=== PATIENT | female | born 1940 | race Caucasian/White ===

== ENCOUNTER 2019-07-01 08:23 | Emergency (ER) | payer MEDICARE, BC ==
--- NOTE | 2019-07-01 08:34 | ERPHSYRPT ---
- History of Present Illness Time Seen by Provider: 07/01/19 08:33 Historian: patient Exam Limitations: no limitations Physician History: 79 y/o obese white female with h/o htn and svt,7 weeks out from open left knee replacement presents with vomiting and diarrhea for one day. pt was found to have a uti several weeks ago. she was tx with both macrobid and keflex for 2 weeks followed by 10 days of bactrim when sx and dx of uti persisted. she has taken probiotics during her antibx tx. last antibx completed 1 month ago. pt was seen at [facility] yesterday to determine if her uti was still present. pt having several episodes of vomiting and diarrhea since yesterday. sx not improving. pt denies cp, denies soa, denies abd pain. Timing/Duration: day(s) (1), intermittent Activities at Onset: none Quality: other (no sig pain) Severity of Pain-Max: none Severity of Pain-Current: none Modifying Factors: Improves With: vomiting Associated Symptoms: diarrhea, nausea, vomiting Previous symptoms: no prior history Allergies/Adverse Reactions: lorazepam [From Ativan] Adverse Reaction (Intermediate, Verified 07/01/19 08:38) "It made me go crazy" morphine Adverse Reaction (Verified 07/01/19 08:38) Home Medications: Cyanocobalamin (Vitamin B-12) [Vitamin B-12] 1,000 mcg SL DAILY 10/11/14 [ History] Multivitamin,Stress Formula [Stress Formula] 1 each PO DAILY 10/11/14 [History] Metoprolol Succinate 100 mg PO DAILY 04/14/15 [History] Aspirin [Aspirin EC] 325 tab PO DAILY 06/24/16 [History] Hx Tetanus, Diphtheria Vaccination/Date Given: (UNKNOWN) Hx Influenza Vaccination/Date Given: Yes Hx Pneumococcal Vaccination/Date Given: Yes - Review of Systems Constitutional: No Symptoms Eyes: No Symptoms Ears, Nose, & Throat: No Symptoms Respiratory: No Symptoms Cardiac: No Symptoms Abdominal/Gastrointestinal: Nausea, Vomiting, Diarrhea Genitourinary Symptoms: No Symptoms Musculoskeletal: No Symptoms Skin: No Symptoms Neurological: No Symptoms Psychological: No Symptoms Endocrine: No Symptoms Hematologic/Lymphatic: No Symptoms Immunological/Allergic: No Symptoms All Other Systems: Reviewed and Negative - Past Medical History Pertinent Past Medical History: Yes Neurological History: Migraines ENT History: Cataracts Cardiac History: High Cholesterol, Hypertension Respiratory History: No Pertinent History, Bronchitis Endocrine Medical History: No Pertinent History Musculoskeletal History: Osteoarthritis, Osteoporosis, Other GI Medical History: No Pertinent History History: No Pertinent History Psycho-Social History: No Pertinent History Female Reproductive Disorders: Endometriosis Other Medical History: "BAD right KNEE" - Past Surgical History Past Surgical History: Yes Neuro Surgical History: No Pertinent History Cardiac: Cardiac Catheterization Respiratory: No Pertinent History Gastrointestinal: Cholecystectomy Genitourinary: No Pertinent History Musculoskeletal: No Pertinent History Female Surgical History: Hysterectomy Other Surgical History: SINUS - TONSILLITIS. scope of theh left knee - Social History Smoking Status: Never smoker Exposure to second hand smoke: No Drug Use: none Patient Lives Alone: No - Nursing Vital Signs Nursing Vital Signs: Initial Vital Signs Temperature 98.1 F 07/01/19 08:28 Pulse Rate 101 H 07/01/19 08:28 Respiratory Rate 16 07/01/19 08:28 Blood Pressure 166/89 07/01/19 08:28 O2 Sat by Pulse Oximetry 95 07/01/19 08:28 Pain Scale Pain Intensity 7 - Physical Exam General Appearance: mild distress, alert, anxiety Eye Exam: PERRL/EOMI, eyes nml inspection Ears, Nose, Throat Exam: normal ENT inspection, moist mucous membranes Neck Exam: normal inspection, non-tender, supple, full range of motion Respiratory Exam: normal breath sounds, lungs clear, airway intact, No chest tenderness, No respiratory distress Cardiovascular Exam: regular rate/rhythm, normal heart sounds, normal peripheral pulses Gastrointestinal/Abdomen Exam: soft, normal bowel sounds, No tenderness Pelvic Exam: not done Rectal Exam: not done Back Exam: normal inspection, normal range of motion, No CVA tenderness, No vertebral tenderness Extremity Exam: normal inspection, normal range of motion, pelvis stable, other (left ant knee incision site intact. no redness or evidence of infection) Neurologic Exam: alert, oriented x 3, cooperative, long chain quiller tender II-XII nml as tested, normal mood/affect, nml cerebellar function Skin Exam: normal color, warm, dry Lymphatic Exam: No adenopathy SpO2 Interpretation: normal O2 Delivery: Room Air - Course Nursing assessment & vital signs reviewed: Yes Ordered Tests: Active Orders 24 hr Category Date Time Status IV Insertion STAT Care 07/01/19 08:59 Active AMYLASE Stat Lab 07/01/19 09:05 Completed CBC W DIFF Stat Lab 07/01/19 09:05 Completed CMP Stat Lab 07/01/19 09:05 Completed LIPASE Stat Lab 07/01/19 09:05 Completed Lactic Acid Stat Lab 07/01/19 08:59 Completed MAGNESIUM Stat Lab 07/01/19 09:05 Completed UA W/RFX UR CULTURE Stat Lab 07/01/19 09:02 Completed Medication Summary Generic Name Dose Route Start Last Admin Trade Name Freq PRN Reason Stop Dose Admin Sodium Chloride 500 mls @ 500 mls/hr 07/01/19 10:32 07/01/19 10:44 Sodium Chloride 0.9% 500 Ml IV 07/01/19 11:31 500 mls/hr .Q1H ONE Administration Discontinued Medications Generic Name Dose Route Start Last Admin Trade Name Freq PRN Reason Stop Dose Admin Hydrocodone Bitart/Acetaminophen 1 tab 07/01/19 10:33 07/01/19 10:[address] 5/325 Mg PO 07/01/19 10:34 1 tab STAT ONE Administration Hydrocodone Bitart/Acetaminophen Confirm 07/01/19 10:[address] 5/325 Mg Administered 07/01/19 10:40 Dose 1 tab .ROUTE .STK-MED ONE Sodium Chloride 1,000 mls @ 999 mls/hr 07/01/19 08:59 07/01/19 11:23 Sodium Chloride 0.9% 1000 Ml IV 07/01/19 09:59 Infused .Q1H1M STA Infusion Sodium Chloride Confirm 07/01/19 09:04 Sodium Chloride 0.9% 1000 Ml Administered 07/01/19 09:05 Dose 1,000 mls @ ud .ROUTE .STK-MED ONE Sodium Chloride Confirm 07/01/19 10:39 Sodium Chloride 0.9% 1000 Ml Administered 07/01/19 10:40 Dose 1,000 mls @ ud .ROUTE .STK-MED ONE Sodium Chloride Confirm 07/01/19 10:44 Sodium Chloride 0.9% 500 Ml Administered 07/01/19 10:45 Dose 500 mls @ ud IV .STK-MED ONE Ondansetron HCl 4 mg 07/01/19 08:59 07/01/19 09:05 Zofran 4 Mg/2 Ml Vial IV 07/01/19 09:00 4 mg STAT ONE Administration Ondansetron HCl Confirm 07/01/19 09:04 Zofran 4 Mg/2 Ml Vial Administered 07/01/19 09:05 Dose 4 mg .ROUTE .[facility]-MED ONE Lab/Rad Data: Laboratory Result Diagrams 07/01/19 09:05 07/01/19 09:05 Laboratory Results 07/01/19 07/01/19 07/01/19 Range/Units 09:05 09:05 09:02 WBC 8.0 (4.0-10.5) K/mm3 RBC 4.59 (4.1-5.4) M/mm3 Hgb 14.2 (12.0-16.0) gm/dl Hct 43.5 (35-47) % MCV 94.8 (78-100) fl MCH 30.9 (26-32) pg MCHC 32.6 (32-36) g/dl RDW 14.3 H (11.5-14.0) % Plt Count 321 (150-450) K/mm3 MPV 9.5 (6-9.5) fl Gran % 74.3 H (36.0-66.0) % Eos # (Auto) 0.04 (0-0.5) Absolute Lymphs (auto) 1.39 (1.0-4.6) Absolute Monos (auto) 0.60 (0.0-1.3) Lymphocytes % 17.3 L (24.0-44.0) % Monocytes % 7.5 (0.0-12.0) % Eosinophils % 0.5 (0.00-5.0) % Basophils % 0.4 (0.0-0.4) % Absolute Granulocytes 5.96 (1.4-6.9) Basophils # 0.03 (0-0.4) Sodium 142 (137-145) mmol/L Potassium 4.0 (3.5-5.1) mmol/L Chloride 106 (98-107) mmol/L Carbon Dioxide 26 (22-30) mmol/L Anion Gap 14.6 (5-15) MEQ/L BUN 15 (7-17) mg/dL Creatinine 0.76 (0.52-1.04) mg/dL Estimated GFR > 60.0 ML/MIN Glucose 112 H (74-106) mg/dL Lactic Acid (0.4-2.0) Calcium 10.1 (8.4-10.2) mg/dL Magnesium 1.8 (1.6-2.3) mg/dL Total Bilirubin 0.40 (0.2-1.3) mg/dL AST 21 (14-36) U/L ALT 26 (0-35) U/L Alkaline Phosphatase 68 (38-126) U/L Serum Total Protein 7.5 (6.3-8.2) g/dL Albumin 4.3 (3.5-5.0) g/dL Amylase 72 (30-110) U/L Lipase 37 (23-300) U/L Urine Color YELLOW (YELLOW) Urine Appearance CLEAR (CLEAR) Urine pH 6.0 (5-6) Ur Specific [place] 1.013 (1.005-1.025) Urine Protein NEGATIVE (Negative) Urine Ketones NEGATIVE (NEGATIVE) Urine Blood NEGATIVE (0-5) Cuate/ul Urine Nitrite NEGATIVE (NEGATIVE) Urine Bilirubin NEGATIVE (NEGATIVE) Urine Urobilinogen NEGATIVE (0-1) mg/dL Ur Leukocyte Esterase NEGATIVE (NEGATIVE) Urine WBC (Auto) NONE (0-5) /HPF Urine RBC (Auto) NONE (0-2) /HPF U Epithel Cells (Auto) NONE (FEW) /HPF Urine Bacteria (Auto) NONE (NEGATIVE) /HPF Urine Mucus (Auto) SLIGHT (NEGATIVE) /HPF Urine Culture Reflexed NO (NO) Urine Glucose NEGATIVE (NEGATIVE) mg/dL 07/01/19 Range/Units 08:59 WBC (4.0-10.5) K/mm3 RBC (4.1-5.4) M/mm3 Hgb (12.0-16.0) gm/dl Hct (35-47) % MCV (78-100) fl MCH (26-32) pg MCHC (32-36) g/dl RDW (11.5-14.0) % Plt Count (150-450) K/mm3 MPV (6-9.5) fl Gran % (36.0-66.0) % Eos # (Auto) (0-0.5) Absolute Lymphs (auto) (1.0-4.6) Absolute Monos (auto) (0.0-1.3) Lymphocytes % (24.0-44.0) % Monocytes % (0.0-12.0) % Eosinophils % (0.00-5.0) % Basophils % (0.0-0.4) % Absolute Granulocytes (1.4-6.9) Basophils # (0-0.4) Sodium (137-145) mmol/L Potassium (3.5-5.1) mmol/L Chloride (98-107) mmol/L Carbon Dioxide (22-30) mmol/L Anion Gap (5-15) MEQ/L BUN (7-17) mg/dL Creatinine (0.52-1.04) mg/dL Estimated GFR ML/MIN Glucose (74-106) mg/dL Lactic Acid 1.4 (0.4-2.0) Calcium (8.4-10.2) mg/dL Magnesium (1.6-2.3) mg/dL Total Bilirubin (0.2-1.3) mg/dL AST (14-36) U/L ALT (0-35) U/L Alkaline Phosphatase (38-126) U/L Serum Total Protein (6.3-8.2) g/dL Albumin (3.5-5.0) g/dL Amylase (30-110) U/L Lipase (23-300) U/L Urine Color (YELLOW) Urine Appearance (CLEAR) Urine pH (5-6) Ur Specific [place] (1.005-1.025) Urine Protein (Negative) Urine Ketones (NEGATIVE) Urine Blood (0-5) Cuate/ul Urine Nitrite (NEGATIVE) Urine Bilirubin (NEGATIVE) Urine Urobilinogen (0-1) mg/dL Ur Leukocyte Esterase (NEGATIVE) Urine WBC (Auto) (0-5) /HPF Urine RBC (Auto) (0-2) /HPF U Epithel Cells (Auto) (FEW) /HPF Urine Bacteria (Auto) (NEGATIVE) /HPF Urine Mucus (Auto) (NEGATIVE) /HPF Urine Culture Reflexed (NO) Urine Glucose (NEGATIVE) mg/dL - Progress Progress: improved, re-examined Progress Note: 07/01/19 11:29 pt states she is feeling better. no n/v/d. pts headache gone. wants to go home Counseled pt/family regarding: lab results, diagnosis, need for follow-up - Departure Departure Disposition: Home Clinical Impression: Vomiting and diarrhea Condition: Stable Critical Care Time: No Referrals: SIDDHARTHA PERALES [Primary Care Provider] - Additional Instructions: drink plenty of fluids. follow up with primary doctor for further management. Prescriptions: Ondansetron HCl [Zofran] 4 mg PO TID PRN #10 tablet PRN Reason: Nausea/Vomiting
[2019-07-01] MEDS ORDERED: Zofran 4 MG/2 ML VIAL IV ONE (08:59)
[2019-07-01] MEDS ORDERED: Sodium Chloride 0.9% 1000 ML 1,000 ML IV STA (08:59)
[2019-07-01] MEDS ORDERED: Zofran 4 MG/2 ML VIAL ONE (09:04)
[2019-07-01] MEDS ORDERED: Sodium Chloride 0.9% 1000 ML 0 ML ONE (09:04)
[2019-07-01 09:13] LABS: BASOPHIL % 0.4 % (0.0-0.4); Basophil (Absolute #) 0.03 (0-0.4); Eosinophil % 0.5 % (0.00-5.0); Eosinophil (Absolute #) 0.04 (0-0.5); Granulocyte Absolute (ANC) 5.96 (1.4-6.9); Granulocytes % 74.3 % (36.0-66.0); Hematocrit 43.5 % (35-47); Hemoglobin 14.2 gm/dl (12.0-16.0); Lymphocyte (Absolute #) 1.39 (1.0-4.6); Lymphocytes % 17.3 % (24.0-44.0); Mean Cell Volume 94.8 fl (78-100); Mean Corpuscular Hemoglobin 30.9 pg (26-32); Mean Corpuscular Hgb Concent. 32.6 g/dl (32-36); Mean Platelet Volume 9.5 fl (6-9.5); Monocytes % 7.5 % (0.0-12.0); Platelet Count 321 K/mm3 (150-450); Red Blood Count 4.59 M/mm3 (4.1-5.4); Red Cell Distribution Width 14.3 % (11.5-14.0)
[2019-07-01 09:26] LABS: Appearance CLEAR (CLEAR); Bilirubin NEGATIVE (NEGATIVE); Blood NEGATIVE Ery/ul (0-5); Glucose NEGATIVE (NEGATIVE); Ketones NEGATIVE (NEGATIVE); Leukocyte Esterase NEGATIVE (NEGATIVE); Mucus SLIGHT /HPF (NEGATIVE); Nitrite NEGATIVE (NEGATIVE); Protein,Urine Dip NEGATIVE (Negative); Specific Gravity 1.013 (1.005-1.025); Urobilinogen NEGATIVE mg/dL (0-1)
[2019-07-01 09:37] LABS: ALBUMIN 4.3 g/dL (3.5-5.0); ALKALINE PHOSPHATASE 68 U/L (38-126); AMYLASE 72 U/L (30-110); ANION GAP 14.6 MEQ/L (5-15); BLOOD UREA NITROGEN 15 mg/dL (7-17); CHLORIDE 106 mmol/L (98-107); Calcium 10.1 mg/dL (8.4-10.2); Carbon Dioxide 26 mmol/L (22-30); Creatinine 1 0.76 mg/dL (0.52-1.04); Glucose 112 mg/dL (74-106); LIPASE 37 U/L (23-300); MAGNESIUM 1.8 mg/dL (1.6-2.3); SGOT/AST 21 U/L (14-36); SGPT/ALT 26 U/L (0-35); SODIUM 142 mmol/L (137-145); Total Protein 7.5 g/dL (6.3-8.2)
[2019-07-01] MEDS ORDERED: Sodium Chloride 0.9% 500 ML 500 ML IV ONE ×2 (10:32→10:44)
[2019-07-01] MEDS ORDERED: NORCO 5/325 MG PO ONE (10:33)
[2019-07-01] MEDS ORDERED: NORCO 5/325 MG ONE (10:39)
[2019-07-01] MEDS ORDERED: Sodium Chloride 0.9% 1000 ML 1,000 ML ONE (10:39)
[2019-07-01 11:31] VITALS: O2SAT 4
[2019-07-01 12:05] VITALS: BP 133/77; PULSE 77
== END 2019-07-01 12:00 | disposition home or self-care (01) ==
LOC: ED 08:23
DX: R11.10 Vomiting, unspecified (principal); R19.7 Diarrhea, unspecified
CPT/HCPCS: 36000; 36415; 80053; 81001; 82150; 83605; 83690; 83735; 85025; 96360; 96361; 96374; 99284; J2405; A9270-GY

== ENCOUNTER 2019-07-02 19:47 | Observation (INO) | payer MEDICARE, BC ==
[2019-07-02] MEDS ORDERED: Sodium Chloride 0.9% 1000 ML 1,000 ML IV STA (20:41)
[2019-07-02] MEDS ORDERED: Zofran 4 MG/2 ML VIAL IV ONE ×2 (20:41→21:32)
[2019-07-02] MEDS ORDERED: BENADRYL 50 MG/ML IV ONE (20:42)
[2019-07-02] MEDS ORDERED: Zofran 4 MG/2 ML VIAL ONE ×2 (20:45→21:34)
[2019-07-02 20:46] LABS: BASOPHIL % 0.6 % (0.0-0.4); Basophil (Absolute #) 0.06 (0-0.4); Eosinophil % 1.4 % (0.00-5.0); Eosinophil (Absolute #) 0.14 (0-0.5); Granulocyte Absolute (ANC) 7.79 (1.4-6.9); Granulocytes % 76.3 % (36.0-66.0); Hematocrit 44.7 % (35-47); Hemoglobin 14.6 gm/dl (12.0-16.0); Lymphocyte (Absolute #) 1.56 (1.0-4.6); Lymphocytes % 15.3 % (24.0-44.0); Mean Cell Volume 95.3 fl (78-100); Mean Corpuscular Hemoglobin 31.1 pg (26-32); Mean Corpuscular Hgb Concent. 32.7 g/dl (32-36); Mean Platelet Volume 10.8 fl (6-9.5); Monocyte (Absolute #) 0.65 (0.0-1.3); Monocytes % 6.4 % (0.0-12.0); Platelet Count 220 K/mm3 (150-450); Red Blood Count 4.69 M/mm3 (4.1-5.4); Red Cell Distribution Width 14.3 % (11.5-14.0); White Blood Count 10.2 K/mm3 (4.0-10.5)
[2019-07-02] MEDS ORDERED: Sodium Chloride 0.9% 1000 ML 1,000 ML ONE (20:46)
[2019-07-02] MEDS ORDERED: BENADRYL 50 MG/ML ONE (20:46)
--- NOTE | 2019-07-02 20:48 | ERPHSYRPT ---
- History of Present Illness Time Seen by Provider: 07/02/19 20:30 Historian: patient Exam Limitations: no limitations Patient Subjective Stated Complaint: pt states she has been vomiting since saturday. state she has been having diarrhea but none today, has been only gas today. states she has not been able to keep anything down all day. Triage Nursing Assessment: pt alert and oriented, answers questions approp. pt back per wheelchair. transfers to stretcher with minimal assist. skin warm and dry. abd soft and nontender. pt restless in bed, c/o frequent nasuea. Physician History: Patient has had nausea and in avomiting, diarrhea and lower abdominal pain for the past 2 days. She was seen yesterday in the emergency department, treated and discharged home. The vomiting and diarrhea with lower abdominal pain returned in the morning of 07/02/2019 as she cannot keep down her Zofran she was given. Timing/Duration: day(s) (2), intermittent, worse (today) Activities at Onset: none Quality: burning Abdominal Pain Onset Location: LLQ Severity of Pain-Max: moderate Severity of Pain-Current: moderate Modifying Factors: Improves With: nothing Associated Symptoms: diarrhea, nausea, vomiting, No back, No chest pain, No diaphoresis, No fever/chills, No fatigue, No headache, No heartburn, No loss of appetite, No neck pain, No rash, No shortness of breath, No syncope, No weakness Allergies/Adverse Reactions: lorazepam [From Ativan] Adverse Reaction (Intermediate, Verified 07/02/19 20:32) "It made me go crazy" morphine Adverse Reaction (Verified 07/02/19 20:32) Home Medications: Cyanocobalamin (Vitamin B-12) [Vitamin B-12] 1,000 mcg SL DAILY 10/11/14 [ History] Multivitamin,Stress Formula [Stress Formula] 1 each PO DAILY 10/11/14 [History] Metoprolol Succinate 100 mg PO DAILY 04/14/15 [History] Aspirin [Aspirin EC] 325 tab PO DAILY 06/24/16 [History] Hx Tetanus, Diphtheria Vaccination/Date Given: (UNKNOWN) Hx Influenza Vaccination/Date Given: Yes Hx Pneumococcal Vaccination/Date Given: Yes - Review of Systems Constitutional: No Fever, No Chills Eyes: No Eye Pain, No Vision Changes Ears, Nose, & Throat: No Mouth Swelling, No Throat Pain Respiratory: No Cough, No Dyspnea Cardiac: No Chest Pain, No Edema, No Syncope Abdominal/Gastrointestinal: Abdominal Pain, Nausea, Vomiting, Diarrhea, No Hematemesis, No Hematochezia, No Melena Genitourinary Symptoms: No Dysuria, No Hematuria, No Flank Pain Musculoskeletal: No Back Pain, No Neck Pain Skin: No Rash Neurological: No Dizziness, No Focal Weakness, No Sensory Changes Psychological: No Symptoms Endocrine: No Symptoms Hematologic/Lymphatic: No Easy Bleeding, No Easy Bruising All Other Systems: Reviewed and Negative - Past Medical History Pertinent Past Medical History: Yes Neurological History: Migraines ENT History: Cataracts Cardiac History: High Cholesterol, Hypertension Respiratory History: No Pertinent History, Bronchitis Endocrine Medical History: No Pertinent History Musculoskeletal History: Osteoarthritis, Osteoporosis, Other GI Medical History: No Pertinent History History: No Pertinent History Psycho-Social History: No Pertinent History Female Reproductive Disorders: Endometriosis Other Medical History: "BAD lt KNEE". recent uti - Past Surgical History Past Surgical History: Yes Neuro Surgical History: No Pertinent History Cardiac: Cardiac Catheterization Respiratory: No Pertinent History Gastrointestinal: Cholecystectomy Genitourinary: No Pertinent History Musculoskeletal: Orthopedic Surgery Female Surgical History: Hysterectomy Other Surgical History: SINUS - TONSILLITIS. tot lt knee approx 7 weeks ago - Social History Smoking Status: Never smoker Exposure to second hand smoke: No Drug Use: none Patient Lives Alone: No - Nursing Vital Signs Nursing Vital Signs: Initial Vital Signs Pulse Rate 85 07/02/19 20:10 Respiratory Rate 16 07/02/19 20:10 Blood Pressure 190/90 07/02/19 20:10 O2 Sat by Pulse Oximetry 96 07/02/19 20:10 Pain Scale Pain Intensity 5 - Physical Exam General Appearance: no apparent distress, alert Eye Exam: PERRL/EOMI, eyes nml inspection Ears, Nose, Throat Exam: normal ENT inspection, pharynx normal, moist mucous membranes Neck Exam: normal inspection, non-tender, supple, full range of motion Respiratory Exam: normal breath sounds, lungs clear, No respiratory distress Cardiovascular Exam: regular rate/rhythm, normal heart sounds Gastrointestinal/Abdomen Exam: soft, normal bowel sounds, tenderness (LLQ), No distention, No mass, No guarding, No pulsatile mass Back Exam: normal inspection, normal range of motion, No CVA tenderness, No vertebral tenderness Extremity Exam: normal inspection, normal range of motion, pelvis stable Neurologic Exam: alert, oriented x 3, cooperative, normal mood/affect, nml cerebellar function, sensation nml, No motor deficits Skin Exam: normal color, warm, dry Lymphatic Exam: No adenopathy SpO2 Interpretation: normal SpO2: 96 O2 Delivery: Room Air - Course Nursing assessment & vital signs reviewed: Yes - CT Exams Abdomen/Pelvis CT Interpretation: Other (Per Radiologist Interpretation: Stable small Hepatic Hemangioma, fatty liver, diverticulosis. No new/acute findings.) Ordered Tests: Active Orders 24 hr Category Date Time Status ABDOMEN AND PELVIS W CONTRAST [CT] Stat Exams 07/02/19 21:08 Taken AMYLASE Stat Lab 07/02/19 20:25 Completed CBC W DIFF Stat Lab 07/02/19 20:25 Completed CMP Stat Lab 07/02/19 20:25 Completed LIPASE Stat Lab 07/02/19 20:25 Completed Lactic Acid Stat Lab 07/02/19 20:55 Completed UA W/RFX UR CULTURE Stat Lab 07/02/19 22:43 Received Medication Summary Discontinued Medications Generic Name Dose Route Start Last Admin Trade Name Freq PRN Reason Stop Dose Admin Diphenhydramine HCl 25 mg 07/02/19 20:42 07/02/19 20:48 Benadryl 50 Mg/Ml IV 07/02/19 20:43 25 mg STAT ONE Administration Diphenhydramine HCl Confirm 07/02/19 20:46 Benadryl 50 Mg/Ml Administered 07/02/19 20:47 Dose 50 mg .ROUTE .STK-MED ONE Famotidine 20 mg 07/02/19 21:31 07/02/19 21:38 Pepcid 20 Mg Vial IV 07/02/19 21:32 20 mg STAT ONE Administration Famotidine Confirm 07/02/19 21:34 Pepcid 20 Mg Vial Administered 07/02/19 21:35 Dose 20 mg IV .STK-MED ONE Sodium Chloride 1,000 mls @ 999 mls/hr 07/02/19 20:41 07/02/19 22:01 Sodium Chloride 0.9% 1000 Ml IV 07/02/19 21:41 Infused .Q1H1M STA Infusion Sodium Chloride Confirm 07/02/19 20:46 Sodium Chloride 0.9% 1000 Ml Administered 07/02/19 20:47 Dose 1,000 mls @ ud .ROUTE .STK-MED ONE Ondansetron HCl 4 mg 07/02/19 20:41 07/02/19 20:48 Zofran 4 Mg/2 Ml Vial IV 07/02/19 20:42 4 mg STAT ONE Administration Ondansetron HCl Confirm 07/02/19 20:45 Zofran 4 Mg/2 Ml Vial Administered 07/02/19 20:46 Dose 4 mg .ROUTE .STK-MED ONE Ondansetron HCl 4 mg 07/02/19 21:32 07/02/19 21:38 Zofran 4 Mg/2 Ml Vial IV 07/02/19 21:33 4 mg STAT ONE Administration Ondansetron HCl Confirm 07/02/19 21:34 Zofran 4 Mg/2 Ml Vial Administered 07/02/19 21:35 Dose 4 mg .ROUTE .STK-MED ONE Lab/Rad Data: Laboratory Result Diagrams 07/02/19 20:25 07/02/19 20:25 Laboratory Results 07/02/19 07/02/19 07/02/19 Range/Units 20:55 20:25 20:25 WBC 10.2 (4.0-10.5) K/mm3 RBC 4.69 (4.1-5.4) M/mm3 Hgb 14.6 (12.0-16.0) gm/dl Hct 44.7 (35-47) % MCV 95.3 (78-100) fl MCH 31.1 (26-32) pg MCHC 32.7 (32-36) g/dl RDW 14.3 H (11.5-14.0) % Plt Count 220 (150-450) K/mm3 MPV 10.8 H (6-9.5) fl Gran % 76.3 H (36.0-66.0) % Eos # (Auto) 0.14 (0-0.5) Absolute Lymphs (auto) 1.56 (1.0-4.6) Absolute Monos (auto) 0.65 (0.0-1.3) Lymphocytes % 15.3 L (24.0-44.0) % Monocytes % 6.4 (0.0-12.0) % Eosinophils % 1.4 (0.00-5.0) % Basophils % 0.6 (0.0-0.4) % Absolute Granulocytes 7.79 H (1.4-6.9) Basophils # 0.06 (0-0.4) Sodium 140 (137-145) mmol/L Potassium 4.5 (3.5-5.1) mmol/L Chloride 103 (98-107) mmol/L Carbon Dioxide 24 (22-30) mmol/L Anion Gap 17.6 H (5-15) MEQ/L BUN 13 (7-17) mg/dL Creatinine 0.70 (0.52-1.04) mg/dL Estimated GFR > 60.0 ML/MIN Glucose 116 H (74-106) mg/dL Lactic Acid 1.6 (0.4-2.0) Calcium 10.2 (8.4-10.2) mg/dL Total Bilirubin 0.50 (0.2-1.3) mg/dL AST 34 (14-36) U/L ALT 29 (0-35) U/L Alkaline Phosphatase 75 (38-126) U/L Serum Total Protein 8.3 H (6.3-8.2) g/dL Albumin 4.7 (3.5-5.0) g/dL Amylase 80 (30-110) U/L Lipase 30 (23-300) U/L - Progress Progress: unchanged Progress Note: 07/02/19 21:32 Patient began vomiting again after returning from CT scan. IV Zofran and Pepcid will be given. 07/02/19 22:[address] Quinonez, Hospitalist, about patient's case. Dr Quinonez accepted the patient for observation. Discussed with .: Tres Will see patient in: hospital (observation) Counseled pt/family regarding: lab results, diagnosis, need for follow-up, rad results - Departure Departure Disposition: Observation ([facility]), Extended Care Facility Clinical Impression: LLQ abdominal pain, Hypertension Intractable nausea and vomiting Qualifiers: Vomiting type: unspecified Qualified Code(s): R11.2 - Nausea with vomiting, unspecified Diarrhea Qualifiers: Diarrhea type: unspecified type Qualified Code(s): R19.7 - Diarrhea, unspecified Condition: Good Critical Care Time: No Referrals: SIDDHARTHA QUINONEZ [Primary Care Provider] -
[2019-07-02 20:53] LABS: ALBUMIN 4.7 g/dL (3.5-5.0); ALKALINE PHOSPHATASE 75 U/L (38-126); AMYLASE 80 U/L (30-110); ANION GAP 17.6 MEQ/L (5-15); BLOOD UREA NITROGEN 13 mg/dL (7-17); CHLORIDE 103 mmol/L (98-107); Calcium 10.2 mg/dL (8.4-10.2); Carbon Dioxide 24 mmol/L (22-30); Glucose 116 mg/dL (74-106); LIPASE 30 U/L (23-300); Potassium 4.5 mmol/L (3.5-5.1); SGOT/AST 34 U/L (14-36); SGPT/ALT 29 U/L (0-35); SODIUM 140 mmol/L (137-145); Total Protein 8.3 g/dL (6.3-8.2)
[2019-07-02] MEDS ORDERED: Pepcid 20 MG VIAL IV ONE ×2 (21:31→21:34)
[2019-07-02 22:44] LABS: Appearance CLEAR (CLEAR); Bilirubin NEGATIVE (NEGATIVE); Blood NEGATIVE Ery/ul (0-5); Glucose NEGATIVE (NEGATIVE); Ketones NEGATIVE (NEGATIVE); Leukocyte Esterase NEGATIVE (NEGATIVE); Nitrite NEGATIVE (NEGATIVE); Protein,Urine Dip NEGATIVE (Negative); Specific Gravity 1.032 (1.005-1.025); Urobilinogen NEGATIVE mg/dL (0-1)
[2019-07-02 23:24] LABS: Slide Review 1 YES
[2019-07-03] MEDS ORDERED: BENADRYL 50 MG/ML IV PRN
[2019-07-03] MEDS ORDERED: Zofran 2 MG/ML MULTI DOSE VIAL 20 ML IV PRN
[2019-07-03] MEDS ORDERED: TYLENOL 325 MG PO PRN
[2019-07-03] MEDS: Sodium Chloride 0.9% 1000 ML 1,000 ML IV SCH ×3 (00:36→21:40)
[2019-07-03] MEDS ORDERED: Phenergan 25 MG INJ IV PRN (01:39)
[2019-07-03 05:12] LABS: BASOPHIL % 0.4 % (0.0-0.4); Basophil (Absolute #) 0.04 (0-0.4); Eosinophil % 0.2 % (0.00-5.0); Eosinophil (Absolute #) 0.02 (0-0.5); Granulocyte Absolute (ANC) 6.92 (1.4-6.9); Granulocytes % 77.5 % (36.0-66.0); Hematocrit 39.7 % (35-47); Hemoglobin 12.8 gm/dl (12.0-16.0); Lymphocyte (Absolute #) 1.38 (1.0-4.6); Lymphocytes % 15.4 % (24.0-44.0); Mean Cell Volume 95.7 fl (78-100); Mean Corpuscular Hemoglobin 30.8 pg (26-32); Mean Corpuscular Hgb Concent. 32.2 g/dl (32-36); Mean Platelet Volume 9.5 fl (6-9.5); Monocyte (Absolute #) 0.58 (0.0-1.3); Monocytes % 6.5 % (0.0-12.0); Red Blood Count 4.15 M/mm3 (4.1-5.4); White Blood Count 8.9 K/mm3 (4.0-10.5)
[2019-07-03 05:21] LABS: ANION GAP 15.2 MEQ/L (5-15); BLOOD UREA NITROGEN 9 mg/dL (7-17); CHLORIDE 104 mmol/L (98-107); Calcium 9.3 mg/dL (8.4-10.2); Carbon Dioxide 25 mmol/L (22-30); Creatinine 1 0.69 mg/dL (0.52-1.04); Glucose 115 mg/dL (74-106); Potassium 3.6 mmol/L (3.5-5.1); SODIUM 141 mmol/L (137-145)
[2019-07-03 05:23] LABS: Platelet Count 306 K/mm3 (150-450)
[2019-07-03 08:23] LABS: AMYLASE 64 U/L (30-110); LIPASE 27 U/L (23-300)
--- NOTE | 2019-07-03 08:51 | HP ---
CHIEF COMPLAINT: Intractable vomiting. HISTORY OF PRESENT ILLNESS: The patient is an 79 year-old white female who reports she has been having problems with abdominal discomfort over the last six weeks since she had knee surgery. She said she was initially constipated and has been having problems with diarrhea. Again would have alternating constipation and diarrhea. Over the past three days she has had more problems with nausea and presented to the emergency room the day before yesterday for similar compliant and was checked out and sent home with some Zofran. The patient however has now intractable vomiting and presented back to the emergency room and subsequently admitted for IV fluid hydration and further evaluation. PAST MEDICAL/SURGICAL HISTORY: Significant for the recent knee surgery. She has had problems with hysterectomy, sinus issues. She apparently had tonsillectomy. HOME MEDICATIONS: Aspirin, vitamin B12, Estradiol, Metoprolol, multivitamins, Zofran, Phenergan, Tramadol. ALLERGIES: MORPHINE, LORAZEPAM. PHYSICAL EXAMINATION: The patient is an obese white female. Her temperature initially on admission was 98.1F with pulse 85, respiratory rate 16 and blood pressure 190/90. HEENT: Normocephalic, atraumatic. Pupils equal round reactive to light. Extraocular movements intact. Oropharynx is pink and moist. NECK: Supple without lymphadenopathy, thyromegaly or JVD. CHEST: Clear to auscultation. HEART: Regular rate and rhythm. ABDOMEN: Soft, slightly tender. No palpable masses. Active bowel sounds. EXTREMITIES: Without cyanosis, clubbing or edema. NEUROLOGIC: The patient is alert and oriented x3. LAB DATA AND TESTS: The patient's laboratory studies in the emergency room with CT scan showing no acute findings. Lactic acid was 1.6. UA was normal, specific gravity however was concentrated with 1.032. Metabolic panel showed glucose nonfasting 116, BUN 13, creatinine 0.7. Electrolytes normal. Liver enzymes normal. Amylase and lipase are normal. White count 10,200, hemoglobin 14.9, PLT count 220,000. There appears to be mild left shift of 76.1% granulocytes. ASSESSMENT: A patient with vomiting and intermittent diarrhea. We will check her stools for Clostridium difficile if she has any diarrheal stools while she is here. She has been placed on Phenergan as she has been unresponsive with the Zofran to stop the vomiting. She has been placed on IV fluids and gut rest at the present time until she stops vomiting.
[2019-07-03] MEDS ORDERED: ESTRADIOL TOP SCH (09:30)
[2019-07-03] MEDS ORDERED: MEDICATION INTERVENTION MC SCH (09:45)
--- NOTE | 2019-07-03 10:20 | XRAY ---
Indication: Left lower quadrant pain. Nausea and vomiting. History diverticulitis. Multiple contiguous axial images obtained through the abdomen and pelvis using 80 cc Isovue 370 contrast. Comparison: May 23, 2018. Lung bases again demonstrates mild dependent atelectasis. No infiltrate or effusion. Heart is not enlarged. Stable small hiatal hernia. Noncontrasted stomach and bowel loops appear nonobstructed. Stable mild descending and sigmoid diverticulosis. No evidence for diverticulitis or free fluid/air. Again previous cholecystectomy, hysterectomy, and appendectomy. Remaining liver, pancreas, spleen, adrenal glands, kidneys, ureters, and bladder appear unremarkable. There remains mild aortoiliac calcifications. No AAA or pathologic retroperitoneal lymphadenopathy. Osseous structures intact again with minimal degenerative changes throughout the spine and levoscoliosis. Impression: 1. Stable small hiatal hernia and colonic diverticulosis. 2. Remaining CT abdomen/pelvis with contrast exam is negative. CT DI 21.36
[2019-07-03] MEDS: ENOXAPARIN SODIUM SQ SCH (11:11)
[2019-07-03] MEDS: PROTONIX 40 MG IV IV SCH (11:11)
[2019-07-03] MEDS: Pepcid 20 MG VIAL IV SCH ×2 (11:11→21:40)
[2019-07-03] MEDS: Toprol Xl 100 MG PO SCH (11:11)
[2019-07-03 11:22] LABS: 027 TOX PROD PRESUMPTIVE NEGATIVE (NEGATIVE); TOXIGENIC C. DIFF ORG NEGATIVE (NEGATIVE)
[2019-07-03 14:10] LABS: Adenovirus F 40/41 NEGATIVE (NEGATIVE); Astrovirus NEGATIVE (NEGATIVE); C. Difficile Organism NEGATIVE (NEGATIVE); Campylobacter NEGATIVE (NEGATIVE); Cryptosporidium NEGATIVE (NEGATIVE); Cyclospora cayentanensis NEGATIVE (NEGATIVE); Entamoeaba histolytica NEGATIVE (NEGATIVE); Enteroaggregative E.coli NEGATIVE (NEGATIVE); Enteropathogenic E.coli NEGATIVE (NEGATIVE); Enterotoxigenic E.coli NEGATIVE (NEGATIVE); Giardia lamblia NEGATIVE (NEGATIVE); Norovirus GI/GII NEGATIVE (NEGATIVE); Plesiomonas shigelloides NEGATIVE (NEGATIVE); Rotavirus A NEGATIVE (NEGATIVE); Salmonella NEGATIVE (NEGATIVE); Sapovirus NEGATIVE (NEGATIVE); Shiga-like toxin prod.E.coli NEGATIVE (NEGATIVE); Vibrio NEGATIVE (NEGATIVE); Vibrio cholerae NEGATIVE (NEGATIVE); Yersinia enterocolitica NEGATIVE (NEGATIVE)
[2019-07-04 06:43] LABS: Hematocrit 39.2 % (35-47); Hemoglobin 12.7 gm/dl (12.0-16.0); Mean Cell Volume 94.7 fl (78-100); Mean Corpuscular Hemoglobin 30.7 pg (26-32); Mean Corpuscular Hgb Concent. 32.4 g/dl (32-36); Mean Platelet Volume 9.3 fl (6-9.5); Platelet Count 300 K/mm3 (150-450); Red Blood Count 4.14 M/mm3 (4.1-5.4); Red Cell Distribution Width 13.7 % (11.5-14.0); White Blood Count 9.8 K/mm3 (4.0-10.5)
[2019-07-04 07:00] LABS: ALBUMIN 3.8 g/dL (3.5-5.0); ALKALINE PHOSPHATASE 60 U/L (38-126); ANION GAP 14.2 MEQ/L (5-15); BLOOD UREA NITROGEN 10 mg/dL (7-17); CHLORIDE 103 mmol/L (98-107); Calcium 8.8 mg/dL (8.4-10.2); Carbon Dioxide 22 mmol/L (22-30); Creatinine 1 0.58 mg/dL (0.52-1.04); Glucose 98 mg/dL (74-106); Potassium 3.5 mmol/L (3.5-5.1); SGOT/AST 19 U/L (14-36); SGPT/ALT 21 U/L (0-35); SODIUM 137 mmol/L (137-145); Total Protein 6.9 g/dL (6.3-8.2)
[2019-07-04] MEDS: Sodium Chloride 0.9% 1000 ML 1,000 ML IV SCH ×2 (07:42→17:42)
[2019-07-04] MEDS: Toprol Xl 100 MG PO SCH (10:12)
[2019-07-04] MEDS: PROTONIX 40 MG IV IV SCH (10:12)
[2019-07-04] MEDS: Pepcid 20 MG VIAL IV SCH ×2 (10:15→21:02)
[2019-07-04] MEDS: ENOXAPARIN SODIUM SQ SCH (10:21)
[2019-07-04] MEDS ORDERED: ZOFRAN ODT 4 MG PO PRN (14:26)
[2019-07-04] MEDS: Mylicon 80MG PO PRN (17:41)
[2019-07-05] MEDS: Sodium Chloride 0.9% 1000 ML 1,000 ML IV SCH (03:19)
[2019-07-05 07:28] LABS: Hematocrit 41.3 % (35-47); Hemoglobin 13.7 gm/dl (12.0-16.0); Mean Cell Volume 93.4 fl (78-100); Mean Corpuscular Hgb Concent. 33.2 g/dl (32-36); Mean Platelet Volume 9.9 fl (6-9.5); Platelet Count 295 K/mm3 (150-450); Red Blood Count 4.42 M/mm3 (4.1-5.4); Red Cell Distribution Width 13.5 % (11.5-14.0); White Blood Count 7.9 K/mm3 (4.0-10.5)
[2019-07-05 07:38] LABS: ALBUMIN 4.2 g/dL (3.5-5.0); ALKALINE PHOSPHATASE 62 U/L (38-126); ANION GAP 14.6 MEQ/L (5-15); BLOOD UREA NITROGEN 8 mg/dL (7-17); CHLORIDE 101 mmol/L (98-107); Calcium 8.9 mg/dL (8.4-10.2); Carbon Dioxide 25 mmol/L (22-30); Creatinine 1 0.66 mg/dL (0.52-1.04); Glucose 98 mg/dL (74-106); Potassium 3.4 mmol/L (3.5-5.1); SGOT/AST 20 U/L (14-36); SGPT/ALT 22 U/L (0-35); SODIUM 137 mmol/L (137-145); Total Protein 7.2 g/dL (6.3-8.2)
[2019-07-05] MEDS: Toprol Xl 100 MG PO SCH (10:28)
[2019-07-05] MEDS: PROTONIX 40 MG IV IV SCH (10:28)
[2019-07-05] MEDS: ENOXAPARIN SODIUM SQ SCH (10:28)
[2019-07-05] MEDS: Pepcid 20 MG VIAL IV SCH ×2 (10:28→22:02)
[2019-07-05] MEDS: ZOVIRAX 800 MG PO SCH ×4 (10:29→22:02)
[2019-07-05] MEDS: Mylicon 80MG PO PRN (18:58)
[2019-07-05] MEDS: Sodium Chloride 0.9% 10 ML FLUSH Syringe IV SCH (22:03)
[2019-07-06 04:41] VITALS: O2SAT 96
[2019-07-06] MEDS: Sodium Chloride 0.9% 10 ML FLUSH Syringe IV SCH (06:04)
[2019-07-06] MEDS: ZOVIRAX 800 MG PO SCH (06:04)
[2019-07-06 07:53] VITALS: BP 144/66; PULSE 82
[2019-07-06] MEDS: Toprol Xl 100 MG PO SCH (07:57)
--- NOTE | 2019-07-06 14:21 | DS ---
DISCHARGE DIAGNOSES: 1) INTRACTABLE VOMITING. 2) DEHYDRATION. 3) HERPES ZOSTER. HISTORY: The patient is an 79 year-old white female who presented to the emergency room having had abdominal discomfort since she had knee surgery six weeks ago. She has had intermittent bouts of nausea and vomiting that became worse over worse over the three days prior to admission. The patient was seen in the emergency room and admitted to the hospital for IV fluids, IV Protonix and Zofran. HOSPITAL COURSE: The patient received the above medications. Hydration was achieved on the first 12 hours. However, the patient continued to have a sensitive stomach despite the Zofran. We had to place her on Phenergan which did improve the nausea. She had a few loose stools which did necktie turner to be negative for Clostridium difficile or enteric pathogens. The patient was on the IV Protonix and required simethicone for gas complaint. She was slow to improve but by 07/05/2019 her metabolic panel was entirely normal other than a slightly low potassium of 3.4. Entirely normal CBC as well. By the morning of 07/06/2019 was nearly back to normal having had no vomiting and no bowel movements in the last 24 hours. She was ready for discharge home. She did complain of some shingles developing over her left arm which is her usual spot for which she generally receives Zovirax. We did place her on Zovirax beginning in the hospital. DISCHARGE PLAN: The patient is to be on Prilosec 20 mg daily. She will be seen in the office in one week. She will also continue her acyclovir for treatment of her shingles. She is to return to the use of her usual home medications otherwise other than aspirin which include tramadol PRN for pain. She will be given Zofran 4 mg sublingual PRN for nausea. Metoprolol 100 mg daily, Estradiol and B12.
== END 2019-07-06 10:11 | disposition home or self-care (01) ==
LOC: ED 19:47 → MED SURG 23:58
PROVIDERS: ADMIT Family Medicine; ATTEND Family Medicine
DX: R11.2 Nausea with vomiting, unspecified (principal); E86.0 Dehydration; R19.7 Diarrhea, unspecified; B02.9 Zoster without complications; Z98.890 Other specified postprocedural states
CPT/HCPCS: 36415; 74177; 80048; 80053; 81001; 82150; 83605; 83690; 85025; 85027; 87493; 87507; 96360; 96374; 96375; 96376; 99285; G0378; J1200; J1650; J2405; J2550; Q0162; A9270-GY

== ENCOUNTER 2019-07-27 05:52 | Day surgery (SDC) | payer MEDICARE, BC ==
[2019-07-27] MEDS ORDERED: Lactated Ringers 1,000 ML IV SCH (06:30)
[2019-07-27] MEDS ORDERED: DIPRIVAN 200 MG/20 ML IV ONE ×2 (06:50→07:14)
[2019-07-27 08:29] VITALS: BP 139/85; PULSE 83; O2SAT 97
--- NOTE | 2019-07-27 10:43 | OP ---
SURGERY DATE/TIME: 07/27/2019 0655 PREOPERATIVE DIAGNOSIS: Positive Cologuard test. POSTOPERATIVE DIAGNOSIS: Polyps in the ascending and sigmoid colon, sigmoid diverticulosis. PROCEDURE: Colonoscopy with cold forceps biopsy. SURGEON: Dr. Quinonez. ANESTHESIA: MAC. Medications given by anesthesia department. HISTORY: The patient is an 79 year-old white female presenting now for positive Cologuard test. The patient reports she previously had colonoscopy over ten years ago. She has had no other problems. The patient was appraised of the risks of the procedure including the risk of perforation, phlebitis, untoward reaction to medication, bleeding and missed lesions. The patient verbalized her understanding and desired to have the procedure performed. DESCRIPTION OF PROCEDURE: The patient was given the medications by the anesthesia department. She had continuous pulse oximetry, ECG monitoring, intermittent blood pressure monitoring and tidal CO2 monitoring during the examination. She was placed in the left lateral decubitus position. A digital rectal examination was performed and revealed normal anal sphincter tone and no masses. The flexible Olympus pediatric colonoscope was used to intubate the rectum. A view of the colon was developed sequentially to the cecum. Upon insertion and withdrawal was noted approximately 2 x 1 cm sessile lesion in the ascending colon this is biopsied several times to rule out the presence of adenomatous change. There was also noted to be a second small polyp measuring approximately 0.75 cm in size biopsied using cold biopsy technique also in the sigmoid colon. There was also noted to be a few scattered sigmoid diverticula. The scope was removed from the patient who tolerated the procedure well and sent to OP recovery in good condition. The prep was noted to be fair to good.
== END 2019-07-27 08:30 | disposition home or self-care (01) ==
LOC: SDC 05:52
PROVIDERS: ATTEND Family Medicine
DX: Z12.11 Encounter for screening for malignant neoplasm of colon (principal); D12.2 Benign neoplasm of ascending colon; K63.5 Polyp of colon
CPT/HCPCS: 88305; 99100; J2704

== ENCOUNTER 2019-09-10 13:39 | Inpatient (IN) | payer MEDICARE, BC ==
--- NOTE | 2019-09-10 14:02 | ERPHSYRPT ---
- History of Present Illness Time Seen by Provider: 09/10/19 14:02 Source: patient, family Exam Limitations: no limitations Physician History: nnausea vomiting and diarrhea started today patient has been coughing for more than a week. She has seen her primary care doctor who prescribed her Z-Gurvinder, prednisone and Tessalon Perles. Patient is not getting better. She is also having sputum. Timing/Duration: today Severity: moderate Associated Symptoms: nausea, vomiting, abdominal pain, shortness of breath, cough, malaise Allergies/Adverse Reactions: lorazepam [From Ativan] Adverse Reaction (Intermediate, Verified 07/27/19 06:23) "It made me go crazy" morphine Adverse Reaction (Verified 07/27/19 06:23) Home Medications: Metoprolol Succinate 100 mg PO DAILY 04/14/15 [History] Estradiol 1 patch.bwk TOP 2XW 07/03/19 [History] Albuterol/Ipratropium 3ml Neb* [DUONEB 0.5-3 MG/3 ml Neb] 3 ml NEBULIZE TID [History] Sulfamethoxazole/Trimethoprim [Bactrim Ds Tablet] 1 each PO DAILY 09/10/19 [ History] Hx Tetanus, Diphtheria Vaccination/Date Given: (UNKNOWN) Hx Influenza Vaccination/Date Given: Yes Hx Pneumococcal Vaccination/Date Given: Yes - Review of Systems Constitutional: No Fever, No Chills Eyes: No Symptoms Ears, Nose, & Throat: No Symptoms Respiratory: Cough, No Dyspnea Cardiac: No Chest Pain, No Edema, No Syncope Abdominal/Gastrointestinal: Abdominal Pain, Nausea, Vomiting, Diarrhea Genitourinary Symptoms: No Dysuria Musculoskeletal: No Back Pain, No Neck Pain Skin: No Rash Neurological: No Dizziness, No Focal Weakness, No Sensory Changes Psychological: No Symptoms Endocrine: No Symptoms All Other Systems: Reviewed and Negative - Past Medical History Pertinent Past Medical History: Yes Neurological History: Migraines ENT History: Cataracts Cardiac History: Arrhythmia, High Cholesterol, Hypertension Respiratory History: No Pertinent History, Bronchitis Endocrine Medical History: No Pertinent History Musculoskeletal History: Osteoarthritis, Osteoporosis, Other GI Medical History: Other History: No Pertinent History Psycho-Social History: No Pertinent History Female Reproductive Disorders: Endometriosis Other Medical History: "BAD lt KNEE". recent uti - Past Surgical History Past Surgical History: Yes Neuro Surgical History: No Pertinent History Cardiac: Cardiac Catheterization Respiratory: No Pertinent History Gastrointestinal: Cholecystectomy Genitourinary: No Pertinent History Musculoskeletal: Orthopedic Surgery Female Surgical History: Hysterectomy Other Surgical History: SINUS - TONSILLITIS. tot lt knee approx 05/12/19 Dr Lantigua at [facility] - Social History Smoking Status: Never smoker Exposure to second hand smoke: Yes Drug Use: none Patient Lives Alone: No - Nursing Vital Signs Nursing Vital Signs: Initial Vital Signs Temperature 98.1 F 09/10/19 13:51 Pulse Rate 111 H 09/10/19 13:51 Respiratory Rate 20 09/10/19 13:51 Blood Pressure 163/90 09/10/19 13:51 O2 Sat by Pulse Oximetry 95 09/10/19 13:51 Pain Scale Pain Intensity 8 - Physical Exam General Appearance: no apparent distress, alert Eye Exam: PERRL/EOMI, eyes nml inspection Ears, Nose, Throat Exam: normal ENT inspection, TMs normal, pharynx normal, moist mucous membranes Neck Exam: normal inspection, non-tender, supple, full range of motion Respiratory Exam: normal breath sounds, lungs clear, No respiratory distress Cardiovascular Exam: regular rate/rhythm, normal heart sounds, normal peripheral pulses Gastrointestinal/Abdomen Exam: soft, normal bowel sounds, No tenderness, No mass Back Exam: normal inspection, normal range of motion, No CVA tenderness, No vertebral tenderness Extremity Exam: normal inspection, normal range of motion, pelvis stable Neurologic Exam: alert, oriented x 3, cooperative, normal mood/affect, nml cerebellar function, nml station & gait, sensation nml, No motor deficits Skin Exam: normal color, warm, dry, No rash Lymphatic Exam: No adenopathy SpO2 Interpretation: normal O2 Delivery: Room Air - Course Nursing assessment & vital signs reviewed: Yes Ordered Tests: Active Orders 24 hr Category Date Time Status IV Insertion STAT Care 09/10/19 14:04 Active CHEST 1 VIEW (PORTABLE) Stat Exams 09/10/19 14:33 Taken BLOOD CULTURE Stat Lab 09/10/19 14:50 Received CBC W DIFF Stat Lab 09/10/19 14:30 Completed CMP Stat Lab 09/10/19 14:30 Completed LIPASE Stat Lab 09/10/19 14:30 Completed Lactic Acid Stat Lab 09/10/19 15:08 Results UA W/RFX UR CULTURE Stat Lab 09/10/19 14:30 Completed Peak Expiratory Flow Rate ONCE RT 09/10/19 15:03 Active Respiratory Therapy Assessment DAILY RT 09/10/19 15:03 Active Medication Summary Generic Name Dose Route Start Last Admin Trade Name Noeq PRN Reason Stop Dose Admin Vancomycin HCl 250 mg 09/10/19 17:00 Vancocin 500 Mg Vial PO 10/10/19 16:59 QID LISA Discontinued Medications Generic Name Dose Route Start Last Admin Trade Name Chanelle PRN Reason Stop Dose Admin Albuterol/Ipratropium 3 ml 09/10/19 14:35 09/10/19 14:59 Duoneb 0.5-3 Mg/3 Ml Neb IH 09/10/19 14:36 3 ml STAT ONE Administration Albuterol/Ipratropium Confirm 09/10/19 14:55 Duoneb 0.5-3 Mg/3 Ml Neb Administered 09/10/19 14:56 Dose 3 ml IH .STK-MED ONE Sodium Chloride 1,000 mls @ 999 mls/hr 09/10/19 14:04 09/10/19 14:27 Sodium Chloride 0.9% 1000 Ml IV 09/10/19 15:04 999 mls/hr .Q1H1M STA Administration Sodium Chloride Confirm 09/10/19 14:23 Sodium Chloride 0.9% 1000 Ml Administered 09/10/19 14:24 Dose 1,000 mls @ ud .ROUTE .STK-MED ONE Vancomycin HCl 1 gm in 250 mls @ 167 mls/hr 09/10/19 15:26 Vancomycin 1gm/ Ns 250ml IV 09/10/19 16:55 STAT ONE Meperidine HCl 25 mg 09/10/19 14:34 09/10/19 14:40 Demerol 25mg Syringe IV 09/10/19 14:35 25 mg STAT ONE Administration Meperidine HCl Confirm 09/10/19 14:39 Demerol 25mg Syringe Administered 09/10/19 14:40 Dose 25 mg .ROUTE .STK-MED ONE Metronidazole 500 mg 09/10/19 15:28 Flagyl 500 Mg PO 09/10/19 15:29 STAT ONE Ondansetron HCl 4 mg 09/10/19 14:04 09/10/19 14:26 Zofran 4 Mg/2 Ml Vial IV 09/10/19 14:05 4 mg STAT ONE Administration Ondansetron HCl Confirm 09/10/19 14:23 Zofran 4 Mg/2 Ml Vial Administered 09/10/19 14:24 Dose 4 mg .ROUTE .STK-MED ONE Lab/Rad Data: Laboratory Result Diagrams 09/10/19 14:30 09/10/19 14:30 Laboratory Results 09/10/19 09/10/19 09/10/19 Range/Units 15:08 14:30 14:30 WBC (4.0-10.5) K/mm3 RBC (4.1-5.4) M/mm3 Hgb (12.0-16.0) gm/dl Hct (35-47) % MCV (78-100) fl MCH (26-32) pg MCHC (32-36) g/dl RDW (11.5-14.0) % Plt Count (150-450) K/mm3 MPV (6-9.5) fl Gran % (36.0-66.0) % Eos # (Auto) (0-0.5) Absolute Lymphs (auto) (1.0-4.6) Absolute Monos (auto) (0.0-1.3) Lymphocytes % (24.0-44.0) % Monocytes % (0.0-12.0) % Eosinophils % (0.00-5.0) % Basophils % (0.0-0.4) % Absolute Granulocytes (1.4-6.9) Basophils # (0-0.4) Sodium 139 (137-145) mmol/L Potassium 4.3 (3.5-5.1) mmol/L Chloride 106 (98-107) mmol/L Carbon Dioxide 21 L (22-30) mmol/L Anion Gap 16.1 H (5-15) MEQ/L BUN 28 H (7-17) mg/dL Creatinine 0.69 (0.52-1.04) mg/dL Estimated GFR > 60.0 ML/MIN Glucose 126 H (74-106) mg/dL Lactic Acid 2.5 H (0.4-2.0) Calcium 9.2 (8.4-10.2) mg/dL Total Bilirubin 0.60 (0.2-1.3) mg/dL AST 29 (14-36) U/L ALT 33 (0-35) U/L Alkaline Phosphatase 62 (38-126) U/L Serum Total Protein 7.8 (6.3-8.2) g/dL Albumin 4.5 (3.5-5.0) g/dL Lipase 82 (23-300) U/L Urine Color YELLOW (YELLOW) Urine Appearance CLEAR (CLEAR) Urine pH 5.0 (5-6) Ur Specific [place] 1.018 (1.005-1.025) Urine Protein NEGATIVE (Negative) Urine Ketones NEGATIVE (NEGATIVE) Urine Blood NEGATIVE (0-5) Cuate/ul Urine Nitrite NEGATIVE (NEGATIVE) Urine Bilirubin NEGATIVE (NEGATIVE) Urine Urobilinogen NEGATIVE (0-1) mg/dL Ur Leukocyte Esterase NEGATIVE (NEGATIVE) Urine WBC (Auto) 0-2 (0-5) /HPF Urine RBC (Auto) NONE (0-2) /HPF U Epithel Cells (Auto) FEW (FEW) /HPF Urine Bacteria (Auto) RARE (NEGATIVE) /HPF Urine Mucus (Auto) SLIGHT (NEGATIVE) /HPF Urine Culture Reflexed NO (NO) Urine Glucose NEGATIVE (NEGATIVE) mg/dL 09/10/19 Range/Units 14:30 WBC 15.0 H (4.0-10.5) K/mm3 RBC 4.55 (4.1-5.4) M/mm3 Hgb 14.0 (12.0-16.0) gm/dl Hct 43.0 (35-47) % MCV 94.5 (78-100) fl MCH 30.8 (26-32) pg MCHC 32.6 (32-36) g/dl RDW 15.2 H (11.5-14.0) % Plt Count 279 (150-450) K/mm3 MPV 9.1 (6-9.5) fl Gran % 89.9 H (36.0-66.0) % Eos # (Auto) 0.19 (0-0.5) Absolute Lymphs (auto) 0.53 L (1.0-4.6) Absolute Monos (auto) 0.78 (0.0-1.3) Lymphocytes % 3.5 L (24.0-44.0) % Monocytes % 5.2 (0.0-12.0) % Eosinophils % 1.3 (0.00-5.0) % Basophils % 0.1 (0.0-0.4) % Absolute Granulocytes 13.48 H (1.4-6.9) Basophils # 0.01 (0-0.4) Sodium (137-145) mmol/L Potassium (3.5-5.1) mmol/L Chloride (98-107) mmol/L Carbon Dioxide (22-30) mmol/L Anion Gap (5-15) MEQ/L BUN (7-17) mg/dL Creatinine (0.52-1.04) mg/dL Estimated GFR ML/MIN Glucose (74-106) mg/dL Lactic Acid (0.4-2.0) Calcium (8.4-10.2) mg/dL Total Bilirubin (0.2-1.3) mg/dL AST (14-36) U/L ALT (0-35) U/L Alkaline Phosphatase (38-126) U/L Serum Total Protein (6.3-8.2) g/dL Albumin (3.5-5.0) g/dL Lipase (23-300) U/L Urine Color (YELLOW) Urine Appearance (CLEAR) Urine pH (5-6) Ur Specific [place] (1.005-1.025) Urine Protein (Negative) Urine Ketones (NEGATIVE) Urine Blood (0-5) Cuate/ul Urine Nitrite (NEGATIVE) Urine Bilirubin (NEGATIVE) Urine Urobilinogen (0-1) mg/dL Ur Leukocyte Esterase (NEGATIVE) Urine WBC (Auto) (0-5) /HPF Urine RBC (Auto) (0-2) /HPF U Epithel Cells (Auto) (FEW) /HPF Urine Bacteria (Auto) (NEGATIVE) /HPF Urine Mucus (Auto) (NEGATIVE) /HPF Urine Culture Reflexed (NO) Urine Glucose (NEGATIVE) mg/dL - Progress Progress: improved Progress Note: 09/10/19 15:33 discussed liver is worse with patient and her daughter. He advised admission. I had Dr. Dr. Matta. He agreed with admission. We'll treat with oral vancomycin and Flagyl the for present C. difficile. Will check this to the next bowel movement. Discussed with : Lily Will see patient in: hospital (observation) Counseled pt/family regarding: diagnosis - Departure Departure Disposition: Observation Clinical Impression: Vomiting and diarrhea, Bronchitis Condition: Stable Critical Care Time: No Referrals: SIDDHARTHA PERALES [Primary Care Provider] -
[2019-09-10] MEDS ORDERED: Sodium Chloride 0.9% 1000 ML 1,000 ML IV STA (14:04)
[2019-09-10] MEDS ORDERED: Zofran 4 MG/2 ML VIAL IV ONE (14:04)
[2019-09-10] MEDS ORDERED: Sodium Chloride 0.9% 1000 ML 1,000 ML ONE (14:23)
[2019-09-10] MEDS ORDERED: Zofran 4 MG/2 ML VIAL ONE ×2 (14:23→20:48)
[2019-09-10 14:34] LABS: Absolute Neutrophil Ct (ANC) 13.48 (1.4-6.9); BASOPHIL % 0.1 % (0.0-0.4); Basophil (Absolute #) 0.01 (0-0.4); Eosinophil % 1.3 % (0.00-5.0); Eosinophil (Absolute #) 0.19 (0-0.5); Lymphocyte (Absolute #) 0.53 (1.0-4.6); Lymphocytes % 3.5 % (24.0-44.0); Mean Cell Volume 94.5 fl (78-100); Mean Corpuscular Hemoglobin 30.8 pg (26-32); Mean Corpuscular Hgb Concent. 32.6 g/dl (32-36); Mean Platelet Volume 9.1 fl (6-9.5); Monocyte (Absolute #) 0.78 (0.0-1.3); Monocytes % 5.2 % (0.0-12.0); Neutrophil % 89.9 % (36.0-66.0); Platelet Count 279 K/mm3 (150-450); Red Blood Count 4.55 M/mm3 (4.1-5.4); Red Cell Distribution Width 15.2 % (11.5-14.0)
[2019-09-10] MEDS ORDERED: DEMEROL 25MG SYRINGE IV ONE (14:34)
[2019-09-10] MEDS ORDERED: DUONEB 0.5-3 MG/3 ml Neb IH ONE ×3 (14:35→19:15)
[2019-09-10] MEDS ORDERED: DEMEROL 25MG SYRINGE ONE (14:39)
[2019-09-10 15:06] LABS: ALBUMIN 4.5 g/dL (3.5-5.0); ALKALINE PHOSPHATASE 62 U/L (38-126); ANION GAP 16.1 MEQ/L (5-15); BLOOD UREA NITROGEN 28 mg/dL (7-17); CHLORIDE 106 mmol/L (98-107); Calcium 9.2 mg/dL (8.4-10.2); Carbon Dioxide 21 mmol/L (22-30); Creatinine 1 0.69 mg/dL (0.52-1.04); Glucose 126 mg/dL (74-106); LIPASE 82 U/L (23-300); Potassium 4.3 mmol/L (3.5-5.1); SGOT/AST 29 U/L (14-36); SGPT/ALT 33 U/L (0-35); SODIUM 139 mmol/L (137-145); Total Protein 7.8 g/dL (6.3-8.2)
[2019-09-10 15:10] LABS: Appearance CLEAR (CLEAR); Bacteria RARE /HPF (NEGATIVE); Bilirubin NEGATIVE (NEGATIVE); Blood NEGATIVE Ery/ul (0-5); Epithelial Cells FEW /HPF (FEW); Glucose NEGATIVE (NEGATIVE); Ketones NEGATIVE (NEGATIVE); Leukocyte Esterase NEGATIVE (NEGATIVE); Mucus SLIGHT /HPF (NEGATIVE); Nitrite NEGATIVE (NEGATIVE); Protein,Urine Dip NEGATIVE (Negative); Specific Gravity 1.018 (1.005-1.025); Urobilinogen NEGATIVE mg/dL (0-1); WBC 0-2 /HPF (0-5)
[2019-09-10 15:12] LABS: Lactic Acid 2.5 (0.4-2.0)
[2019-09-10] MEDS ORDERED: Vancomycin 1GM/ Ns 250ML*** 1 GM/250 ML IVPB IV ONE (15:26)
[2019-09-10] MEDS ORDERED: Flagyl 500 MG PO ONE (15:28)
[2019-09-10] MEDS ORDERED: Flagyl 500 MG ONE (15:39)
[2019-09-10] MEDS ORDERED: Zofran 4 MG/2 ML VIAL IV PRN (16:23)
[2019-09-10] MEDS ORDERED: VANCOMYCIN 25MG/ML ORAL SOLUTION COMPOUND KIT ONE (16:36)
[2019-09-10] MEDS: Sodium Chloride 0.9% 1000 ML 1,000 ML IV SCH (16:39)
[2019-09-10] MEDS ORDERED: VANCOCIN 500 MG VIAL PO SCH (17:00)
[2019-09-10] MEDS ORDERED: VANCOMYCIN 25MG/ML ORAL SOLUTION COMPOUND KIT PO SCH (17:00)
[2019-09-10] MEDS ORDERED: VANCOMYCIN HCL CAPSULE PO SCH (17:00)
[2019-09-10 17:14] LABS: Slide Review 1 YES
[2019-09-10 17:29] LABS: 027 TOX PROD PRESUMPTIVE NEGATIVE (NEGATIVE); TOXIGENIC C. DIFF ORG NEGATIVE (NEGATIVE)
[2019-09-10] MEDS: IMODIUM 2 MG PO PRN ×3 (17:54→20:54)
[2019-09-10] MEDS ORDERED: IMODIUM 2 MG ONE ×4 (17:54→20:47)
[2019-09-10] MEDS: DUONEB 0.5-3 MG/3 ml Neb IH SCH (20:07)
[2019-09-10] MEDS ORDERED: TYLENOL 325 MG PO PRN (20:37)
[2019-09-10] MEDS ORDERED: TYLENOL 325 MG ONE (20:47)
[2019-09-10] MEDS: Tussionex Pennkinetic Susp PO SCH (21:01)
[2019-09-10] MEDS ORDERED: Tussionex Pennkinetic Susp ONE (21:01)
--- NOTE | 2019-09-10 21:32 | XRAY ---
Indication: Sepsis. Comparison: August 05, 2017. Portable chest less inflated crowding the lung bases. Remaining heart, lungs, and bony thorax unremarkable.
[2019-09-10 21:39] LABS: INFLUENZA A NEGATIVE (NEGATIVE); INFLUENZA B NEGATIVE (NEGATIVE); RESPIRATORY SYNCTIAL VIRUS NEGATIVE (Negative)
[2019-09-10] MEDS ORDERED: Flagyl 500 MG PO SCH (22:00)
[2019-09-11] MEDS ORDERED: Sodium Chloride 0.9% 1000 ML 1,000 ML ONE
[2019-09-11] MEDS ORDERED: FLAGYL 500 MG IVPB 500 MG/100 ML BAG IV ONE
[2019-09-11] MEDS: Sodium Chloride 0.9% 1000 ML 1,000 ML IV SCH ×2 (00:10→12:47)
[2019-09-11] MEDS: FLAGYL 500 MG IVPB 500 MG/100 ML BAG IV SCH ×2 (00:10→09:13)
[2019-09-11 05:41] LABS: Absolute Neutrophil Ct (ANC) 7.12 (1.4-6.9); BASOPHIL % 0.1 % (0.0-0.4); Basophil (Absolute #) 0.01 (0-0.4); Eosinophil % 0.6 % (0.00-5.0); Eosinophil (Absolute #) 0.05 (0-0.5); Hematocrit 38.9 % (35-47); Hemoglobin 12.5 gm/dl (12.0-16.0); Lymphocyte (Absolute #) 0.57 (1.0-4.6); Lymphocytes % 6.8 % (24.0-44.0); Mean Corpuscular Hemoglobin 30.9 pg (26-32); Mean Corpuscular Hgb Concent. 32.1 g/dl (32-36); Mean Platelet Volume 9.2 fl (6-9.5); Monocyte (Absolute #) 0.63 (0.0-1.3); Monocytes % 7.5 % (0.0-12.0); Platelet Count 236 K/mm3 (150-450); Red Blood Count 4.05 M/mm3 (4.1-5.4); Red Cell Distribution Width 15.2 % (11.5-14.0); White Blood Count 8.4 K/mm3 (4.0-10.5)
[2019-09-11 06:11] LABS: ANION GAP 11.8 MEQ/L (5-15); BLOOD UREA NITROGEN 27 mg/dL (7-17); CHLORIDE 108 mmol/L (98-107); Calcium 7.5 mg/dL (8.4-10.2); Carbon Dioxide 22 mmol/L (22-30); Creatinine 1 0.66 mg/dL (0.52-1.04); Glucose 115 mg/dL (74-106); Potassium 3.8 mmol/L (3.5-5.1); SODIUM 138 mmol/L (137-145)
[2019-09-11] MEDS ORDERED: DUONEB 0.5-3 MG/3 ml Neb IH ONE (07:11)
[2019-09-11 07:35] LABS: Slide Review 1 YES
[2019-09-11] MEDS: DUONEB 0.5-3 MG/3 ml Neb IH SCH ×4 (08:17→21:18)
[2019-09-11] MEDS ORDERED: TYLENOL 325 MG PO PRN (08:19)
[2019-09-11] MEDS: Tussionex Pennkinetic Susp PO SCH ×2 (09:22→21:52)
[2019-09-11] MEDS ORDERED: ENOXAPARIN SODIUM SQ ONE (11:04)
--- NOTE | 2019-09-11 11:10 | XRAY ---
Indication: Bronchitis. Comparison: One day earlier. PA/lateral chest better inflated with now left base infiltrate/atelectasis. Remaining heart and right lung unremarkable.
[2019-09-11] MEDS ORDERED: MEDICATION INTERVENTION MC SCH (11:30)
[2019-09-11] MEDS ORDERED: ESTRADIOL TOP SCH (11:30)
[2019-09-11] MEDS: Protonix 40MG Tablet PO SCH (12:12)
[2019-09-11] MEDS ORDERED: Phenergan 25 MG INJ IV PRN (13:28)
--- NOTE | 2019-09-11 13:51 | HP ---
HISTORY OF PRESENT ILLNESS: This is an 79 y/o patient who presented to the Emergency Department with diarrhea, vomiting, and stomach pain. She reports she has had bronchitis for the past 10 days and been on Prednisone and a Z-Gurvinder. She recently had been started on a nebulizer with this illness. She has had a cough and felt short of breath. Her daughter is at the bedside and reports that usually, she gets around well with her walker. She has never smoked. She doesn't use any O2 at home. What brought her to the Emergency Department was the nausea and diarrhea starting suddenly yesterday. The Emergency Room doctor was concerned about Clostridium difficile, but her Clostridium difficile test came back negative. The patient hasn't noticed any blood in her stool and she is not sure if she has had a fever. REVIEW OF SYSTEMS: As noted in HPI. PAST MEDICAL HISTORY: Hypertension. PAST SURGICAL HISTORY: Noncontributory. SOCIAL HISTORY: No tobacco use. FAMILY HISTORY: Noncontributory. CURRENT MEDICATIONS: Please see the home medication reconciliation list which I reviewed. ALLERGIES: LORAZEPAM AND MORPHINE. PHYSICAL EXAMINATION: VITAL SIGNS: Temperature current 97.8, temperature maximum 100.8, heart rate 72, respiratory rate 18, O2 saturation 89-93% on 2 liters nasal cannula, BP 102/51, weight 95.7 Kg. GENERAL: The patient is a pleasant, talkative lady sitting up in bed in no acute distress. CVS: She has a regular rate and rhythm. No murmurs, gallops, or rubs are appreciated. CHEST: She has crackles at the left base. No wheezing. Equal breath sounds. No tachypnea. No retractions. ABDOMEN: Soft, nontender, nondistended with normal bowel sounds. EXTREMITIES: Trace edema. No clubbing or cyanosis. SKIN: Warm, dry, and intact. LABORATORY DATA: WBC was 15,000 on admission, 8.4 repeated, Hgb 12.5, platelet count 236,000, glucose 115. UA was negative. Clostridium difficile negative. Influenza A and B and respiratory syncytial virus were all negative. Portable chest x-ray was read as less inflated chest crowding the lung bases. Please see the radiologist's dictation for the full report. I have ordered a PA and lateral chest x-ray. There is no report on this yet. ASSESSMENT AND PLAN: 1. GASTROENTERITIS. She was negative for Clostridium difficile. She had been started on metronidazole which will plan to stop since she was negative for Clostridium difficile. 2. BRONCHITIS. Her lung exam is concerning for possible pneumonia. Will follow with the chest x-ray results. If that does show pneumonia, will start different antibiotic. 3. HYPERTENSION. I have held her antihypertensive currently as her BP is on the low end of normal. 4. DEEP VEIN THROMBOSIS PROPHYLAXIS. Will start Lovenox. 5. HYPOXIA. Maybe related to her breathing problems. Will try to wean O2 as needed.
[2019-09-11] MEDS: Levofloxacin 500MG/100ML D5W 500 MG/100 ML BAG IV SCH (14:21)
[2019-09-12] MEDS: Sodium Chloride 0.9% 1000 ML 1,000 ML IV SCH ×2 (03:53→18:50)
[2019-09-12] MEDS: DUONEB 0.5-3 MG/3 ml Neb IH SCH ×4 (08:10→19:38)
[2019-09-12] MEDS: ENOXAPARIN SODIUM SQ SCH (10:00)
[2019-09-12] MEDS ORDERED: NON-FORMULARY ITEM (Omeprazole [Omeprazole] 20 MG) PO SCH (10:00)
[2019-09-12] MEDS: Levofloxacin 500MG/100ML D5W 500 MG/100 ML BAG IV SCH (10:00)
[2019-09-12] MEDS: Tussionex Pennkinetic Susp PO SCH ×2 (10:01→21:30)
[2019-09-12] MEDS: Protonix 40MG Tablet PO SCH (10:01)
[2019-09-12] MEDS: CEPACOL SORE THROAT LOZENGE PO PRN (12:45)
[2019-09-12] MEDS: IMODIUM 2 MG PO PRN (19:31)
[2019-09-12] MEDS ORDERED: Cardizem IV 50 MG/10 ML IV ONE ×2 (23:23→23:26)
[2019-09-12] MEDS ORDERED: Cardizem 30 MG ONE (23:23)
[2019-09-12] MEDS: Cardizem 30 MG PO SCH (23:32)
[2019-09-13] MEDS: DUONEB 0.5-3 MG/3 ml Neb IH SCH ×4 (07:24→19:34)
[2019-09-13] MEDS: Cardizem 30 MG PO SCH (08:01)
[2019-09-13] MEDS: IMODIUM 2 MG PO PRN ×5 (08:01→21:26)
[2019-09-13] MEDS: Levofloxacin 500MG/100ML D5W 500 MG/100 ML BAG IV SCH (09:01)
[2019-09-13] MEDS: Protonix 40MG Tablet PO SCH (09:01)
[2019-09-13] MEDS: ENOXAPARIN SODIUM SQ SCH (09:01)
[2019-09-13] MEDS: Tussionex Pennkinetic Susp PO SCH ×2 (09:01→21:25)
[2019-09-13] MEDS: Toprol Xl 100 MG PO SCH (09:02)
[2019-09-13] MEDS: CEPACOL SORE THROAT LOZENGE PO PRN (11:17)
[2019-09-13 11:24] LABS: Hematocrit 40.8 % (35-47); Hemoglobin 13.2 gm/dl (12.0-16.0); Mean Cell Volume 95.8 fl (78-100); Mean Corpuscular Hgb Concent. 32.4 g/dl (32-36); Mean Platelet Volume 9.2 fl (6-9.5); Platelet Count 246 K/mm3 (150-450); Red Blood Count 4.26 M/mm3 (4.1-5.4); Red Cell Distribution Width 15.4 % (11.5-14.0); White Blood Count 12.3 K/mm3 (4.0-10.5)
[2019-09-13 11:44] LABS: ALBUMIN 3.7 g/dL (3.5-5.0); ALKALINE PHOSPHATASE 45 U/L (38-126); ANION GAP 13.4 MEQ/L (5-15); BLOOD UREA NITROGEN 7 mg/dL (7-17); CHLORIDE 111 mmol/L (98-107); Calcium 8.7 mg/dL (8.4-10.2); Carbon Dioxide 23 mmol/L (22-30); Creatinine 1 0.59 mg/dL (0.52-1.04); Glucose 113 mg/dL (74-106); Potassium 3.2 mmol/L (3.5-5.1); SGOT/AST 22 U/L (14-36); SGPT/ALT 24 U/L (0-35); SODIUM 143 mmol/L (137-145); Total Protein 6.6 g/dL (6.3-8.2)
[2019-09-13] MEDS ORDERED: Diflucan 100 MG PO ONE (12:33)
[2019-09-13] MEDS: Sodium Chloride 0.9% 10 ML FLUSH Syringe IV SCH ×2 (14:33→21:27)
[2019-09-14] MEDS: Sodium Chloride 0.9% 10 ML FLUSH Syringe IV SCH (06:43)
[2019-09-14] MEDS: DUONEB 0.5-3 MG/3 ml Neb IH SCH (07:19)
[2019-09-14 07:25] VITALS: O2SAT 93
[2019-09-14 07:28] VITALS: BP 130/65; PULSE 86
[2019-09-14] MEDS: IMODIUM 2 MG PO PRN (09:12)
[2019-09-14] MEDS: Toprol Xl 100 MG PO SCH (09:12)
[2019-09-14] MEDS: Protonix 40MG Tablet PO SCH (09:12)
[2019-09-14] MEDS: ENOXAPARIN SODIUM SQ SCH (09:13)
[2019-09-14] MEDS: Tussionex Pennkinetic Susp PO SCH (09:13)
[2019-09-14] MEDS: Levofloxacin 500MG/100ML D5W 500 MG/100 ML BAG IV SCH (09:14)
--- NOTE | 2019-09-14 12:51 | DS ---
DISCHARGE DIAGNOSES: 1) GASTROENTERITIS. 2) DEHYDRATION. 3) PHARYNGITIS. HISTORY: The patient is an 79 year-old white female who presented to the hospital emergency room with complaints of vomiting, diarrhea and abdominal pain. The patient was admitted to the hospital and given IV fluids. HOSPITAL COURSE: The patient received IV fluids. Her vomiting and diarrhea slowly dissipated. She was given Imodium. The test for Clostridium difficile was negative. The patient was slowly able to return to her regular diet but began complaining of sore throat. The patient had been placed empirically on Levaquin. The patient due to her age and overall health was kept an additional day for ambulation and to be sure she is going to be able to eat again. By the morning of 09/14/2019 she complained that her voice was not back to normal yet but the sore throat was getting somewhat better. She was afebrile with stable vital signs and eating a regular diet and felt to be ready for discharge home again at this time. The patient will continue her home medications. She had been discontinued on metoprolol upon her admission to the hospital and did experience one episode briefly of atrial fibrillation with rapid ventricular response which did resolve with 10 mg of Cardizem and placing her on p.o. Cardizem. We replaced her back on her metoprolol which she was on admission to the hospital. Her home medications are the metoprolol 100 mg b.i.d., Estradiol patch weekly, DuoNeb and she had been taking Bactrim. She was instructed to follow up in the office in one week or to call us if she had any further problems in the interim.
== END 2019-09-14 09:55 | disposition home or self-care (01) | DRG 392 ==
LOC: ED 13:39 → MED SURG 15:50 → ED 15:50 → OBSVTOIN 09-11 11:04
PROVIDERS: ADMIT Family Medicine; ATTEND Family Medicine
DX: K52.9 Noninfective gastroenteritis and colitis, unspecified (principal); E86.0 Dehydration; J02.9 Acute pharyngitis, unspecified; I10 Essential (primary) hypertension; J40 Bronchitis, not specified as acute or chronic; R09.02 Hypoxemia; Z79.899 Other long term (current) drug therapy
CPT/HCPCS: 36415; 71045; 71046; 80048; 80053; 81001; 83605; 83690; 85025; 85027; 87040; 87493; 87631; 94150; 94640; 94760; 96360; 96374; 96375; 99285; G0378; J1650; J1956; J2175; J2405; A9270-GY

== ENCOUNTER 2021-01-07 07:56 | Emergency (ER) | payer MEDICARE, BC ==
[2021-01-07] MEDS ORDERED: Adacel Vial IM ONE (08:29)
--- NOTE | 2021-01-07 08:30 | ERPHSYRPT ---
- History of Present Illness Time Seen by Provider: 01/07/21 08:25 Source: patient Exam Limitations: no limitations Patient Subjective Stated Complaint: laceration to L eye lid Triage Nursing Assessment: pt to ED c/o lac to L eye lid from cat scratch this am. denies pain at this time but states bleeding and pain was much worse when it occured this morning. denies vision changes at this time. noted less than 1 cm lac to L corner of eye. bleeding controlled on arrival and lac cleaned in ED. pt denies tetanus vaccine up to date. Physician History: Is an 80-year-old white female who was scratched just lateral to her left eye by her family cat. She denies any change in her vision she primarily is here for tetanus prophylaxis. It did bleed for a while but stopped fairly quickly. She denies any other injury or problem. Timing/Duration: today Location: left eye Severity: mild Apparent Injury: yes Associated Symptoms: pain Chemical Exposure: No Trauma: No Welding Arc/Tanning Bed Exposure: No Allergies/Adverse Reactions: lorazepam [From Ativan] Adverse Reaction (Intermediate, Verified 01/07/21 08:12) "It made me go crazy" morphine Adverse Reaction (Verified 01/07/21 08:12) Home Medications: Metoprolol Succinate 100 mg PO DAILY 04/14/15 [History] estradioL [Estradiol (Twice Weekly)] 1 patch.bwk TOP 2XW 07/03/19 [History] Albuterol/Ipratropium 3ml Neb* [DUONEB 0.5-3 MG/3 ml Neb] 3 ml NEBULIZE TID PRN 09/10/19 [History] Sulfamethoxazole/Trimethoprim [Bactrim Ds Tablet] 0.5 tab PO DAILY 09/10/19 [History] Hx Tetanus, Diphtheria Vaccination/Date Given: No (UNKNOWN) Hx Influenza Vaccination/Date Given: Yes Hx Pneumococcal Vaccination/Date Given: Yes Immunizations Up to Date: No Travel Risk - International Travel Have you traveled outside of the country in past 3 weeks: No - Coronavirus Screening Are you exhibiting any of the following symptoms?: No Close contact with a COVID-19 positive Pt in past 14-21 Days: No - Review of Systems Constitutional: No Fever, No Chills Eyes: No Symptoms Ears, Nose, & Throat: No Symptoms Respiratory: No Cough, No Dyspnea Cardiac: No Chest Pain, No Edema, No Syncope Abdominal/Gastrointestinal: No Abdominal Pain, No Nausea, No Vomiting, No Diarrhea Genitourinary Symptoms: No Dysuria Musculoskeletal: No Back Pain, No Neck Pain Skin: No Rash Neurological: No Dizziness, No Focal Weakness, No Sensory Changes Psychological: No Symptoms Endocrine: No Symptoms All Other Systems: Reviewed and Negative - Past Medical History Pertinent Past Medical History: Yes Neurological History: Migraines ENT History: Cataracts Cardiac History: Arrhythmia, High Cholesterol, Hypertension Respiratory History: Bronchitis Endocrine Medical History: No Pertinent History Musculoskeletal History: Osteoarthritis, Osteoporosis, Other GI Medical History: Other History: No Pertinent History Psycho-Social History: No Pertinent History Female Reproductive Disorders: Endometriosis Other Medical History: "BAD lt KNEE". recent uti - Past Surgical History Past Surgical History: Yes Neuro Surgical History: No Pertinent History Cardiac: Cardiac Catheterization Respiratory: No Pertinent History Gastrointestinal: Cholecystectomy Genitourinary: No Pertinent History Musculoskeletal: Orthopedic Surgery Female Surgical History: Hysterectomy Other Surgical History: SINUS - TONSILLITIS. tot lt knee approx 05/12/19 Dr Lantigua at [facility] - Social History Smoking Status: Never smoker Exposure to second hand smoke: No Drug Use: none Patient Lives Alone: No (daughter) - Female History Hx Now: No - Nursing Vital Signs Nursing Vital Signs: Initial Vital Signs Temperature 98.1 F 01/07/21 08:04 Pulse Rate 100 H 01/07/21 08:04 Respiratory Rate 18 01/07/21 08:04 Blood Pressure 210/102 01/07/21 08:04 O2 Sat by Pulse Oximetry 97 01/07/21 08:04 Pain Scale Pain Intensity 0 - Physical Exam General Appearance: mild distress Eye Exam: left eye: other (Per official 1 cm laceration lateral to the lateral canthus), bilateral eye: normal inspection, PERRL, EOMI Ears, Nose, Throat Exam: normal ENT inspection Neck Exam: normal inspection Respiratory Exam: normal breath sounds, No respiratory distress Extremity Exam: normal inspection Neurologic: alert, oriented x 3, cooperative, global president II-XII nml as tested Skin Exam: normal color, warm, dry Lymphatic: adenopathy SpO2 Interpretation: normal SpO2: 97 O2 Delivery: Room Air - Course Nursing assessment & vital signs reviewed: Yes Ordered Tests: Medication Summary Generic Name Dose Route Start Last Admin Trade Name Freq PRN Reason Stop Dose Admin Diphtheria/Tetanus/Acell Pertussis 0.5 ml 01/07/21 08:24 Adacel Vial IM 01/07/21 08:25 .ONCE ONE - Progress Progress: improved Progress Note: 01/07/21 08:28 Wound was cleaned by nursing staff and closed with a single Steri-Strip and some Dermabond by the nursing staff inspected by the MD. patient was not placed on antibiotics due to the very superficial nature of the wound. 01/07/21 08:30 - Departure Departure Disposition: Home Clinical Impression: Face lacerations Condition: Stable Critical Care Time: No Referrals: SIDDHARTHA PERALES [Primary Care Provider] - Instructions: Laceration Repair With Glue (DC) Additional Instructions: Watch for infection
[2021-01-07] MEDS: Adacel Vial IM ONE (08:31)
[2021-01-07 08:40] VITALS: BP 175/81; PULSE 80; O2SAT 95
== END 2021-01-07 08:44 | disposition home or self-care (01) ==
LOC: ED 07:56
DX: S01.112A Laceration without foreign body of left eyelid and periocular area, initial encounter (principal); W55.03XA Scratched by cat, initial encounter
CPT/HCPCS: 90471; 90715; 99283

== ENCOUNTER 2021-06-17 20:33 | Observation (INO) | payer MEDICARE, BC ==
--- NOTE | 2021-06-17 20:49 | ERPHSYRPT ---
- History of Present Illness Time Seen by Provider: 06/17/21 20:44 Source: patient, family Exam Limitations: no limitations Physician History: pt is 3 weeks SP mastectomy and had port placed yesterday for chemo, but now has elevated temp at home and flushed face. Also elevated BP without neuro findings on exam. but some headache no cough or shortness of breath. No N/V. haile diet OK. Pt and family report increased smell of drainage from wound vacs and darker color past few days. Pt of Dr. Perez for surgery. chest clear, abd nontender. 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 Associated Symptoms: headache Allergies/Adverse Reactions: lorazepam [From Ativan] Adverse Reaction (Intermediate, Verified 01/07/21 08:12) "It made me go crazy" ibuprofen Adverse Reaction (Verified 06/17/21 20:56) causes fast HR morphine Adverse Reaction (Verified 01/07/21 08:12) Home Medications: Metoprolol Succinate 100 mg PO DAILY 04/14/15 [History] Sulfamethoxazole/Trimethoprim [Bactrim Ds Tablet] 0.5 tab PO DAILY 09/10/19 [History] Cefdinir 300 mg PO BID 06/17/21 [History] Omeprazole 20 mg PO DAILY PRN PRN 06/17/21 [History] Hx Tetanus, Diphtheria Vaccination/Date Given: No (UNKNOWN) Hx Influenza Vaccination/Date Given: Yes Hx Pneumococcal Vaccination/Date Given: Yes - Review of Systems Constitutional: Fever, No Chills Eyes: No Symptoms Ears, Nose, & Throat: No Symptoms, Other (flushed face) Respiratory: No Cough, No Dyspnea Cardiac: No Chest Pain, No Edema, No Syncope Abdominal/Gastrointestinal: No Abdominal Pain, No Nausea, No Vomiting, No Diarrhea Genitourinary Symptoms: No Dysuria Musculoskeletal: No Back Pain, No Neck Pain Skin: Other (flushed face), No Rash Neurological: Headache, No Dizziness, No Focal Weakness, No Sensory Changes Psychological: No Symptoms Endocrine: No Symptoms Hematologic/Lymphatic: No Symptoms Immunological/Allergic: No Symptoms All Other Systems: Reviewed and Negative - Past Medical History Pertinent Past Medical History: Yes Neurological History: Migraines ENT History: Cataracts Cardiac History: Arrhythmia, High Cholesterol, Hypertension Respiratory History: Bronchitis Endocrine Medical History: No Pertinent History Musculoskeletal History: Osteoarthritis, Osteoporosis, Other GI Medical History: Other History: No Pertinent History Psycho-Social History: No Pertinent History Female Reproductive Disorders: Endometriosis Other Medical History: "BAD lt KNEE". recent uti - Past Surgical History Past Surgical History: Yes Neuro Surgical History: No Pertinent History Cardiac: Cardiac Catheterization Respiratory: No Pertinent History Gastrointestinal: Cholecystectomy Genitourinary: No Pertinent History Musculoskeletal: Orthopedic Surgery Female Surgical History: Hysterectomy Other Surgical History: SINUS - TONSILLITIS. tot lt knee approx 05/12/19 Dr Lantigua at [facility] - Social History Smoking Status: Never smoker Exposure to second hand smoke: No Drug Use: none Patient Lives Alone: No (daughter) - Nursing Vital Signs Nursing Vital Signs: Initial Vital Signs Temperature 98.1 F 06/17/21 20:40 Pulse Rate 84 06/17/21 20:40 Respiratory Rate 20 06/17/21 20:40 Blood Pressure 219/94 06/17/21 20:40 O2 Sat by Pulse Oximetry 95 06/17/21 20:40 Pain Scale Pain Intensity 10 - Physical Exam General Appearance: no apparent distress, alert Eye Exam: PERRL/EOMI ENT Exam: normal ENT inspection, No pharyngeal erythema, No tonsillar exudate Neck Exam: normal inspection, non-tender, supple, full range of motion, No meningismus Respiratory Exam: normal breath sounds, lungs clear, no respiratory distress Cardiovascular/Chest Exam: normal heart sounds, regular rate/rhythm, No murmur, No edema Gastrointestinal/Abdominal Exam: soft, non tender, no distention Pelvic Exam: deferred Rectal Exam: deferred Extremity Exam: non-tender, normal range of motion, normal inspection, normal capillary refill Neurologic Exam: alert, oriented x 3, cooperative, 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 as tested, normal mood/affect, sensation nml, No motor deficits Skin Exam: normal color, warm, dry, other (flushed face), No rash SpO2 Interpretation: normal O2 Delivery: Room Air - Course Nursing assessment & vital signs reviewed: Yes EKG Interpreted by Me: Sinus Rhythm, Non-specific ST Changes, Other (old inf OK) - Radiology Exams Chest X-ray Interpretation: Reviewed by me, No Pneumothorax, Other (calcified granulomas and scar- no large infiltrates) Ordered Tests: Active Orders 24 hr Category Date Time Status Manager Games STAT Care 06/17/21 20:54 Active EKG-ER Only STAT Care 06/17/21 20:50 Active IV Insertion STAT Care 06/17/21 20:50 Active Pulse Oximetry (ED) STAT Care 06/17/21 20:50 Active CHEST 2 VIEWS (PA AND LAT) Stat Exams 06/17/21 20:53 Taken BLOOD CULTURE Stat Lab 06/17/21 21:55 Received CBC W DIFF Stat Lab 06/17/21 21:55 Completed CMP Stat Lab 06/17/21 21:55 Completed CULTURE,URINE Stat Lab 06/17/21 20:51 Received CULTURE,WOUND Stat Lab 06/17/21 21:19 Received Lactic Acid Stat Lab 06/17/21 21:48 Completed UA W/RFX UR CULTURE Stat Lab 06/17/21 20:51 Completed Medication Summary Generic Name Dose Route Start Last Admin Trade Name Freq PRN Reason Stop Dose Admin Sodium Chloride 1,000 mls @ 100 mls/hr 06/17/21 21:00 06/17/21 21:26 Sodium Chloride 0.9% 1000 Ml IV 07/17/21 20:59 100 mls/hr .Q10H LISA Administration Discontinued Medications Generic Name Dose Route Start Last Admin Trade Name Freq PRN Reason Stop Dose Admin Hydrocodone Bitart/Acetaminophen 1 tab 06/17/21 23:34 06/18/21 00:01 Graff 5/325 Mg PO 06/17/21 23:35 1 tab STAT ONE Administration Hydrocodone Bitart/Acetaminophen Confirm 06/17/21 23:50 Graff 5/325 Mg Administered 06/17/21 23:51 Dose 1 tab .ROUTE .STK-MED ONE Cefepime HCl Confirm 06/17/21 23:50 Maxipime 1 Gm Administered 06/17/21 23:51 Dose 1 g .ROUTE .STK-MED ONE Ceftriaxone Sodium 1,000 mg 06/17/21 20:50 06/17/21 21:22 Rocephin 1000 Mg Inj IV 06/17/21 20:51 Not Given STAT ONE Diphenhydramine HCl 12.5 mg 06/18/21 00:08 06/18/21 00:15 Benadryl 50 Mg/Ml IV 06/18/21 00:09 12.5 mg STAT ONE Administration Diphenhydramine HCl Confirm 06/18/21 00:10 Benadryl 50 Mg/Ml Administered 06/18/21 00:11 Dose 50 mg .ROUTE .STK-MED ONE Ceftriaxone Sodium/Dextrose 1 g in 50 mls @ 100 mls/hr 06/17/21 21:22 21:57 Rocephin 1 Gm-D5w 50 Ml Bag IV 06/17/21 21:51 Infused STAT STA Infusion Ceftriaxone Sodium/Dextrose Confirm 06/17/21 21:23 Rocephin 1 Gm-D5w 50 Ml Bag Administered 06/17/21 21:24 Dose 1 g in 50 mls @ ud IV .STK-MED ONE Cefepime HCl 1 g/ Sodium 100 mls @ 200 mls/hr 06/17/21 23:33 06/18/21 00:01 Chloride IV 06/18/21 00:02 200 mls/hr STAT STA Administration Sodium Chloride Confirm 06/17/21 23:52 Sodium Chloride 0.9% 100 Ml Bag Administered 06/17/21 23:53 Dose 100 mls @ ud .ROUTE .STK-MED ONE Ondansetron HCl 4 mg 06/18/21 00:05 06/18/21 00:13 Zofran 4 Mg/2 Ml Vial IV 06/18/21 00:06 4 mg STAT ONE Administration Ondansetron HCl Confirm 06/18/21 00:10 Zofran 4 Mg/2 Ml Vial Administered 06/18/21 00:11 Dose 4 mg .ROUTE .STK-MED ONE Lab/Rad Data: Laboratory Result Diagrams 06/17/21 21:55 06/17/21 21:55 Laboratory Results 06/17/21 06/17/21 06/17/21 Range/Units 23:54 21:55 21:55 WBC 11.9 H (4.0-10.5) K/mm3 RBC 4.17 (4.1-5.4) M/mm3 Hgb 13.1 (12.0-16.0) gm/dl Hct 40.8 (35-47) % MCV 97.8 (78-100) fl MCH 31.4 (26-32) pg MCHC 32.1 (32-36) g/dl RDW 13.8 (11.5-14.0) % Plt Count 300 (150-450) K/mm3 MPV 9.4 (7.5-11.0) fl Gran % 64.7 (36.0-66.0) % Eos # (Auto) 0.02 (0-0.5) Absolute Lymphs (auto) 2.67 (1.0-4.6) Absolute Monos (auto) 1.46 H (0.0-1.3) Lymphocytes % 22.5 L (24.0-44.0) % Monocytes % 12.3 H (0.0-12.0) % Eosinophils % 0.2 (0.00-5.0) % Basophils % 0.3 (0.0-0.4) % Absolute Granulocytes 7.70 H (1.4-6.9) Basophils # 0.04 (0-0.4) Sodium 141 (137-145) mmol/L Potassium 3.9 (3.5-5.1) mmol/L Chloride 106 (98-107) mmol/L Carbon Dioxide 24 (22-30) mmol/L Anion Gap 15.7 H (5-15) MEQ/L BUN 22 H (7-17) mg/dL Creatinine 0.90 (0.52-1.04) mg/dL Estimated GFR > 60.0 ML/MIN Glucose 117 H (74-106) mg/dL Lactic Acid (0.4-2.0) Calcium 9.8 (8.4-10.2) mg/dL Total Bilirubin 0.20 (0.2-1.3) mg/dL AST 26 (14-36) U/L ALT 33 (0-35) U/L Alkaline Phosphatase 49 (38-126) U/L Serum Total Protein 7.2 (6.3-8.2) g/dL Albumin 4.4 (3.5-5.0) g/dL Urine Color (YELLOW) Urine Appearance (CLEAR) Urine pH (5-6) Ur Specific [place] (1.005-1.025) Urine Protein (Negative) Urine Ketones (NEGATIVE) Urine Blood (0-5) Cuate/ul Urine Nitrite (NEGATIVE) Urine Bilirubin (NEGATIVE) Urine Urobilinogen (0-1) mg/dL Ur Leukocyte Esterase (NEGATIVE) Urine WBC (Auto) (0-5) /HPF Urine RBC (Auto) (0-2) /HPF U Epithel Cells (Auto) (FEW) /HPF Urine Bacteria (Auto) (NEGATIVE) /HPF Urine Mucus (Auto) (NEGATIVE) /HPF Urine Culture Reflexed (NO) Urine Glucose (NEGATIVE) mg/dL SARS-CoV-2 (PCR) NEGATIVE (NEGATIVE) 06/17/21 06/17/21 Range/Units 21:48 20:51 WBC (4.0-10.5) K/mm3 RBC (4.1-5.4) M/mm3 Hgb (12.0-16.0) gm/dl Hct (35-47) % MCV (78-100) fl MCH (26-32) pg MCHC (32-36) g/dl RDW (11.5-14.0) % Plt Count (150-450) K/mm3 MPV (7.5-11.0) fl Gran % (36.0-66.0) % Eos # (Auto) (0-0.5) Absolute Lymphs (auto) (1.0-4.6) Absolute Monos (auto) (0.0-1.3) Lymphocytes % (24.0-44.0) % Monocytes % (0.0-12.0) % Eosinophils % (0.00-5.0) % Basophils % (0.0-0.4) % Absolute Granulocytes (1.4-6.9) Basophils # (0-0.4) Sodium (137-145) mmol/L Potassium (3.5-5.1) mmol/L Chloride (98-107) mmol/L Carbon Dioxide (22-30) mmol/L Anion Gap (5-15) MEQ/L BUN (7-17) mg/dL Creatinine (0.52-1.04) mg/dL Estimated GFR ML/MIN Glucose (74-106) mg/dL Lactic Acid 1.4 (0.4-2.0) Calcium (8.4-10.2) mg/dL Total Bilirubin (0.2-1.3) mg/dL AST (14-36) U/L ALT (0-35) U/L Alkaline Phosphatase (38-126) U/L Serum Total Protein (6.3-8.2) g/dL Albumin (3.5-5.0) g/dL Urine Color STRAW (YELLOW) Urine Appearance CLEAR (CLEAR) Urine pH 6.0 (5-6) Ur Specific [place] 1.005 (1.005-1.025) Urine Protein NEGATIVE (Negative) Urine Ketones NEGATIVE (NEGATIVE) Urine Blood NEGATIVE (0-5) Cuate/ul Urine Nitrite NEGATIVE (NEGATIVE) Urine Bilirubin NEGATIVE (NEGATIVE) Urine Urobilinogen NEGATIVE (0-1) mg/dL Ur Leukocyte Esterase MODERATE (NEGATIVE) Urine WBC (Auto) 16-25 (0-5) /HPF Urine RBC (Auto) 0-2 (0-2) /HPF U Epithel Cells (Auto) RARE (FEW) /HPF Urine Bacteria (Auto) NONE SEEN (NEGATIVE) /HPF Urine Mucus (Auto) SLIGHT (NEGATIVE) /HPF Urine Culture Reflexed YES (NO) Urine Glucose NEGATIVE (NEGATIVE) mg/dL SARS-CoV-2 (PCR) (NEGATIVE) - Progress Progress: improved, re-examined Progress Note: 06/17/21 23:[address] Connor and pt /family and will place on obs with cefipinme and rapid swab covid. possible early sepsis , and UTI ( partially treated) . Discussed with : Genny Counseled pt/family regarding: lab results, diagnosis, need for follow-up, rad results - Departure Departure Disposition: Observation Clinical Impression: Hypertension, UTI (lower urinary tract infection), early sepsis symptoms Condition: Good Critical Care Time: No
[2021-06-17] MEDS ORDERED: Rocephin 1000 MG INJ IV ONE (20:50)
[2021-06-17] MEDS ORDERED: Sodium Chloride 0.9% 1000 ML 1,000 ML IV SCH (21:00)
[2021-06-17] MEDS ORDERED: ROCEPHIN 1 Gm-D5w 50 ml Bag** 1 G/50 ML IVPB IV STA (21:22)
[2021-06-17] MEDS ORDERED: ROCEPHIN 1 Gm-D5w 50 ml Bag** 1 G/50 ML IVPB IV ONE (21:23)
[2021-06-17] MEDS ORDERED: Sodium Chloride 0.9% 1000 ML 1,000 ML ONE (21:23)
[2021-06-17 22:05] LABS: BASOPHIL % 0.3 % (0.0-0.4); Basophil (Absolute #) 0.04 (0-0.4); Eosinophil % 0.2 % (0.00-5.0); Eosinophil (Absolute #) 0.02 (0-0.5); Hematocrit 40.8 % (35-47); Hemoglobin 13.1 gm/dl (12.0-16.0); Lymphocyte (Absolute #) 2.67 (1.0-4.6); Lymphocytes % 22.5 % (24.0-44.0); Mean Cell Volume 97.8 fl (78-100); Mean Corpuscular Hemoglobin 31.4 pg (26-32); Mean Corpuscular Hgb Concent. 32.1 g/dl (32-36); Mean Platelet Volume 9.4 fl (7.5-11.0); Monocyte (Absolute #) 1.46 (0.0-1.3); Monocytes % 12.3 % (0.0-12.0); Neutrophil % 64.7 % (36.0-66.0); Platelet Count 300 K/mm3 (150-450); Red Blood Count 4.17 M/mm3 (4.1-5.4); Red Cell Distribution Width 13.8 % (11.5-14.0); White Blood Count 11.9 K/mm3 (4.0-10.5)
[2021-06-17 22:16] LABS: ALBUMIN 4.4 g/dL (3.5-5.0); ALKALINE PHOSPHATASE 49 U/L (38-126); ANION GAP 15.7 MEQ/L (5-15); BLOOD UREA NITROGEN 22 mg/dL (7-17); CHLORIDE 106 mmol/L (98-107); Calcium 9.8 mg/dL (8.4-10.2); Carbon Dioxide 24 mmol/L (22-30); EST GLOMERULAR FILTRATION RATE > 60.0 ML/MIN; Glucose 117 mg/dL (74-106); Potassium 3.9 mmol/L (3.5-5.1); SGOT/AST 26 U/L (14-36); SGPT/ALT 33 U/L (0-35); SODIUM 141 mmol/L (137-145); Total Protein 7.2 g/dL (6.3-8.2)
[2021-06-17 22:28] LABS: Appearance CLEAR (CLEAR); Bacteria NONE SEEN /HPF (NEGATIVE); Bilirubin NEGATIVE (NEGATIVE); Blood NEGATIVE Ery/ul (0-5); Epithelial Cells RARE /HPF (FEW); Glucose NEGATIVE (NEGATIVE); Ketones NEGATIVE (NEGATIVE); Leukocyte Esterase MODERATE (NEGATIVE); Mucus SLIGHT /HPF (NEGATIVE); Nitrite NEGATIVE (NEGATIVE); Protein,Urine Dip NEGATIVE (Negative); RBC 0-2 /HPF (0-2); Specific Gravity 1.005 (1.005-1.025); Urobilinogen NEGATIVE mg/dL (0-1)
[2021-06-17] MEDS ORDERED: MAXIPIME IV STA (23:33)
[2021-06-17] MEDS ORDERED: SODIUM CHLORIDE 0.9% IV STA (23:33)
[2021-06-17] MEDS ORDERED: NORCO 5/325 MG PO ONE (23:34)
[2021-06-17] MEDS ORDERED: MAXIPIME 1 GM ONE (23:50)
[2021-06-17] MEDS ORDERED: NORCO 5/325 MG ONE (23:50)
[2021-06-17] MEDS ORDERED: Sodium Chloride 0.9% 100 ML BAG 100 ML ONE (23:52)
[2021-06-18] MEDS ORDERED: Zofran 4 MG/2 ML VIAL IV ONE (00:05)
[2021-06-18] MEDS ORDERED: BENADRYL 50 MG/ML IV ONE (00:08)
[2021-06-18] MEDS ORDERED: BENADRYL 50 MG/ML ONE (00:10)
[2021-06-18] MEDS ORDERED: Zofran 4 MG/2 ML VIAL ONE (00:10)
[2021-06-18] MEDS ORDERED: TYLENOL 325 MG PO PRN (01:56)
[2021-06-18] MEDS ORDERED: HUMULIN R SQ PRN (01:56)
[2021-06-18] MEDS ORDERED: Zofran 4 MG/2 ML VIAL IV PRN (01:56)
[2021-06-18] MEDS: Sodium Chloride 0.9% 1000 ML 1,000 ML IV SCH ×3 (02:47→18:45)
[2021-06-18] MEDS: NORCO 5/325 MG PO PRN ×2 (05:32→19:04)
--- NOTE | 2021-06-18 07:05 | XRAY ---
Indication: Fever. High blood pressure. Status post Port-A-Cath placement and left mastectomy. Comparison: September 21, 2019. PA/lateral chest remains clear. Heart not enlarged with new right Port-A-Cath. Bony thorax intact with new left mastectomy and drainage tubing in situ. Impression: Nonacute chest with postsurgical changes.
[2021-06-18] MEDS ORDERED: Apresoline 25 MG TABLET PO PRN (07:30)
[2021-06-18 07:36] LABS: ALBUMIN 3.7 g/dL (3.5-5.0); ALKALINE PHOSPHATASE 42 U/L (38-126); ANION GAP 12.2 MEQ/L (5-15); BLOOD UREA NITROGEN 21 mg/dL (7-17); CHLORIDE 108 mmol/L (98-107); Carbon Dioxide 23 mmol/L (22-30); Creatinine 1 0.73 mg/dL (0.52-1.04); EST GLOMERULAR FILTRATION RATE > 60.0 ML/MIN; Glucose 86 mg/dL (74-106); Potassium 4.5 mmol/L (3.5-5.1); SGOT/AST 22 U/L (14-36); SGPT/ALT 29 U/L (0-35); SODIUM 139 mmol/L (137-145); Total Protein 6.3 g/dL (6.3-8.2)
[2021-06-18 08:17] LABS: Absolute Neutrophil Ct (ANC) 5.86 (1.4-6.9); BASOPHIL % 0.3 % (0.0-0.4); Basophil (Absolute #) 0.03 (0-0.4); Eosinophil % 0.4 % (0.00-5.0); Eosinophil (Absolute #) 0.04 (0-0.5); Hematocrit 38.8 % (35-47); Hemoglobin 12.5 gm/dl (12.0-16.0); Lymphocyte (Absolute #) 2.56 (1.0-4.6); Lymphocytes % 26.8 % (24.0-44.0); Mean Corpuscular Hemoglobin 31.9 pg (26-32); Mean Corpuscular Hgb Concent. 32.2 g/dl (32-36); Mean Platelet Volume 9.1 fl (7.5-11.0); Monocyte (Absolute #) 1.07 (0.0-1.3); Monocytes % 11.2 % (0.0-12.0); Neutrophil % 61.3 % (36.0-66.0); Platelet Count 258 K/mm3 (150-450); Red Blood Count 3.92 M/mm3 (4.1-5.4); White Blood Count 9.6 K/mm3 (4.0-10.5)
[2021-06-18] MEDS ORDERED: NON-FORMULARY ITEM (Omeprazole [Omeprazole] 20 MG) PO PRN (08:42)
[2021-06-18] MEDS ORDERED: Protonix 40MG Tablet PO PRN (09:01)
--- NOTE | 2021-06-18 09:54 | PCM.HP ---
History of Present Illness - Chief Complaint Chief Complaint: sepsis History of Present Illness: is a 81 year old female pt of Dr. Quinonez with breast cancer who was admitted to ER with fever and possible sepsis. Found to have UTI. She had her mastectomy [address] Perez and still has AMAYA drains; family says the drainage has had increased odor over the past 1 week. Pt also had port placed [address] Perez. She has not started chemotherapy yet. Last night she had temperature to 100.7 and BP > 180 systolic and I instructed her to go to the ER. Her WBC were 11.9 (down to 9.6 today). otherwise CBC and bmp non acute. CXR non acute. UA with 16-25 wbc, few epith, no nitrites. UCx pending. Wound culture is also pending (from AMAYA drains). Pt has been treated for chronic UTIs. Was found to have a UTI after her mastectomy and is being treated by Sneha Hoover with bactrim. Currently on cefepime after 1 dose of rocephin IV in the ER. Has had elevated BP since admission - initially 219/94. Most recently 188/84, although she had several in herb 150s-170s overnight. - Review of Systems Constitutional: Fever Respiratory: Other (tachycardia, intermittent, managed with valsalva) Abdominal/Gastrointestinal: Nausea (with JOSEPH last night) Genitourinary Symptoms: Dysuria (x 3 weeks) Skin: Other (post surgical changes) Neurological: Headache (last night and this morning; better today) All Other Systems: Reviewed and Negative Medications & Allergies Home Medications: Home Medication List Metoprolol Succinate 100 mg PO DAILY 04/14/15 [History Confirmed 06/17/21] Sulfamethoxazole/Trimethoprim [Bactrim Ds Tablet] 0.5 tab PO DAILY 09/10/19 [History Confirmed 06/17/21] Cefdinir 300 mg PO BID 06/17/21 [History Confirmed 06/17/21] Omeprazole 20 mg PO DAILY PRN PRN 06/17/21 [History Confirmed 06/17/21] Allergies/Adverse Reactions: Allergies Allergy/AdvReac Type Severity Reaction Status Date / Time lorazepam [From Ativan] AdvReac Intermediate Verified 01/07/21 08:12 ibuprofen AdvReac Verified 06/17/21 20:56 morphine AdvReac Verified 01/07/21 08:12 - Past Medical History Past Medical History: Yes Neurological History: Migraines ENT History: Cataracts Cardiac History: Arrhythmia, High Cholesterol, Hypertension Respiratory History: Bronchitis Endocrine Medical History: No Pertinent History Musculoskelatal History: Osteoarthritis, Osteoporosis, Other GI Medical History: Other History: No Pertinent History Pyscho-Social History: No Pertinent History Reproductive Disorders: Endometriosis Comment: "BAD lt KNEE". recent uti - Female History Are you now?: No - Past Surgical History Past Surgical History: Yes Neuro Surgical History: No Pertinent History Cardiac History: Cardiac Catheterization Respiratory Surgery: No Pertinent History GI Surgical History: Cholecystectomy Genitourinary Surgical Hx: No Pertinent History Musculskeletal Surgical Hx: Orthopedic Surgery Female Surgical History: Hysterectomy Other Surgical History: SINUS - TONSILLITIS. tot lt knee approx 05/12/19 Dr Lantigua at [facility] - Social History Smoking Status: Never smoker Exposure to second hand smoke: No Alcohol: None Drug Use: none - Physical Exam Vital Signs: Vital Signs - 24 hr Temp Pulse Resp BP Pulse Ox 06/18/21 07:40 97.5 F 76 14 130/63 96 06/18/21 05:32 79 20 93 L 06/18/21 02:34 99.2 F 80 20 188/84 97 06/18/21 02:26 97 06/18/21 01:09 74 18 150/76 95 06/18/21 00:00 76 17 168/93 93 L 06/17/21 23:00 98 F 85 14 178/93 94 L 06/17/21 22:00 78 16 174/90 95 06/17/21 21:19 96 06/17/21 21:00 190/82 06/17/21 20:44 98.1 F 84 20 219/94 95 06/17/21 20:40 98.1 F 84 20 219/94 95 General Appearance: no apparent distress, alert Neurologic Exam: oriented x 3, cooperative Eye Exam: eyes nml inspection Ears, Nose, Throat Exam: moist mucous membranes Neck Exam: normal inspection Respiratory Exam: normal breath sounds, lungs clear, other (bilat mastectomy scars, well approximated, no erythema/induration/exudate. AMAYA drain x 2 with serous drainage present. Port in R upper chest is covered with tegaderm; no erythema, no exudate or induration present.), No crackles/rales, No rhonchi, No wheezing Cardiovascular Exam: regular rate/rhythm, normal heart sounds, No murmur Gastrointestinal/Abdomen Exam: soft, normal bowel sounds, No tenderness, No distention, No mass, No guarding, No rebound Extremity Exam: normal inspection, No pedal edema, No swelling Skin Exam: normal color, warm, dry, No rash Wound Assessment: Skin/Wound Assessment Wound/Incision Assessment Start: 06/18/21 02:43 Text: Status: Active Freq: Q6H Protocol: Document 06/18/21 02:43 BS (Rec: 06/18/21 02:45 BS [id number]) Wound/Incision Assessment Left Chest Drain Type AMAYA drain Drainage Description Serous Results - Labs Lab/Micro Results: Lab Results-Last 24 Hours 06/17/21 06/17/21 06/17/21 Range/Units 20:51 21:48 21:55 WBC 11.9 H (4.0-10.5) K/mm3 RBC 4.17 (4.1-5.4) M/mm3 Hgb 13.1 (12.0-16.0) gm/dl Hct 40.8 (35-47) % MCV 97.8 (78-100) fl MCH 31.4 (26-32) pg MCHC 32.1 (32-36) g/dl RDW 13.8 (11.5-14.0) % Plt Count 300 (150-450) K/mm3 MPV 9.4 (7.5-11.0) fl Gran % 64.7 (36.0-66.0) % Eos # (Auto) 0.02 (0-0.5) Absolute Lymphs (auto) 2.67 (1.0-4.6) Absolute Monos (auto) 1.46 H (0.0-1.3) Lymphocytes % 22.5 L (24.0-44.0) % Monocytes % 12.3 H (0.0-12.0) % Eosinophils % 0.2 (0.00-5.0) % Basophils % 0.3 (0.0-0.4) % Absolute Granulocytes 7.70 H (1.4-6.9) Basophils # 0.04 (0-0.4) Sodium (137-145) mmol/L Potassium (3.5-5.1) mmol/L Chloride (98-107) mmol/L Carbon Dioxide (22-30) mmol/L Anion Gap (5-15) MEQ/L BUN (7-17) mg/dL Creatinine (0.52-1.04) mg/dL Estimated GFR ML/MIN Glucose (74-106) mg/dL Hemoglobin A1c (4.5-6.0) % Lactic Acid 1.4 (0.4-2.0) Calcium (8.4-10.2) mg/dL Total Bilirubin (0.2-1.3) mg/dL AST (14-36) U/L ALT (0-35) U/L Alkaline Phosphatase (38-126) U/L Serum Total Protein (6.3-8.2) g/dL Albumin (3.5-5.0) g/dL Urine Color STRAW (YELLOW) Urine Appearance CLEAR (CLEAR) Urine pH 6.0 (5-6) Ur Specific [place] 1.005 (1.005-1.025) Urine Protein NEGATIVE (Negative) Urine Ketones NEGATIVE (NEGATIVE) Urine Blood NEGATIVE (0-5) Cuate/ul Urine Nitrite NEGATIVE (NEGATIVE) Urine Bilirubin NEGATIVE (NEGATIVE) Urine Urobilinogen NEGATIVE (0-1) mg/dL Ur Leukocyte Esterase MODERATE (NEGATIVE) Urine WBC (Auto) 16-25 (0-5) /HPF Urine RBC (Auto) 0-2 (0-2) /HPF U Epithel Cells (Auto) RARE (FEW) /HPF Urine Bacteria (Auto) NONE SEEN (NEGATIVE) /HPF Urine Mucus (Auto) SLIGHT (NEGATIVE) /HPF Urine Culture Reflexed YES (NO) Urine Glucose NEGATIVE (NEGATIVE) mg/dL SARS-CoV-2 (PCR) (NEGATIVE) 06/17/21 06/17/21 06/18/21 Range/Units 21:55 23:54 05:50 WBC 9.6 (4.0-10.5) K/mm3 RBC 3.92 L (4.1-5.4) M/mm3 Hgb 12.5 (12.0-16.0) gm/dl Hct 38.8 (35-47) % MCV 99.0 (78-100) fl MCH 31.9 (26-32) pg MCHC 32.2 (32-36) g/dl RDW 14.0 (11.5-14.0) % Plt Count 258 (150-450) K/mm3 MPV 9.1 (7.5-11.0) fl Gran % 61.3 (36.0-66.0) % Eos # (Auto) 0.04 (0-0.5) Absolute Lymphs (auto) 2.56 (1.0-4.6) Absolute Monos (auto) 1.07 (0.0-1.3) Lymphocytes % 26.8 (24.0-44.0) % Monocytes % 11.2 (0.0-12.0) % Eosinophils % 0.4 (0.00-5.0) % Basophils % 0.3 (0.0-0.4) % Absolute Granulocytes 5.86 (1.4-6.9) Basophils # 0.03 (0-0.4) Sodium 141 (137-145) mmol/L Potassium 3.9 (3.5-5.1) mmol/L Chloride 106 (98-107) mmol/L Carbon Dioxide 24 (22-30) mmol/L Anion Gap 15.7 H (5-15) MEQ/L BUN 22 H (7-17) mg/dL Creatinine 0.90 (0.52-1.04) mg/dL Estimated GFR > 60.0 ML/MIN Glucose 117 H (74-106) mg/dL Hemoglobin A1c (4.5-6.0) % Lactic Acid (0.4-2.0) Calcium 9.8 (8.4-10.2) mg/dL Total Bilirubin 0.20 (0.2-1.3) mg/dL AST 26 (14-36) U/L ALT 33 (0-35) U/L Alkaline Phosphatase 49 (38-126) U/L Serum Total Protein 7.2 (6.3-8.2) g/dL Albumin 4.4 (3.5-5.0) g/dL Urine Color (YELLOW) Urine Appearance (CLEAR) Urine pH (5-6) Ur Specific [place] (1.005-1.025) Urine Protein (Negative) Urine Ketones (NEGATIVE) Urine Blood (0-5) Cuate/ul Urine Nitrite (NEGATIVE) Urine Bilirubin (NEGATIVE) Urine Urobilinogen (0-1) mg/dL Ur Leukocyte Esterase (NEGATIVE) Urine WBC (Auto) (0-5) /HPF Urine RBC (Auto) (0-2) /HPF U Epithel Cells (Auto) (FEW) /HPF Urine Bacteria (Auto) (NEGATIVE) /HPF Urine Mucus (Auto) (NEGATIVE) /HPF Urine Culture Reflexed (NO) Urine Glucose (NEGATIVE) mg/dL SARS-CoV-2 (PCR) NEGATIVE (NEGATIVE) 06/18/21 06/18/21 Range/Units 05:50 08:00 WBC (4.0-10.5) K/mm3 RBC (4.1-5.4) M/mm3 Hgb (12.0-16.0) gm/dl Hct (35-47) % MCV (78-100) fl MCH (26-32) pg MCHC (32-36) g/dl RDW (11.5-14.0) % Plt Count (150-450) K/mm3 MPV (7.5-11.0) fl Gran % (36.0-66.0) % Eos # (Auto) (0-0.5) Absolute Lymphs (auto) (1.0-4.6) Absolute Monos (auto) (0.0-1.3) Lymphocytes % (24.0-44.0) % Monocytes % (0.0-12.0) % Eosinophils % (0.00-5.0) % Basophils % (0.0-0.4) % Absolute Granulocytes (1.4-6.9) Basophils # (0-0.4) Sodium 139 (137-145) mmol/L Potassium 4.5 (3.5-5.1) mmol/L Chloride 108 H (98-107) mmol/L Carbon Dioxide 23 (22-30) mmol/L Anion Gap 12.2 (5-15) MEQ/L BUN 21 H (7-17) mg/dL Creatinine 0.73 (0.52-1.04) mg/dL Estimated GFR > 60.0 ML/MIN Glucose 86 (74-106) mg/dL Hemoglobin A1c 5.87 (4.5-6.0) % Lactic Acid (0.4-2.0) Calcium 9.0 (8.4-10.2) mg/dL Total Bilirubin 0.30 (0.2-1.3) mg/dL AST 22 (14-36) U/L ALT 29 (0-35) U/L Alkaline Phosphatase 42 (38-126) U/L Serum Total Protein 6.3 (6.3-8.2) g/dL Albumin 3.7 (3.5-5.0) g/dL Urine Color (YELLOW) Urine Appearance (CLEAR) Urine pH (5-6) Ur Specific [place] (1.005-1.025) Urine Protein (Negative) Urine Ketones (NEGATIVE) Urine Blood (0-5) Cuate/ul Urine Nitrite (NEGATIVE) Urine Bilirubin (NEGATIVE) Urine Urobilinogen (0-1) mg/dL Ur Leukocyte Esterase (NEGATIVE) Urine WBC (Auto) (0-5) /HPF Urine RBC (Auto) (0-2) /HPF U Epithel Cells (Auto) (FEW) /HPF Urine Bacteria (Auto) (NEGATIVE) /HPF Urine Mucus (Auto) (NEGATIVE) /HPF Urine Culture Reflexed (NO) Urine Glucose (NEGATIVE) mg/dL SARS-CoV-2 (PCR) (NEGATIVE) - Radiology Impressions Radiology Exams & Impressions: Radiology Procedures Category Date Time Status CHEST 2 VIEWS (PA AND LAT) Stat Exams 06/17/21 20:53 Completed Assessment/Plan (1) Fever Current Visit: Yes Status: Acute Qualifiers: Fever type: unspecified Qualified Code(s): R50.9 - Fever, unspecified Assessment & Plan: on cefepime IV. Sepsis was suspected so blood cultures are pending. Code(s): R50.9 - FEVER, UNSPECIFIED (2) UTI (lower urinary tract infection) Current Visit: Yes Status: Acute Assessment & Plan: treating with cefepime - would like to get ucx results from Sne[facility] Hoover. Code(s): N39.0 - URINARY TRACT INFECTION, SITE NOT SPECIFIED (3) S/P mastectomy Current Visit: Yes Status: Acute Assessment & Plan: 3 weeks ago, with port placed yesterday. She is doing quite well overall with respect to this, I believe. We did consult surgery from the ER but I do not think the wounds need attention at this time. Code(s): Z90.10 - ACQUIRED ABSENCE OF UNSPECIFIED BREAST AND NIPPLE (4) Hypertension Current Visit: Yes Status: Acute Qualifiers: Hypertension type: primary hypertension Qualified Code(s): I10 - Essential (primary) hypertension Assessment & Plan: restart home meds - hydralazine prn Code(s): I10 - ESSENTIAL (PRIMARY) HYPERTENSION
[2021-06-18] MEDS ORDERED: BACTRIM DS TABLET PO SCH (10:00)
[2021-06-18] MEDS: Toprol Xl 100 MG PO SCH (10:41)
[2021-06-18] MEDS: MAXIPIME 1 GM** 1 G in Dextrose 5%/Water IV Soln. 100ML PLUS BAG 100 ML IV SCH ×2 (10:42→22:05)
[2021-06-18] MEDS: BENADRYL 50 MG/ML IV PRN ×2 (12:23→22:04)
[2021-06-19] MEDS: Sodium Chloride 0.9% 1000 ML 1,000 ML IV SCH ×3 (03:54→22:40)
[2021-06-19] MEDS: NORCO 5/325 MG PO PRN ×2 (07:49→21:43)
--- NOTE | 2021-06-19 09:03 | PCM.NOTE ---
Date and Time: 06/19/21900 Subjective Assessment: doing ok. no fever. - Review of Systems Constitutional: No Fever, No Chills Eyes: No Symptoms Ears, Nose, & Throat: No Symptoms Respiratory: No Cough, No Short Of Breath Cardiac: No Chest Pain, No Edema, No Syncope Abdominal/Gastrointestinal: No Abdominal Pain, No Nausea, No Vomiting, No Diarrhea Genitourinary Symptoms: No Dysuria Musculoskeletal: No Back Pain, No Neck Pain Skin: Cellulitis, No Rash Neurological: No Dizziness, No Focal Weakness, No Sensory Changes Psychological: No Symptoms Endocrine: No Symptoms Hematologic/Lymphatic: No Symptoms Immunological/Allergic: No Symptoms Objective Exam General Appearance: no apparent distress, alert Neurologic Exam: alert, oriented x 3, cooperative, normal mood/affect, nml cerebellar function, sensation nml, No motor deficits Skin Exam: normal color, warm, dry Wound Assessment: Skin/Wound Assessment Wound/Incision Assessment Start: 06/18/21 02:43 Text: Status: Active Freq: Q6H Protocol: Document 06/19/21 08:00 DS (Rec: 06/19/21 08:36 DS [id number]) Wound/Incision Assessment Left Chest Wound Assessment Shift Assessment Wound Type Incision Dressing Status Dry & Intact General Appearance Open to air Left Chest Drain Type AMAYA drain Drainage Description Serous,Yellow Comment x 2 Wound Photo Photo Taken No Eye Exam: PERRL, EOMI, eyes nml inspection Ears, Nose, Throat Exam: normal ENT inspection, pharynx normal, moist mucous membranes Neck Exam: normal inspection, non-tender, supple, full range of motion Respiratory Exam: normal breath sounds, lungs clear, No respiratory distress Cardiovascular Exam: regular rate/rhythm, normal heart sounds Gastrointestinal/Abdomen Exam: soft, No tenderness, No mass Extremity Exam: normal inspection, normal range of motion Back Exam: normal inspection, normal range of motion, No CVA tenderness, No vertebral tenderness Pelvic Exam: deferred Rectal Exam: deferred OBJECTIVE DATA Vital Signs: Vital Signs - 24 hr Temp Pulse Resp BP Pulse Ox 06/19/21 07:08 97.0 F 75 18 160/71 97 06/19/21 04:00 97.6 F 72 16 128/68 96 06/19/21 00:00 98.0 F 74 18 138/63 95 06/18/21 19:42 98.3 F 77 16 144/65 96 06/18/21 16:00 99.1 F 77 20 132/62 96 06/18/21 11:22 97.6 F 75 16 107/58 94 L Pain Assessment - Last Documented Pain Intensity 3 Pain Scale Used 0-10 Pain Scale Intake and Output: Intake & Output 06/16/21 06/17/21 06/18/21 06/19/21 11:59 11:59 11:59 11:59 Intake Total 60 5063 Output Total 500 4535 Balance -440 528 Weight 98.4 kg 99 kg Lab Results: Lab Results-Last 24 Hours 06/18/21 Range/Units 12:05 POC Glucometer 129 H (74 to 106) mg/dL Radiology Exams: Radiology Procedures Category Date Time Status CHEST 2 VIEWS (PA AND LAT) Stat Exams 06/17/21 20:53 Completed Assessment/Plan (1) Wound cellulitis after surgery Current Visit: Yes Status: Acute Assessment & Plan: Chief Complaint Diagnosis sepsis Allergies Allergy/AdvReac Type Severity Reaction Status Date / Time lorazepam [From Ativan] AdvReac Intermediate Verified 01/07/21 08:12 ibuprofen AdvReac Verified 06/17/21 20:56 morphine AdvReac Verified 01/07/21 08:12 Vital Signs (Last 24 hours) Temp Pulse Resp BP Pulse Ox 06/19/21 07:08 97.0 F 75 18 160/71 97 06/19/21 04:00 97.6 F 72 16 128/68 96 06/19/21 00:00 98.0 F 74 18 138/63 95 06/18/21 19:42 98.3 F 77 16 144/65 96 06/18/21 16:00 99.1 F 77 20 132/62 96 06/18/21 11:22 97.6 F 75 16 107/58 94 L Home Medications Medication Instructions Recorded Confirmed Last Taken Type Cefdinir 300 mg PO BID 06/17/21 06/17/21 06/17/21 18:00 History Omeprazole 20 mg PO DAILY PRN PRN 06/17/21 06/17/21 Unknown History Current Medications Generic Name Dose Route Start Last Admin Trade Name Freq PRN Reason Stop Dose Admin Acetaminophen 650 mg 06/18/21 01:56 Tylenol 325 Mg PO 07/18/21 01:55 Q4H PRN PRN PAIN AND/OR FEVER Hydrocodone Bitart/Acetaminophen 1 tab 06/18/21 01:56 06/19/21 07:49 Novinger 5/325 Mg PO 06/23/21 01:55 1 tab Q4H PRN PRN Administration PAIN Diphenhydramine HCl 12.5 mg 06/18/21 01:56 06/18/21 22:04 Benadryl 50 Mg/Ml IV 07/18/21 01:55 12.5 mg Q6H PRN PRN Administration ITCHING Hydralazine HCl 12.5 mg 06/18/21 07:30 Apresoline 25 Mg Tablet PO 07/18/21 07:29 Q4H/PRN PRN HYPERTENSION Sodium Chloride 1,000 mls @ 100 mls/hr 06/18/21 01:56 06/19/21 03:54 Sodium Chloride 0.9% 1000 Ml IV 07/18/21 01:55 100 mls/hr .Q10H LISA Administration Cefepime HCl 1 g/ Dextrose 100 mls @ 200 mls/hr 06/18/21 10:00 06/18/21 22:05 IV 07/18/21 09:59 200 mls/hr Q12HT LISA Administration Metoprolol Succinate 100 mg 06/18/21 10:00 06/18/21 10:41 Toprol Xl 100 Mg PO 07/18/21 09:59 100 mg DAILY LISA Administration Ondansetron HCl 4 mg 06/18/21 01:56 Zofran 4 Mg/2 Ml Vial IV 07/18/21 01:55 Q6H PRN PRN NAUSEA/VOMITING Pantoprazole Sodium 40 mg 06/18/21 09:01 Protonix 40mg Tablet PO 07/18/21 09:00 DAILY PRN PRN GERD Discontinued Medications Generic Name Dose Route Start Last Admin Trade Name Freq PRN Reason Stop Dose Admin Hydrocodone Bitart/Acetaminophen 1 tab 06/17/21 23:34 06/18/21 00:01 Novinger 5/325 Mg PO 06/17/21 23:35 1 tab STAT ONE Administration Hydrocodone Bitart/Acetaminophen Confirm 06/17/21 23:50 Novinger 5/325 Mg Administered 06/17/21 23:51 Dose 1 tab .ROUTE .STK-MED ONE Cefepime HCl Confirm 06/17/21 23:50 Maxipime 1 Gm Administered 06/17/21 23:51 Dose 1 g .ROUTE .STK-MED ONE Ceftriaxone Sodium 1,000 mg 06/17/21 20:50 06/17/21 21:22 Rocephin 1000 Mg Inj IV 06/17/21 20:51 Not Given STAT ONE Diphenhydramine HCl 12.5 mg 06/18/21 00:08 06/18/21 00:15 Benadryl 50 Mg/Ml IV 06/18/21 00:09 12.5 mg STAT ONE Administration Diphenhydramine HCl Confirm 06/18/21 00:10 Benadryl 50 Mg/Ml Administered 06/18/21 00:11 Dose 50 mg .ROUTE .STK-MED ONE Sodium Chloride 1,000 mls @ 100 mls/hr 06/17/21 21:00 06/17/21 21:26 Sodium Chloride 0.9% 1000 Ml IV 07/17/21 20:59 100 mls/hr .Q10H LISA Administration Ceftriaxone Sodium/Dextrose 1 g in 50 mls @ 100 mls/hr 06/17/21 21:22 06/17/21 21:57 Rocephin 1 Gm-D5w 50 Ml Bag IV 06/17/21 21:51 Infused STAT STA Infusion Ceftriaxone Sodium/Dextrose Confirm 06/17/21 21:23 Rocephin 1 Gm-D5w 50 Ml Bag Administered 06/17/21 21:24 Dose 1 g in 50 mls @ ud IV .STK-MED ONE Cefepime HCl 1 g/ Sodium 100 mls @ 200 mls/hr 06/17/21 23:33 06/18/21 00:01 Chloride IV 06/18/21 00:02 200 mls/hr STAT STA Administration Sodium Chloride Confirm 06/17/21 23:52 Sodium Chloride 0.9% 100 Ml Bag Administered 06/17/21 23:53 Dose 100 mls @ ud .ROUTE .STK-MED ONE Sodium Chloride Confirm 06/17/21 21:23 Sodium Chloride 0.9% 1000 Ml Administered 06/17/21 21:24 Dose 1,000 mls @ ud .ROUTE .STK-MED ONE Insulin Human Regular 0 unit 06/18/21 01:56 Humulin R SQ 07/18/21 01:55 UD PRN HYPERGLYCEMIA Ondansetron HCl 4 mg 06/18/21 00:05 06/18/21 00:13 Zofran 4 Mg/2 Ml Vial IV 06/18/21 00:06 4 mg STAT ONE Administration Ondansetron HCl Confirm 06/18/21 00:10 Zofran 4 Mg/2 Ml Vial Administered 06/18/21 00:11 Dose 4 mg .ROUTE .STK-MED ONE Trimethoprim/Sulfamethoxazole 0.5 tab 06/18/21 10:00 Bactrim Ds Tablet PO 07/18/21 09:59 DAILY LISA Intake & Output (Last 24 hours) 06/16/21 06/17/21 06/18/21 06/19/21 11:59 11:59 11:59 11:59 Intake Total 60 5063 Output Total 500 4535 Balance -440 528 Weight 98.4 kg 99 kg Microbiology Results (Last 24 hours) 06/17/21 20:51 Urine, Void Urine Culture - Final NO GROWTH 06/17/21 21:55 Blood Blood Culture Gram Stain - Pending 06/17/21 21:55 Blood Blood Culture - Preliminary NO GROWTH TO DATE 06/17/21 21:30 Blood Blood Culture Gram Stain - Pending 06/17/21 21:30 Blood Blood Culture - Preliminary NO GROWTH TO DATE Laboratory Results (Last 24 hours) 06/18/21 12:05 POC Glucometer 129 H Orders (Last 24 hours) Category Date Time Status POCT GLUCOSE Stat Lab 06/18/21 12:05 Completed Cefepime HCl 1 gm [Maxipime 1 gm] 1 g Med 06/18/21 10:00 Active D5w 100 ml Mini-Bag Plus [Dextrose 5%/Water IV Soln. 100ML PLUS BAG] 100 ml IV Q12HT Metoprolol Succinate 100 mg [Toprol Xl 100 MG] Med 06/18/21 10:00 Active 100 mg PO DAILY PANTOPRAZOLE 40 mg Tablet [Protonix 40MG Tablet] Med 06/18/21 09:01 Active 40 mg PO DAILY PRN PRN Smz/Tmp Ds Tablet [Bactrim Ds Tablet] Med 06/18/21 10:00 Discontinued 0.5 tab PO DAILY Patient Care Notes (Last 24 hours) 06/18/21 10:10 Nursing Note by Waleska Flores SPOKE WITH DR. LUA PER DR JONES REQUEST AND INFORMED IN ABOUT PATIENT BEING HERE NON RELATED TO ADMISSION. DR LUA STATED THAT HE WOULD NOT BE SEEING THE PATIENT BUT IF SOMETHING CAME UP OR IF STAFF NEEDED HIM WE COULD CALL. Initialized on 06/18/21 10:10 - END OF NOTE Code(s): T81.49XA - INFECTION FOLLOWING A PROCEDURE, OTHER SURGICAL SITE, INIT (2) S/P mastectomy Current Visit: Yes Status: Acute Code(s): Z90.10 - ACQUIRED ABSENCE OF UNSPECIFIED BREAST AND NIPPLE (3) UTI (lower urinary tract infection) Current Visit: Yes Status: Acute Code(s): N39.0 - URINARY TRACT INFECTION, SITE NOT SPECIFIED
[2021-06-19] MEDS: MAXIPIME 1 GM** 1 G in Dextrose 5%/Water IV Soln. 100ML PLUS BAG 100 ML IV SCH ×2 (10:02→21:44)
[2021-06-19] MEDS: Toprol Xl 100 MG PO SCH (10:02)
[2021-06-19] MEDS: BENADRYL 50 MG/ML IV PRN (21:44)
[2021-06-20] MEDS: NORCO 5/325 MG PO PRN (03:50)
[2021-06-20 05:42] LABS: Absolute Neutrophil Ct (ANC) 3.95 (1.4-6.9); BASOPHIL % 0.6 % (0.0-0.4); Basophil (Absolute #) 0.04 (0-0.4); Eosinophil % 4.2 % (0.00-5.0); Hematocrit 39.4 % (35-47); Hemoglobin 12.5 gm/dl (12.0-16.0); Lymphocyte (Absolute #) 2.04 (1.0-4.6); Lymphocytes % 28.4 % (24.0-44.0); Mean Corpuscular Hemoglobin 31.7 pg (26-32); Mean Corpuscular Hgb Concent. 31.7 g/dl (32-36); Mean Platelet Volume 9.1 fl (7.5-11.0); Monocyte (Absolute #) 0.85 (0.0-1.3); Monocytes % 11.8 % (0.0-12.0); Platelet Count 230 K/mm3 (150-450); Red Blood Count 3.94 M/mm3 (4.1-5.4); Red Cell Distribution Width 13.6 % (11.5-14.0); White Blood Count 7.2 K/mm3 (4.0-10.5)
[2021-06-20 06:03] LABS: ALBUMIN 3.5 g/dL (3.5-5.0); ALKALINE PHOSPHATASE 40 U/L (38-126); ANION GAP 11.4 MEQ/L (5-15); BLOOD UREA NITROGEN 17 mg/dL (7-17); CHLORIDE 107 mmol/L (98-107); Calcium 9.1 mg/dL (8.4-10.2); Carbon Dioxide 24 mmol/L (22-30); Creatinine 1 0.78 mg/dL (0.52-1.04); EST GLOMERULAR FILTRATION RATE > 60.0 ML/MIN; Glucose 98 mg/dL (74-106); Potassium 4.4 mmol/L (3.5-5.1); SGOT/AST 20 U/L (14-36); SGPT/ALT 23 U/L (0-35); SODIUM 138 mmol/L (137-145); Total Protein 6.1 g/dL (6.3-8.2)
--- NOTE | 2021-06-20 08:59 | PCM.NOTE ---
Date and Time: 06/20/21854 Subjective Assessment: Pt feeling a lot better than at admission. Tabitha po well. - Review of Systems Constitutional: No Fever Abdominal/Gastrointestinal: No Vomiting Objective Exam General Appearance: no apparent distress, alert Neurologic Exam: oriented x 3, cooperative Skin Exam: normal color, warm, dry, other (R upper chest, dressing is c/d/i. AMAYA drains LUQ with minimal surrounding erythema, no exudate, serous fluid (clear) present.), No rash Wound Assessment: Skin/Wound Assessment Wound/Incision Assessment Start: 06/18/21 02:43 Text: Status: Active Freq: Q6H Protocol: Document 06/20/21 07:06 BSANTUS (Rec: 06/20/21 07:25 BSANT [id number]) Wound/Incision Assessment Left Chest Wound Assessment Shift Assessment Wound Type Incision Drainage Amount None General Appearance Well Approximated,Open to air, Clean/Dry Comment LEFT MASTECTOMY INCISION HEALING, WELL APRROXIMATED, NO S/S OF INFECTION OR DRAINAGE NOTED. LEFT CHEST 2 AMAYA DRAIN SITE INCISIONS WITH PINKNESS NOTED AROUND BOTH INSERTION SITES WITH BROWNISH-GREEN CRUST NOTED AROUND SITES, NO DRAINAGE, NO ODOR, SITE TENDER . SEROUS DRAINANGE NOTED IN AMAYA DRAINS. Left Chest Drain Type AMAYA drain Drainage Description Serous,Yellow Odor None/Absent Comment x 2 Wound Photo Photo Taken No Eye Exam: eyes nml inspection Ears, Nose, Throat Exam: moist mucous membranes Neck Exam: normal inspection Respiratory Exam: normal breath sounds, lungs clear, No crackles/rales, No rhonchi, No wheezing Cardiovascular Exam: regular rate/rhythm, normal heart sounds, No murmur Gastrointestinal/Abdomen Exam: soft, normal bowel sounds, No tenderness, No distention, No mass, No guarding, No rebound Extremity Exam: No pedal edema, No swelling Back Exam: normal inspection, No rash OBJECTIVE DATA Vital Signs: Vital Signs - 24 hr Temp Pulse Resp BP Pulse Ox 06/20/21 08:45 97.4 F 70 20 162/73 95 06/20/21 07:06 97.6 F 70 22 137/66 97 06/20/21 04:00 97.6 F 70 22 137/66 97 06/19/21 23:58 97.6 F 73 20 140/63 96 06/19/21 20:00 155/76 06/19/21 19:43 98.0 F 73 17 140/67 97 06/19/21 16:00 98.4 F 73 18 132/69 97 06/19/21 11:41 98.0 F 73 19 130/60 97 Pain Assessment - Last Documented Pain Intensity 3 Pain Scale Used [facility] Intake and Output: Intake & Output 06/17/21 06/18/21 06/19/21 06/20/21 11:59 11:59 11:59 11:59 Intake Total 60 6027 370 Output Total 362 9317 4843 Balance -473 -59 -071 Weight 98.4 kg 99 kg 88.7 kg Lab Results: Lab Results-Last 24 Hours 06/20/21 06/20/21 Range/Units 05:15 05:15 WBC 7.2 (4.0-10.5) K/mm3 RBC 3.94 L (4.1-5.4) M/mm3 Hgb 12.5 (12.0-16.0) gm/dl Hct 39.4 (35-47) % MCV 100.0 (78-100) fl MCH 31.7 (26-32) pg MCHC 31.7 L (32-36) g/dl RDW 13.6 (11.5-14.0) % Plt Count 230 (150-450) K/mm3 MPV 9.1 (7.5-11.0) fl Gran % 55.0 (36.0-66.0) % Eos # (Auto) 0.30 (0-0.5) Absolute Lymphs (auto) 2.04 (1.0-4.6) Absolute Monos (auto) 0.85 (0.0-1.3) Lymphocytes % 28.4 (24.0-44.0) % Monocytes % 11.8 (0.0-12.0) % Eosinophils % 4.2 (0.00-5.0) % Basophils % 0.6 (0.0-0.4) % Absolute Granulocytes 3.95 (1.4-6.9) Basophils # 0.04 (0-0.4) Sodium 138 (137-145) mmol/L Potassium 4.4 (3.5-5.1) mmol/L Chloride 107 (98-107) mmol/L Carbon Dioxide 24 (22-30) mmol/L Anion Gap 11.4 (5-15) MEQ/L BUN 17 (7-17) mg/dL Creatinine 0.78 (0.52-1.04) mg/dL Estimated GFR > 60.0 ML/MIN Glucose 98 (74-106) mg/dL Calcium 9.1 (8.4-10.2) mg/dL Total Bilirubin 0.30 (0.2-1.3) mg/dL AST 20 (14-36) U/L ALT 23 (0-35) U/L Alkaline Phosphatase 40 (38-126) U/L Serum Total Protein 6.1 L (6.3-8.2) g/dL Albumin 3.5 (3.5-5.0) g/dL Assessment/Plan (1) UTI (lower urinary tract infection) Current Visit: Yes Status: Acute Assessment & Plan: I requested culture results from Sneha Hoover's office; apparently pt had taken a home test on 06/13/21 that indicated UTI. She was given cefdinir 300mg 1 po BID x 7d. No culture was done. Has been on 3d of cefepime IV and feeling much better. Plan to send her home after today's dose of antibiotic. She lives with her daughter. Code(s): N39.0 - URINARY TRACT INFECTION, SITE NOT SPECIFIED (2) S/P mastectomy Current Visit: Yes Status: Acute Qualifiers: Laterality: left Qualified Code(s): Z90.12 - Acquired absence of left breast and nipple Assessment & Plan: Drains look good. F/u with surgery as directed. Code(s): Z90.10 - ACQUIRED ABSENCE OF UNSPECIFIED BREAST AND NIPPLE (3) Hypertension Current Visit: Yes Status: Chronic Qualifiers: Hypertension type: primary hypertension Qualified Code(s): I10 - Essential (primary) hypertension Assessment & Plan: Much improved; pt is just on home meds, likely was elevated due to being ill. Code(s): I10 - ESSENTIAL (PRIMARY) HYPERTENSION
--- NOTE | 2021-06-20 09:03 | PCM.DS ---
Discharge Summary Date of Admission: 06/18/21 01:05 Admitting Physician: SANJUANA GOMEZ Primary Care Provider: SIDDHARTHA QUINONEZ Allergies Allergies lorazepam [From Ativan] Adverse Reaction (Intermediate, Verified 01/07/21 08:12) "It made me go crazy" ibuprofen Adverse Reaction (Verified 06/17/21 20:56) causes fast HR morphine Adverse Reaction (Verified 01/07/21 08:12) Hospital Summary - Hospital Course Hospital Course: Pt is 81 yo female pt of Dr. Quinonez, 3 wks s/p mastectomy and a few day s/p port placement, who was directly admitted to ER with fever and UTI. Was hypertensive > 180 systolic. She was started on IV cefepime (was already on cefdinir po from Sneha Hoover). Her fever has resolved and she is feeling much better. BP are fine on home meds. She will be discharged home today after her 3rd day of cefepime. F/u with Dr. Quinonez. no culture results are available from Sneha Hoover's office. - Vitals & Intake/Output Vital Signs: Vital Signs Temperature 97.4 F 06/20/21 08:45 Pulse Rate 70 06/20/21 08:45 Respiratory Rate 20 06/20/21 08:45 Blood Pressure 162/73 06/20/21 08:45 O2 Sat by Pulse Oximetry 95 06/20/21 08:45 Intake & Output: Intake & Output 06/17/21 06/18/21 06/19/21 06/20/21 11:59 11:59 11:59 11:59 Intake Total 60 0656 3706 Output Total 575 8673 3620 Balance -379 -75 -766 Weight 98.4 kg 99 kg 88.7 kg - Lab Result Diagrams: 06/20/21 05:15 06/20/21 05:15 Lab Results-Last 24 Hrs: Lab Results-Last 24 Hours 06/20/21 06/20/21 Range/Units 05:15 05:15 WBC 7.2 (4.0-10.5) K/mm3 RBC 3.94 L (4.1-5.4) M/mm3 Hgb 12.5 (12.0-16.0) gm/dl Hct 39.4 (35-47) % MCV 100.0 (78-100) fl MCH 31.7 (26-32) pg MCHC 31.7 L (32-36) g/dl RDW 13.6 (11.5-14.0) % Plt Count 230 (150-450) K/mm3 MPV 9.1 (7.5-11.0) fl Gran % 55.0 (36.0-66.0) % Eos # (Auto) 0.30 (0-0.5) Absolute Lymphs (auto) 2.04 (1.0-4.6) Absolute Monos (auto) 0.85 (0.0-1.3) Lymphocytes % 28.4 (24.0-44.0) % Monocytes % 11.8 (0.0-12.0) % Eosinophils % 4.2 (0.00-5.0) % Basophils % 0.6 (0.0-0.4) % Absolute Granulocytes 3.95 (1.4-6.9) Basophils # 0.04 (0-0.4) Sodium 138 (137-145) mmol/L Potassium 4.4 (3.5-5.1) mmol/L Chloride 107 (98-107) mmol/L Carbon Dioxide 24 (22-30) mmol/L Anion Gap 11.4 (5-15) MEQ/L BUN 17 (7-17) mg/dL Creatinine 0.78 (0.52-1.04) mg/dL Estimated GFR > 60.0 ML/MIN Glucose 98 (74-106) mg/dL Calcium 9.1 (8.4-10.2) mg/dL Total Bilirubin 0.30 (0.2-1.3) mg/dL AST 20 (14-36) U/L ALT 23 (0-35) U/L Alkaline Phosphatase 40 (38-126) U/L Serum Total Protein 6.1 L (6.3-8.2) g/dL Albumin 3.5 (3.5-5.0) g/dL Micro Results-Entire Visit: Microbiology 06/17/21 20:51 Urine Culture - Final Urine, Void NO GROWTH 06/17/21 21:55 Blood Culture - Preliminary Blood NO GROWTH TO DATE 06/17/21 21:30 Blood Culture - Preliminary Blood NO GROWTH TO DATE - Procedures and Test Procedures and Tests throughout Hospitalization: Therapy Orders & Screens 06/18/21 01:56 Respiratory Therapy Consult ROUTINE Comment: Reason For Exam: Discharge Exam General Appearance: no apparent distress, alert Neurologic Exam: oriented x 3, cooperative Eye Exam: eyes nml inspection Ears, Nose, Throat Exam: moist mucous membranes Neck Exam: normal inspection Respiratory Exam: normal breath sounds, lungs clear, No crackles/rales, No rhonchi, No wheezing Cardiovascular Exam: regular rate/rhythm, normal heart sounds, No murmur Gastrointestinal/Abdomen Exam: soft, normal bowel sounds, No tenderness, No distention, No mass, No guarding, No rebound Skin Exam: normal color, other (R upper chest c/d/i bandage LUQ serous drainage from MAAYA drain x 2, clear. min erythema, no exudate) Wound Assessment: Skin/Wound Assessment Wound/Incision Assessment Start: 06/18/21 02:43 Text: Status: Active Freq: Q6H Protocol: Document 06/20/21 07:06 BSANTUS (Rec: 06/20/21 07:25 [email or web address] [id number]) Wound/Incision Assessment Left Chest Wound Assessment Shift Assessment Wound Type Incision Drainage Amount None General Appearance Well Approximated,Open to air, Clean/Dry Comment LEFT MASTECTOMY INCISION HEALING, WELL APRROXIMATED, NO S/S OF INFECTION OR DRAINAGE NOTED. LEFT CHEST 2 AMAYA DRAIN SITE INCISIONS WITH PINKNESS NOTED AROUND BOTH INSERTION SITES WITH BROWNISH-GREEN CRUST NOTED AROUND SITES, NO DRAINAGE, NO ODOR, SITE TENDER . SEROUS DRAINANGE NOTED IN AMAYA DRAINS. Left Chest Drain Type AMAYA drain Drainage Description Serous,Yellow Odor None/Absent Comment x 2 Wound Photo Photo Taken No Final Diagnosis/Problem List - Final Discharge Diagnosis/Problem (1) UTI (lower urinary tract infection) Current Visit: Yes Status: Acute Assessment & Plan: no culture results available. Home after 3 d IV cefepime. F/u with Dr. Quinonez and Sneha Hoover. Code(s): N39.0 - URINARY TRACT INFECTION, SITE NOT SPECIFIED (2) S/P mastectomy Current Visit: Yes Status: Acute Code(s): Z90.10 - ACQUIRED ABSENCE OF UNSPECIFIED BREAST AND NIPPLE (3) Hypertension Current Visit: Yes Status: Chronic Code(s): I10 - ESSENTIAL (PRIMARY) HYPERTENSION - Discharge Disposition: Home, Self-Care Condition: Good Prescriptions: Continue Metoprolol Succinate 100 mg PO DAILY Sulfamethoxazole/Trimethoprim [Bactrim Ds Tablet] 0.5 tab PO DAILY Omeprazole 20 mg PO DAILY PRN PRN PRN Reason: GERD Discontinued Cefdinir 300 mg PO BID Follow up with: SIDDHARTHA QUINONEZ [Primary Care Provider] -
[2021-06-20] MEDS: MAXIPIME 1 GM** 1 G in Dextrose 5%/Water IV Soln. 100ML PLUS BAG 100 ML IV SCH (09:32)
[2021-06-20] MEDS: Toprol Xl 100 MG PO SCH (09:33)
[2021-06-20 12:41] VITALS: BP 139/83; PULSE 74; O2SAT 97
== END 2021-06-20 11:55 | disposition home or self-care (01) ==
LOC: ED 20:33 → MED SURG 06-18 01:05
PROVIDERS: ADMIT Family Medicine; ATTEND Family Medicine
DX: N39.0 Urinary tract infection, site not specified (principal); I10 Essential (primary) hypertension; T81.49XA Infection following a procedure, other surgical site, initial encounter; L03.313 Cellulitis of chest wall; R51.9 Headache, unspecified; R11.0 Nausea; C50.912 Malignant neoplasm of unspecified site of left female breast; R00.0 Tachycardia, unspecified; Z79.899 Other long term (current) drug therapy; Z20.822 Contact with and (suspected) exposure to COVID-19; Z90.12 Acquired absence of left breast and nipple
CPT/HCPCS: 36000; 36415; 71046; 80053; 81001; 82947; 83036; 83605; 85025; 87040; 87070; 87086; 93005; 93041; 93268; 94760; 96374; 96375; 99285; G0378; U0003; J0692; J0696; J1200; J2405; A9270-GY

== ENCOUNTER 2021-11-21 17:36 | Observation (INO) | payer MEDICARE, BC ==
[2021-11-21] MEDS ORDERED: CARDIZEM DRIP 100 MG/100 ML D5W 100 ML IV ONE (17:41)
--- NOTE | 2021-11-21 18:13 | ERPHSYRPT ---
- History of Present Illness Source: patient Exam Limitations: no limitations Patient Subjective Stated Complaint: PT states "I was napping and I woke up feeling like my heart was beating like a race horse." Triage Nursing Assessment: Pt presented alert and oriented X 3, skin wpd Pt ambulates with an upright slow shuffling gait. Pt denied any shortness of breath, denied any pain. Physician History: 81 yo wf w sudden onset of fast-pounding heart rate that occurred after waking up from nap, slightly before arrival. Pt denies CP/Dyspnea/N/V/cough/fever. States that she might have an arrythmia which she can not describe. Timing/Duration: sudden (Before arrival) Activities at Onset: sleep Quality: other (Fast/Pounding) Chest Pain Radiation: no radiation Severity of Pain-Max: none Severity of Pain-Current: none Modifying Factors: Improves With: nothing Nitro Today/Relief: no nitro taken today Aspirin Treatment Today: no aspirin today Associated Symptoms: No nausea, No vomiting, No abdominal pain, No shortness of breath, No heartburn, No diaphoresis, No cough, No chills, No chest pain, No fever, No headaches, No loss of appetite, No malaise, No rash, No syncope, No seizure, No weakness Allergies/Adverse Reactions: lorazepam [From Ativan] Adverse Reaction (Intermediate, Verified 11/21/21 22:12) "It made me go crazy" ibuprofen Adverse Reaction (Verified 11/21/21 22:12) causes fast HR morphine Adverse Reaction (Verified 11/21/21 22:12) Home Medications: Acyclovir 400 mg PO BID 11/21/21 [History] Alprazolam [Xanax] 0.5 mg PO DAILY PRN PRN 11/21/21 [History] Amlodipine Besylate 5 mg [Norvasc 5 mg] 5 mg PO DAILY 11/21/21 [History] Aspirin 325 mg PO QHS 11/21/21 [History] Metoprolol Succinate [Toprol Xl] 100 mg PO QPM 11/21/21 [History] Multivit with Iron,Minerals [Multivitamins with Iron] 1 tab PO DAILY 11/21/21 [History] Vit B12/Intrinsic Fact/Folate [Intrinsi [id number] Tablet] 1 tab PO DAILY 11/21/21 [History] Hx Tetanus, Diphtheria Vaccination/Date Given: No (UNKNOWN) Hx Influenza Vaccination/Date Given: Yes Hx Pneumococcal Vaccination/Date Given: Yes Immunizations Up to Date: Yes Travel Risk - International Travel Have you traveled outside of the country in past 3 weeks: No - Coronavirus Screening Are you exhibiting any of the following symptoms?: No - Vaccine Status Have you recieved a Covid-19 vaccination: Yes Draw Frame Runner: Moderna - Vaccination Dates Date of 2cond Vaccination (if applicable): 01/01 - Review of Systems Constitutional: No Symptoms Eyes: No Symptoms Ears, Nose, & Throat: No Symptoms Respiratory: No Symptoms Cardiac: No Symptoms, Other (Fast/pounding heart beat) Abdominal/Gastrointestinal: No Symptoms Genitourinary Symptoms: No Symptoms Musculoskeletal: No Symptoms Skin: No Symptoms Neurological: No Symptoms Psychological: No Symptoms Endocrine: No Symptoms Hematologic/Lymphatic: No Symptoms Immunological/Allergic: No Symptoms - Past Medical History Pertinent Past Medical History: Yes Neurological History: Migraines ENT History: Cataracts Cardiac History: Arrhythmia, High Cholesterol, Hypertension Respiratory History: Bronchitis Endocrine Medical History: No Pertinent History Musculoskeletal History: Osteoarthritis, Osteoporosis, Other GI Medical History: Other History: No Pertinent History Psycho-Social History: No Pertinent History Female Reproductive Disorders: Endometriosis Other Medical History: "BAD lt KNEE". recent uti - Past Surgical History Past Surgical History: Yes Neuro Surgical History: No Pertinent History Cardiac: Cardiac Catheterization Respiratory: No Pertinent History Gastrointestinal: Cholecystectomy Genitourinary: No Pertinent History Musculoskeletal: Orthopedic Surgery Female Surgical History: Hysterectomy Other Surgical History: SINUS - TONSILLITIS. tot lt knee approx 05/12/19 Dr Lantigua at [facility] - Social History Smoking Status: Never smoker Exposure to second hand smoke: No Drug Use: none Patient Lives Alone: No Significant Family History: no pertinent family hx - Nursing Vital Signs Nursing Vital Signs: Initial Vital Signs Temperature 99.0 F 11/21/21 17:36 Pulse Rate 156 H 11/21/21 17:36 Respiratory Rate 20 11/21/21 17:36 Blood Pressure 200/118 11/21/21 17:36 O2 Sat by Pulse Oximetry 97 11/21/21 17:36 Pain Scale Pain Intensity 0 Hypertensive - Physical Exam General Appearance: no apparent distress Eye Exam: PERRL/EOMI, eyes nml inspection Ears, Nose, Throat Exam: normal ENT inspection, TMs normal, pharynx normal, moist mucous membranes Neck Exam: normal inspection, non-tender, supple, full range of motion, No meningismus, No mass, No Brudzinski, No Kernig's, No carotid bruit Respiratory Exam: normal breath sounds, lungs clear, airway intact Cardiovascular Exam: tachycardia (Afib w RVR), capillary refill <2 sec Gastrointestinal/Abdomen Exam: soft, normal bowel sounds, No tenderness Back Exam: normal inspection, normal range of motion, No CVA tenderness, No vertebral tenderness Extremity Exam: normal inspection, normal range of motion Neurologic Exam: alert, oriented x 3, cooperative, flyer builder II-XII nml as tested, normal mood/affect, nml cerebellar function, nml station & gait, sensation nml Skin Exam: normal color, warm, dry Lymphatic Exam: No adenopathy SpO2 Interpretation: normal SpO2: 97 O2 Delivery: Room Air - Course Nursing assessment & vital signs reviewed: Yes EKG Interpreted by Me: RATE (Afib/[id number]/Prolonged QTc/Old inferior TX/Non- specific St-Twave changes after Cardizem/First EKG Afib w RVR/Prolonged QTc/Nons pecific St-Twave changes) - Radiology Exams Chest X-ray Interpretation: Interpreted by me (CXR-nothing acute) Ordered Tests: Active Orders 24 hr Category Date Time Status Code Status Order ROUTINE Care 11/21/21 21:56 Active IV Care Q6H Care 11/21/21 21:56 Active IV Insertion STAT Care 11/21/21 19:05 Completed Heart-Healthy Diet Diet 11/22/21 Breakfast Active CHEST 1 VIEW (PORTABLE) Stat Exams 11/21/21 17:52 Taken CBC W DIFF Stat Lab 11/21/21 18:13 Completed CMP Stat Lab 11/21/21 18:13 Completed LIPID PROFILE AM.LAB Lab 11/22/21 04:00 Ordered Manual Differential NC Stat Lab 11/21/21 18:13 Completed PROTIME WITH INR Stat Lab 11/21/21 18:13 Completed PTT Stat Lab 11/21/21 18:13 Completed TROPONIN Q3H Lab 11/21/21 18:13 Completed TROPONIN Q3H Lab 11/21/21 19:15 Ordered TROPONIN Q3H Lab 11/21/21 20:55 Completed TROPONIN Q3H Lab 11/21/21 22:15 Ordered TROPONIN Q3H Lab 11/22/21 01:15 Ordered TROPONIN Q3H Lab 11/22/21 04:15 Ordered TROPONIN Q3H Lab 11/22/21 07:15 Ordered Transfer Order Routine Transfer 11/21/21 Completed Medication Summary Generic Name Dose Route Start Last Admin Trade Name Freq PRN Reason Stop Dose Admin Apixaban 5 mg 11/21/21 22:00 Apixaban 2.5 Mg Tablet PO 12/21/21 21:59 BID LISA Aspirin 81 mg 11/21/21 22:33 Aspirin 81 Mg Tablet.Ec PO 11/21/21 22:34 ONCE ONE Metoprolol Succinate 100 mg 11/21/21 22:32 Metoprolol Succinate 100 Mg Tablet.Sa PO 11/21/21 22:33 ONCE ONE Ondansetron HCl 4 mg 11/21/21 19:04 Ondansetron Hcl 4 Mg/2 Ml Vial IV 12/21/21 19:03 Q4H PRN PRN NAUSEA/VOMITING Discontinued Medications Generic Name Dose Route Start Last Admin Trade Name Freq PRN Reason Stop Dose Admin Diltiazem HCl 20 mg 11/21/21 19:08 11/21/21 19:12 Diltiazem Hcl Iv 5 Mg/Ml Vial IV 11/21/21 19:09 20 mg STAT ONE Administration Diltiazem HCl Confirm 11/21/21 17:41 Cardizem Drip 100 Mg/100 Ml D5w Administered 11/21/21 17:42 Dose 100 mls @ ud IV .STK-MED ONE Diltiazem HCl 100 mls @ 5 mls/hr 11/21/21 19:08 Cardizem Drip 100 Mg/100 Ml D5w IV 12/21/21 19:07 .Q20H PRN HEART RATE/ A-FIB Protocol 5 MG/HR Metoprolol Tartrate 100 mg 11/21/21 18:14 11/21/21 18:16 Metoprolol Tartrate 50 Mg Tablet PO 11/21/21 18:15 100 mg STAT ONE Administration Metoprolol Tartrate Confirm 11/21/21 18:15 Metoprolol Tartrate 50 Mg Tablet Administered 11/21/21 18:16 Dose 100 mg .ROUTE .STK-MED ONE Lab/Rad Data: Laboratory Result Diagrams 11/21/21 18:13 11/21/21 18:13 Laboratory Results 11/21/21 11/21/21 11/21/21 Range/Units 20:55 19:35 18:13 WBC (4.0-10.5) K/mm3 RBC (4.1-5.4) M/mm3 Hgb (12.0-16.0) gm/dl Hct (35-47) % MCV (78-100) fl MCH (26-32) pg MCHC (32-36) g/dl RDW (11.5-14.0) % Plt Count (150-450) K/mm3 MPV (7.5-11.0) fl Segmented Neutrophils (36.0-66.0) % Band Neutrophils (0.0-2.0) % Lymphocytes (Manual) (24-44) % Monocytes (Manual) (0.0-12.0) % Eosinophils (Manual) (0.00-3.0) % Basophils (Manual) (0.0-1.0) % Platelet Estimate (NORMAL) RBC Morphology PT (9.4-12.5) SECONDS INR (0.8-3.0) APTT (25.1-36.5) SECONDS Sodium (137-145) mmol/L Potassium (3.5-5.1) mmol/L Chloride (98-107) mmol/L Carbon Dioxide (22-30) mmol/L Anion Gap (5-15) MEQ/L BUN (7-17) mg/dL Creatinine (0.52-1.04) mg/dL Estimated GFR ML/MIN Glucose (74-106) mg/dL Calcium (8.4-10.2) mg/dL Total Bilirubin (0.2-1.3) mg/dL AST (14-36) U/L ALT (0-35) U/L Alkaline Phosphatase (38-126) U/L Troponin I 0.032 < 0.012 (0.000-0.034) ng/mL Serum Total Protein (6.3-8.2) g/dL Albumin (3.5-5.0) g/dL Influenza Type A Ag NEGATIVE (NEGATIVE) Influenza Type B Ag NEGATIVE (NEGATIVE) RSV (PCR) NEGATIVE (Negative) SARS-CoV-2 (PCR) POSITIVE A (NEGATIVE) 11/21/21 11/21/21 11/21/21 Range/Units 18:13 18:13 18:13 WBC 4.0 (4.0-10.5) K/mm3 RBC 4.15 (4.1-5.4) M/mm3 Hgb 13.9 (12.0-16.0) gm/dl Hct 42.2 (35-47) % MCV 101.7 H (78-100) fl MCH 33.5 H (26-32) pg MCHC 32.9 (32-36) g/dl RDW 14.9 H (11.5-14.0) % Plt Count 319 (150-450) K/mm3 MPV 9.2 (7.5-11.0) fl Segmented Neutrophils 28 L (36.0-66.0) % Band Neutrophils 2 (0.0-2.0) % Lymphocytes (Manual) 27 (24-44) % Monocytes (Manual) 26 H (0.0-12.0) % Eosinophils (Manual) 16 H (0.00-3.0) % Basophils (Manual) 1 (0.0-1.0) % Platelet Estimate NORMAL (NORMAL) RBC Morphology NORMAL PT 10.7 (9.4-12.5) SECONDS INR 0.91 (0.8-3.0) APTT 33.5 (25.1-36.5) SECONDS Sodium 142 (137-145) mmol/L Potassium 3.5 (3.5-5.1) mmol/L Chloride 107 (98-107) mmol/L Carbon Dioxide 22 (22-30) mmol/L Anion Gap 16.8 H (5-15) MEQ/L BUN 22 H (7-17) mg/dL Creatinine 0.84 (0.52-1.04) mg/dL Estimated GFR > 60.0 ML/MIN Glucose 159 H (74-106) mg/dL Calcium 9.8 (8.4-10.2) mg/dL Total Bilirubin 0.40 (0.2-1.3) mg/dL AST 36 (14-36) U/L ALT 40 H (0-35) U/L Alkaline Phosphatase 77 (38-126) U/L Troponin I (0.000-0.034) ng/mL Serum Total Protein 7.4 (6.3-8.2) g/dL Albumin 4.5 (3.5-5.0) g/dL Influenza Type A Ag (NEGATIVE) Influenza Type B Ag (NEGATIVE) RSV (PCR) (Negative) SARS-CoV-2 (PCR) (NEGATIVE) - Progress Progress: improved Progress Note: 11/21/21 19:[address] Quinonez/Eliza to start Eliquis IV access started 20mg IV Cardizem given/Drip started at 5mg Dripped up to 10mg 100mg po Lopressor 11/21/21 20:47 Pt later tested CV+/No symptoms/Accepted by Dr. Garcia/Dr. Michaels notified 11/21/21 22:35 Discussed with : Tres Will see patient in: hospital (observation) Counseled pt/family regarding: lab results, diagnosis, rad results - Departure Departure Disposition: Observation Clinical Impression: Atrial fibrillation with RVR, COVID-19 Condition: Stable Critical Care Time: Yes Critical Care Time(excluding separately billable procedures): Critical 30-74 mins
[2021-11-21] MEDS ORDERED: Lopressor 50 MG PO ONE (18:14)
[2021-11-21] MEDS ORDERED: Lopressor 50 MG ONE (18:15)
[2021-11-21 18:17] LABS: Hematocrit 42.2 % (35-47); Hemoglobin 13.9 gm/dl (12.0-16.0); Mean Cell Volume 101.7 fl (78-100); Mean Corpuscular Hemoglobin 33.5 pg (26-32); Mean Corpuscular Hgb Concent. 32.9 g/dl (32-36); Mean Platelet Volume 9.2 fl (7.5-11.0); Platelet Count 319 K/mm3 (150-450); Red Blood Count 4.15 M/mm3 (4.1-5.4); Red Cell Distribution Width 14.9 % (11.5-14.0)
[2021-11-21 18:28] LABS: INR 0.91 (0.8-3.0); PROTIME 10.7 SECONDS (9.4-12.5)
[2021-11-21 18:31] LABS: PTT 33.5 SECONDS (25.1-36.5)
[2021-11-21 18:34] LABS: ALBUMIN 4.5 g/dL (3.5-5.0); ALKALINE PHOSPHATASE 77 U/L (38-126); ANION GAP 16.8 MEQ/L (5-15); BLOOD UREA NITROGEN 22 mg/dL (7-17); CHLORIDE 107 mmol/L (98-107); Calcium 9.8 mg/dL (8.4-10.2); Carbon Dioxide 22 mmol/L (22-30); Creatinine 1 0.84 mg/dL (0.52-1.04); EST GLOMERULAR FILTRATION RATE > 60.0 ML/MIN; Glucose 159 mg/dL (74-106); Potassium 3.5 mmol/L (3.5-5.1); SGOT/AST 36 U/L (14-36); SGPT/ALT 40 U/L (0-35); SODIUM 142 mmol/L (137-145); Total Protein 7.4 g/dL (6.3-8.2)
[2021-11-21] MEDS ORDERED: Zofran 4 MG/2 ML VIAL IV PRN (19:04)
[2021-11-21] MEDS ORDERED: Cardizem IV 50 MG/10 ML IV ONE (19:08)
[2021-11-21] MEDS ORDERED: CARDIZEM DRIP 100 MG/100 ML D5W 100 ML IV PRN (19:08)
[2021-11-21 20:15] LABS: INFLUENZA A NEGATIVE (NEGATIVE); INFLUENZA B NEGATIVE (NEGATIVE); RESPIRATORY SYNCTIAL VIRUS NEGATIVE (Negative)
[2021-11-21 20:28] LABS: SARS-CoV-2 Xpert Express POSITIVE (NEGATIVE)
[2021-11-21 21:02] LABS: BAND 2 % (0.0-2.0); Basophil 1 % (0.0-1.0); Eosinophil 16 % (0.00-3.0); Lymphocytes 27 % (24-44); Monocyte 26 % (0.0-12.0); Neutrophils 28 % (36.0-66.0); Total Cells Counted 100
[2021-11-21 21:03] LABS: Platelet Estimate NORMAL (NORMAL)
[2021-11-21] MEDS ORDERED: Toprol Xl 100 MG PO ONE (22:32)
[2021-11-21] MEDS ORDERED: ECOTRIN 81 MG PO ONE (22:33)
[2021-11-21] MEDS: ELIQUIS 2.5 MG TABLET PO SCH (22:39)
[2021-11-22 06:06] LABS: Hematocrit 35.7 % (35-47); Hemoglobin 11.9 gm/dl (12.0-16.0); Mean Cell Volume 102.6 fl (78-100); Mean Corpuscular Hemoglobin 34.2 pg (26-32); Mean Corpuscular Hgb Concent. 33.3 g/dl (32-36); Mean Platelet Volume 8.9 fl (7.5-11.0); Platelet Count 263 K/mm3 (150-450); Red Blood Count 3.48 M/mm3 (4.1-5.4); Red Cell Distribution Width 15.1 % (11.5-14.0); White Blood Count 3.7 K/mm3 (4.0-10.5)
[2021-11-22 06:59] LABS: Risk Ratio 4.5
[2021-11-22 07:46] LABS: ANISOCYTOSIS 1+; Basophil 1 % (0.0-1.0); Eosinophil 3 % (0.00-3.0); Lymphocytes 43 % (24-44); Monocyte 12 % (0.0-12.0); Neutrophils 41 % (36.0-66.0); Platelet Estimate NORMAL (NORMAL); Total Cells Counted 100
--- NOTE | 2021-11-22 08:45 | XRAY ---
Indication: Atrial fibrillation. Comparison: June 17, 2021. Portable chest remains clear. Heart not enlarged again with right Port-A-Cath. Bony thorax intact. No new/acute findings.
[2021-11-22] MEDS: ELIQUIS 2.5 MG TABLET PO SCH ×2 (09:02→21:43)
[2021-11-22] MEDS ORDERED: xanAX 0.5 MG PO PRN (09:44)
[2021-11-22] MEDS ORDERED: ACYCLOVIR 400 MG PO SCH (10:00)
[2021-11-22] MEDS ORDERED: NORVASC 5 MG PO SCH (10:00)
[2021-11-22] MEDS: ZOVIRAX 200 MG PO SCH ×2 (10:22→21:44)
[2021-11-22 10:23] LABS: ALBUMIN 3.8 g/dL (3.5-5.0); ALKALINE PHOSPHATASE 56 U/L (38-126); ANION GAP 15.3 MEQ/L (5-15); BLOOD UREA NITROGEN 22 mg/dL (7-17); CHLORIDE 111 mmol/L (98-107); Calcium 9.4 mg/dL (8.4-10.2); Carbon Dioxide 19 mmol/L (22-30); Creatinine 1 0.83 mg/dL (0.52-1.04); EST GLOMERULAR FILTRATION RATE > 60.0 ML/MIN; Glucose 100 mg/dL (74-106); Potassium 3.8 mmol/L (3.5-5.1); SGOT/AST 38 U/L (14-36); SGPT/ALT 38 U/L (0-35); SODIUM 142 mmol/L (137-145); Total Protein 6.6 g/dL (6.3-8.2)
[2021-11-22] MEDS ORDERED: Cardizem CD 120 MG PO SCH (11:00)
--- NOTE | 2021-11-22 13:28 | HP ---
CHIEF COMPLAINT: Heart racing, shortness of breath. HISTORY OF PRESENT ILLNESS: The patient came to the emergency room after a half hour feeling her heart was racing. She actually had a Holter monitor done a couple weeks ago and did not show anything. She said she has not really felt spells like this before that this is very unusual. She was found to be in atrial fibrillation and is getting some IV Cardizem and Cardizem drip was started and she converted soon after being on the floor. She tested positive for COVID which she states she had a little bit of cough and feeling tired but nothing really bad. She has a daughter who lives with her and she has been out of the house in normal fashion. She does not know where she could have gotten the COVID. She has had the COVID vaccine. She does see, I believe, Dr. Alcazar for coronary artery disease and she has been recently treated for stage III breast cancer with surgery, chemotherapy and she has 30 days of radiation yet. She denies any chest pain with her atrial fibrillation. Just the feeling that her heart was racing and she was a little bit out of breath. CORONAVIRUS SCREENING: Date of last COVID vaccine was December 2020. She has had two of them. No booster. MEDICATIONS: Metoprolol 100 q.d., Prilosec 20 q.d. ALLERGIES: ATIVAN. IBUPROFEN. MORPHINE. PAST MEDICAL HISTORY: As stated, she was treated for left breast cancer. She stated because of the COVID last year she did not get her usual mammogram. She has history of arthritis in the knee. PAST SURGICAL HISTORY: Cholecystectomy. Knee surgery. Hysterectomy in the distant past. Mastectomy several months ago. Total knee joint by Dr. Matt Lantigua at [facility]. REVIEW OF SYSTEMS: CONSTITUTIONAL: A little bit of fatigue. RESPIRATORY: No shortness of breath. No cough. CARDIAC: Irregular heartbeat which has terminated with the Cardizem. ABDOMEN: No nausea, vomiting or abdominal pain. MUSCULOSKELETAL: No aches or pains more than usual. PSYCHIATRIC: The patient is completely sane, very pleasant, alert and orientated. ENDOCRINE: No problems. PHYSICAL EXAMINATION: This morning the patient is alert, orientated, in no distress. VITAL SIGNS: Temperature 97F, pulse 80, respirations 18, blood pressure 140/70. HEENT: Pupils equal and reactive to light. NECK: Supple without adenopathy. No bruits. CHEST: Clear. BREAST: Left mastectomy. CVS: Regular rate. No murmurs or gallops. ABDOMEN: Soft. No masses or organomegaly. LAB DATA AND TESTS: EKG showed sinus rhythm, prolonged QT syndrome, old inferior, nonspecific ST-T wave changes. IMPRESSION: 1) New onset atrial fibrillation. 2) Mild COVID. 3) Hypertension. Currently she is anticoagulated and started on oral Cardizem. PLAN: Because of the COVID positive she is going to go to the COVID Unit. Soon after she got there, she got converted and we discontinued the Cardizem drip. She is on metoprolol. She is asymptomatic from the COVID so she will receive no COVID medicines at this point. The patient will be started on a low dose of Cardizem and metoprolol 100 mg to be continued. Will watch for bradycardia reoccurring rhythm. Her troponins were mildly elevated. I will repeat an EKG. I do not think that is a substantial problem at this time as at this time is only 0.035 this morning down from 0.038 yesterday.
[2021-11-22] MEDS ORDERED: TYLENOL 325 MG PO PRN (17:14)
[2021-11-22] MEDS ORDERED: ECOTRIN 81 MG PO SCH (22:00)
[2021-11-22] MEDS ORDERED: NON-FORMULARY ITEM (Aspirin [Aspirin] 325 MG Tablet) PO SCH (22:00)
[2021-11-22] MEDS ORDERED: Toprol Xl 100 MG PO SCH (22:00)
[2021-11-23 05:08] LABS: Hematocrit 37.7 % (35-47); Hemoglobin 12.1 gm/dl (12.0-16.0); Mean Cell Volume 104.1 fl (78-100); Mean Corpuscular Hemoglobin 33.4 pg (26-32); Mean Corpuscular Hgb Concent. 32.1 g/dl (32-36); Mean Platelet Volume 8.9 fl (7.5-11.0); Platelet Count 258 K/mm3 (150-450); Red Blood Count 3.62 M/mm3 (4.1-5.4); Red Cell Distribution Width 14.9 % (11.5-14.0); White Blood Count 3.6 K/mm3 (4.0-10.5)
[2021-11-23 07:44] LABS: ANISOCYTOSIS 1+; BAND 3 % (0.0-2.0); Eosinophil 7 % (0.00-3.0); Lymphocytes 40 % (24-44); Monocyte 8 % (0.0-12.0); Neutrophils 42 % (36.0-66.0); Platelet Estimate NORMAL (NORMAL); Total Cells Counted 100; Toxic Granulation 1+
[2021-11-23] MEDS: ELIQUIS 2.5 MG TABLET PO SCH (08:38)
[2021-11-23] MEDS: ZOVIRAX 200 MG PO SCH (09:32)
[2021-11-23] MEDS ORDERED: Cardizem CD 120 MG PO SCH (10:00)
[2021-11-23 13:11] VITALS: BP 136/104; PULSE 73; O2SAT 96
--- NOTE | 2021-11-23 13:30 | PCM.DS ---
Discharge Summary Date of Admission: 11/21/21 21:30 Admitting Physician: SHANELL CARBAJAL Primary Care Provider: SIDDHARTHA PERALES Allergies Allergies lorazepam [From Ativan] Adverse Reaction (Intermediate, Verified 11/21/21 22:12) "It made me go crazy" ibuprofen Adverse Reaction (Verified 11/21/21 22:12) causes fast HR morphine Adverse Reaction (Verified 11/21/21 22:12) Hospital Summary - Hospital Course Hospital Course: Chief Complaint Diagnosis COVID, afib w RVR Allergies Allergy/AdvReac Type Severity Reaction Status Date / Time lorazepam [From Ativan] AdvReac Intermediate Verified 11/21/21 22:12 ibuprofen AdvReac Verified 11/21/21 22:12 morphine AdvReac Verified 11/21/21 22:12 Vital Signs (Last 24 hours) Temp Pulse Resp BP Pulse Ox 11/23/21 12:00 98.0 F 73 26 H 136/104 96 11/23/21 10:00 77 91 L 11/23/21 08:00 97.3 F 70 13 138/71 94 L 11/23/21 07:30 91 L 11/23/21 06:00 16 11/23/21 05:51 71 19 95 11/23/21 03:56 97.7 F 68 24 131/69 98 11/23/21 02:00 18 11/23/21 01:56 65 16 95 11/23/21 00:00 16 11/22/21 23:38 97.7 F 76 19 105/59 90 L 11/22/21 23:00 73 11/22/21 22:00 81 16 92 L 11/22/21 19:35 97.7 F 83 23 138/67 94 L 11/22/21 19:27 94 L 11/22/21 18:00 96 H 18 95 11/22/21 16:00 98.1 F 82 17 117/62 94 L 11/22/21 14:00 86 20 92 L Home Medications Medication Instructions Recorded Confirmed Last Taken Type Acyclovir 400 mg PO BID 11/21/21 11/21/21 11/21/21 10:00 History Alprazolam [Xanax] 0.5 mg PO DAILY PRN PRN 11/21/21 11/21/21 Unknown History Metoprolol Succinate [Toprol Xl] 100 mg PO QPM 11/21/21 11/21/21 11/20/21 20:00 History Multivit with Iron,Minerals 1 tab PO DAILY 11/21/21 11/21/21 11/21/21 10:00 History [Multivitamins with Iron] Vit B12/Intrinsic Fact/Folate 1 tab PO DAILY 11/21/21 11/21/21 11/21/21 22:00 History [Intrinsi [id number] Tablet] Apixaban [Eliquis 2.5 mg Tablet] 5 mg PO BID #120 tablet 11/23/21 Unknown Rx Diltiazem HCl 120 mg [Cardizem 240 mg PO DAILY 30 Days #30 11/23/21 Unknown Rx CD 120 MG] Diltiazem HCl [Cardizem] 120 mg PO DAILY #60 tablet 11/23/21 Unknown Rx Current Medications Generic Name Dose Route Start Last Admin Trade Name Freq PRN Reason Stop Dose Admin Acetaminophen 650 mg 11/22/21 17:14 11/22/21 17:16 Acetaminophen 325 Mg Tablet PO 12/22/21 17:13 650 mg Q4H PRN PRN Administration PAIN AND/OR FEVER Acyclovir 400 mg 11/22/21 10:00 11/23/21 09:32 Acyclovir 200 Mg Capsule PO 12/22/21 09:59 400 mg BID LISA Administration Alprazolam 0.5 mg 11/22/21 09:44 11/22/21 21:44 Alprazolam 0.5 Mg Tablet PO 12/22/21 09:43 0.5 mg DAILY PRN PRN Administration ANXIETY Apixaban 5 mg 11/21/21 22:00 11/23/21 08:38 Apixaban 2.5 Mg Tablet PO 12/21/21 21:59 5 mg BID LISA Administration Diltiazem HCl 240 mg 11/23/21 10:00 11/23/21 08:38 Diltiazem Hcl 120 Mg Cap.Sr.24h PO 12/23/21 09:59 240 mg DAILY LISA Administration Metoprolol Succinate 100 mg 11/22/21 22:00 11/22/21 21:44 Metoprolol Succinate 100 Mg Tablet.Sa PO 12/22/21 21:59 100 mg QPM LISA Administration Ondansetron HCl 4 mg 11/21/21 19:04 Ondansetron Hcl 4 Mg/2 Ml Vial IV 12/21/21 19:03 Q4H PRN PRN NAUSEA/VOMITING Discontinued Medications Generic Name Dose Route Start Last Admin Trade Name Chanelle PRN Reason Stop Dose Admin Amlodipine Besylate 5 mg 11/22/21 10:00 11/22/21 10:21 Amlodipine Besylate 5 Mg Tablet PO 12/22/21 09:59 5 mg DAILY LISA Administration Aspirin 81 mg 11/21/21 22:33 11/21/21 22:40 Aspirin 81 Mg Tablet.Ec PO 11/21/21 22:34 81 mg ONCE ONE Administration Aspirin 81 mg 11/22/21 22:00 Aspirin 81 Mg Tablet.Ec PO 12/22/21 21:59 QHS LISA Diltiazem HCl 20 mg 11/21/21 19:08 11/21/21 19:12 Diltiazem Hcl Iv 5 Mg/Ml Vial IV 11/21/21 19:09 20 mg STAT ONE Administration Diltiazem HCl 240 mg 11/22/21 11:00 Diltiazem Hcl 120 Mg Cap.Sr.24h PO 12/22/21 10:59 DAILY [facility] Diltiazem HCl Confirm 11/21/21 17:41 Cardizem Drip 100 Mg/100 Ml D5w Administered 11/21/21 17:42 Dose 100 mls @ ud IV .STK-MED ONE Diltiazem HCl 100 mls @ 5 mls/hr 11/21/21 19:08 Cardizem Drip 100 Mg/100 Ml D5w IV 12/21/21 19:07 .Q20H PRN HEART RATE/ A-FIB Protocol 5 MG/HR Metoprolol Succinate 100 mg 11/21/21 22:32 11/21/21 22:39 Metoprolol Succinate 100 Mg Tablet.Sa PO 11/21/21 22:33 100 mg ONCE ONE Administration Metoprolol Tartrate 100 mg 11/21/21 18:14 11/21/21 18:16 Metoprolol Tartrate 50 Mg Tablet PO 11/21/21 18:15 100 mg STAT ONE Administration Metoprolol Tartrate Confirm 11/21/21 18:15 Metoprolol Tartrate 50 Mg Tablet Administered 11/21/21 18:16 Dose 100 mg .ROUTE .STK-MED ONE Intake & Output (Last 24 hours) 02/06/0411/22/21 11/23/21 11/24/21 11:59 11:59 11:59 11:59 Intake Total 960 Output Total 500 2000 Balance -500 -1040 Weight 97.7 kg 97.7 kg Laboratory Results (Last 24 hours) 11/23/21 04:50 WBC 3.6 L RBC 3.62 L Hgb 12.1 Hct 37.7 MCV 104.1 H MCH 33.4 H MCHC 32.1 RDW 14.9 H Plt Count 258 MPV 8.9 Segmented Neutrophils 42 Band Neutrophils 3 H Lymphocytes (Manual) 40 Monocytes (Manual) 8 Eosinophils (Manual) 7 H Toxic Granulation 1+ Platelet Estimate NORMAL RBC Morphology ABNORMAL Anisocytosis 1+ Orders (Last 24 hours) Category Date Time Status Discharge Routine Discharge 11/23/21 Ordered Discharge/Telephone Order Routine Discharge 11/23/21 Active CBC W DIFF AM.LAB Lab 11/23/21 04:50 Completed Manual Differential NC Routine Lab 11/23/21 04:50 Completed Acetaminophen 325 mg [Tylenol 325 mg] Med 11/22/21 17:14 Active 650 mg PO Q4H PRN PRN Aspirin EC 81 mg [Ecotrin 81 mg] Med 11/22/21 22:00 Discontinued 81 mg PO QHS Diltiazem HCl 120 mg [Cardizem CD 120 MG] Med 11/23/21 10:00 Active 240 mg PO DAILY Metoprolol Succinate 100 mg [Toprol Xl 100 MG] Med 11/22/21 22:00 Active 100 mg PO QPM EKG DAILY RT 11/23/21 05:00 Completed EKG DAILY RT 11/24/21 05:00 Active EKG DAILY RT 11/25/21 05:00 Active Patient Care Notes (Last 24 hours) 11/23/21 13:22 Nursing Note by Waleska Flores CALLED [facility] TO MAKE CORRECTIONS TO PATIENT'S DISCHARGE MEDICATION LIST. PATIENT TO DISCHARGE WITH CARDIZEM 240MG PO DAILY. Initialized on 11/23/21 13:22 - END OF NOTE 11/23/21 12:33 Case Management Note by Sis Parsons REVIEWED CHART- NO NEW NEEDS REGARDING DC AT THIS TIME Initialized on 11/23/21 12:33 - END OF NOTE - Vitals & Intake/Output Vital Signs: Vital Signs Temperature 98.0 F 11/23/21 12:00 Pulse Rate 73 11/23/21 12:00 Respiratory Rate 26 H 11/23/21 12:00 Blood Pressure 136/104 11/23/21 12:00 O2 Sat by Pulse Oximetry 96 11/23/21 12:00 Intake & Output: Intake & Output 11/21/21 11/22/21 11/23/21 11/24/21 11:59 11:59 11:59 11:59 Intake Total 960 Output Total 500 2000 Balance -500 -1040 Weight 97.7 kg 97.7 kg - Lab Result Diagrams: 11/23/21 04:50 11/22/21 05:53 Lab Results-Last 24 Hrs: Lab Results-Last 24 Hours 11/23/21 Range/Units 04:50 WBC 3.6 L (4.0-10.5) K/mm3 RBC 3.62 L (4.1-5.4) M/mm3 Hgb 12.1 (12.0-16.0) gm/dl Hct 37.7 (35-47) % MCV 104.1 H (78-100) fl MCH 33.4 H (26-32) pg MCHC 32.1 (32-36) g/dl RDW 14.9 H (11.5-14.0) % Plt Count 258 (150-450) K/mm3 MPV 8.9 (7.5-11.0) fl Segmented Neutrophils 42 (36.0-66.0) % Band Neutrophils 3 H (0.0-2.0) % Lymphocytes (Manual) 40 (24-44) % Monocytes (Manual) 8 (0.0-12.0) % Eosinophils (Manual) 7 H (0.00-3.0) % Toxic Granulation 1+ Platelet Estimate NORMAL (NORMAL) RBC Morphology ABNORMAL Anisocytosis 1+ - Radiology Exams Ordered Rad Exams-Entire Visit: Radiology Procedures Category Date Time Status CHEST 1 VIEW (PORTABLE) Stat Exams 11/21/21 17:52 Completed - Procedures and Test Procedures and Tests throughout Hospitalization: Therapy Orders & Screens 11/21/21 19:05 EKG Q8HX2,QAMX3,PRN Comment: Diagnosis: Chest Pain 11/22/21 03:04 EKG ROUTINE Comment: Diagnosis: Chest Pain 11/22/21 10:20 EKG STAT Comment: Diagnosis: COVID, afib w RVR 11/23/21 05:00 EKG DAILY Comment: Diagnosis: Chest Pain 11/24/21 05:00 EKG DAILY Comment: Diagnosis: Chest Pain 11/25/21 05:00 EKG DAILY Comment: Diagnosis: Chest Pain Discharge Exam General Appearance: no apparent distress, alert Neurologic Exam: alert, oriented x 3, cooperative, normal mood/affect, nml cerebellar function, sensation nml, No motor deficits Eye Exam: PERRL, EOMI, eyes nml inspection Ears, Nose, Throat Exam: normal ENT inspection, pharynx normal, moist mucous membranes Neck Exam: normal inspection, non-tender, supple, full range of motion Respiratory Exam: normal breath sounds, lungs clear, No respiratory distress Cardiovascular Exam: regular rate/rhythm, normal heart sounds Gastrointestinal/Abdomen Exam: soft, No tenderness, No mass Pelvic Exam: deferred Rectal Exam: deferred Back Exam: normal inspection, normal range of motion, No CVA tenderness, No vertebral tenderness Extremity Exam: normal inspection, normal range of motion Skin Exam: normal color, warm, dry Final Diagnosis/Problem List - Final Discharge Diagnosis/Problem (1) COVID-19 Current Visit: Yes Status: Acute Assessment & Plan: Chief Complaint Diagnosis COVID, afib w RVR Allergies Allergy/AdvReac Type Severity Reaction Status Date / Time lorazepam [From Ativan] AdvReac Intermediate Verified 11/21/21 22:12 ibuprofen AdvReac Verified 11/21/21 22:12 morphine AdvReac Verified 11/21/21 22:12 Vital Signs (Last 24 hours) Temp Pulse Resp BP Pulse Ox 11/23/21 12:00 98.0 F 73 26 H 136/104 96 11/23/21 10:00 77 91 L 11/23/21 08:00 97.3 F 70 13 138/71 94 L 11/23/21 07:30 91 L 11/23/21 06:00 16 11/23/21 05:51 71 19 95 11/23/21 03:56 97.7 F 68 24 131/69 98 11/23/21 02:00 18 11/23/21 01:56 65 16 95 11/23/21 00:00 16 11/22/21 23:38 97.7 F 76 19 105/59 90 L 11/22/21 23:00 73 11/22/21 22:00 81 16 92 L 11/22/21 19:35 97.7 F 83 23 138/67 94 L 11/22/21 19:27 94 L 11/22/21 18:00 96 H 18 95 11/22/21 16:00 98.1 F 82 17 117/62 94 L 11/22/21 14:00 86 20 92 L Home Medications Medication Instructions Recorded Confirmed Last Taken Type Acyclovir 400 mg PO BID 11/21/21 11/21/21 11/21/21 10:00 History Alprazolam [Xanax] 0.5 mg PO DAILY PRN PRN 11/21/21 11/21/21 Unknown History Metoprolol Succinate [Toprol Xl] 100 mg PO QPM 11/21/21 11/21/21 11/20/21 20:00 History Multivit with Iron,Minerals 1 tab PO DAILY 11/21/21 11/21/21 11/21/21 10:00 History [Multivitamins with Iron] Vit B12/Intrinsic Fact/Folate 1 tab PO DAILY 11/21/21 11/21/21 11/21/21 22:00 History [Intrinsi [id number] Tablet] Apixaban [Eliquis 2.5 mg Tablet] 5 mg PO BID #120 tablet 11/23/21 Unknown Rx Diltiazem HCl 120 mg [Cardizem 240 mg PO DAILY 30 Days #30 11/23/21 Unknown Rx CD 120 MG] Diltiazem HCl [Cardizem] 120 mg PO DAILY #60 tablet 11/23/21 Unknown Rx Current Medications Generic Name Dose Route Start Last Admin Trade Name Freq PRN Reason Stop Dose Admin Acetaminophen 650 mg 11/22/21 17:14 11/22/21 17:16 Acetaminophen 325 Mg Tablet PO 12/22/21 17:13 650 mg Q4H PRN PRN Administration PAIN AND/OR FEVER Acyclovir 400 mg 11/22/21 10:00 11/23/21 09:32 Acyclovir 200 Mg Capsule PO 12/22/21 09:59 400 mg BID LISA Administration Alprazolam 0.5 mg 11/22/21 09:44 11/22/21 21:44 Alprazolam 0.5 Mg Tablet PO 12/22/21 09:43 0.5 mg DAILY PRN PRN Administration ANXIETY Apixaban 5 mg 11/21/21 22:00 11/23/21 08:38 Apixaban 2.5 Mg Tablet PO 12/21/21 21:59 5 mg BID LISA Administration Diltiazem HCl 240 mg 11/23/21 10:00 11/23/21 08:38 Diltiazem Hcl 120 Mg Cap.Sr.24h PO 12/23/21 09:59 240 mg DAILY LISA Administration Metoprolol Succinate 100 mg 11/22/21 22:00 11/22/21 21:44 Metoprolol Succinate 100 Mg Tablet.Sa PO 12/22/21 21:59 100 mg QPM LISA Administration Ondansetron HCl 4 mg 11/21/21 19:04 Ondansetron Hcl 4 Mg/2 Ml Vial IV 12/21/21 19:03 Q4H PRN PRN NAUSEA/VOMITING Discontinued Medications Generic Name Dose Route Start Last Admin Trade Name Freq PRN Reason Stop Dose Admin Amlodipine Besylate 5 mg 11/22/21 10:00 11/22/21 10:21 Amlodipine Besylate 5 Mg Tablet PO 12/22/21 09:59 5 mg DAILY LISA Administration Aspirin 81 mg 11/21/21 22:33 11/21/21 22:40 Aspirin 81 Mg Tablet.Ec PO 11/21/21 22:34 81 mg ONCE ONE Administration Aspirin 81 mg 11/22/21 22:00 Aspirin 81 Mg Tablet.Ec PO 12/22/21 21:59 QHS LISA Diltiazem HCl 20 mg 11/21/21 19:08 11/21/21 19:12 Diltiazem Hcl Iv 5 Mg/Ml Vial IV 11/21/21 19:09 20 mg STAT ONE Administration Diltiazem HCl 240 mg 11/22/21 11:00 Diltiazem Hcl 120 Mg Cap.Sr.24h PO 12/22/21 10:59 DAILY LISA Diltiazem HCl Confirm 11/21/21 17:41 Cardizem Drip 100 Mg/100 Ml D5w Administered 11/21/21 17:42 Dose 100 mls @ ud IV .STK-MED ONE Diltiazem HCl 100 mls @ 5 mls/hr 11/21/21 19:08 Cardizem Drip 100 Mg/100 Ml D5w IV 12/21/21 19:07 .Q20H PRN HEART RATE/ A-FIB Protocol 5 MG/HR Metoprolol Succinate 100 mg 11/21/21 22:32 11/21/21 22:39 Metoprolol Succinate 100 Mg Tablet.Sa PO 11/21/21 22:33 100 mg ONCE ONE Administration Metoprolol Tartrate 100 mg 11/21/21 18:14 11/21/21 18:16 Metoprolol Tartrate 50 Mg Tablet PO 11/21/21 18:15 100 mg STAT ONE Administration Metoprolol Tartrate Confirm 11/21/21 18:15 Metoprolol Tartrate 50 Mg Tablet Administered 11/21/21 18:16 Dose 100 mg .ROUTE .STK-MED ONE Intake & Output (Last 24 hours) 11/21/21 11/22/21 11/23/21 11/24/21 11:59 11:59 11:59 11:59 Intake Total 960 Output Total 500 2000 Balance -500 -1040 Weight 97.7 kg 97.7 kg Laboratory Results (Last 24 hours) 11/23/21 04:50 WBC 3.6 L RBC 3.62 L Hgb 12.1 Hct 37.7 MCV 104.1 H MCH 33.4 H MCHC 32.1 RDW 14.9 H Plt Count 258 MPV 8.9 Segmented Neutrophils 42 Band Neutrophils 3 H Lymphocytes (Manual) 40 Monocytes (Manual) 8 Eosinophils (Manual) 7 H Toxic Granulation 1+ Platelet Estimate NORMAL RBC Morphology ABNORMAL Anisocytosis 1+ Orders (Last 24 hours) Category Date Time Status Discharge Routine Discharge 11/23/21 Ordered Discharge/Telephone Order Routine Discharge 11/23/21 Active CBC W DIFF AM.LAB Lab 11/23/21 04:50 Completed Manual Differential NC Routine Lab 11/23/21 04:50 Completed Acetaminophen 325 mg [Tylenol 325 mg] Med 11/22/21 17:14 Active 650 mg PO Q4H PRN PRN Aspirin EC 81 mg [Ecotrin 81 mg] Med 11/22/21 22:00 Discontinued 81 mg PO QHS Diltiazem HCl 120 mg [Cardizem CD 120 MG] Med 11/23/21 10:00 Active 240 mg PO DAILY Metoprolol Succinate 100 mg [Toprol Xl 100 MG] Med 11/22/21 22:00 Active 100 mg PO QPM EKG DAILY RT 11/23/21 05:00 Completed EKG DAILY RT 11/24/21 05:00 Active EKG DAILY RT 11/25/21 05:00 Active Patient Care Notes (Last 24 hours) 11/23/21 13:22 Nursing Note by Waleska Flores CALLED [facility] TO MAKE CORRECTIONS TO PATIENT'S DISCHARGE MEDICATION LIST. PATIENT TO DISCHARGE WITH CARDIZEM 240MG PO DAILY. Initialized on 11/23/21 13:22 - END OF NOTE 11/23/21 12:33 Case Management Note by Sis Parsons REVIEWED CHART- NO NEW NEEDS REGARDING DC AT THIS TIME Initialized on 11/23/21 12:33 - END OF NOTE Code(s): U07.1 - COVID-19 (2) Atrial fibrillation with RVR Current Visit: Yes Status: Chronic Code(s): I48.91 - UNSPECIFIED ATRIAL FIBR ILLATION - Discharge Discharge Date: 11/23/21 Disposition: Home, Self-Care Condition: Stable Prescriptions: New Diltiazem HCl [Cardizem] 120 mg PO DAILY #60 tablet Apixaban [Eliquis 2.5 mg Tablet] 5 mg PO BID #120 tablet Diltiazem HCl 120 mg [Cardizem CD 120 MG] 240 mg PO DAILY 30 Days #30 Continue Vit B12/Intrinsic Fact/Folate [Intrinsi [id number] Tablet] 1 tab PO DAILY Multivit with Iron,Minerals [Multivitamins with Iron] 1 tab PO DAILY Alprazolam [Xanax] 0.5 mg PO DAILY PRN PRN PRN Reason: Anxiety Metoprolol Succinate [Toprol Xl] 100 mg PO QPM Acyclovir 400 mg PO BID Discontinued Aspirin 325 mg PO QHS Amlodipine Besylate 5 mg [Norvasc 5 mg] 5 mg PO DAILY Instructions: Atrial Fibrillation (DC), Medicines for Atrial Fibrillation, Coronavirus Disease 2019 (COVID-19) (DC), Pulse Oximetry Additional Instructions: isolate for 5 more days or longer if having Covid symptoms. Follow up with: TANIA ANGELES [COURTESY STAFF] - 12/11/21 1:30 pm SIDDHARTHA PERALES [Primary Care Provider] - 11/30/21 9:00 am GARLAND AGUILA [ACTIVE STAFF] - 12/26/21 4:00 pm Forms: Discharge Instructions
== END 2021-11-23 13:48 | disposition home or self-care (01) ==
LOC: ED 17:36 → MED SURG 21:30
PROVIDERS: ADMIT Family Medicine; ATTEND Family Medicine
DX: U07.1 COVID-19 (principal); I48.91 Unspecified atrial fibrillation; I25.10 Atherosclerotic heart disease of native coronary artery without angina pectoris; C50.912 Malignant neoplasm of unspecified site of left female breast; I10 Essential (primary) hypertension; E78.00 Pure hypercholesterolemia, unspecified; Z79.01 Long term (current) use of anticoagulants; Z79.899 Other long term (current) drug therapy; Z20.828 Contact with and (suspected) exposure to other viral communicable diseases
CPT/HCPCS: 0241U; 36000; 36415; 71045; 80053; 80061; 83721; 84484; 85025; 85379; 85610; 85730; 93005; 93268; 94762; 96374; 99284; 99291; G0378; 96375; A9270-GY

== ENCOUNTER 2022-03-26 15:02 | Emergency (ER) | payer MEDICARE, BC ==
--- NOTE | 2022-03-26 15:29 | ERPHSYRPT ---
- History of Present Illness Time Seen by Provider: 03/26/22 15:29 Source: patient Exam Limitations: no limitations Physician History: This is an 82-year-old white female patient of Dr. 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 She also was found to have a rapid heart rate in the high blood pressure. Patient has a history of hypertension, anxiety, migraine headaches, arrhythmias, hyperlipidemia, osteoporosis and osteoarthritis. Patient denies chest pain. She denies shortness of breath at this time. She has no abdominal pain. She has no fevers or chills. She has no nausea vomiting or diarrhea symptoms Timing/Duration: today Severity: moderate Modifying Factors: Improves With: nothing Associated Symptoms: weakness, No nausea, No vomiting, No abdominal pain, No shortness of breath, No chest pain Allergies/Adverse Reactions: lorazepam [From Ativan] Adverse Reaction (Intermediate, Verified 03/26/22 15:40) "It made me go crazy" ibuprofen Adverse Reaction (Verified 03/26/22 15:40) causes fast HR morphine Adverse Reaction (Verified 03/26/22 15:40) Home Medications: Acyclovir 400 mg PO BID 11/21/21 [History] Alprazolam [Xanax] 0.5 mg PO DAILY PRN PRN 11/21/21 [History] Metoprolol Succinate [Toprol Xl] 100 mg PO QPM 11/21/21 [History] Multivit with Iron,Minerals [Multivitamins with Iron] 1 tab PO DAILY 11/21/21 [History] Vit B12/Intrinsic Fact/Folate [Intrinsi G31-Ebrbbk Tablet] 1 tab PO DAILY 11/21/21 [History] Hx Tetanus, Diphtheria Vaccination/Date Given: No (UNKNOWN) Hx Influenza Vaccination/Date Given: Yes Hx Pneumococcal Vaccination/Date Given: Yes Travel Risk - International Travel Have you traveled outside of the country in past 3 weeks: No - Coronavirus Screening Are you exhibiting any of the following symptoms?: No Close contact with a COVID-19 positive Pt in past 14-21 Days: No - Vaccine Status Have you recieved a Covid-19 vaccination: Yes Lining Presser: Moderna - Vaccination Dates Date of 2cond Vaccination (if applicable): 01/01 Comment: has also had booster - Review of Systems Constitutional: Weakness Eyes: No Symptoms Ears, Nose, & Throat: No Symptoms Respiratory: No Symptoms Cardiac: No Symptoms Abdominal/Gastrointestinal: Appetite Changes, No Abdominal Pain, No Nausea, No Vomiting, No Diarrhea Genitourinary Symptoms: No Symptoms Musculoskeletal: No Symptoms Skin: No Symptoms Neurological: No Symptoms Psychological: No Symptoms Endocrine: No Symptoms Hematologic/Lymphatic: No Symptoms Immunological/Allergic: No Symptoms All Other Systems: Reviewed and Negative - Past Medical History Pertinent Past Medical History: Yes Neurological History: Migraines ENT History: Cataracts Cardiac History: Arrhythmia, High Cholesterol, Hypertension Respiratory History: Bronchitis Endocrine Medical History: No Pertinent History Musculoskeletal History: Osteoarthritis, Osteoporosis, Other GI Medical History: Other History: No Pertinent History Psycho-Social History: No Pertinent History Female Reproductive Disorders: Endometriosis Other Medical History: "BAD lt KNEE". recent uti - Past Surgical History Past Surgical History: Yes Neuro Surgical History: No Pertinent History Cardiac: Cardiac Catheterization Respiratory: No Pertinent History Gastrointestinal: Cholecystectomy Genitourinary: No Pertinent History Musculoskeletal: Orthopedic Surgery Female Surgical History: Hysterectomy Other Surgical History: SINUS - TONSILLITIS. tot lt knee approx 05/12/19 Dr Lantigua at [facility] - Social History Smoking Status: Never smoker Exposure to second hand smoke: No Drug Use: none Patient Lives Alone: No Significant Family History: no pertinent family hx - Nursing Vital Signs Nursing Vital Signs: Initial Vital Signs Pulse Rate 119 H 03/26/22 15:19 Blood Pressure 181/98 03/26/22 15:19 O2 Sat by Pulse Oximetry 93 L 03/26/22 15:19 Pain Scale Pain Intensity 0 - Physical Exam General Appearance: no apparent distress, alert, anxiety Eye Exam: PERRL/EOMI, eyes nml inspection Ears, Nose, Throat Exam: dry mucous membranes Neck Exam: normal inspection, non-tender, supple, full range of motion Respiratory Exam: normal breath sounds, lungs clear, No chest tenderness, No respiratory distress Cardiovascular Exam: tachycardia Gastrointestinal/Abdomen Exam: soft, normal bowel sounds, No tenderness Pelvic Exam: not done Rectal Exam: not done Back Exam: normal inspection, normal range of motion, No CVA tenderness, No vertebral tenderness Extremity Exam: normal inspection Neurologic Exam: alert, oriented x 3, cooperative, community assistant II-XII nml as tested, normal mood/affect, nml cerebellar function, nml station & gait, sensation nml Skin Exam: warm, dry, pale Lymphatic Exam: No adenopathy SpO2 Interpretation: borderline oxygenation SpO2: 93 O2 Delivery: Room Air - Course Nursing assessment & vital signs reviewed: Yes EKG Interpreted by Me: RATE ([id number]), Sinus Tach, NORMAL INTERVALS, NORMAL QRS, NORMAL ST-T, Other (LVH present. No acute ischemic changes on today's EKG) Ordered Tests: Active Orders 24 hr Category Date Time Status EKG-ER Only STAT Care 03/26/22 15:35 Active IV Insertion STAT Care 03/26/22 15:35 Active Pulse Oximetry (ED) STAT Care 03/26/22 15:35 Active CBC W DIFF Stat Lab 03/26/22 16:00 Completed CMP Stat Lab 03/26/22 16:00 Completed CULTURE,URINE Stat Lab 03/26/22 16:35 Received MAGNESIUM Stat Lab 03/26/22 16:00 Completed Manual Differential NC Stat Lab 03/26/22 16:00 Completed NT PRO BNP Stat Lab 03/26/22 16:00 Completed TROPONIN Q3H Lab 03/26/22 16:00 Completed TROPONIN Q3H Lab 03/26/22 21:45 Ordered TROPONIN Q3H Lab 03/27/22 00:45 Ordered TROPONIN Q3H Lab 03/27/22 03:45 Ordered TROPONIN Routine Lab 03/26/22 16:45 Completed UA W/RFX CULTURE Stat Lab 03/26/22 16:35 Completed Medication Summary Discontinued Medications Generic Name Dose Route Start Last Admin Trade Name Freq PRN Reason Stop Dose Admin Sodium Chloride 1,000 mls @ 999 mls/hr 03/26/22 15:35 03/26/22 16:43 Sodium Chloride 0.9% 1000 Ml IV 03/26/22 16:35 Infused .Q1H1M STA Infusion Sodium Chloride Confirm 03/26/22 15:40 Sodium Chloride 0.9% 1000 Ml Administered 03/26/22 15:41 Dose 1,000 mls @ ud .ROUTE .STK-MED ONE Ceftriaxone Sodium/Dextrose 1 g in 50 mls @ 100 mls/hr 03/26/22 18:18 03/26/22 18:54 Rocephin 1 Gm-D5w 50 Ml Bag IV 03/26/22 18:47 Infused STAT STA Infusion Sodium Chloride 1,000 mls @ 999 mls/hr 03/26/22 18:18 03/26/22 19:25 Sodium Chloride 0.9% 1000 Ml IV 03/26/22 19:18 Infused .Q1H1M STA Infusion Sodium Chloride Confirm 03/26/22 18:21 Sodium Chloride 0.9% 1000 Ml Administered 03/26/22 18:22 Dose 1,000 mls @ ud .ROUTE .STK-MED ONE Ceftriaxone Sodium/Dextrose Confirm 03/26/22 18:21 Rocephin 1 Gm-D5w 50 Ml Bag Administered 03/26/22 18:22 Dose 1 g in 50 mls @ ud IV .STK-MED ONE Metoprolol Tartrate 5 mg 03/26/22 15:37 03/26/22 15:42 Metoprolol Tartrate 5 Mg/5 Ml Vial IV 03/26/22 15:38 5 mg STAT ONE Administration Metoprolol Tartrate Confirm 03/26/22 15:40 Metoprolol Tartrate 5 Mg/5 Ml Vial Administered 03/26/22 15:41 Dose 5 mg IV .STK-MED ONE Lab/Rad Data: Laboratory Result Diagrams 03/26/22 16:00 03/26/22 16:00 Laboratory Results 03/26/22 03/26/22 03/26/22 Range/Units 16:45 16:35 16:00 WBC (4.0-10.5) x10^3/uL RBC (4.1-5.4) x10^6/uL Hgb (12.0-16.0) g/dL Hct (35-47) % MCV (78-100) fL MCH (26-32) pg MCHC (32-36) g/dL RDW (11.5-14.0) % Plt Count (150-450) x10^3/uL MPV (7.5-11.0) fL Sodium (137-145) mmol/L Potassium (3.5-5.1) mmol/L Chloride (98-107) mmol/L Carbon Dioxide (22-30) mmol/L Anion Gap (5-15) MEQ/L BUN (7-17) mg/dL Creatinine (0.52-1.04) mg/dL Estimated GFR ML/MIN Glucose (74-106) mg/dL Calcium (8.4-10.2) mg/dL Magnesium (1.6-2.3) mg/dL Total Bilirubin (0.2-1.3) mg/dL AST (14-36) U/L ALT (0-35) U/L Alkaline Phosphatase (38-126) U/L Troponin I 0.065 H* 0.071 H* NT-Pro-B Natriuret Pep (0-1800) pg/mL Serum Total Protein (6.3-8.2) g/dL Albumin (3.5-5.0) g/dL Urinalys Dipstick Clnc MAIN LAB Urine Color YELLOW (YELLOW) Urine Appearance CLOUDY (CLEAR) Urine pH 6.0 (5-6) Ur Specific [place] 1.020 (1.005-1.025) POC Urine Protein Conf NEGATIVE (Negative) Urine Ketones NEGATIVE (NEGATIVE) Urine Nitrite POSITIVE (NEGATIVE) Urine Bilirubin NEGATIVE (NEGATIVE) Urine Urobilinogen 0.2 (0-1) mg/dL Urine Leukocytes TRACE (NEGATIVE) Urine WBC (Auto) 11-15 (0-5) /HPF Urine RBC (Auto) NONE (0-2) /HPF U Epithel Cells (Auto) NONE (FEW) /HPF Urine Bacteria (Auto) NONE (NEGATIVE) /HPF Urine RBC NEGATIVE (0-5) Cuate/ul Urine Mucus (Auto) SLIGHT (NEGATIVE) /HPF Ur Culture Indicated? YES Urine Glucose NEGATIVE (NEGATIVE) mg/dL 03/26/22 03/26/22 03/26/22 Range/Units 16:00 16:00 06:45 WBC 8.6 (4.0-10.5) x10^3/uL RBC 3.77 L (4.1-5.4) x10^6/uL Hgb 12.5 (12.0-16.0) g/dL Hct 38.4 (35-47) % MCV 101.9 H (78-100) fL MCH 33.2 H (26-32) pg MCHC 32.6 (32-36) g/dL RDW 16.9 H (11.5-14.0) % Plt Count 165 (150-450) x10^3/uL MPV 9.0 (7.5-11.0) fL Sodium 135 L (137-145) mmol/L Potassium 3.7 (3.5-5.1) mmol/L Chloride 103 (98-107) mmol/L Carbon Dioxide 25 (22-30) mmol/L Anion Gap 11.0 (5-15) MEQ/L BUN 20 H (7-17) mg/dL Creatinine 0.66 (0.52-1.04) mg/dL Estimated GFR > 60.0 ML/MIN Glucose 167 H (74-106) mg/dL Calcium 9.1 (8.4-10.2) mg/dL Magnesium 1.7 (1.6-2.3) mg/dL Total Bilirubin 0.80 (0.2-1.3) mg/dL AST 46 H (14-36) U/L ALT 73 H (0-35) U/L Alkaline Phosphatase 98 (38-126) U/L Troponin I Cancelled NT-Pro-B Natriuret Pep 188 (0-1800) pg/mL Serum Total Protein 6.6 (6.3-8.2) g/dL Albumin 3.7 (3.5-5.0) g/dL Urinalys Dipstick Clnc Urine Color (YELLOW) Urine Appearance (CLEAR) Urine pH (5-6) Ur Specific [place] (1.005-1.025) POC Urine Protein Conf (Negative) Urine Ketones (NEGATIVE) Urine Nitrite (NEGATIVE) Urine Bilirubin (NEGATIVE) Urine Urobilinogen (0-1) mg/dL Urine Leukocytes (NEGATIVE) Urine WBC (Auto) (0-5) /HPF Urine RBC (Auto) (0-2) /HPF U Epithel Cells (Auto) (FEW) /HPF Urine Bacteria (Auto) (NEGATIVE) /HPF Urine RBC (0-5) Cuate/ul Urine Mucus (Auto) (NEGATIVE) /HPF Ur Culture Indicated? Urine Glucose (NEGATIVE) mg/dL - Progress Progress: improved Progress Note: 03/26/22 19:55 She is feeling well at this time. She has no chest pain. She has no shortness of breath. She is feeling better. We will give a call to Dr. Alcazar. The patient's troponin is decreasing. There is no acute findings on her EKG other than the sinus tachycardia which has now resolved with IV fluids. 03/26/22 20:46 Medical decision making: I contacted Dr. Alcazar, the patient's inbound customer service representative and reviewed the patient's history, physical findings and the work-up as well as the results. In addition, I reviewed our management of this patient. He feels that the elevated troponins is more a function of the tachycardia secondary to infection and now the tachycardia has resolved and the troponins are dropping. The patient wants to go home and he states that that is okay for her to go home and treat the urinary tract infection. Patient has no chest pain or shortness of breath she states that she is feeling better 03/26/22 20:47 Counseled pt/family regarding: lab results, diagnosis, need for follow-up - Departure Departure Disposition: Home Clinical Impression: Tachycardia, UTI (urinary tract infection) Condition: Stable Critical Care Time: No Referrals: SIDDHARTHA QUINONEZ [Primary Care Provider] - Follow up/PCP as directed Additional Instructions: Drink plenty of fluids. Follow-up with your primary care physician and card iologist for further evaluation management. Take your medication as prescribed. Return to the emergency department symptoms worsen Prescriptions: Levofloxacin [Levaquin 500 MG Tablet] 500 mg PO DAILY #7 tablet
[2022-03-26] MEDS ORDERED: Sodium Chloride 0.9% 1000 ML 1,000 ML IV STA ×2 (15:35→18:18)
[2022-03-26] MEDS ORDERED: LOPRESSOR INJECTION IV ONE ×2 (15:37→15:40)
[2022-03-26] MEDS ORDERED: Sodium Chloride 0.9% 1000 ML 1,000 ML ONE ×2 (15:40→18:21)
[2022-03-26 16:47] LABS: Hematocrit 38.4 % (35-47); Hemoglobin 12.5 g/dL (12.0-16.0); Mean Cell Volume 101.9 fL (78-100); Mean Corpuscular Hemoglobin 33.2 pg (26-32); Mean Corpuscular Hgb Concent. 32.6 g/dL (32-36); Platelet Count 165 x10^3/uL (150-450); Red Blood Count 3.77 x10^6/uL (4.1-5.4); Red Cell Distribution Width 16.9 % (11.5-14.0); White Blood Count 8.6 x10^3/uL (4.0-10.5)
[2022-03-26 16:50] LABS: ALBUMIN 3.7 g/dL (3.5-5.0); ALKALINE PHOSPHATASE 98 U/L (38-126); BLOOD UREA NITROGEN 20 mg/dL (7-17); CHLORIDE 103 mmol/L (98-107); Calcium 9.1 mg/dL (8.4-10.2); Carbon Dioxide 25 mmol/L (22-30); Creatinine 1 0.66 mg/dL (0.52-1.04); EST GLOMERULAR FILTRATION RATE > 60.0 ML/MIN; Glucose 167 mg/dL (74-106); MAGNESIUM 1.7 mg/dL (1.6-2.3); NT PRO BNP 188 pg/mL (0-1800); Potassium 3.7 mmol/L (3.5-5.1); SGOT/AST 46 U/L (14-36); SGPT/ALT 73 U/L (0-35); SODIUM 135 mmol/L (137-145); Total Protein 6.6 g/dL (6.3-8.2)
[2022-03-26 17:10] LABS: Mucus SLIGHT /HPF (NEGATIVE)
[2022-03-26 17:19] LABS: Appearance CLOUDY (CLEAR); Bilirubin NEGATIVE (NEGATIVE); Glucose NEGATIVE (NEGATIVE); Ketones NEGATIVE (NEGATIVE); Protein,Urine Dip NEGATIVE (Negative); RBC NEGATIVE Ery/ul (0-5); Urobilinogen 0.2 mg/dL (0-1)
[2022-03-26 17:23] LABS: Nitrite POSITIVE (NEGATIVE)
[2022-03-26 17:25] LABS: Dipstick done @ ? MAIN LAB
[2022-03-26 17:26] LABS: Urine Cultured Indicated? YES
[2022-03-26] MEDS ORDERED: ROCEPHIN 1 Gm-D5w 50 ml Bag** 1 G/50 ML IVPB IV STA (18:18)
[2022-03-26] MEDS ORDERED: ROCEPHIN 1 Gm-D5w 50 ml Bag** 1 G/50 ML IVPB IV ONE (18:21)
[2022-03-26 19:57] VITALS: O2SAT 93
[2022-03-26 21:15] VITALS: BP 142/89; PULSE 96
[2022-03-26 23:01] LABS: Nucleated Red Blood Cell 4 %; Total Cells Counted 100
[2022-03-26 23:03] LABS: Lymphocytes 3 % (24-44); Monocyte 9 % (0.0-12.0); Platelet Estimate NORMAL (NORMAL)
[2022-03-26 23:04] LABS: Macrocytosis 1+; Polychromasia 1+
== END 2022-03-26 21:25 | disposition home or self-care (01) ==
LOC: ED 15:02
DX: N39.0 Urinary tract infection, site not specified (principal); R00.0 Tachycardia, unspecified; R53.1 Weakness; I10 Essential (primary) hypertension; E78.5 Hyperlipidemia, unspecified; Z79.899 Other long term (current) drug therapy
CPT/HCPCS: 36000; 36415; 80053; 81015; 83735; 83880; 84484; 85025; 87086; 93005; 94760; 96374; 99284; J0696; J1642

== ENCOUNTER 2022-05-02 14:38 | Observation (INO) | payer MEDICARE, BC ==
[2022-05-02] MEDS ORDERED: Sodium Chloride 0.9% 1000 ML 1,000 ML IV SCH (15:00)
[2022-05-02] MEDS ORDERED: Sodium Chloride 0.9% 1000 ML 1,000 ML ONE (15:18)
[2022-05-02 15:28] LABS: Hemoglobin 10.2 g/dL (12.0-16.0); Mean Cell Volume 112.3 fL (78-100); Mean Corpuscular Hgb Concent. 32.9 g/dL (32-36); Mean Platelet Volume 9.3 fL (7.5-11.0); Platelet Count 231 x10^3/uL (150-450); Red Blood Count 2.76 x10^6/uL (4.1-5.4); Red Cell Distribution Width 18.3 % (11.5-14.0); White Blood Count 2.1 x10^3/uL (4.0-10.5)
--- NOTE | 2022-05-02 15:29 | ERPHSYRPT ---
- History of Present Illness Time Seen by Provider: 05/02/22 15:05 Source: patient, family Exam Limitations: no limitations Patient Subjective Stated Complaint: Pt states "I have been weak for the past 4 days. I do not want to eat, I do not want to drink, I just feel bad." Triage Nursing Assessment: PT presented alert and oriented X 3, skin pwd Pt ambualtes with a slow gait. Pt able to speak in clear full sentences pt in no apparent respiratory distress. pt resting comfortably on the bed. Physician History: Patient is a 82-year-old white female who presents with a complaint of weakness for the last 4 days. She has had a low blood pressure she has been dizzy she has had no appetite she has been nauseated but no vomiting or diarrhea. She chokes when she eats. Her p.o. intake has fallen and her urine output has decreased to approximately 200 mL/day. Her fluid intake is been 210 ounce glasses of water. He has metastatic breast cancer and is followed by oncologist in [place] she did fall today and complains of pain in the right hip she also complains of tremors along with her weakness. Timing/Duration: day(s) (4) Severity: moderate Modifying Factors: Improves With: movement Associated Symptoms: nausea, loss of appetite, other (Pain in the right hip) Allergies/Adverse Reactions: lorazepam [From Ativan] Adverse Reaction (Intermediate, Verified 03/26/22 15:40) "It made me go crazy" ibuprofen Adverse Reaction (Verified 03/26/22 15:40) causes fast HR morphine Adverse Reaction (Verified 03/26/22 15:40) Home Medications: Alprazolam [Xanax] 0.5 mg PO DAILY PRN PRN 11/21/21 [History] Multivit with Iron,Minerals [Multivitamins with Iron] 1 tab PO DAILY 11/21/21 [History] Vit B12/Intrinsic Fact/Folate [Intrinsi E14-Yrfich Tablet] 1 tab PO DAILY 11/21/21 [History] Famotidine 20 mg PO DAILY 05/02/22 [History] Hx Tetanus, Diphtheria Vaccination/Date Given: No (UNKNOWN) Hx Influenza Vaccination/Date Given: Yes Hx Pneumococcal Vaccination/Date Given: Yes Immunizations Up to Date: Yes Travel Risk - International Travel Have you traveled outside of the country in past 3 weeks: No - Coronavirus Screening Are you exhibiting any of the following symptoms?: No Close contact with a COVID-19 positive Pt in past 14-21 Days: No - Vaccine Status Have you recieved a Covid-19 vaccination: Yes Engagement Executive: Moderna - Vaccination Dates Date of 2cond Vaccination (if applicable): 01/01 Comment: has also had booster - Review of Systems Constitutional: No Fever, No Chills Eyes: No Symptoms Ears, Nose, & Throat: No Symptoms Respiratory: No Cough, No Dyspnea Cardiac: No Chest Pain, No Edema, No Syncope Abdominal/Gastrointestinal: No Abdominal Pain, No Nausea, No Vomiting, No Diarrhea Genitourinary Symptoms: No Dysuria Musculoskeletal: Arthralgias, Myalgias, No Back Pain, No Neck Pain Skin: No Rash Neurological: No Dizziness, No Focal Weakness, No Sensory Changes Psychological: No Symptoms Endocrine: No Symptoms All Other Systems: Reviewed and Negative - Past Medical History Pertinent Past Medical History: Yes Neurological History: Migraines ENT History: Cataracts Cardiac History: Arrhythmia, High Cholesterol, Hypertension Respiratory History: Bronchitis Endocrine Medical History: No Pertinent History Musculoskeletal History: Osteoarthritis, Osteoporosis, Other GI Medical History: Other History: No Pertinent History Psycho-Social History: No Pertinent History Female Reproductive Disorders: Endometriosis Other Medical History: "BAD lt KNEE". recent uti. atrial fib. metastatic breast cancer - Past Surgical History Past Surgical History: Yes Neuro Surgical History: No Pertinent History Cardiac: Cardiac Catheterization Respiratory: No Pertinent History Gastrointestinal: Cholecystectomy Genitourinary: No Pertinent History Musculoskeletal: Orthopedic Surgery Female Surgical History: Hysterectomy Other Surgical History: SINUS - TONSILLITIS. tot lt knee approx 05/12/19 Dr Lantigua at [facility]. left masectomy with lymph nodes. right shoulder - Social History Smoking Status: Never smoker Exposure to second hand smoke: No Drug Use: none Patient Lives Alone: No Significant Family History: no pertinent family hx - Nursing Vital Signs Nursing Vital Signs: Initial Vital Signs Temperature 97.8 F 05/02/22 14:53 Pulse Rate 109 H 05/02/22 14:53 Respiratory Rate 24 05/02/22 14:53 Blood Pressure 134/79 05/02/22 14:53 O2 Sat by Pulse Oximetry 96 05/02/22 14:53 Pain Scale Pain Intensity 4 - Physical Exam General Appearance: moderate distress, alert Eye Exam: PERRL/EOMI, eyes nml inspection Ears, Nose, Throat Exam: normal ENT inspection, TMs normal, pharynx normal, dry mucous membranes Neck Exam: normal inspection, non-tender, supple, full range of motion Respiratory Exam: normal breath sounds, lungs clear, No respiratory distress Cardiovascular Exam: regular rate/rhythm, normal heart sounds, normal peripheral pulses Gastrointestinal/Abdomen Exam: soft, normal bowel sounds, No tenderness, No mass Pelvic Exam: not done Rectal Exam: deferred Back Exam: normal inspection, normal range of motion, No CVA tenderness, No vertebral tenderness Extremity Exam: normal inspection, normal range of motion, pelvis stable Neurologic Exam: alert, oriented x 3, cooperative, normal mood/affect, nml cerebellar function, nml station & gait, sensation nml, other (Tremors), No motor deficits Skin Exam: normal color, warm, dry, other (Alopecia), No rash Lymphatic Exam: No adenopathy SpO2 Interpretation: normal SpO2: 96 O2 Delivery: Room Air - Course Nursing assessment & vital signs reviewed: Yes EKG Interpreted by Me: RATE, Sinus Tach, Other (EKG suggesting old inferior infarct and poor R wave progression there are nonspecific T wave abnormalities.) - Radiology Exams Hip X-ray Interpretation: Reviewed by me Chest X-ray Interpretation: Reviewed by me, Other (Chest x-ray is stable with no acute findings) Ordered Tests: Active Orders 24 hr Category Date Time Status EKG-ER Only STAT Care 05/02/22 14:57 Active CHEST 1 VIEW (PORTABLE) Stat Exams 05/02/22 14:56 Completed HIP UNI (2V) INCL PEL IF DONE Stat Exams 05/02/22 14:56 Completed AMYLASE Stat Lab 05/02/22 15:10 Completed BLOOD CULTURE Stat Lab 05/02/22 15:20 Received CBC W DIFF Stat Lab 05/02/22 15:10 Results CMP Stat Lab 05/02/22 15:10 Completed CULTURE,URINE Stat Lab 05/02/22 17:11 Received LIPASE Stat Lab 05/02/22 15:10 Completed Lactic Acid Stat Lab 05/02/22 15:10 Completed Manual Differential NC Stat Lab 05/02/22 15:10 Results PROTIME WITH INR Stat Lab 05/02/22 15:10 Completed Pathologist Review Stat Lab 05/02/22 15:10 Results TROPONIN Q3H Lab 05/02/22 15:10 Completed TROPONIN Q3H Lab 05/02/22 18:00 Ordered TROPONIN Q3H Lab 05/02/22 21:00 Ordered TROPONIN Q3H Lab 05/03/22 00:00 Ordered TROPONIN Q3H Lab 05/03/22 03:00 Ordered UA W/RFX CULTURE Stat Lab 05/02/22 17:11 Completed Medication Summary Generic Name Dose Route Start Last Admin Trade Name Freq PRN Reason Stop Dose Admin Sodium Chloride 1,000 mls @ 200 mls/hr 05/02/22 15:00 05/02/22 15:20 Sodium Chloride 0.9% 1000 Ml IV 06/01/22 14:59 200 mls/hr .Q5H LISA Administration Discontinued Medications Generic Name Dose Route Start Last Admin Trade Name Freq PRN Reason Stop Dose Admin Potassium Bicarbonate 50 meq 05/02/22 15:44 05/02/22 15:51 Potassium Bicarbonate 25 Meq Tab PO 05/02/22 15:45 Not Given STAT ONE Potassium Chloride 40 meq 05/02/22 15:51 05/02/22 15:53 Potassium Chloride Tab 10 Meq Tab PO 05/02/22 15:52 40 meq STAT ONE Administration Potassium Chloride Confirm 05/02/22 15:50 Potassium Chloride Tab 10 Meq Tab Administered 05/02/22 15:51 Dose 20 meq PO .STK-MED ONE Potassium Chloride Confirm 05/02/22 15:52 Potassium Chloride Tab 10 Meq Tab Administered 05/02/22 15:53 Dose 20 meq PO .STK-MED ONE Potassium Chloride Confirm 05/02/22 15:57 Potassium Chloride Tab 10 Meq Tab Administered 05/02/22 15:58 Dose 10 meq PO .STK-MED ONE Lab/Rad Data: Laboratory Result Diagrams 05/02/22 15:10 05/02/22 15:10 Laboratory Results 05/02/22 05/02/22 05/02/22 Range/Units 17:11 15:10 15:10 WBC (4.0-10.5) x10^3/uL RBC (4.1-5.4) x10^6/uL Hgb (12.0-16.0) g/dL Hct (35-47) % MCV (78-100) fL MCH (26-32) pg MCHC (32-36) g/dL RDW (11.5-14.0) % Plt Count (150-450) x10^3/uL MPV (7.5-11.0) fL Segmented Neutrophils (36.0-66.0) % Lymphocytes (Manual) (24-44) % Monocytes (Manual) (0.0-12.0) % Basophils (Manual) (0.0-1.0) % Nucleated RBCs % Platelet Estimate (NORMAL) RBC Morphology Macrocytosis Smear Path Review PT 12.5 (9.4-12.5) SECONDS INR 1.20 (0.8-3.0) Sodium (137-145) mmol/L Potassium (3.5-5.1) mmol/L Chloride (98-107) mmol/L Carbon Dioxide (22-30) mmol/L Anion Gap (5-15) MEQ/L BUN (7-17) mg/dL Creatinine (0.52-1.04) mg/dL Estimated GFR ML/MIN Glucose (74-106) mg/dL Lactic Acid (0.4-2.0) Calcium (8.4-10.2) mg/dL Total Bilirubin (0.2-1.3) mg/dL AST (14-36) U/L ALT (0-35) U/L Alkaline Phosphatase (38-126) U/L Troponin I 0.019 (0.000-0.034) ng/mL Serum Total Protein (6.3-8.2) g/dL Albumin (3.5-5.0) g/dL Amylase (30-110) U/L Lipase (23-300) U/L Urinalys Dipstick Clnc MAIN LAB Urine Color YELLOW (YELLOW) Urine Appearance CLEAR (CLEAR) Urine pH 5.5 (5-6) Ur Specific [place] 1.020 (1.005-1.025) POC Urine Protein Conf NEGATIVE (Negative) Urine Ketones NEGATIVE (NEGATIVE) Urine Nitrite POSITIVE (NEGATIVE) Urine Bilirubin NEGATIVE (NEGATIVE) Urine Urobilinogen 0.2 (0-1) mg/dL Urine Leukocytes TRACE (NEGATIVE) Urine WBC (Auto) 16-25 (0-5) /HPF Urine RBC (Auto) 0-2 (0-2) /HPF Urine Bacteria (Auto) FEW (NEGATIVE) /HPF Urine RBC TRACE-INTACT (0-5) Cuate/ul Urine Mucus (Auto) MANY (NEGATIVE) /HPF Ur Culture Indicated? YES Urine Glucose NEGATIVE (NEGATIVE) mg/dL 05/02/22 05/02/22 05/02/22 Range/Units 15:10 15:10 15:10 WBC 2.1 L (4.0-10.5) x10^3/uL RBC 2.76 L (4.1-5.4) x10^6/uL Hgb 10.2 L (12.0-16.0) g/dL Hct 31.0 L (35-47) % MCV 112.3 H (78-100) fL MCH 37.0 H (26-32) pg MCHC 32.9 (32-36) g/dL RDW 18.3 H (11.5-14.0) % Plt Count 231 (150-450) x10^3/uL MPV 9.3 (7.5-11.0) fL Segmented Neutrophils 57 (36.0-66.0) % Lymphocytes (Manual) 38 (24-44) % Monocytes (Manual) 4 (0.0-12.0) % Basophils (Manual) 1 (0.0-1.0) % Nucleated RBCs 5 % Platelet Estimate NORMAL (NORMAL) RBC Morphology ABNORMAL Macrocytosis 2+ Smear Path Review Pending PT (9.4-12.5) SECONDS INR (0.8-3.0) Sodium 133 L (137-145) mmol/L Potassium 3.0 L* (3.5-5.1) mmol/L Chloride 104 (98-107) mmol/L Carbon Dioxide 24 (22-30) mmol/L Anion Gap 7.8 (5-15) MEQ/L BUN 15 (7-17) mg/dL Creatinine 0.67 (0.52-1.04) mg/dL Estimated GFR > 60.0 ML/MIN Glucose 133 H (74-106) mg/dL Lactic Acid 1.6 (0.4-2.0) Calcium 8.5 (8.4-10.2) mg/dL Total Bilirubin 0.30 (0.2-1.3) mg/dL AST 26 (14-36) U/L ALT 19 (0-35) U/L Alkaline Phosphatase 62 (38-126) U/L Troponin I (0.000-0.034) ng/mL Serum Total Protein 5.5 L (6.3-8.2) g/dL Albumin 3.0 L (3.5-5.0) g/dL Amylase 48 (30-110) U/L Lipase 81 (23-300) U/L Urinalys Dipstick Clnc Urine Color (YELLOW) Urine Appearance (CLEAR) Urine pH (5-6) Ur Specific [place] (1.005-1.025) POC Urine Protein Conf (Negative) Urine Ketones (NEGATIVE) Urine Nitrite (NEGATIVE) Urine Bilirubin (NEGATIVE) Urine Urobilinogen (0-1) mg/dL Urine Leukocytes (NEGATIVE) Urine WBC (Auto) (0-5) /HPF Urine RBC (Auto) (0-2) /HPF Urine Bacteria (Auto) (NEGATIVE) /HPF Urine RBC (0-5) Cuate/ul Urine Mucus (Auto) (NEGATIVE) /HPF Ur Culture Indicated? Urine Glucose (NEGATIVE) mg/dL - Progress Progress: improved Progress Note: 05/02/22 18:[address] Yuen who is on-call for Dr. Quinonez and the patient will be admitted for treatment of dehydration and for urinary tract infection. Discussed with : Pratik Will see patient in: hospital (observation) - Departure Departure Disposition: Observation Clinical Impression: Urinary tract infection, Dehydration Condition: Fair Critical Care Time: No Referrals: SIDDHARTHA QUINONEZ [Primary Care Provider] - Follow up/PCP as directed
[2022-05-02 15:38] LABS: INR 1.2 (0.8-3.0); PROTIME 12.5 SECONDS (9.4-12.5)
[2022-05-02 15:40] LABS: ALKALINE PHOSPHATASE 62 U/L (38-126); AMYLASE 48 U/L (30-110); ANION GAP 7.8 MEQ/L (5-15); BLOOD UREA NITROGEN 15 mg/dL (7-17); CHLORIDE 104 mmol/L (98-107); Calcium 8.5 mg/dL (8.4-10.2); Carbon Dioxide 24 mmol/L (22-30); Creatinine 1 0.67 mg/dL (0.52-1.04); EST GLOMERULAR FILTRATION RATE > 60.0 ML/MIN; Glucose 133 mg/dL (74-106); LIPASE 81 U/L (23-300); SGOT/AST 26 U/L (14-36); SGPT/ALT 19 U/L (0-35); SODIUM 133 mmol/L (137-145); Total Protein 5.5 g/dL (6.3-8.2)
[2022-05-02] MEDS ORDERED: K-LYTE PO ONE (15:44)
[2022-05-02] MEDS ORDERED: Klor Con PO ONE ×4 (15:50→15:57)
[2022-05-02 16:15] LABS: Basophil 1 % (0.0-1.0); Lymphocytes 38 % (24-44); Macrocytosis 2+; Monocyte 4 % (0.0-12.0); Nucleated Red Blood Cell 5 %; Platelet Estimate NORMAL (NORMAL); Total Cells Counted 100
--- NOTE | 2022-05-02 16:22 | XRAY ---
Indication: Weakness. Comparison: November 21, 2021 Portable chest again demonstrates minimal left base subsegmental atelectasis/scarring. No focal infiltrate, consolidation, or large effusion. Heart not enlarged again with right Port-A-Cath. Bony thorax intact again with mild osteopenia, degenerative changes, and left axillary duarte dissection. Impression: Continued nonacute chest with chronic features.
--- NOTE | 2022-05-02 16:24 | XRAY ---
Indication: Pain following fall. Comparison: None 2 portable views right hip demonstrates osteopenia and tiny superior acetabular spurring. No other bony, articular, or soft tissue abnormalities.
[2022-05-02 17:18] LABS: Bacteria FEW /HPF (NEGATIVE); Mucus MANY /HPF (NEGATIVE); RBC 0-2 /HPF (0-2)
[2022-05-02 17:19] LABS: Appearance CLEAR (CLEAR); Bilirubin NEGATIVE (NEGATIVE); Glucose NEGATIVE (NEGATIVE); Ketones NEGATIVE (NEGATIVE)
[2022-05-02 17:20] LABS: Nitrite POSITIVE (NEGATIVE); Ph 5.5 (5-6); Protein,Urine Dip NEGATIVE (Negative); RBC TRACE-INTACT Ery/ul (0-5); Urine Cultured Indicated? YES; Urobilinogen 0.2 mg/dL (0-1)
[2022-05-02 17:21] LABS: Dipstick done @ ? MAIN LAB
[2022-05-02 19:03] LABS: INFLUENZA A NEGATIVE (NEGATIVE); INFLUENZA B NEGATIVE (NEGATIVE); RESPIRATORY SYNCTIAL VIRUS NEGATIVE (Negative); SARS-CoV-2 Xpert Express NEGATIVE (NEGATIVE)
[2022-05-02] MEDS: Sodium Chloride 0.9% 1000 ML 1,000 ML IV SCH (20:20)
[2022-05-02] MEDS ORDERED: ROCEPHIN 1 Gm-D5w 50 ml Bag** 1 G/50 ML IVPB IV SCH (21:00)
[2022-05-02] MEDS ORDERED: BENADRYL 25 MG CAPSULE PO PRN (22:20)
[2022-05-02] MEDS ORDERED: Zofran 4 MG/2 ML VIAL IV PRN (22:23)
[2022-05-02] MEDS ORDERED: xanAX 0.5 MG PO ONE (22:32)
[2022-05-02] MEDS ORDERED: ELIQUIS 2.5 MG TABLET ONE (22:40)
[2022-05-03] MEDS: Sodium Chloride 0.9% 1000 ML 1,000 ML IV SCH (02:10)
[2022-05-03 04:18] LABS: Absolute Neutrophil Ct (ANC) 1.16 x10^3/uL (1.4-6.9); Basophil (Absolute #) 0.04 x10^3/uL (0-0.4); Eosinophil % 1.4 % (0.00-5.0); Eosinophil (Absolute #) 0.03 x10^3/uL (0-0.5); Hematocrit 28.6 % (35-47); Hemoglobin 9.3 g/dL (12.0-16.0); Lymphocyte (Absolute #) 0.31 x10^3/uL (1.0-4.6); Lymphocytes % 14.6 % (24.0-44.0); Mean Cell Volume 114.4 fL (78-100); Mean Corpuscular Hemoglobin 37.2 pg (26-32); Mean Corpuscular Hgb Concent. 32.5 g/dL (32-36); Mean Platelet Volume 9.2 fL (7.5-11.0); Monocyte (Absolute #) 0.55 x10^3/uL (0.0-1.3); Monocytes % 25.8 % (0.0-12.0); Neutrophil % 54.4 % (36.0-66.0); Platelet Count 198 x10^3/uL (150-450); Red Cell Distribution Width 18.5 % (11.5-14.0); White Blood Count 2.1 x10^3/uL (4.0-10.5)
[2022-05-03 04:48] LABS: ALBUMIN 2.3 g/dL (3.5-5.0); ALKALINE PHOSPHATASE 49 U/L (38-126); ANION GAP 6.6 MEQ/L (5-15); BLOOD UREA NITROGEN 9 mg/dL (7-17); CHLORIDE 110 mmol/L (98-107); Calcium 7.7 mg/dL (8.4-10.2); Carbon Dioxide 22 mmol/L (22-30); Creatinine 1 0.58 mg/dL (0.52-1.04); EST GLOMERULAR FILTRATION RATE > 60.0 ML/MIN; Glucose 91 mg/dL (74-106); Potassium 3.6 mmol/L (3.5-5.1); SGOT/AST 21 U/L (14-36); SGPT/ALT 15 U/L (0-35); SODIUM 136 mmol/L (137-145); Total Protein 4.5 g/dL (6.3-8.2)
[2022-05-03 05:08] LABS: Slide Review 1 YES
[2022-05-03 07:47] VITALS: BP 133/62; PULSE 98; O2SAT 95
[2022-05-03] MEDS ORDERED: xanAX 0.5 MG PO PRN (08:58)
[2022-05-03] MEDS ORDERED: ZOFRAN ODT 4 MG PO PRN (08:58)
--- NOTE | 2022-05-03 09:42 | HP ---
CHIEF COMPLAINT: Weakness, recent fall. HISTORY OF PRESENT ILLNESS: The patient is an 82-year-old white female who has been undergoing treatment for metastatic breast cancer. She recently completed some chemotherapy and had been receiving radiation as well. The patient reports that she had fallen the day before with no significant injury but she has just been weak over the past several days getting weaker. She has not been eating because she reports that food tastes like rubber. She was brought to the emergency room where she was found to be dehydrated, hypokalemic and with apparent possible urinary tract infection. She was given Rocephin and admitted to the hospital for further evaluation and management. PAST MEDICAL/SURGICAL HISTORY: Again significant for the metastatic breast cancer. She had mastectomy performed. She has been receiving radiation and chemotherapy. The patient has trouble with anxiety. She has history of migraines, cataracts, arrhythmia, hypertension, hyperlipidemia, osteoarthritis and osteoporosis. She had a cholecystectomy, hysterectomy and mastectomy on the left side with lymph node resection. HOME MEDICATIONS: Alprazolam 0.5 mg a day PRN basis, Eliquis 5 mg twice a day, Cardizem CD 120 mg daily, famotidine 20 mg daily, Zofran 4 mg PRN for nausea. She takes multivitamins. ALLERGIES: ATIVAN. IBUPROFEN. MORPHINE. PHYSICAL EXAMINATION: The patient's vital signs on admission showed her temperature 97.8F, pulse 109, respiratory rate 24 and blood pressure 134/79. O2 saturation 96%. HEENT: Normocephalic, atraumatic. Pupils equal round reactive to light. It is noted that the patient has balding from her chemotherapy. Oropharynx is somewhat dry. NECK: Supple without lymphadenopathy, thyromegaly or JVD. CHEST: Clear. Recent surgery evidence is present. HEART: Regular rate and rhythm without murmurs, rubs or gallops. ABDOMEN: Soft. No palpable masses. EXTREMITIES: Without cyanosis, clubbing or edema. NEUROLOGIC: The patient is alert and oriented x3. No focal deficits are noted. LAB DATA AND TESTS: The patient's laboratory studies showed what appeared to be urinary tract infection with 26-50 white blood cells per high power field. Her potassium was noted to be low at 3.0. She had troponin slightly elevated at 0.047. The white count was depressed at 2.1 and hemoglobin 9.3 and PLT count was normal at 198,000. The patient's metabolic panel showed sugar of 91, BUN 9, creatinine 0.58. Her initial electrolytes showed her potassium to be 3.0 and by the next morning was up to 3.6 after treatment. Liver enzymes were normal. ASSESSMENT: A patient with weakness and recent fall, possibly urinary tract infection, hypokalemia. These situations that have been addressed. We will have the patient have physical therapy and occupational therapy evaluation for either home physical therapy or possible admission to rehab for further evaluation and management after discussion with her family.
[2022-05-03] MEDS ORDERED: MEDICATION INTERVENTION MC SCH (09:45)
[2022-05-03] MEDS ORDERED: [UNRECOGNIZED DRUG - OTHER] PO SCH (10:00)
[2022-05-03] MEDS ORDERED: [UNRECOGNIZED DRUG - OTHER] PO SCH (10:00)
[2022-05-03] MEDS ORDERED: ROCEPHIN 1 Gm-D5w 50 ml Bag** 1 G/50 ML IVPB IV SCH ×2 (10:00→22:00)
[2022-05-03] MEDS ORDERED: ELIQUIS 2.5 MG TABLET PO SCH (10:00)
[2022-05-03] MEDS ORDERED: Pepcid 20 MG PO SCH (10:00)
[2022-05-03] MEDS ORDERED: INTRINSIC FACTOR PO SCH (10:00)
[2022-05-03] MEDS ORDERED: Cardizem CD PO SCH (10:00)
[2022-05-03] MEDS ORDERED: CYANOCOBALAMIN PO SCH (10:00)
[2022-05-03] MEDS ORDERED: MULTIVIT WITH IRON MINERALS PO SCH (10:00)
[2022-05-03] MEDS ORDERED: THERAGRAN MULTIVITAMIN PO SCH (10:00)
[2022-05-03] MEDS ORDERED: xanAX 0.5 MG PO SCH (22:00)
[2022-05-03] MEDS ORDERED: NON-FORMULARY ITEM (Melatonin [Melatonin] 10 MG Tablet) PO SCH (22:00)
[2022-05-03] MEDS ORDERED: MELATONIN PO SCH (22:00)
[2022-05-03] MEDS ORDERED: ELIQUIS 2.5 MG TABLET PO ONE (22:34)
== END 2022-05-03 10:44 | disposition home or self-care (01) ==
LOC: ED 14:38 → MED SURG 20:00
PROVIDERS: ADMIT Family Medicine; ATTEND Family Medicine
DX: N39.0 Urinary tract infection, site not specified (principal); E86.0 Dehydration; R53.1 Weakness; W18.30XA Fall on same level, unspecified, initial encounter; C50.919 Malignant neoplasm of unspecified site of unspecified female breast; E87.6 Hypokalemia; F41.9 Anxiety disorder, unspecified; I10 Essential (primary) hypertension; M25.551 Pain in right hip; E78.5 Hyperlipidemia, unspecified; R77.8 Other specified abnormalities of plasma proteins; Z79.01 Long term (current) use of anticoagulants; Z79.899 Other long term (current) drug therapy; Z20.828 Contact with and (suspected) exposure to other viral communicable diseases
CPT/HCPCS: 0241U; 36000; 36415; 71045; 73502; 80053; 81015; 82150; 83605; 83690; 84484; 85025; 85610; 87040; 87077; 87086; 87186; 93005; 97161; 99285; G0378; J0696; A9270-GY

== ENCOUNTER 2022-05-14 09:56 | Emergency (ER) | payer MEDICARE, BC ==
--- NOTE | 2022-05-14 10:59 | XRAY ---
Indication: Difficulty swallowing. Modified barium swallow study performed by the Department of speech therapy with fluoroscopic assistance provided. Patient ingested multiple consistencies of liquids. Full report and recommendations will be reported separately. Approximately 1 minute 16 seconds fluoroscopy used.
[2022-05-14] MEDS ORDERED: Sodium Chloride 0.9% 1000 ML 1,000 ML IV SCH (12:00)
--- NOTE | 2022-05-14 12:00 | ERPHSYRPT ---
- History of Present Illness Time Seen by Provider: 05/14/22 11:50 Source: patient, family Patient Subjective Stated Complaint: PT states "I am no better. I am still not eating much, not drinking, I am dehydrated and weak" Triage Nursing Assessment: Pt presented alert and oriented X 3, skin wpd Pt ambulates with assist of 1, shaking and weak. Physician History: This is an 82-year-old white female patient of Dr. Cuba who came from the radiology department to the emergency department secondary to weakness. Patient was undergoing a barium swallow. We do not know the report of this study yet. Patient continues not to eat or drink well. Patient has been seen in the emergency department on few occasions within the last 2 months for similar issues. 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 She is status post chemotherapy which was completed in October 2021. She also completed radiation therapy approximately 3 months ago. Patient has a history of hypertension, anxiety, migraine headaches, arrhythmias, hyperlipidemia, osteoporosis and osteoarthritis. Severity: moderate Associated Symptoms: loss of appetite, malaise, weakness Allergies/Adverse Reactions: lorazepam [From Ativan] Adverse Reaction (Intermediate, Verified 03/26/22 15:40) "It made me go crazy" ibuprofen Adverse Reaction (Verified 03/26/22 15:40) causes fast HR morphine Adverse Reaction (Verified 03/26/22 15:40) Home Medications: Alprazolam [Xanax] 0.5 mg PO DAILY PRN PRN 11/21/21 [History] Multivit with Iron,Minerals [Multivitamins with Iron] 1 tab PO DAILY 11/21/21 [History] Vit B12/Intrinsic Fact/Folate [Intrinsi [id number] Tablet] 1 tab PO DAILY 11/21/21 [History] Diphenhydramine HCl 25 mg [Benadryl 25 mg Capsule] 25 mg PO TID PRN 05/02/22 [History] Famotidine 20 mg PO DAILY 05/02/22 [History] Melatonin 10 mg PO HS 05/02/22 [History] Ondansetron ODT 4 MG [Zofran Odt 4 mg] 4 mg PO Q4H PRN PRN 05/02/22 [History] Letrozole 2.5 mg PO HS 05/03/22 [History] Sulfamethoxazole/Trimethoprim [Bactrim Ds Tablet] 1 each PO BID 05/14/22 [History] Hx Tetanus, Diphtheria Vaccination/Date Given: No (UNKNOWN) Hx Influenza Vaccination/Date Given: Yes Hx Pneumococcal Vaccination/Date Given: Yes Immunizations Up to Date: Yes Travel Risk - International Travel Have you traveled outside of the country in past 3 weeks: No - Coronavirus Screening Are you exhibiting any of the following symptoms?: No Close contact with a COVID-19 positive Pt in past 14-21 Days: No - Vaccine Status Have you recieved a Covid-19 vaccination: Yes Vice President Quality: Moderna - Vaccination Dates Date of 2cond Vaccination (if applicable): 01/01 Comment: has also had booster - Review of Systems Constitutional: Weakness Eyes: No Symptoms Ears, Nose, & Throat: No Symptoms Respiratory: No Symptoms Cardiac: No Symptoms Abdominal/Gastrointestinal: Appetite Changes Genitourinary Symptoms: No Symptoms Musculoskeletal: No Symptoms Skin: No Symptoms Neurological: No Symptoms Psychological: No Symptoms Endocrine: No Symptoms Hematologic/Lymphatic: No Symptoms Immunological/Allergic: No Symptoms All Other Systems: Reviewed and Negative - Past Medical History Pertinent Past Medical History: Yes Neurological History: Migraines ENT History: Cataracts Cardiac History: Arrhythmia, High Cholesterol, Hypertension, Myocardial Infarction ([place]) Respiratory History: Bronchitis Endocrine Medical History: No Pertinent History Musculoskeletal History: Osteoarthritis, Osteoporosis, Other GI Medical History: Other History: No Pertinent History Psycho-Social History: No Pertinent History Female Reproductive Disorders: Endometriosis Other Medical History: "BAD lt KNEE". recent uti. atrial fib. metastatic breast cancer - Past Surgical History Past Surgical History: Yes Neuro Surgical History: No Pertinent History Cardiac: Cardiac Catheterization Respiratory: No Pertinent History Gastrointestinal: Cholecystectomy Genitourinary: No Pertinent History Musculoskeletal: Orthopedic Surgery Female Surgical History: Hysterectomy Other Surgical History: SINUS - TONSILLITIS. tot lt knee approx 05/12/19 Dr Lantigua at [facility]. left masectomy with lymph nodes. right shoulder - Social History Smoking Status: Never smoker Exposure to second hand smoke: No Drug Use: none Patient Lives Alone: No Significant Family History: no pertinent family hx - Nursing Vital Signs Nursing Vital Signs: Initial Vital Signs Temperature 98.1 F 05/14/22 11:05 Pulse Rate 115 H 05/14/22 11:05 Respiratory Rate 05/14/22 11:05 Blood Pressure 146/102 05/14/22 11:05 O2 Sat by Pulse Oximetry 95 05/14/22 11:05 Pain Scale Pain Intensity 0 - Physical Exam General Appearance: no apparent distress, alert, anxiety, thin Eye Exam: PERRL/EOMI, eyes nml inspection Ears, Nose, Throat Exam: dry mucous membranes Neck Exam: normal inspection, non-tender, supple, full range of motion Respiratory Exam: normal breath sounds, lungs clear, No chest tenderness, No respiratory distress Cardiovascular Exam: tachycardia Gastrointestinal/Abdomen Exam: soft, normal bowel sounds, No tenderness Pelvic Exam: not done Rectal Exam: not done Back Exam: normal inspection, normal range of motion, No CVA tenderness, No vertebral tenderness Extremity Exam: normal inspection, normal range of motion, pelvis stable Neurologic Exam: alert, oriented x 3, cooperative, inhalation therapy teacher II-XII nml as tested, normal mood/affect Skin Exam: normal color, warm, dry Lymphatic Exam: No adenopathy SpO2 Interpretation: normal SpO2: 95 O2 Delivery: Room Air - Course Nursing assessment & vital signs reviewed: Yes EKG Interpreted by Me: RATE (106), A-fib, NORMAL QRS, NORMAL ST-T, Other (No acute ischemic changes) Ordered Tests: Active Orders 24 hr Category Date Time Status Acharya [Catheter-Day[place] Acharya] STAT Care 05/14/22 13:18 Active IV Insertion STAT Care 05/14/22 12:00 Active MODIFIED BARIUM SWALLOW EXAM Routine Exams 05/14/22 10:04 Completed CBC W DIFF Stat Lab 05/14/22 12:10 Completed CMP Stat Lab 05/14/22 12:10 Completed Lactic Acid Stat Lab 05/14/22 12:10 Completed MAG [MAGNESIUM] Stat Lab 05/14/22 12:10 Completed Manual Differential NC Stat Lab 05/14/22 12:10 Completed T4 (Thyroxine) Stat Lab 05/14/22 12:00 Completed TSH [TSH, 3RD Generation] Stat Lab 05/14/22 12:00 Completed UA W/RFX CULTURE Stat Lab 05/14/22 13:18 Completed Medication Summary Generic Name Dose Route Start Last Admin Trade Name Freq PRN Reason Stop Dose Admin Sodium Chloride 1,000 mls @ 250 mls/hr 05/14/22 12:00 05/14/22 12:08 Sodium Chloride 0.9% 1000 Ml IV 06/13/22 11:59 250 mls/hr .Q4H LISA Administration Lab/Rad Data: Laboratory Result Diagrams 05/14/22 12:10 05/14/22 12:10 Laboratory Results 05/14/22 05/14/22 05/14/22 Range/Units 13:18 12:10 12:10 WBC (4.0-10.5) x10^3/uL RBC (4.1-5.4) x10^6/uL Hgb (12.0-16.0) g/dL Hct (35-47) % MCV (78-100) fL MCH (26-32) pg MCHC (32-36) g/dL RDW (11.5-14.0) % Plt Count (150-450) x10^3/uL MPV (7.5-11.0) fL Sodium 134 L (137-145) mmol/L Potassium 3.4 L (3.5-5.1) mmol/L Chloride 104 (98-107) mmol/L Carbon Dioxide 22 (22-30) mmol/L Anion Gap 11.6 (5-15) MEQ/L BUN 10 (7-17) mg/dL Creatinine 0.62 (0.52-1.04) mg/dL Estimated GFR > 60.0 ML/MIN Glucose 92 (74-106) mg/dL Lactic Acid (0.4-2.0) Calcium 9.0 (8.4-10.2) mg/dL Magnesium 1.7 (1.6-2.3) mg/dL Total Bilirubin 0.20 (0.2-1.3) mg/dL AST 25 (14-36) U/L ALT 13 (0-35) U/L Alkaline Phosphatase 58 (38-126) U/L Serum Total Protein 5.1 L (6.3-8.2) g/dL Albumin 2.8 L (3.5-5.0) g/dL Thyroxine (T4) (5.53-10.96) ug/dL TSH 3rd Generation (0.47-4.68) mIU/L Urinalys Dipstick Clnc MAIN LAB Urine Color YELLOW (YELLOW) Urine Appearance CLEAR (CLEAR) Urine pH 6.0 (5-6) Ur Specific [place] 1.025 (1.005-1.025) POC Urine Protein Conf NEGATIVE (Negative) Urine Ketones TRACE (NEGATIVE) Urine Nitrite NEGATIVE (NEGATIVE) Urine Bilirubin NEGATIVE (NEGATIVE) Urine Urobilinogen 0.2 (0-1) mg/dL Urine Leukocytes NEGATIVE (NEGATIVE) Urine WBC (Auto) 3-5 (0-5) /HPF Urine RBC (Auto) 0-2 (0-2) /HPF U Epithel Cells (Auto) Not Reportable Urine Bacteria (Auto) Not Reportable Urine RBC TRACE-INTACT (0-5) Cuate/ul Urine Mucus (Auto) SLIGHT (NEGATIVE) /HPF Ur Culture Indicated? NO Urine Glucose NEGATIVE (NEGATIVE) mg/dL 05/14/22 05/14/22 05/14/22 Range/Units 12:10 12:10 12:00 WBC 5.2 (4.0-10.5) x10^3/uL RBC 3.00 L (4.1-5.4) x10^6/uL Hgb 11.1 L (12.0-16.0) g/dL Hct 34.0 L (35-47) % MCV 113.3 H (78-100) fL MCH 37.0 H (26-32) pg MCHC 32.6 (32-36) g/dL RDW 14.9 H (11.5-14.0) % Plt Count 326 (150-450) x10^3/uL MPV 9.5 (7.5-11.0) fL Sodium (137-145) mmol/L Potassium (3.5-5.1) mmol/L Chloride (98-107) mmol/L Carbon Dioxide (22-30) mmol/L Anion Gap (5-15) MEQ/L BUN (7-17) mg/dL Creatinine (0.52-1.04) mg/dL Estimated GFR ML/MIN Glucose (74-106) mg/dL Lactic Acid 1.3 (0.4-2.0) Calcium (8.4-10.2) mg/dL Magnesium (1.6-2.3) mg/dL Total Bilirubin (0.2-1.3) mg/dL AST (14-36) U/L ALT (0-35) U/L Alkaline Phosphatase (38-126) U/L Serum Total Protein (6.3-8.2) g/dL Albumin (3.5-5.0) g/dL Thyroxine (T4) 7.23 (5.53-10.96) ug/dL TSH 3rd Generation 1.720 (0.47-4.68) mIU/L Urinalys Dipstick Clnc Urine Color (YELLOW) Urine Appearance (CLEAR) Urine pH (5-6) Ur Specific [place] (1.005-1.025) POC Urine Protein Conf (Negative) Urine Ketones (NEGATIVE) Urine Nitrite (NEGATIVE) Urine Bilirubin (NEGATIVE) Urine Urobilinogen (0-1) mg/dL Urine Leukocytes (NEGATIVE) Urine WBC (Auto) (0-5) /HPF Urine RBC (Auto) (0-2) /HPF U Epithel Cells (Auto) Urine Bacteria (Auto) Urine RBC (0-5) Cuate/ul Urine Mucus (Auto) (NEGATIVE) /HPF Ur Culture Indicated? Urine Glucose (NEGATIVE) mg/dL - Progress Progress: improved Progress Note: 05/14/22 14:17 Barium swallow final report is still pending. Medical decision making: I spoke with Dr. Perales who is the patient's primary care provider. I reviewed the patient history, condition, physical findings and the results of her laboratory work-up. The patient has mild dehydration. Her labs are not significantly abnormal. She does have a low albumin level. The patient will be rehydrated. Dr. Perales wants the patient to be evaluated for outpatient intravenous hydration or home health. Patient is to contact his office so that can be arranged. Discussed with : Tres Counseled pt/family regarding: lab results, diagnosis, need for follow-up - Departure Departure Disposition: Home Clinical Impression: Mild dehydration, Weakness Condition: Stable Critical Care Time: No Referrals: SIDDHARTHA PERALES [Primary Care Provider] - Follow up/PCP as directed Additional Instructions: Drink plenty of fluids. Call Dr. Zavala office today to make arrangements for further evaluation management including outpatient infusions and revisiting home health or [facility] placement options.
[2022-05-14] MEDS ORDERED: Sodium Chloride 0.9% 1000 ML 1,000 ML ONE (12:06)
[2022-05-14 12:16] LABS: Hemoglobin 11.1 g/dL (12.0-16.0); Mean Cell Volume 113.3 fL (78-100); Mean Corpuscular Hgb Concent. 32.6 g/dL (32-36); Mean Platelet Volume 9.5 fL (7.5-11.0); Platelet Count 326 x10^3/uL (150-450); Red Cell Distribution Width 14.9 % (11.5-14.0); White Blood Count 5.2 x10^3/uL (4.0-10.5)
[2022-05-14 12:46] LABS: ALBUMIN 2.8 g/dL (3.5-5.0); ALKALINE PHOSPHATASE 58 U/L (38-126); ANION GAP 11.6 MEQ/L (5-15); BLOOD UREA NITROGEN 10 mg/dL (7-17); CHLORIDE 104 mmol/L (98-107); Carbon Dioxide 22 mmol/L (22-30); Creatinine 1 0.62 mg/dL (0.52-1.04); EST GLOMERULAR FILTRATION RATE > 60.0 ML/MIN; Glucose 92 mg/dL (74-106); Potassium 3.4 mmol/L (3.5-5.1); SGOT/AST 25 U/L (14-36); SGPT/ALT 13 U/L (0-35); SODIUM 134 mmol/L (137-145); Total Protein 5.1 g/dL (6.3-8.2)
[2022-05-14 13:24] LABS: T4 (Thyroxine) 7.23 ug/dL (5.53-10.96); TSH, 3RD Generation 1.72 mIU/L (0.47-4.68)
[2022-05-14 13:29] LABS: Appearance CLEAR (CLEAR); Bilirubin NEGATIVE (NEGATIVE); Glucose NEGATIVE (NEGATIVE); Ketones TRACE (NEGATIVE); RBC TRACE-INTACT Ery/ul (0-5); Specific Gravity 1.025 (1.005-1.025)
[2022-05-14 13:30] LABS: Dipstick done @ ? MAIN LAB; Nitrite NEGATIVE (NEGATIVE); Protein,Urine Dip NEGATIVE (Negative); Urobilinogen 0.2 mg/dL (0-1)
[2022-05-14 13:35] LABS: Mucus SLIGHT /HPF (NEGATIVE); RBC 0-2 /HPF (0-2); Urine Cultured Indicated? NO
[2022-05-14 14:07] LABS: INFLUENZA A NEGATIVE (NEGATIVE); INFLUENZA B NEGATIVE (NEGATIVE); RESPIRATORY SYNCTIAL VIRUS NEGATIVE (Negative); SARS-CoV-2 Xpert Express NEGATIVE (NEGATIVE)
[2022-05-14] MEDS ORDERED: Sodium Chloride 0.9% 500 ML 500 ML IV ONE ×2 (14:16→14:27)
[2022-05-14 14:47] LABS: Basophil 3 % (0.0-1.0); Eosinophil 1 % (0.00-3.0); Lymphocytes 4 % (24-44); Monocyte 16 % (0.0-12.0); Nucleated Red Blood Cell 1 %; Total Cells Counted 100
[2022-05-14 14:51] LABS: ANISOCYTOSIS 1+; Macrocytosis 2+; Platelet Estimate NORMAL (NORMAL); Polychromasia 1+; Schistocytes 1+
[2022-05-14 15:20] VITALS: BP 154/81; PULSE 98; O2SAT 96
== END 2022-05-14 15:51 | disposition home or self-care (01) ==
LOC: ED 09:56 → RAD 09:56 → EDSTATUS 10:57 → ED 15:51
DX: E86.0 Dehydration (principal); R53.1 Weakness; I10 Essential (primary) hypertension; E78.5 Hyperlipidemia, unspecified; R09.89 Other specified symptoms and signs involving the circulatory and respiratory systems; Z79.899 Other long term (current) drug therapy; Z20.828 Contact with and (suspected) exposure to other viral communicable diseases
CPT/HCPCS: 0241U; 36000; 36415; 51702; 74230; 80053; 81015; 83605; 83735; 84436; 84443; 85025; 99284; J1642

== ENCOUNTER 2022-06-11 20:06 | Emergency (ER) | payer MEDICARE, BC ==
--- NOTE | 2022-06-11 20:23 | ERPHSYRPT ---
- History of Present Illness Time Seen by Provider: 06/11/22 20:23 Source: patient Exam Limitations: no limitations Physician History: This is an 82-year-old white female patient who has a history of hypertension and has also constipation symptoms and a headache. 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 She was concerned about her high blood pr essure possibly causing her headache. However, upon arrival to the emergency department her systolic blood pressure was in the 140s. Patient denies chest pain. She denies shortness of breath. She has some lower abdominal pain that is present. She has been having some loose stools with periodic formed stool present over the last several days. Timing/Duration: today Severity: mild Associated Symptoms: headaches Allergies/Adverse Reactions: lorazepam [From Ativan] Adverse Reaction (Intermediate, Verified 06/11/22 20:30) "It made me go crazy" ibuprofen Adverse Reaction (Verified 06/11/22 20:30) causes fast HR morphine Adverse Reaction (Verified 06/11/22 20:30) Home Medications: Alprazolam [Xanax] 0.5 mg PO DAILY PRN PRN 11/21/21 [History] Multivit with Iron,Minerals [Multivitamins with Iron] 1 tab PO DAILY 11/21/21 [History] Vit B12/Intrinsic Fact/Folate [Intrinsi [id number] Tablet] 1 tab PO DAILY 11/21/21 [History] Diphenhydramine HCl 25 mg [Benadryl 25 mg Capsule] 25 mg PO TID PRN 05/02/22 [History] Famotidine 20 mg PO DAILY 05/02/22 [History] Melatonin 10 mg PO HS 05/02/22 [History] Ondansetron ODT 4 MG [Zofran Odt 4 mg] 4 mg PO Q4H PRN PRN 05/02/22 [History] Letrozole 2.5 mg PO HS 05/03/22 [History] Sulfamethoxazole/Trimethoprim [Bactrim Ds Tablet] 1 each PO BID 05/14/22 [History] Hx Tetanus, Diphtheria Vaccination/Date Given: No (UNKNOWN) Hx Influenza Vaccination/Date Given: Yes Hx Pneumococcal Vaccination/Date Given: Yes Travel Risk - International Travel Have you traveled outside of the country in past 3 weeks: No - Coronavirus Screening Are you exhibiting any of the following symptoms?: No Close contact with a COVID-19 positive Pt in past 14-21 Days: No - Vaccine Status Have you recieved a Covid-19 vaccination: Yes Float Phlebotomist: Moderna - Vaccination Dates Date of 2cond Vaccination (if applicable): 01/01 Comment: has also had booster - Review of Systems Constitutional: No Symptoms Eyes: No Symptoms Ears, Nose, & Throat: No Symptoms Respiratory: No Symptoms Cardiac: No Symptoms Abdominal/Gastrointestinal: Abdominal Pain (Lower mild), Constipation, No Nausea, No Vomiting, No Diarrhea Genitourinary Symptoms: No Symptoms (Action) Musculoskeletal: No Symptoms Skin: No Symptoms Neurological: Headache Psychological: No Symptoms Endocrine: No Symptoms Hematologic/Lymphatic: No Symptoms Immunological/Allergic: No Symptoms All Other Systems: Reviewed and Negative - Past Medical History Pertinent Past Medical History: Yes Neurological History: Migraines ENT History: Cataracts Cardiac History: Arrhythmia, High Cholesterol, Hypertension, Myocardial Infarction ([place]) Respiratory History: Bronchitis Endocrine Medical History: No Pertinent History Musculoskeletal History: Osteoarthritis, Osteoporosis, Other GI Medical History: Other History: No Pertinent History Psycho-Social History: No Pertinent History Female Reproductive Disorders: Endometriosis Other Medical History: "BAD lt KNEE". recent uti. atrial fib. metastatic breast cancer - Past Surgical History Past Surgical History: Yes Neuro Surgical History: No Pertinent History Cardiac: Cardiac Catheterization Respiratory: No Pertinent History Gastrointestinal: Cholecystectomy Genitourinary: No Pertinent History Musculoskeletal: Orthopedic Surgery Female Surgical History: Hysterectomy Other Surgical History: SINUS - TONSILLITIS. tot lt knee approx 05/12/19 Dr Med ibarra at [facility]. left masectomy with lymph nodes. right shoulder - Social History Smoking Status: Never smoker Exposure to second hand smoke: No Drug Use: none Patient Lives Alone: No Significant Family History: no pertinent family hx - Nursing Vital Signs Nursing Vital Signs: Initial Vital Signs Temperature 96.9 F 06/11/22 20:20 Pulse Rate 119 H 06/11/22 20:20 Respiratory Rate 18 06/11/22 20:20 Blood Pressure 165/92 06/11/22 20:20 O2 Sat by Pulse Oximetry 95 06/11/22 20:20 Pain Scale Pain Intensity 4 - Physical Exam General Appearance: no apparent distress, alert, anxiety Eye Exam: PERRL/EOMI, eyes nml inspection Ears, Nose, Throat Exam: normal ENT inspection, moist mucous membranes Neck Exam: normal inspection, non-tender, supple, full range of motion Respiratory Exam: normal breath sounds, lungs clear, No chest tenderness, No respiratory distress Cardiovascular Exam: tachycardia Gastrointestinal/Abdomen Exam: soft, normal bowel sounds (Mild suprapubic tenderness), tenderness, guarding (Mild suprapubic), No rebound ( to palpation) Pelvic Exam: not done Rectal Exam: not done Back Exam: normal inspection, normal range of motion, No CVA tenderness, No vertebral tenderness Extremity Exam: normal inspection, normal range of motion, pelvis stable Neurologic Exam: alert, oriented x 3, cooperative, 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 as tested, normal mood/affect, nml cerebellar function, nml station & gait, sensation nml Skin Exam: normal color, warm, dry Lymphatic Exam: No adenopathy SpO2 Interpretation: normal - Course Nursing assessment & vital signs reviewed: Yes Ordered Tests: Active Orders 24 hr Category Date Time Status Enema STAT Care 06/11/22 22:58 Ordered IV Insertion STAT Care 06/11/22 21:09 Active Pulse Oximetry (ED) STAT Care 06/11/22 21:09 Active ABDOMEN AND PELVIS W/0 CONTRAS [CT] Stat Exams 06/11/22 21:11 Taken HEAD WITHOUT CONTRAST [CT] Stat Exams 06/11/22 21:11 Taken CBC W DIFF Stat Lab 06/11/22 22:00 Completed CMP Stat Lab 06/11/22 22:00 Completed UA W/RFX CULTURE Stat Lab 06/11/22 22:35 Results Medication Summary Discontinued Medications Generic Name Dose Route Start Last Admin Trade Name Freq PRN Reason Stop Dose Admin Heparin Sodium (Beef Lung) 500 units 06/11/22 22:30 Heparin Lock Flush Pf 500 Units/5 Ml Syringe PORT FLUSH 06/11/22 22:31 STAT ONE Sodium Chloride 500 mls @ 500 mls/hr 06/11/22 21:12 06/11/22 22:07 Sodium Chloride 0.9% 500 Ml IV 06/11/22 22:11 500 mls/hr .Q1H ONE Administration Sodium Chloride Confirm 06/11/22 21:20 Sodium Chloride 0.9% 500 Ml Administered 06/11/22 21:21 Dose 500 mls @ ud IV .STK-MED ONE Metoprolol Tartrate 2.5 mg 06/11/22 21:09 06/11/22 22:08 Metoprolol Tartrate 5 Mg/5 Ml Vial IV 06/11/22 21:10 Not Given STAT ONE Metoprolol Tartrate Confirm 06/11/22 21:20 Metoprolol Tartrate 5 Mg/5 Ml Vial Administered 06/11/22 21:21 Dose 5 mg IV .STK-MED ONE Potassium Chloride 20 meq 06/11/22 22:55 Potassium Chloride Tab 10 Meq Tab PO 06/11/22 22:56 STAT ONE Lab/Rad Data: Laboratory Result Diagrams 06/11/22 22:00 06/11/22 22:00 Laboratory Results 06/11/22 06/11/22 06/11/22 Range/Units 22:35 22:00 22:00 WBC 5.5 (4.0-10.5) x10^3/uL RBC 3.40 L (4.1-5.4) x10^6/uL Hgb 11.9 L (12.0-16.0) g/dL Hct 36.6 (35-47) % MCV 107.6 H (78-100) fL MCH 35.0 H (26-32) pg MCHC 32.5 (32-36) g/dL RDW 14.3 H (11.5-14.0) % Plt Count 280 (150-450) x10^3/uL MPV 9.3 (7.5-11.0) fL Gran % 79.5 H (36.0-66.0) % Immature Gran % (Auto) 0.4 (0.00-0.4) % Nucleat RBC Rel Count 0.0 (0.00-0.1) % Eos # (Auto) 0.16 (0-0.5) x10^3/uL Immature Gran # (Auto) 0.02 (0.00-0.03) x10^3u/L Absolute Lymphs (auto) 0.49 L (1.0-4.6) x10^3/uL Absolute Monos (auto) 0.42 (0.0-1.3) x10^3/uL Absolute Nucleated RBC 0.00 (0.00-0.01) x10^3u/L Lymphocytes % 8.9 L (24.0-44.0) % Monocytes % 7.6 (0.0-12.0) % Eosinophils % 2.9 (0.00-5.0) % Basophils % 0.7 (0.0-0.4) % Absolute Granulocytes 4.38 (1.4-6.9) x10^3/uL Basophils # 0.04 (0-0.4) x10^3/uL Sodium 136 L (137-145) mmol/L Potassium 3.2 L (3.5-5.1) mmol/L Chloride 105 (98-107) mmol/L Carbon Dioxide 24 (22-30) mmol/L Anion Gap 10.4 (5-15) MEQ/L BUN 15 (7-17) mg/dL Creatinine 0.52 (0.52-1.04) mg/dL Estimated GFR > 60.0 ML/MIN Glucose 94 (74-106) mg/dL Calcium 8.5 (8.4-10.2) mg/dL Total Bilirubin 0.20 (0.2-1.3) mg/dL AST 28 (14-36) U/L ALT 17 (0-35) U/L Alkaline Phosphatase 49 (38-126) U/L Serum Total Protein 5.6 L (6.3-8.2) g/dL Albumin 3.1 L (3.5-5.0) g/dL Urinalys Dipstick Clnc MAIN LAB Urine Color YELLOW (YELLOW) Urine Appearance SLIGHTLY CLOUDY (CLEAR) Urine pH 5.5 (5-6) Ur Specific [place] >=1.030 (1.005-1.025) POC Urine Protein Conf NEGATIVE (Negative) Urine Ketones MODERATE-40 (NEGATIVE) Urine Nitrite NEGATIVE (NEGATIVE) Urine Bilirubin SMALL (NEGATIVE) Urine Urobilinogen 0.2 (0-1) mg/dL Urine Leukocytes SMALL (NEGATIVE) Urine WBC (Auto) 26-50 (0-5) /HPF Urine RBC (Auto) 6-10 (0-2) /HPF U Epithel Cells (Auto) NONE (FEW) /HPF Urine Bacteria (Auto) FEW (NEGATIVE) /HPF Urine RBC TRACE HEMOLYZED (0-5) Cuate/ul Unidentified Crystals 2-5 (NEGATIVE) /HPF Urine Mucus (Auto) MODERATE (NEGATIVE) /HPF Urine Yeast (Budding) Rare (NEGATIVE) /HPF Ur Culture Indicated? YES Urine Glucose NEGATIVE (NEGATIVE) mg/dL - Progress Progress: improved, pain not gone completely Progress Note: 06/11/22 22:18 CAT scan of the abdomen pelvis without contrast shows new fatty liver with m etastatic lesions. There is also new moderate left pleural effusion. CAT scan of the head shows a nonacute senile brain. 06/11/22 22:59 I will provide the patient with a fleets enema that she can take home and use this evening. She can also use MiraLAX daily [id number]. 1 must also consider that the patient might have a carcinomatosis which may effectively cause an ileus giving her some of her abdominal symptoms. Counseled pt/family regarding: lab results, diagnosis, need for follow-up, rad results - Departure Departure Disposition: Home Clinical Impression: Headache, Metastatic breast cancer, Constipation Condition: Stable Critical Care Time: No Referrals: SIDDHARTHA PERALES [Primary Care Provider] - Follow up/PCP as directed Additional Instructions: Drink plenty fluids. Use the fleets enema as discussed. Use MiraLAX daily [id number]. Follow-up with your primary care provider for bowel hygiene instructions.
[2022-06-11] MEDS ORDERED: LOPRESSOR INJECTION IV ONE ×2 (21:09→21:20)
[2022-06-11] MEDS ORDERED: Sodium Chloride 0.9% 500 ML 500 ML IV ONE ×2 (21:12→21:20)
[2022-06-11 22:05] LABS: Absolute Neutrophil Ct (ANC) 4.38 x10^3/uL (1.4-6.9); Basophil (Absolute #) 0.04 x10^3/uL (0-0.4); Eosinophil % 2.9 % (0.00-5.0); Eosinophil (Absolute #) 0.16 x10^3/uL (0-0.5); Hematocrit 36.6 % (35-47); Hemoglobin 11.9 g/dL (12.0-16.0); Lymphocyte (Absolute #) 0.49 x10^3/uL (1.0-4.6); Lymphocytes % 8.9 % (24.0-44.0); Mean Cell Volume 107.6 fL (78-100); Mean Corpuscular Hgb Concent. 32.5 g/dL (32-36); Mean Platelet Volume 9.3 fL (7.5-11.0); Monocyte (Absolute #) 0.42 x10^3/uL (0.0-1.3); Monocytes % 7.6 % (0.0-12.0); Neutrophil % 79.5 % (36.0-66.0); Platelet Count 280 x10^3/uL (150-450); Red Cell Distribution Width 14.3 % (11.5-14.0); White Blood Count 5.5 x10^3/uL (4.0-10.5)
[2022-06-11 22:26] LABS: ALBUMIN 3.1 g/dL (3.5-5.0); ALKALINE PHOSPHATASE 49 U/L (38-126); ANION GAP 10.4 MEQ/L (5-15); BLOOD UREA NITROGEN 15 mg/dL (7-17); CHLORIDE 105 mmol/L (98-107); Calcium 8.5 mg/dL (8.4-10.2); Carbon Dioxide 24 mmol/L (22-30); Creatinine 1 0.52 mg/dL (0.52-1.04); EST GLOMERULAR FILTRATION RATE > 60.0 ML/MIN; Glucose 94 mg/dL (74-106); Potassium 3.2 mmol/L (3.5-5.1); SGOT/AST 28 U/L (14-36); SGPT/ALT 17 U/L (0-35); SODIUM 136 mmol/L (137-145); Total Protein 5.6 g/dL (6.3-8.2)
[2022-06-11 22:50] LABS: Bacteria FEW /HPF (NEGATIVE); Mucus MODERATE /HPF (NEGATIVE); WBC 26-50 /HPF (0-5)
[2022-06-11 22:52] LABS: Appearance SLIGHTLY CLOUDY (CLEAR); Bilirubin SMALL (NEGATIVE); Glucose NEGATIVE (NEGATIVE)
[2022-06-11 22:53] LABS: Dipstick done @ ? MAIN LAB; Ketones MODERATE-40 (NEGATIVE); Nitrite NEGATIVE (NEGATIVE); Ph 5.5 (5-6); Protein,Urine Dip NEGATIVE (Negative); RBC TRACE HEMOLYZED Ery/ul (0-5); Specific Gravity >=1.030 (1.005-1.025); Urobilinogen 0.2 mg/dL (0-1)
[2022-06-11 22:55] LABS: Budding Yeast Rare /HPF (NEGATIVE); Urine Cultured Indicated? YES
[2022-06-11] MEDS ORDERED: Klor Con PO ONE ×2 (22:55→23:04)
[2022-06-11 23:06] VITALS: BP 151/87; PULSE 101; O2SAT 97
[2022-06-11] MEDS ORDERED: Levofloxacin 500 MG Tablet PO ONE (23:35)
[2022-06-11] MEDS ORDERED: Levofloxacin 500 MG Tablet ONE (23:37)
[2022-06-12 00:57] LABS: Slide Review 1 YES
--- NOTE | 2022-06-12 08:57 | XRAY ---
Indication: Headache. History metastatic breast cancer. Multiple contiguous axial images obtained through the head without contrast. Comparison: June 24, 2016 Again age-appropriate global atrophy and minimal periventricular micro-ischemia. No acute intracranial hemorrhage, abnormal extra-axial fluid collection, or mass effect. Fourth ventricle is midline without hydrocephalus. Bony calvarium intact without suspicious bony lesions. Complete opacification left and partial opacification right mastoid air cells presumed inflammatory. Impression: 1. Nonacute senile brain. 2. Opacification both mastoid air cells presumed inflammatory. 3. MRI brain with contrast exam may yield further information if there remains further clinical concern for metastasis.
--- NOTE | 2022-06-12 09:03 | XRAY ---
Indication: Abdomen pain. Metastatic breast cancer. Multiple contiguous axial images obtained through the abdomen and pelvis without contrast. Comparison: July 02, 2019 Lung bases demonstrates new incompletely visualized moderate left effusion with compressive atelectasis. Heart not enlarged. Noncontrasted stomach and bowel loops nonobstructed again with mild scattered colonic diverticulosis. New tiny pelvic free fluid. No walled off fluid collection or free air. Liver demonstrates diffuse fatty attenuation. There are now multiple round lesions worrisome for metastasis, largest in right lobe measuring 3.5 cm. Again cholecystectomy. Remaining pancreas, spleen, adrenal glands, kidneys, ureters, and bladder are unremarkable for noncontrast exam. There remains mild scattered aortoiliac calcifications without AAA. Osseous structures intact again with osteopenia and progressive worsening minimal/mild degenerative changes throughout the spine. Stable mild levorotoscoliosis centered at L3-L4. No suspicious bony lesions. Impression: 1. New incompletely visualized left pleural effusion without cardiomegaly. 2. New fatty liver with hepatic metastasis. 3. New tiny nonspecific pelvic free fluid. 4. Again colonic diverticulosis, arteriosclerotic disease, and chronic bony findings.
== END 2022-06-12 | disposition home or self-care (01) ==
LOC: ED 20:06
DX: C50.919 Malignant neoplasm of unspecified site of unspecified female breast (principal); C79.31 Secondary malignant neoplasm of brain; C78.7 Secondary malignant neoplasm of liver and intrahepatic bile duct; R51.9 Headache, unspecified; K59.00 Constipation, unspecified; E78.5 Hyperlipidemia, unspecified; I10 Essential (primary) hypertension; Z79.899 Other long term (current) drug therapy
CPT/HCPCS: 36000; 36415; 70450; 74176; 80053; 81015; 85025; 87086; 94760; 99284; J1642; A9270-GY

== ENCOUNTER 2022-08-20 09:55 | Inpatient (IN) | payer MEDICARE, BC ==
[2022-08-20] MEDS ORDERED: NORCO 5/325 MG PO ONE (10:23)
[2022-08-20] MEDS ORDERED: NORCO 5/325 MG ONE (10:27)
--- NOTE | 2022-08-20 10:34 | ERPHSYRPT ---
- History of Present Illness Time Seen by Provider: 08/20/22 09:55 Historian: patient, family Exam Limitations: no limitations Patient Subjective Stated Complaint: Weakness Triage Nursing Assessment: Patient brought back to ED per w/c and transferred to bed with assist of 1. Patient A+O X 3. Patient's skin pale, warm and dry. Patient has metastic breast cancer. Patient treated last week with Bactrim for UTI. Patient complains of abdominal pain 5/10 and nausea and weakness. Physician History: 82 years old female with history of metastatic breast cancer status post chemoradiation, atrial fibrillation on Eliquis/Cardizem, bilateral pleural effusion, recent UTI on Bactrim presented in the ER with chief complaint of lower abdominal pain worsening for the last couple of days without any significant aggravating or relieving factors. Has nausea but no vomiting. Denies any constipation. No fever or chills reported. Denies any chest pain. Timing/Duration: day(s) (2), constant, gradual onset, worse Activities at Onset: rest Quality: dullness Abdominal Pain Onset Location: RLQ, LLQ, suprapubic Pain Radiation: no radiation Severity of Pain-Max: moderate Severity of Pain-Current: moderate Modifying Factors: Improves With: nothing Associated Symptoms: nausea, No diarrhea Allergies/Adverse Reactions: lorazepam [From Ativan] Adverse Reaction (Intermediate, Verified 08/20/22 10:14) "It made me go crazy" ibuprofen Adverse Reaction (Verified 08/20/22 10:14) causes fast HR morphine Adverse Reaction (Verified 08/20/22 10:14) Home Medications: Alprazolam [Xanax] 0.5 mg PO DAILY PRN PRN 11/21/21 [History] Multivit with Iron,Minerals [Multivitamins with Iron] 1 tab PO DAILY 11/21/21 [History] Vit B12/Intrinsic Fact/Folate [Intrinsi [id number] Tablet] 1 tab PO DAILY 11/21/21 [History] Diphenhydramine HCl 25 mg [Benadryl 25 mg Capsule] 25 mg PO TID PRN 05/02/22 [History] Famotidine 20 mg PO DAILY 05/02/22 [History] Melatonin 10 mg PO HS 05/02/22 [History] Ondansetron ODT 4 MG [Zofran Odt 4 mg] 4 mg PO Q4H PRN PRN 05/02/22 [History] Letrozole 2.5 mg PO HS 05/03/22 [History] Sulfamethoxazole/Trimethoprim [Bactrim Ds Tablet] 1 each PO BID 05/14/22 [History] Hx Tetanus, Diphtheria Vaccination/Date Given: No (UNKNOWN) Hx Influenza Vaccination/Date Given: Yes Hx Pneumococcal Vaccination/Date Given: Yes Immunizations Up to Date: Yes Travel Risk - International Travel Have you traveled outside of the country in past 3 weeks: No - Coronavirus Screening Are you exhibiting any of the following symptoms?: No Close contact with a COVID-19 positive Pt in past 14-21 Days: No - Vaccine Status Have you recieved a Covid-19 vaccination: Yes Sports Lawyer: Moderna - Vaccination Dates Date of 2cond Vaccination (if applicable): 01/01 Comment: has also had booster - Review of Systems Constitutional: Fatigue, Weakness Eyes: No Symptoms Ears, Nose, & Throat: No Symptoms Respiratory: Cough Cardiac: Edema Abdominal/Gastrointestinal: Abdominal Pain, Nausea Genitourinary Symptoms: Dysuria Musculoskeletal: Back Pain Skin: No Symptoms Neurological: No Symptoms Endocrine: No Symptoms Hematologic/Lymphatic: No Symptoms Immunological/Allergic: No Symptoms - Past Medical History Pertinent Past Medical History: Yes Neurological History: Migraines ENT History: Cataracts Cardiac History: Arrhythmia, High Cholesterol, Hypertension, Myocardial Infarction ([place]) Respiratory History: Bronchitis Endocrine Medical History: No Pertinent History Musculoskeletal History: Osteoarthritis, Osteoporosis, Other GI Medical History: Other History: No Pertinent History Psycho-Social History: No Pertinent History Female Reproductive Disorders: Endometriosis Other Medical History: "BAD lt KNEE". recent uti. atrial fib. metastatic breast cancer - Past Surgical History Past Surgical History: Yes Neuro Surgical History: No Pertinent History Cardiac: Cardiac Catheterization Respiratory: No Pertinent History Gastrointestinal: Cholecystectomy Genitourinary: No Pertinent History Musculoskeletal: Orthopedic Surgery Female Surgical History: Hysterectomy Other Surgical History: SINUS - TONSILLITIS. tot lt knee approx 05/12/19 Dr Lantigua at [facility]. left masectomy with lymph nodes. right shoulder - Social History Smoking Status: Never smoker Exposure to second hand smoke: No Drug Use: none Patient Lives Alone: No Significant Family History: no pertinent family hx - Nursing Vital Signs Nursing Vital Signs: Initial Vital Signs Temperature 97.9 F 08/20/22 10:15 Pulse Rate 96 H 08/20/22 10:15 Respiratory Rate 18 08/20/22 10:15 Blood Pressure 143/80 08/20/22 10:15 O2 Sat by Pulse Oximetry 95 08/20/22 10:15 Pain Scale Pain Intensity 5 - Physical Exam General Appearance: no apparent distress, alert Eye Exam: PERRL/EOMI Ears, Nose, Throat Exam: normal ENT inspection Neck Exam: normal inspection, supple, full range of motion Respiratory Exam: diminished breath sounds, No wheezing Cardiovascular Exam: normal heart sounds, edema Gastrointestinal/Abdomen Exam: soft, normal bowel sounds, tenderness (Bilateral lower abdomen more on the left side) Back Exam: normal inspection, normal range of motion Extremity Exam: normal inspection, normal range of motion Neurologic Exam: alert, oriented x 3, cooperative Skin Exam: normal color SpO2 Interpretation: normal SpO2: 95 O2 Delivery: Room Air Ordered Tests: Active Orders 24 hr Category Date Time Status IV Insertion STAT Care 08/20/22 10:22 Active NPO (ED) STAT Care 08/20/22 10:22 Active ABDOMEN AND PELVIS W/0 CONTRAS [CT] Stat Exams 08/20/22 10:22 Completed BLOOD CULTURE Stat Lab 08/20/22 10:32 Received CBC W DIFF Stat Lab 08/20/22 10:32 Completed CMP Stat Lab 08/20/22 10:32 Completed CULTURE,URINE Stat Lab 08/20/22 10:24 Received LIPASE Stat Lab 08/20/22 10:32 Completed Lactic Acid Stat Lab 08/20/22 10:45 Completed PROCALCITONIN Stat Lab 08/20/22 10:32 Completed UA W/RFX CULTURE Stat Lab 08/20/22 10:24 Completed Medication Summary Discontinued Medications Generic Name Dose Route Start Last Admin Trade Name Noeq PRN Reason Stop Dose Admin Hydrocodone Bitart/Acetaminophen 1 tab 08/20/22 10:23 08/20/22 10:29 Hydrocodone/Apap 5/325 1 Tab Tablet PO 08/20/22 10:24 1 tab STAT ONE Administration Hydrocodone Bitart/Acetaminophen Confirm 08/20/22 10:27 Hydrocodone/Apap 5/325 1 Tab Tablet Administered 08/20/22 10:28 Dose 1 tab .ROUTE .STK-MED ONE Ceftriaxone Sodium/Dextrose 2 g in 50 mls @ 100 mls/hr 08/20/22 11:12 08/20/22 11:32 Rocephin 2 Gm-D5w 50ml Bag IV 08/20/22 11:41 100 mls/hr STAT STA 100 mls/hr Administration Ceftriaxone Sodium/Dextrose Confirm 08/20/22 11:31 Rocephin 2 Gm-D5w 50ml Bag Administered 08/20/22 11:32 Dose 2 g in 50 mls @ ud IV .STK-MED ONE Lab/Rad Data: Laboratory Result Diagrams 08/20/22 10:32 08/20/22 10:32 Laboratory Results 08/20/22 08/20/22 08/20/22 Range/Units 10:45 10:32 10:32 WBC (4.0-10.5) x10^3/uL RBC (4.1-5.4) x10^6/uL Hgb (12.0-16.0) g/dL Hct (35-47) % MCV (78-100) fL MCH (26-32) pg MCHC (32-36) g/dL RDW (11.5-14.0) % Plt Count (150-450) x10^3/uL MPV (7.5-11.0) fL Gran % (36.0-66.0) % Immature Gran % (Auto) (0.00-0.4) % Nucleat RBC Rel Count (0.00-0.1) % Eos # (Auto) (0-0.5) x10^3/uL Immature Gran # (Auto) (0.00-0.03) x10^3u/L Absolute Lymphs (auto) (1.0-4.6) x10^3/uL Absolute Monos (auto) (0.0-1.3) x10^3/uL Absolute Nucleated RBC (0.00-0.01) x10^3u/L Lymphocytes % (24.0-44.0) % Monocytes % (0.0-12.0) % Eosinophils % (0.00-5.0) % Basophils % (0.0-0.4) % Absolute Granulocytes (1.4-6.9) x10^3/uL Basophils # (0-0.4) x10^3/uL Sodium 135 L (137-145) mmol/L Potassium 3.8 (3.5-5.1) mmol/L Chloride 103 (98-107) mmol/L Carbon Dioxide 24 (22-30) mmol/L Anion Gap 11.8 (5-15) MEQ/L BUN 15 (7-17) mg/dL Creatinine 0.72 (0.52-1.04) mg/dL Estimated GFR > 60.0 ML/MIN Glucose 89 (74-106) mg/dL Lactic Acid 1.6 (0.4-2.0) Calcium 8.8 (8.4-10.2) mg/dL Total Bilirubin 0.40 (0.2-1.3) mg/dL AST 32 (14-36) U/L ALT 21 (0-35) U/L Alkaline Phosphatase 91 (38-126) U/L Serum Total Protein 5.5 L (6.3-8.2) g/dL Albumin 3.0 L (3.5-5.0) g/dL Lipase 34 (23-300) U/L Procalcitonin 0.143 H (0.030-0.080) ng/mL Urinalys Dipstick Clnc Urine Color (YELLOW) Urine Appearance (CLEAR) Urine pH (5-6) Ur Specific [place] (1.005-1.025) POC Urine Protein Conf (Negative) Urine Ketones (NEGATIVE) Urine Nitrite (NEGATIVE) Urine Bilirubin (NEGATIVE) Urine Urobilinogen (0-1) mg/dL Urine Leukocytes (NEGATIVE) Urine WBC (Auto) (0-5) /HPF Urine RBC (Auto) (0-2) /HPF U Epithel Cells (Auto) (FEW) /HPF Urine Bacteria (Auto) (NEGATIVE) /HPF Urine RBC (0-5) Cuate/ul Calcium Oxalate Crystal (NEGATIVE) /HPF Urine Mucus (Auto) (NEGATIVE) /HPF Ur Culture Indicated? Urine Glucose (NEGATIVE) mg/dL Slides for Path Review 08/20/22 08/20/22 Range/Units 10:32 10:24 WBC 4.8 (4.0-10.5) x10^3/uL RBC 3.76 L (4.1-5.4) x10^6/uL Hgb 12.4 (12.0-16.0) g/dL Hct 38.1 (35-47) % MCV 101.3 H (78-100) fL MCH 33.0 H (26-32) pg MCHC 32.5 (32-36) g/dL RDW 16.0 H (11.5-14.0) % Plt Count 275 (150-450) x10^3/uL MPV 8.9 (7.5-11.0) fL Gran % 73.1 H (36.0-66.0) % Immature Gran % (Auto) 0.2 (0.00-0.4) % Nucleat RBC Rel Count 0.0 (0.00-0.1) % Eos # (Auto) 0.09 (0-0.5) x10^3/uL Immature Gran # (Auto) 0.01 (0.00-0.03) x10^3u/L Absolute Lymphs (auto) 0.56 L (1.0-4.6) x10^3/uL Absolute Monos (auto) 0.60 (0.0-1.3) x10^3/uL Absolute Nucleated RBC 0.00 (0.00-0.01) x10^3u/L Lymphocytes % 11.6 L (24.0-44.0) % Monocytes % 12.4 H (0.0-12.0) % Eosinophils % 1.9 (0.00-5.0) % Basophils % 0.8 (0.0-0.4) % Absolute Granulocytes 3.52 (1.4-6.9) x10^3/uL Basophils # 0.04 (0-0.4) x10^3/uL Sodium (137-145) mmol/L Potassium (3.5-5.1) mmol/L Chloride (98-107) mmol/L Carbon Dioxide (22-30) mmol/L Anion Gap (5-15) MEQ/L BUN (7-17) mg/dL Creatinine (0.52-1.04) mg/dL Estimated GFR ML/MIN Glucose (74-106) mg/dL Lactic Acid (0.4-2.0) Calcium (8.4-10.2) mg/dL Total Bilirubin (0.2-1.3) mg/dL AST (14-36) U/L ALT (0-35) U/L Alkaline Phosphatase (38-126) U/L Serum Total Protein (6.3-8.2) g/dL Albumin (3.5-5.0) g/dL Lipase (23-300) U/L Procalcitonin (0.030-0.080) ng/mL Urinalys Dipstick Clnc MAIN LAB Urine Color YELLOW (YELLOW) Urine Appearance TURBID (CLEAR) Urine pH 5.5 (5-6) Ur Specific [place] >=1.030 A (1.005-1.025) POC Urine Protein Conf NEGATIVE (Negative) Urine Ketones SMALL-15 A (NEGATIVE) Urine Nitrite NEGATIVE (NEGATIVE) Urine Bilirubin SMALL A (NEGATIVE) Urine Urobilinogen 0.2 (0-1) mg/dL Urine Leukocytes MODERATE A (NEGATIVE) Urine WBC (Auto) >100 A (0-5) /HPF Urine RBC (Auto) 16-25 A (0-2) /HPF U Epithel Cells (Auto) NONE (FEW) /HPF Urine Bacteria (Auto) MODERATE A (NEGATIVE) /HPF Urine RBC TRACE-INTACT A (0-5) Cuate/ul Calcium Oxalate Crystal >100 A (NEGATIVE) /HPF Urine Mucus (Auto) SLIGHT A (NEGATIVE) /HPF Ur Culture Indicated? YES Urine Glucose NEGATIVE (NEGATIVE) mg/dL Slides for Path Review YES - Progress Progress: improved Progress Note: 08/20/22 12:11 81 years old is evaluated for bilateral lower abdominal pain. She is given symptomatic treatment, feeling some improvement on reevaluation. Work-up showed normal white count, grossly unremarkable chemistries, normal lactate but procalcitonin of 1.14 and does have significant UTI. Given dose of Rocephin IV. CT abdomen pelvis negative for any acute findings. Patient has outpatient oral antibiotic treatment failure UTI. Discussed with Dr. Crawford and patient is admitted. Discussed with : Jomar Counseled pt/family regarding: lab results, diagnosis, rad results - Departure Departure Disposition: Observation Clinical Impression: Acute UTI, Abdominal pain Condition: Stable Critical Care Time: No Referrals: SIDDHARTHA PERALES [Primary Care Provider] - Follow up/PCP as directed
[2022-08-20 10:47] LABS: Absolute Neutrophil Ct (ANC) 3.52 x10^3/uL (1.4-6.9); Basophil (Absolute #) 0.04 x10^3/uL (0-0.4); Eosinophil % 1.9 % (0.00-5.0); Eosinophil (Absolute #) 0.09 x10^3/uL (0-0.5); Hematocrit 38.1 % (35-47); Hemoglobin 12.4 g/dL (12.0-16.0); Lymphocyte (Absolute #) 0.56 x10^3/uL (1.0-4.6); Lymphocytes % 11.6 % (24.0-44.0); Mean Cell Volume 101.3 fL (78-100); Mean Corpuscular Hgb Concent. 32.5 g/dL (32-36); Mean Platelet Volume 8.9 fL (7.5-11.0); Monocytes % 12.4 % (0.0-12.0); Neutrophil % 73.1 % (36.0-66.0); Platelet Count 275 x10^3/uL (150-450); Red Blood Count 3.76 x10^6/uL (4.1-5.4); White Blood Count 4.8 x10^3/uL (4.0-10.5)
[2022-08-20 10:54] LABS: Bacteria MODERATE /HPF (NEGATIVE); Calcium Oxalate Crystals >100 /HPF (NEGATIVE); Mucus SLIGHT /HPF (NEGATIVE); WBC >100 /HPF (0-5)
[2022-08-20 10:57] LABS: Appearance TURBID (CLEAR); Bilirubin SMALL (NEGATIVE); Dipstick done @ ? MAIN LAB; Glucose NEGATIVE (NEGATIVE); Ketones SMALL-15 (NEGATIVE); Nitrite NEGATIVE (NEGATIVE); Ph 5.5 (5-6); Protein,Urine Dip NEGATIVE (Negative); RBC TRACE-INTACT Ery/ul (0-5); Specific Gravity >=1.030 (1.005-1.025); Urobilinogen 0.2 mg/dL (0-1)
[2022-08-20 10:58] LABS: Urine Cultured Indicated? YES
[2022-08-20 11:04] LABS: ALKALINE PHOSPHATASE 91 U/L (38-126); ANION GAP 11.8 MEQ/L (5-15); BLOOD UREA NITROGEN 15 mg/dL (7-17); CHLORIDE 103 mmol/L (98-107); Calcium 8.8 mg/dL (8.4-10.2); Carbon Dioxide 24 mmol/L (22-30); Creatinine 1 0.72 mg/dL (0.52-1.04); EST GLOMERULAR FILTRATION RATE > 60.0 ML/MIN; Glucose 89 mg/dL (74-106); LIPASE 34 U/L (23-300); Potassium 3.8 mmol/L (3.5-5.1); SGOT/AST 32 U/L (14-36); SGPT/ALT 21 U/L (0-35); SODIUM 135 mmol/L (137-145); Total Protein 5.5 g/dL (6.3-8.2)
[2022-08-20] MEDS ORDERED: ROCEPHIN 2 Gm-D5w 50ML BAG** 2 G/50 ML IVPB IV STA (11:12)
--- NOTE | 2022-08-20 11:20 | XRAY ---
Indication: Lower abdomen pain and nausea. History of metastatic breast cancer. Multiple contiguous images obtained through the abdomen and pelvis without contrast. Comparison: June 11, 2022 Lung bases demonstrates marked worsening large left effusion and new small right effusion with bilateral compressive atelectasis. Heart not enlarged. Noncontrasted stomach and bowel loops nonobstructed again with mild scattered diverticulosis. Liver again demonstrates diffuse fatty attenuation with multiple hepatic metastatic lesions. Again cholecystectomy and hysterectomy. There remains tiny pelvic free fluid but no walled off fluid collection or free air. Remaining pancreas, spleen, adrenal glands, kidneys, ureters, and bladder are unremarkable for noncontrast exam. Stable mild aortoiliac calcifications without AAA. Osseous structures intact again with mixed lytic and blastic metastatic lesions throughout the axial spine. Again chronic findings including osteopenia, minimal/mild multilevel degenerative changes, and mild levoscoliosis centered at L3. Impression: 1. Worsening large left and new small right effusions with compressive atelectasis. 2. Again hepatic and bony metastasis. 3. Again tiny nonspecific pelvic free fluid, colonic diverticulosis, arteriosclerotic disease, chronic bony findings.
[2022-08-20] MEDS ORDERED: ROCEPHIN 2 Gm-D5w 50ML BAG** 2 G/50 ML IVPB IV ONE (11:31)
[2022-08-20 11:47] LABS: Slide Review 1 YES
[2022-08-20 12:43] LABS: INFLUENZA A NEGATIVE (NEGATIVE); INFLUENZA B NEGATIVE (NEGATIVE); RESPIRATORY SYNCTIAL VIRUS NEGATIVE (Negative); SARS-CoV-2 Xpert Express NEGATIVE (NEGATIVE)
[2022-08-20] MEDS ORDERED: DUONEB 0.5-3 MG/3 ml Neb IH PRN (13:23)
[2022-08-20] MEDS ORDERED: TYLENOL 325 MG PO PRN (13:23)
[2022-08-20] MEDS: PROTONIX 40 MG IV IV SCH (15:34)
[2022-08-20] MEDS ORDERED: ZOFRAN ODT 4 MG PO PRN (16:12)
[2022-08-20] MEDS ORDERED: BENADRYL 25 MG CAPSULE PO PRN (16:12)
[2022-08-20] MEDS ORDERED: MEDICATION INTERVENTION MC SCH ×2 (16:30)
[2022-08-20] MEDS: Zofran 4 MG/2 ML VIAL IV PRN (19:22)
[2022-08-20] MEDS: xanAX 0.5 MG PO PRN (19:47)
[2022-08-20] MEDS: NORCO 5/325 MG PO PRN (19:47)
[2022-08-20] MEDS ORDERED: NON-FORMULARY ITEM (Melatonin [Melatonin] 10 MG Tablet) PO SCH (22:00)
[2022-08-20] MEDS ORDERED: LETROZOLE 2.5 MG PO SCH (22:00)
[2022-08-20] MEDS: MELATONIN PO SCH (22:19)
[2022-08-20] MEDS: ELIQUIS 2.5 MG TABLET PO SCH (22:19)
[2022-08-21 05:42] LABS: Absolute Neutrophil Ct (ANC) 3.23 x10^3/uL (1.4-6.9); Basophil (Absolute #) 0.04 x10^3/uL (0-0.4); Eosinophil % 3.8 % (0.00-5.0); Eosinophil (Absolute #) 0.18 x10^3/uL (0-0.5); Hematocrit 32.9 % (35-47); Hemoglobin 10.6 g/dL (12.0-16.0); Lymphocyte (Absolute #) 0.52 x10^3/uL (1.0-4.6); Lymphocytes % 11.1 % (24.0-44.0); Mean Cell Volume 103.1 fL (78-100); Mean Corpuscular Hemoglobin 33.2 pg (26-32); Mean Corpuscular Hgb Concent. 32.2 g/dL (32-36); Mean Platelet Volume 9.3 fL (7.5-11.0); Monocyte (Absolute #) 0.71 x10^3/uL (0.0-1.3); Monocytes % 15.1 % (0.0-12.0); Neutrophil % 68.9 % (36.0-66.0); Platelet Count 243 x10^3/uL (150-450); Red Blood Count 3.19 x10^6/uL (4.1-5.4); White Blood Count 4.7 x10^3/uL (4.0-10.5)
[2022-08-21 06:07] LABS: ALBUMIN 2.3 g/dL (3.5-5.0); ALKALINE PHOSPHATASE 67 U/L (38-126); ANION GAP 5.3 MEQ/L (5-15); BLOOD UREA NITROGEN 14 mg/dL (7-17); CHLORIDE 104 mmol/L (98-107); Calcium 7.9 mg/dL (8.4-10.2); Carbon Dioxide 24 mmol/L (22-30); Creatinine 1 0.61 mg/dL (0.52-1.04); EST GLOMERULAR FILTRATION RATE > 60.0 ML/MIN; Glucose 81 mg/dL (74-106); Potassium 3.5 mmol/L (3.5-5.1); SGOT/AST 26 U/L (14-36); SGPT/ALT 16 U/L (0-35); SODIUM 130 mmol/L (137-145); Total Protein 4.7 g/dL (6.3-8.2)
[2022-08-21 06:40] LABS: Slide Review 1 YES
[2022-08-21] MEDS: NORCO 5/325 MG PO PRN (08:25)
[2022-08-21] MEDS ORDERED: Cyclobenzaprine 10 MG PO PRN (08:55)
[2022-08-21] MEDS: ROCEPHIN 2 Gm-D5w 50ML BAG** 2 G/50 ML IVPB IV SCH (09:13)
[2022-08-21] MEDS: ELIQUIS 2.5 MG TABLET PO SCH (09:14)
[2022-08-21] MEDS: Cardizem CD PO SCH (09:14)
[2022-08-21] MEDS: xanAX 0.5 MG PO PRN ×2 (09:14→20:50)
[2022-08-21] MEDS: PROTONIX 40 MG IV IV SCH (09:14)
[2022-08-21] MEDS: THERAGRAN MULTIVITAMIN PO SCH (09:14)
[2022-08-21] MEDS: Zofran 4 MG/2 ML VIAL IV PRN (09:14)
[2022-08-21] MEDS: Pepcid 20 MG PO SCH (09:14)
[2022-08-21] MEDS ORDERED: [UNRECOGNIZED DRUG - OTHER] PO SCH (10:00)
[2022-08-21] MEDS ORDERED: Cardizem CD PO SCH (10:00)
[2022-08-21] MEDS ORDERED: CYANOCOBALAMIN PO SCH (10:00)
[2022-08-21] MEDS ORDERED: [UNRECOGNIZED DRUG - OTHER] PO SCH (10:00)
[2022-08-21] MEDS ORDERED: MULTIVIT WITH IRON MINERALS PO SCH (10:00)
[2022-08-21] MEDS ORDERED: INTRINSIC FACTOR PO SCH (10:00)
[2022-08-21] MEDS: PATIENT OWN MEDICATION PO SCH (15:10)
--- NOTE | 2022-08-21 18:49 | PCM.HP ---
History of Present Illness - Chief Complaint Chief Complaint: Acute UTI, lower abdominal pain History of Present Illness: is a 82 [address] Quinonez with overall decline in health - generalized weakness,bone pain and low abdominal pain admitted through ER with dg UTI and worsening of mets.Dr Dozier is her new Oncologist.PMHx includes Metastatic Breast cancer S/P chemoradiation,Afib on Eliquis/Cardiazem,HTN,CAD/[place],Diverticulosis,Osteoporosis. Patient is admitted for pain control and IV antibiotic for UTI. - Review of Systems Constitutional: Fatigue, Weakness Eyes: No Symptoms Ears, Nose, & Throat: No Symptoms Respiratory: Cough Cardiac: Edema Abdominal/Gastrointestinal: Abdominal Pain (across low abdomen), Nausea Genitourinary Symptoms: Dysuria Musculoskeletal: Back Pain Skin: No Symptoms Neurological: No Symptoms Psychological: No Symptoms Endocrine: No Symptoms Hematologic/Lymphatic: No Symptoms Immunological/Allergic: No Symptoms Medications & Allergies Home Medications: Home Medication List Alprazolam [Xanax] 0.5 mg PO DAILY PRN PRN 11/21/21 [History Confirmed 08/20/22] Multivit with Iron,Minerals [Multivitamins with Iron] 1 tab PO DAILY 11/21/21 [History Confirmed 08/20/22] Vit B12/Intrinsic Fact/Folate [Intrinsi [id number] Tablet] 1 tab PO DAILY 11/21/21 [History Confirmed 08/20/22] Diltiazem HCl Cd [Cardizem CD ] 240 mg PO DAILY 30 Days #30 11/23/21 [Rx Confirmed 08/20/22] Diphenhydramine HCl 25 mg [Benadryl 25 mg Capsule] 25 mg PO TID PRN 05/02/22 [History Confirmed 08/20/22] Famotidine 20 mg PO DAILY 05/02/22 [History Confirmed 08/20/22] Melatonin 10 mg PO HS 05/02/22 [History Confirmed 08/20/22] Ondansetron ODT 4 MG [Zofran Odt 4 mg] 4 mg PO Q4H PRN PRN 05/02/22 [History Confirmed 08/20/22] Letrozole 2.5 mg PO HS 05/03/22 [History Confirmed 08/20/22] Sulfamethoxazole/Trimethoprim [Bactrim Ds Tablet] 1 each PO BID 05/14/22 [History Confirmed 08/20/22] Hydrocodone/Acetaminophen [Hydrocodone-Acetamin 5-325 mg] 1 tab PO Q4HPRN PRN 08/20/22 [History Confirmed 08/20/22] Apixaban [Eliquis] 2.5 mg PO DAILY 08/21/22 [History Confirmed 08/21/22] Allergies/Adverse Reactions: Allergies Allergy/AdvReac Type Severity Reaction Status Date / Time lorazepam [From Ativan] AdvReac Intermediate Verified 08/20/22 10:14 ibuprofen AdvReac Verified 08/20/22 10:14 morphine AdvReac Verified 08/20/22 10:14 - Past Medical History Past Medical History: No Neurological History: Migraines ENT History: Cataracts Cardiac History: Arrhythmia, High Cholesterol, Hypertension, Myocardial Infarction ([place]) Respiratory History: Bronchitis Endocrine Medical History: No Pertinent History Musculoskelatal History: Osteoarthritis, Osteoporosis, Other GI Medical History: Diverticulitis, Diverticulosis History: No Pertinent History Pyscho-Social History: No Pertinent History Reproductive Disorders: Endometriosis Comment: metastatic breast cancer (LEFT) - Female History Are you now?: No - Past Surgical History Past Surgical History: Yes Neuro Surgical History: No Pertinent History Cardiac History: Cardiac Catheterization Respiratory Surgery: No Pertinent History GI Surgical History: Cholecystectomy Genitourinary Surgical Hx: No Pertinent History Musculskeletal Surgical Hx: Orthopedic Surgery Female Surgical History: Hysterectomy Other Surgical History: tot lt knee approx 05/12/19 Dr Lantigua at [facility] left masectomy with lymph nodes. right shoulder - Social History Smoking Status: Never smoker Exposure to second hand smoke: Yes Alcohol: None Drug Use: none Significant Family History: no pertinent family hx - Physical Exam Vital Signs: Vital Signs - 24 hr Temp Pulse Resp BP Pulse Ox 08/21/22 16:00 97.8 F 89 16 93/47 93 L 08/21/22 12:00 97.6 F 86 16 120/57 92 L 08/21/22 07:53 97.9 F 94 H 16 91/44 94 L 08/21/22 04:00 97.2 F 94 H 16 114/56 96 08/20/22 23:30 97.5 F 89 18 96/55 93 L 08/20/22 20:00 97.5 F 100 H 17 107/59 93 L General Appearance: lethargy (just received pain med) Neurologic Exam: confusion (daughter at bedside answering for patient,patient trying to answer but is sleepy from meds) Eye Exam: eyes nml inspection Ears, Nose, Throat Exam: normal ENT inspection Neck Exam: normal inspection Respiratory Exam: normal breath sounds Cardiovascular Exam: regular rate/rhythm Gastrointestinal/Abdomen Exam: soft, normal bowel sounds, tenderness (suprapubic,no guarding) Pelvic Exam: not done Rectal Exam: not done Back Exam: other (spine pain with moving torso) Extremity Exam: normal range of motion, pedal edema Skin Exam: warm, dry, pale Wound Assessment: Skin/Wound Assessment Wound/Incision Assessment Start: 08/20/22 14:19 Text: Status: Active Freq: Q6H Protocol: Document 08/21/22 14:00 MW (Rec: 08/21/22 17:19 MW [id number]) Wound/Incision Assessment Right Buttock Wound Assessment Shift Assessment Wound Stage Stage II Dressing Status Dry & Intact Drainage Amount None Comment STAGE 2 RIGHT INNER BUTTOCK 2X2- SURROUNDING SKIN PINK AND BLANCHABLE Results - Labs Lab/Micro Results: Lab Results-Last 24 Hours 08/21/22 08/21/22 Range/Units 04:25 05:00 WBC 4.7 (4.0-10.5) x10^3/uL RBC 3.19 L (4.1-5.4) x10^6/uL Hgb 10.6 L (12.0-16.0) g/dL Hct 32.9 L (35-47) % MCV 103.1 H (78-100) fL MCH 33.2 H (26-32) pg MCHC 32.2 (32-36) g/dL RDW 16.0 H (11.5-14.0) % Plt Count 243 (150-450) x10^3/uL MPV 9.3 (7.5-11.0) fL Gran % 68.9 H (36.0-66.0) % Immature Gran % (Auto) 0.2 (0.00-0.4) % Nucleat RBC Rel Count 0.0 (0.00-0.1) % Eos # (Auto) 0.18 (0-0.5) x10^3/uL Immature Gran # (Auto) 0.01 (0.00-0.03) x10^3u/L Absolute Lymphs (auto) 0.52 L (1.0-4.6) x10^3/uL Absolute Monos (auto) 0.71 (0.0-1.3) x10^3/uL Absolute Nucleated RBC 0.00 (0.00-0.01) x10^3u/L Lymphocytes % 11.1 L (24.0-44.0) % Monocytes % 15.1 H (0.0-12.0) % Eosinophils % 3.8 (0.00-5.0) % Basophils % 0.9 (0.0-0.4) % Absolute Granulocytes 3.23 (1.4-6.9) x10^3/uL Basophils # 0.04 (0-0.4) x10^3/uL Sodium 130 L (137-145) mmol/L Potassium 3.5 (3.5-5.1) mmol/L Chloride 104 (98-107) mmol/L Carbon Dioxide 24 (22-30) mmol/L Anion Gap 5.3 (5-15) MEQ/L BUN 14 (7-17) mg/dL Creatinine 0.61 (0.52-1.04) mg/dL Estimated GFR > 60.0 ML/MIN Glucose 81 (74-106) mg/dL Calcium 7.9 L (8.4-10.2) mg/dL Total Bilirubin 0.30 (0.2-1.3) mg/dL AST 26 (14-36) U/L ALT 16 (0-35) U/L Alkaline Phosphatase 67 (38-126) U/L Serum Total Protein 4.7 L (6.3-8.2) g/dL Albumin 2.3 L (3.5-5.0) g/dL Slides for Path Review YES Microbiology 08/20/22 10:24 Urine Culture - Preliminary Urine, Void <10K NORMAL SKIN DEE DEE PROBABLE SKIN CONTAMINANT - Radiology Impressions Radiology Exams & Impressions: Radiology Procedures Category Date Time Status ABDOMEN AND PELVIS W/0 CONTRAS [CT] Stat Exams 08/20/22 10:22 Completed Assessment/Plan (1) Abdominal pain Current Visit: Yes Status: Acute Qualifiers: Abdominal location: lower abdomen, unspecified Qualified Code(s): R10.30 - Lower abdominal pain, unspecified Code(s): R10.9 - UNSPECIFIED ABDOMINAL PAIN (2) Dehydration Current Visit: No Status: Acute Assessment & Plan: IV fluids,supportive care Code(s): E86.0 - DEHYDRATION (3) Acute UTI Current Visit: Yes Status: Acute Assessment & Plan: culture normal skin dee dee-was on Bactrim Code(s): N39.0 - URINARY TRACT INFECTION, SITE NOT SPECIFIED (4) Metastatic breast cancer Current Visit: No Status: Chronic Assessment & Plan: mets to axial spine and liver,reviewed with patient's daughter. Oncologist is Dr Dozier Code(s): C50.919 - MALIGNANT NEOPLASM OF UNSP SITE OF UNSPECIFIED FEMALE BREAST
[2022-08-21] MEDS ORDERED: Dulcolax 10 MG SUPP PR PRN (19:39)
[2022-08-21] MEDS: OXYCODONE-ACETAMINOPHEN 10-325 PO PRN (20:50)
[2022-08-21] MEDS: MELATONIN PO SCH (20:51)
[2022-08-22 05:20] LABS: Absolute Neutrophil Ct (ANC) 2.65 x10^3/uL (1.4-6.9); Basophil (Absolute #) 0.04 x10^3/uL (0-0.4); Eosinophil % 4.3 % (0.00-5.0); Eosinophil (Absolute #) 0.18 x10^3/uL (0-0.5); Hematocrit 32.2 % (35-47); Hemoglobin 10.5 g/dL (12.0-16.0); Lymphocyte (Absolute #) 0.62 x10^3/uL (1.0-4.6); Lymphocytes % 14.9 % (24.0-44.0); Mean Cell Volume 102.5 fL (78-100); Mean Corpuscular Hemoglobin 33.4 pg (26-32); Mean Corpuscular Hgb Concent. 32.6 g/dL (32-36); Mean Platelet Volume 9.2 fL (7.5-11.0); Monocyte (Absolute #) 0.65 x10^3/uL (0.0-1.3); Monocytes % 15.7 % (0.0-12.0); Neutrophil % 63.9 % (36.0-66.0); Platelet Count 243 x10^3/uL (150-450); Red Blood Count 3.14 x10^6/uL (4.1-5.4); Red Cell Distribution Width 16.4 % (11.5-14.0); White Blood Count 4.2 x10^3/uL (4.0-10.5)
[2022-08-22 06:35] LABS: ALBUMIN 2.2 g/dL (3.5-5.0); ALKALINE PHOSPHATASE 66 U/L (38-126); BLOOD UREA NITROGEN 14 mg/dL (7-17); CHLORIDE 105 mmol/L (98-107); Calcium 7.8 mg/dL (8.4-10.2); Carbon Dioxide 26 mmol/L (22-30); Creatinine 1 0.57 mg/dL (0.52-1.04); EST GLOMERULAR FILTRATION RATE > 60.0 ML/MIN; Glucose 84 mg/dL (74-106); Potassium 3.5 mmol/L (3.5-5.1); SGOT/AST 27 U/L (14-36); SGPT/ALT 17 U/L (0-35); SODIUM 135 mmol/L (137-145); Total Protein 4.5 g/dL (6.3-8.2)
[2022-08-22] MEDS ORDERED: Sodium Chloride 0.9% 500 ML 500 ML IV ONE (09:27)
[2022-08-22] MEDS: PROTONIX 40 MG IV IV SCH (10:11)
[2022-08-22] MEDS: THERAGRAN MULTIVITAMIN PO SCH (10:11)
[2022-08-22] MEDS: Cardizem CD PO SCH (10:12)
[2022-08-22] MEDS: ELIQUIS 2.5 MG TABLET PO SCH ×2 (10:12→21:24)
[2022-08-22] MEDS: Pepcid 20 MG PO SCH (10:12)
[2022-08-22] MEDS: PATIENT OWN MEDICATION PO SCH (10:12)
[2022-08-22] MEDS: ROCEPHIN 2 Gm-D5w 50ML BAG** 2 G/50 ML IVPB IV SCH (10:15)
[2022-08-22] MEDS: Zofran 4 MG/2 ML VIAL IV PRN (12:49)
[2022-08-22] MEDS: OXYCODONE-ACETAMINOPHEN 10-325 PO PRN (12:51)
[2022-08-22] MEDS: MIRTAZAPINE PO SCH (21:24)
[2022-08-22] MEDS: MELATONIN PO SCH (21:24)
[2022-08-22] MEDS: Sodium Chloride 0.9% 1000 ML 1,000 ML IV SCH (23:18)
[2022-08-23 05:47] LABS: Absolute Neutrophil Ct (ANC) 4.03 x10^3/uL (1.4-6.9); Basophil (Absolute #) 0.05 x10^3/uL (0-0.4); Eosinophil % 4.5 % (0.00-5.0); Eosinophil (Absolute #) 0.25 x10^3/uL (0-0.5); Hematocrit 32.7 % (35-47); Hemoglobin 10.4 g/dL (12.0-16.0); Lymphocyte (Absolute #) 0.55 x10^3/uL (1.0-4.6); Lymphocytes % 9.9 % (24.0-44.0); Mean Cell Volume 103.5 fL (78-100); Mean Corpuscular Hemoglobin 32.9 pg (26-32); Mean Corpuscular Hgb Concent. 31.8 g/dL (32-36); Mean Platelet Volume 9.4 fL (7.5-11.0); Monocyte (Absolute #) 0.64 x10^3/uL (0.0-1.3); Monocytes % 11.6 % (0.0-12.0); Neutrophil % 72.7 % (36.0-66.0); Platelet Count 243 x10^3/uL (150-450); Red Blood Count 3.16 x10^6/uL (4.1-5.4); Red Cell Distribution Width 16.2 % (11.5-14.0); White Blood Count 5.5 x10^3/uL (4.0-10.5)
[2022-08-23 06:21] LABS: ANION GAP 3.9 MEQ/L (5-15); BLOOD UREA NITROGEN 13 mg/dL (7-17); CHLORIDE 108 mmol/L (98-107); Calcium 7.7 mg/dL (8.4-10.2); Carbon Dioxide 25 mmol/L (22-30); Creatinine 1 0.52 mg/dL (0.52-1.04); EST GLOMERULAR FILTRATION RATE > 60.0 ML/MIN; Glucose 98 mg/dL (74-106); Potassium 3.5 mmol/L (3.5-5.1); SODIUM 133 mmol/L (137-145)
[2022-08-23 07:18] LABS: Slide Review 1 YES
[2022-08-23] MEDS: PROTONIX 40 MG IV IV SCH (09:43)
[2022-08-23] MEDS: ROCEPHIN 2 Gm-D5w 50ML BAG** 2 G/50 ML IVPB IV SCH (09:45)
[2022-08-23] MEDS: Pepcid 20 MG PO SCH (09:49)
[2022-08-23] MEDS: Cardizem CD PO SCH (09:49)
[2022-08-23] MEDS: ELIQUIS 2.5 MG TABLET PO SCH ×2 (09:49→21:54)
[2022-08-23] MEDS: PATIENT OWN MEDICATION PO SCH (09:50)
[2022-08-23] MEDS: THERAGRAN MULTIVITAMIN PO SCH (09:50)
[2022-08-23] MEDS: Miralax Powder 17GM PACKET PO SCH (11:12)
[2022-08-23] MEDS: Zofran 4 MG/2 ML VIAL IV PRN (11:50)
[2022-08-23] MEDS: Sodium Chloride 0.9% 1000 ML 1,000 ML IV SCH (13:39)
[2022-08-23] MEDS: MELATONIN PO SCH (21:53)
[2022-08-23] MEDS: MIRTAZAPINE PO SCH (21:53)
[2022-08-24] MEDS: Sodium Chloride 0.9% 1000 ML 1,000 ML IV SCH ×2 (03:05→18:07)
[2022-08-24 05:54] LABS: Hematocrit 35.1 % (35-47); Hemoglobin 10.9 g/dL (12.0-16.0); Mean Cell Volume 104.5 fL (78-100); Mean Corpuscular Hemoglobin 32.4 pg (26-32); Mean Corpuscular Hgb Concent. 31.1 g/dL (32-36); Mean Platelet Volume 9.1 fL (7.5-11.0); Platelet Count 241 x10^3/uL (150-450); Red Blood Count 3.36 x10^6/uL (4.1-5.4); Red Cell Distribution Width 16.1 % (11.5-14.0); White Blood Count 5.9 x10^3/uL (4.0-10.5)
[2022-08-24 06:52] LABS: ANION GAP 8.5 MEQ/L (5-15); BLOOD UREA NITROGEN 9 mg/dL (7-17); CHLORIDE 109 mmol/L (98-107); Carbon Dioxide 22 mmol/L (22-30); Creatinine 1 0.46 mg/dL (0.52-1.04); EST GLOMERULAR FILTRATION RATE > 60.0 ML/MIN; Glucose 101 mg/dL (74-106); Potassium 3.5 mmol/L (3.5-5.1); SODIUM 136 mmol/L (137-145)
[2022-08-24 09:23] LABS: Urine Cultured Indicated? NO
[2022-08-24 09:26] LABS: Appearance CLEAR (CLEAR); Bilirubin NEGATIVE (NEGATIVE); Glucose NEGATIVE (NEGATIVE); Ketones NEGATIVE (NEGATIVE); Protein,Urine Dip NEGATIVE (Negative); RBC TRACE-INTACT Ery/ul (0-5); Specific Gravity 1.015 (1.005-1.025)
[2022-08-24 09:27] LABS: Dipstick done @ ? MAIN LAB; Nitrite NEGATIVE (NEGATIVE); Urobilinogen 0.2 mg/dL (0-1)
[2022-08-24] MEDS: PROTONIX 40 MG IV IV SCH (10:03)
[2022-08-24] MEDS: Pepcid 20 MG PO SCH (10:04)
[2022-08-24] MEDS: ROCEPHIN 2 Gm-D5w 50ML BAG** 2 G/50 ML IVPB IV SCH (10:04)
[2022-08-24] MEDS: ELIQUIS 2.5 MG TABLET PO SCH ×2 (10:04→22:22)
[2022-08-24] MEDS: Cardizem CD PO SCH (10:04)
[2022-08-24] MEDS: THERAGRAN MULTIVITAMIN PO SCH (10:04)
[2022-08-24] MEDS: PATIENT OWN MEDICATION PO SCH (10:05)
[2022-08-24] MEDS: Miralax Powder 17GM PACKET PO SCH (10:14)
[2022-08-24] MEDS: MIRTAZAPINE PO SCH (22:22)
[2022-08-24] MEDS: MELATONIN PO SCH (22:22)
[2022-08-25] MEDS: Sodium Chloride 0.9% 1000 ML 1,000 ML IV SCH (06:03)
[2022-08-25 07:19] VITALS: O2SAT 92
[2022-08-25] MEDS: Cardizem CD PO SCH (10:10)
[2022-08-25] MEDS: Miralax Powder 17GM PACKET PO SCH (10:10)
[2022-08-25] MEDS: ELIQUIS 2.5 MG TABLET PO SCH (10:10)
[2022-08-25] MEDS: PATIENT OWN MEDICATION PO SCH (10:11)
[2022-08-25] MEDS: Pepcid 20 MG PO SCH (10:11)
[2022-08-25] MEDS: THERAGRAN MULTIVITAMIN PO SCH (10:12)
[2022-08-25] MEDS: ROCEPHIN 2 Gm-D5w 50ML BAG** 2 G/50 ML IVPB IV SCH (10:12)
[2022-08-25] MEDS: PROTONIX 40 MG IV IV SCH (10:12)
[2022-08-25 11:31] VITALS: BP 116/58; PULSE 101
--- NOTE | 2022-08-25 12:03 | PCM.NOTE ---
Date and Time: 08/24/22 1224 Subjective Assessment: Patient resting comfortably propped up in bed,states good pain control. Discharge planning moved Oncology Dr Samantha Dozier up to 08/28/22 from DEC appt re mets now in axial spine and liver lesions.Probable home to the care of her daughter in am. Will have to walk up 4 steps to get into the house,PT to work with patient on this. Objective Exam General Appearance: no apparent distress Neurologic Exam: alert, oriented x 3, normal mood/affect Skin Exam: warm, dry, pale Wound Assessment: Skin/Wound Assessment Wound/Incision Assessment Start: 08/20/22 14:19 Text: Status: Active Freq: Q6H Protocol: Document 08/25/22 08:00 MG (Rec: 08/25/22 08:21 MG [id number]) Wound/Incision Assessment Right Buttock Wound Assessment Shift Assessment Wound Type Pressure Ulcer Wound Stage Stage II Drainage Amount None Surrounding Tissue [place] Comment STAGE 2 RIGHT INNER BUTTOCK BARRIER CREAM APPLIED PRN. Respiratory Exam: diminished breath sounds (no rales or ronchi or wheeze) Cardiovascular Exam: regular rate/rhythm (distant) Gastrointestinal/Abdomen Exam: soft (nontender) Back Exam: vertebral tenderness (pain with movement of torso) OBJECTIVE DATA Vital Signs: Vital Signs - 24 hr Temp Pulse Resp BP Pulse Ox 08/25/22 11:30 98.2 F 101 H 18 116/58 92 L 08/25/22 07:17 97.7 F 96 H 16 119/58 92 L 08/25/22 04:00 97.7 F 100 H 17 126/60 94 L 08/25/22 00:00 97.5 F 102 H 18 141/67 94 L 08/24/22 20:00 98.0 F 95 H 17 115/56 95 08/24/22 16:00 97.7 F 93 H 17 122/57 95 08/24/22 11:49 97.3 F 96 H 17 117/57 95 Pain Assessment - Last Documented Pain Intensity 0 Pain Scale Used 0-10 Pain Scale Intake and Output: Intake & Output 08/22/22 08/23/22 08/24/22 08/25/22 11:59 11:59 11:59 11:59 Intake Total 1340 2569 2353 3073 Output Total 536 872 6437 1500 Balance 690 5186 742 1629 Weight 80.9 kg 80.9 kg 83 kg 83 kg Assessment/Plan (1) Abdominal pain Current Visit: Yes Status: Resolved Qualifiers: Abdominal location: lower abdomen, unspecified Qualified Code(s): R10.30 - Lower abdominal pain, unspecified Code(s): R10.9 - UNSPECIFIED ABDOMINAL PAIN (2) Dehydration Current Visit: No Status: Resolved Code(s): E86.0 - DEHYDRATION (3) Acute UTI Current Visit: Yes Status: Resolved Code(s): N39.0 - URINARY TRACT INFECTION, SITE NOT SPECIFIED (4) Metastatic breast cancer Current Visit: No Status: Chronic Assessment & Plan: worse Code(s): C50.919 - MALIGNANT NEOPLASM OF UNSP SITE OF UNSPECIFIED FEMALE BREAST (5) Bone pain Current Visit: Yes Status: Acute Assessment & Plan: controlled on current pain meds Code(s): M89.8X9 - OTHER SPECIFIED DISORDERS OF BONE, UNSPECIFIED SITE
--- NOTE | 2022-09-04 05:54 | PCM.DS ---
Discharge Summary Date of Admission: 08/21/22 18:49 Date of Discharge: 08/25/2022 Admitting Physician: JUDY MCNAMARA DO Primary Care Provider: SIDDHARTHA PERALES Allergies Allergies lorazepam [From Ativan] Adverse Reaction (Intermediate, Verified 08/20/22 10:14) "It made me go crazy" ibuprofen Adverse Reaction (Verified 08/20/22 10:14) causes fast HR morphine Adverse Reaction (Verified 08/20/22 10:14) Hospital Summary - Hospital Course Hospital Course: Pt. admitted for lower abdominal pain, dehydration and chronic pain from metastatic bone cancer and for iv antibiotics for UTI, pt. improved and problems resolved, pt. was able to maintain pain control and consume enough to sustain her and then felt to be ready for discharge to home. - Vitals & Intake/Output Vital Signs: Vital Signs Temperature 98.2 F 08/25/22 11:30 Pulse Rate 101 H 08/25/22 11:30 Respiratory Rate 18 08/25/22 11:30 Blood Pressure 116/58 08/25/22 11:30 O2 Sat by Pulse Oximetry 92 L 08/25/22 11:30 - Lab Result Diagrams: 08/24/22 04:00 08/24/22 05:40 Micro Results-Entire Visit: Microbiology 08/20/22 10:32 Blood Culture Gram Stain - Final Blood Not Reportable Blood Culture - Final NO GROWTH 08/20/22 10:24 Urine Culture - Final Urine, Void <10K NORMAL SKIN DL PROBABLE SKIN CONTAMINANT - Procedures and Test Procedures and Tests throughout Hospitalization: Therapy Orders & Screens 08/20/22 13:35 Respiratory Therapy Assessment DAILY Comment: Diagnosis: Acute UTI, lower abdominal pain 08/24/22 12:46 PT Eval & Treat (MD Order) ONCE Reason for Eval:: functional mobility evaluation; plan to discharge home and pt has to climb stairs to get into house Diagnosis: PAIN CONTROL - WORSENING METS Discharge Exam General Appearance: no apparent distress, alert Neurologic Exam: alert, oriented x 3, cooperative, normal mood/affect, nml cerebellar function, sensation nml, No motor deficits Eye Exam: PERRL, EOMI, eyes nml inspection Ears, Nose, Throat Exam: normal ENT inspection, pharynx normal, moist mucous membranes Neck Exam: normal inspection, non-tender, supple, full range of motion Respiratory Exam: normal breath sounds, lungs clear, No respiratory distress Cardiovascular Exam: regular rate/rhythm, normal heart sounds Gastrointestinal/Abdomen Exam: soft, No tenderness, No mass Pelvic Exam: deferred Rectal Exam: deferred Back Exam: normal inspection, normal range of motion, No CVA tenderness, No vertebral tenderness Extremity Exam: normal inspection, normal range of motion Skin Exam: normal color, warm, dry Final Diagnosis/Problem List - Final Discharge Diagnosis/Problem (1) Bone pain Status: Acute Code(s): M89.8X9 - OTHER SPECIFIED DISORDERS OF BONE, UNSPECIFIED SITE (2) Mild dehydration Status: Acute Code(s): E86.0 - DEHYDRATION (3) UTI (lower urinary tract infection) Status: Acute Code(s): N39.0 - URINARY TRACT INFECTION, SITE NOT SPECIFIED - Discharge Discharge Date: 08/25/22 Disposition: Home, Self-Care Condition: Stable Prescriptions: New Cephalexin Mh 500 mg [Keflex 500 mg] 500 mg PO Q6H #40 cap No Action Vit B12/Intrinsic Fact/Folate [Intrinsi [id number] Tablet] 1 tab PO DAILY Multivit with Iron,Minerals [Multivitamins with Iron] 1 tab PO DAILY Alprazolam [Xanax] 0.5 mg PO DAILY PRN PRN PRN Reason: Anxiety Diltiazem HCl Cd [Cardizem CD ] 240 mg PO DAILY 30 Days #30 Famotidine 20 mg PO DAILY Ondansetron ODT 4 MG [Zofran Odt 4 mg] 4 mg PO Q4H PRN PRN PRN Reason: Nausea Diphenhydramine HCl 25 mg [Benadryl 25 mg Capsule] 25 mg PO TID PRN PRN Reason: Itching Melatonin 10 mg PO HS Letrozole 2.5 mg PO HS Sulfamethoxazole/Trimethoprim [Bactrim Ds Tablet] 1 each PO BID Hydrocodone/Acetaminophen [Hydrocodone-Acetamin 5-325 mg] 1 tab PO Q4HPRN PRN PRN Reason: Pain Apixaban [Eliquis] 2.5 mg PO DAILY Instructions: Urinary Tract Infections in Adults Additional Instructions: TRANSPORT CHAIR WAS ORDERED THRU [facility]- THEY WILL CONTACT YOU FOR DELIVERY. IF NEEDED YOU CAN CALL THEM AT [phone] Follow up with: SIDDHARTHA PERALES [Primary Care Provider] - IKE GEORGE [CONSULTING PHYSICIAN] - 08/28/22 10:45 am (PLEASE KEEP SCHEDULED APPOINTMENT [facility]
== END 2022-08-25 13:15 | disposition home or self-care (01) | DRG 565 ==
LOC: ED 09:55 → MED SURG 13:19 → OBSVTOIN 08-21 18:49
PROVIDERS: ADMIT Family Medicine; ATTEND Family Medicine
DX: M89.8X9 Other specified disorders of bone, unspecified site (principal); N39.0 Urinary tract infection, site not specified; C50.912 Malignant neoplasm of unspecified site of left female breast; R10.9 Unspecified abdominal pain; E86.0 Dehydration; I48.91 Unspecified atrial fibrillation; I10 Essential (primary) hypertension; I25.10 Atherosclerotic heart disease of native coronary artery without angina pectoris; L89.312 Pressure ulcer of right buttock, stage 2; Z79.01 Long term (current) use of anticoagulants; Z79.899 Other long term (current) drug therapy; Z20.828 Contact with and (suspected) exposure to other viral communicable diseases
CPT/HCPCS: 0241U; 36000; 36415; 74176; 80048; 80053; 81015; 83605; 83690; 84145; 85025; 85027; 87040; 87086; 93268; 94760; 96365; 97161; 99285; G0378; J0696; J1642; J2405; A9270-GY

== ENCOUNTER 2022-09-13 13:45 | Inpatient (IN) | payer MEDICARE, BC ==
[2022-09-13] MEDS: Sodium Chloride 0.9% 1000 ML 1,000 ML IV SCH (14:49)
[2022-09-13 15:01] LABS: Absolute Neutrophil Ct (ANC) 6.41 x10^3/uL (1.4-6.9); Basophil (Absolute #) 0.04 x10^3/uL (0-0.4); Eosinophil % 0.5 % (0.00-5.0); Eosinophil (Absolute #) 0.04 x10^3/uL (0-0.5); Hematocrit 39.4 % (35-47); Lymphocyte (Absolute #) 0.53 x10^3/uL (1.0-4.6); Lymphocytes % 6.6 % (24.0-44.0); Mean Corpuscular Hemoglobin 33.3 pg (26-32); Mean Platelet Volume 8.7 fL (7.5-11.0); Monocyte (Absolute #) 0.96 x10^3/uL (0.0-1.3); Neutrophil % 80.1 % (36.0-66.0); Platelet Count 402 x10^3/uL (150-450)
[2022-09-13 15:32] LABS: ALBUMIN 2.9 g/dL (3.5-5.0); ALKALINE PHOSPHATASE 130 U/L (38-126); AMYLASE < 30 U/L (30-110); ANION GAP 10.5 MEQ/L (5-15); BLOOD UREA NITROGEN 18 mg/dL (7-17); CHLORIDE 98 mmol/L (98-107); Calcium 8.5 mg/dL (8.4-10.2); Carbon Dioxide 29 mmol/L (22-30); Creatinine 1 0.56 mg/dL (0.52-1.04); EST GLOMERULAR FILTRATION RATE > 60.0 ML/MIN; Glucose 98 mg/dL (74-106); LIPASE 33 U/L (23-300); NT PRO BNP 318 pg/mL (0-1800); Potassium 3.7 mmol/L (3.5-5.1); SGOT/AST 31 U/L (14-36); SGPT/ALT 20 U/L (0-35); SODIUM 134 mmol/L (137-145); Total Protein 5.6 g/dL (6.3-8.2)
--- NOTE | 2022-09-13 15:49 | ERPHSYRPT ---
- History of Present Illness Time Seen by Provider: 09/13/22 14:40 Source: patient, family Exam Limitations: no limitations Patient Subjective Stated Complaint: pt daughter states "She has been sick for the past month and still hasn't got better. We were at Dr. Perales's office and he said to come to the er to be admitted." Triage Nursing Assessment: pt came into the er via wheelchair; pt is axo x4; c/o cough; pt denies pain; dry hacking cough present; clear lung sounds in all lobes; skin pale, dry and warm; tachycardic; afebrile Physician History: Patient is an 82-year-old white female who presents with a complaint of cough and weakness for 1 month. She has been admitted to the hospital here was on antibiotics and discharged home she was treated for UTI and CHF. She has had been on multiple antibiotics. Her sputum is yellow at times. She has a history of breast cancer. Today she was seen being seen in Dr. Perales's office instructed the family to bring her to the ER and get her admitted. Timing/Duration: week(s) (4) Cough Quality/Degree: productive cough, sputum (Yellow) Modifying Factors: Improves With: coughing Associated Symptoms: cough, nasal congestion, shortness of breath Allergies/Adverse Reactions: lorazepam [From Ativan] Adverse Reaction (Intermediate, Verified 09/13/22 14:26) "It made me go crazy" ibuprofen Adverse Reaction (Verified 09/13/22 14:26) causes fast HR morphine Adverse Reaction (Verified 09/13/22 14:26) Home Medications: Alprazolam [Xanax] 0.5 mg PO BID PRN PRN 11/21/21 [History] Multivit with Iron,Minerals [Multivitamins with Iron] 1 tab PO DAILY 11/21/21 [History] Vit B12/Intrinsic Fact/Folate [Intrinsi E76-[id number] Tablet] 1 tab PO DAILY 11/21/21 [History] Diphenhydramine HCl 25 mg [Benadryl 25 mg Capsule] 25 mg PO TID PRN 05/02/22 [History] Famotidine 20 mg PO DAILY 05/02/22 [History] Melatonin 10 mg PO HS 05/02/22 [History] Ondansetron ODT 4 MG [Zofran Odt 4 mg] 4 mg PO Q4H PRN PRN 05/02/22 [History] Letrozole 2.5 mg PO HS 05/03/22 [History] Sulfamethoxazole/Trimethoprim [Bactrim Ds Tablet] 1 each PO BID 05/14/22 [History] Hydrocodone/Acetaminophen [Hydrocodone-Acetamin 5-325 mg] 1 tab PO Q4HPRN PRN 08/20/22 [History] Apixaban [Eliquis] 2.5 mg PO BID 08/21/22 [History] Diltiazem HCl Cd [Cardizem CD ] 180 mg PO DAILY 09/13/22 [History] Omeprazole 20 mg PO DAILY 09/13/22 [History] Hx Tetanus, Diphtheria Vaccination/Date Given: No (UNKNOWN) Hx Influenza Vaccination/Date Given: Yes Hx Pneumococcal Vaccination/Date Given: Yes Travel Risk - International Travel Have you traveled outside of the country in past 3 weeks: No - Coronavirus Screening Are you exhibiting any of the following symptoms?: No Close contact with a COVID-19 positive Pt in past 14-21 Days: No - Vaccine Status Have you recieved a Covid-19 vaccination: Yes Head Of Geography: Moderna - Vaccination Dates Date of 2cond Vaccination (if applicable): 12/10/20 - Review of Systems Constitutional: Weakness, No Fever, No Chills Eyes: No Symptoms Ears, Nose, & Throat: No Symptoms Respiratory: Cough, Dyspnea, Dyspnea on Exertion (DURAN) Cardiac: No Chest Pain, No Edema, No Syncope Abdominal/Gastrointestinal: No Abdominal Pain, No Nausea, No Vomiting, No Diarrhea Genitourinary Symptoms: No Dysuria Musculoskeletal: No Back Pain, No Neck Pain Skin: No Rash Neurological: No Dizziness, No Focal Weakness, No Sensory Changes Psychological: No Symptoms Endocrine: No Symptoms All Other Systems: Reviewed and Negative - Past Medical History Pertinent Past Medical History: No Neurological History: Migraines ENT History: Cataracts Cardiac History: Arrhythmia, High Cholesterol, Hypertension, Myocardial Infarction (HI) Respiratory History: Bronchitis Endocrine Medical History: No Pertinent History Musculoskeletal History: Osteoarthritis, Osteoporosis, Other GI Medical History: Diverticulitis, Diverticulosis History: No Pertinent History Psycho-Social History: Anxiety Female Reproductive Disorders: Endometriosis Other Medical History: metastatic breast cancer (LEFT) - Past Surgical History Past Surgical History: Yes Neuro Surgical History: No Pertinent History Cardiac: Cardiac Catheterization Respiratory: No Pertinent History Gastrointestinal: Cholecystectomy Genitourinary: No Pertinent History Musculoskeletal: Orthopedic Surgery Female Surgical History: Hysterectomy Other Surgical History: tot lt knee approx 05/12/19 Dr Lantigua at [facility] left masectomy with lymph nodes. right shoulder - Social History Smoking Status: Never smoker Exposure to second hand smoke: Yes Drug Use: none Patient Lives Alone: No Significant Family History: no pertinent family hx - Nursing Vital Signs Nursing Vital Signs: Initial Vital Signs Temperature 98.2 F 09/13/22 14:34 Pulse Rate 109 H 09/13/22 14:34 Respiratory Rate 22 09/13/22 14:34 Blood Pressure 127/66 09/13/22 14:34 O2 Sat by Pulse Oximetry 95 09/13/22 14:34 Pain Scale Pain Intensity 0 - Physical Exam General Appearance: moderate distress, alert Eye Exam: PERRL/EOMI, eyes nml inspection Ears, Nose, Throat Exam: normal ENT inspection, TMs normal, pharynx normal, benigno st mucous membranes Neck Exam: normal inspection, non-tender, supple, full range of motion Respiratory Exam: airway intact, rhonchi, No respiratory distress Cardiovascular Exam: regular rate/rhythm, normal heart sounds Gastrointestinal/Abdomen Exam: soft, No tenderness Back Exam: normal inspection, No CVA tenderness, No vertebral tenderness Extremity Exam: normal inspection, normal range of motion Neurologic Exam: alert, oriented x 3, cooperative, normal mood/affect, sensation nml, motor weakness (General), No motor deficits Skin Exam: normal color, warm, dry, No rash Lymphatic Exam: No adenopathy SpO2 Interpretation: normal SpO2: 95 O2 Delivery: Room Air - Course EKG Interpreted by Me: RATE (111), Sinus Tach, NORMAL AXIS, Non-specific ST Changes (Old inferior HI), Other (Old inferior HI and nonspecific ST-T wave changes) - Radiology Exams Chest X-ray Interpretation: Other (X-ray shows an enlarging left pleural effusion.) Ordered Tests: Active Orders 24 hr Category Date Time Status El Teacher STAT Care 09/13/22 14:32 Active EKG-ER Only STAT Care 09/13/22 14:31 Active IV Insertion STAT Care 09/13/22 14:31 Active CHEST 1 VIEW (PORTABLE) Stat Exams 09/13/22 14:32 Completed AMYLASE Stat Lab 09/13/22 14:45 Completed BLOOD CULTURE Stat Lab 09/13/22 14:57 Received CBC W DIFF Stat Lab 09/13/22 14:45 Completed CMP Stat Lab 09/13/22 14:45 Completed CULTURE,SPUTUM Stat Lab 09/13/22 16:24 Ordered CULTURE,URINE Stat Lab 09/13/22 16:24 Ordered D-DIMER QUANTITATIVE Stat Lab 09/13/22 14:45 Completed Erythrocyte Sedimentation Rate Stat Lab 09/13/22 14:45 Completed LIPASE Stat Lab 09/13/22 14:45 Completed Lactic Acid Stat Lab 09/13/22 14:54 Completed NT PRO BNP Stat Lab 09/13/22 14:45 Completed PROCALCITONIN Stat Lab 09/13/22 14:45 Completed UA W/RFX CULTURE Stat Lab 09/13/22 Completed Medication Summary Generic Name Dose Route Start Last Admin Trade Name Freq PRN Reason Stop Dose Admin Sodium Chloride 1,000 mls @ 100 mls/hr 09/13/22 14:45 09/13/22 14:49 Sodium Chloride 0.9% 1000 Ml IV 10/13/22 14:44 100 mls/hr .Q10H LISA Administration Lab/Rad Data: Laboratory Result Diagrams 09/13/22 14:45 09/13/22 14:45 Laboratory Results 09/13/22 09/13/22 09/13/22 Range/Units Unknown 14:54 14:45 WBC (4.0-10.5) x10^3/uL RBC (4.1-5.4) x10^6/uL Hgb (12.0-16.0) g/dL Hct (35-47) % MCV (78-100) fL MCH (26-32) pg MCHC (32-36) g/dL RDW (11.5-14.0) % Plt Count (150-450) x10^3/uL MPV (7.5-11.0) fL Gran % (36.0-66.0) % Immature Gran % (Auto) (0.00-0.4) % Nucleat RBC Rel Count (0.00-0.1) % Eos # (Auto) (0-0.5) x10^3/uL Immature Gran # (Auto) (0.00-0.03) x10^3u/L Absolute Lymphs (auto) (1.0-4.6) x10^3/uL Absolute Monos (auto) (0.0-1.3) x10^3/uL Absolute Nucleated RBC (0.00-0.01) x10^3u/L Lymphocytes % (24.0-44.0) % Monocytes % (0.0-12.0) % Eosinophils % (0.00-5.0) % Basophils % (0.0-0.4) % Absolute Granulocytes (1.4-6.9) x10^3/uL Basophils # (0-0.4) x10^3/uL ESR (0-20) mm/hr D-Dimer 0.81 H* (0.0-0.50) mg/L Sodium (137-145) mmol/L Potassium (3.5-5.1) mmol/L Chloride (98-107) mmol/L Carbon Dioxide (22-30) mmol/L Anion Gap (5-15) MEQ/L BUN (7-17) mg/dL Creatinine (0.52-1.04) mg/dL Estimated GFR ML/MIN Glucose (74-106) mg/dL Lactic Acid 1.1 (0.4-2.0) Calcium (8.4-10.2) mg/dL Total Bilirubin (0.2-1.3) mg/dL AST (14-36) U/L ALT (0-35) U/L Alkaline Phosphatase (38-126) U/L NT-Pro-B Natriuret Pep (0-1800) pg/mL Serum Total Protein (6.3-8.2) g/dL Albumin (3.5-5.0) g/dL Amylase (30-110) U/L Lipase (23-300) U/L Procalcitonin (0.030-0.080) ng/mL Urinalys Dipstick Clnc MAIN LAB Urine Color YELLOW (YELLOW) Urine Appearance CLOUDY A (CLEAR) Urine pH 5.5 (5-6) Ur Specific [place] >=1.030 A (1.005-1.025) POC Urine Protein Conf TRACE A (Negative) Urine Ketones MODERATE-40 A (NEGATIVE) Urine Nitrite NEGATIVE (NEGATIVE) Urine Bilirubin MODERATE A (NEGATIVE) Urine Urobilinogen 0.2 (0-1) mg/dL Urine Leukocytes MODERATE A (NEGATIVE) Urine WBC (Auto) >100 A (0-5) /HPF Urine RBC (Auto) 16-25 A (0-2) /HPF U Hyaline Cast (Auto) 6-10 A (0-2) /LPF U Epithel Cells (Auto) NONE (FEW) /HPF Urine Bacteria (Auto) MODERATE A (NEGATIVE) /HPF Urine RBC TRACE-LYSED A (0-5) Cuate/ul Urine Mucus (Auto) MANY A (NEGATIVE) /HPF Ur Culture Indicated? ORDERED SEPARATELY Urine Glucose NEGATIVE (NEGATIVE) mg/dL Slides for Path Review 09/13/22 09/13/22 09/13/22 Range/Units 14:45 14:45 14:45 WBC 8.0 (4.0-10.5) x10^3/uL RBC 3.90 L (4.1-5.4) x10^6/uL Hgb 13.0 (12.0-16.0) g/dL Hct 39.4 (35-47) % MCV 101.0 H (78-100) fL MCH 33.3 H (26-32) pg MCHC 33.0 (32-36) g/dL RDW 16.0 H (11.5-14.0) % Plt Count 402 (150-450) x10^3/uL MPV 8.7 (7.5-11.0) fL Gran % 80.1 H (36.0-66.0) % Immature Gran % (Auto) 0.3 (0.00-0.4) % Nucleat RBC Rel Count 0.0 (0.00-0.1) % Eos # (Auto) 0.04 (0-0.5) x10^3/uL Immature Gran # (Auto) 0.02 (0.00-0.03) x10^3u/L Absolute Lymphs (auto) 0.53 L (1.0-4.6) x10^3/uL Absolute Monos (auto) 0.96 (0.0-1.3) x10^3/uL Absolute Nucleated RBC 0.00 (0.00-0.01) x10^3u/L Lymphocytes % 6.6 L (24.0-44.0) % Monocytes % 12.0 (0.0-12.0) % Eosinophils % 0.5 (0.00-5.0) % Basophils % 0.5 (0.0-0.4) % Absolute Granulocytes 6.41 (1.4-6.9) x10^3/uL Basophils # 0.04 (0-0.4) x10^3/uL ESR 55 H (0-20) mm/hr D-Dimer (0.0-0.50) mg/L Sodium 134 L (137-145) mmol/L Potassium 3.7 (3.5-5.1) mmol/L Chloride 98 (98-107) mmol/L Carbon Dioxide 29 (22-30) mmol/L Anion Gap 10.5 (5-15) MEQ/L BUN 18 H (7-17) mg/dL Creatinine 0.56 (0.52-1.04) mg/dL Estimated GFR > 60.0 ML/MIN Glucose 98 (74-106) mg/dL Lactic Acid (0.4-2.0) Calcium 8.5 (8.4-10.2) mg/dL Total Bilirubin 0.60 (0.2-1.3) mg/dL AST 31 (14-36) U/L ALT 20 (0-35) U/L Alkaline Phosphatase 130 H (38-126) U/L NT-Pro-B Natriuret Pep 318 (0-1800) pg/mL Serum Total Protein 5.6 L (6.3-8.2) g/dL Albumin 2.9 L (3.5-5.0) g/dL Amylase < 30 L (30-110) U/L Lipase 33 (23-300) U/L Procalcitonin 1.070 H (0.030-0.080) ng/mL Urinalys Dipstick Clnc Urine Color (YELLOW) Urine Appearance (CLEAR) Urine pH (5-6) Ur Specific [place] (1.005-1.025) POC Urine Protein Conf (Negative) Urine Ketones (NEGATIVE) Urine Nitrite (NEGATIVE) Urine Bilirubin (NEGATIVE) Urine Urobilinogen (0-1) mg/dL Urine Leukocytes (NEGATIVE) Urine WBC (Auto) (0-5) /HPF Urine RBC (Auto) (0-2) /HPF U Hyaline Cast (Auto) (0-2) /LPF U Epithel Cells (Auto) (FEW) /HPF Urine Bacteria (Auto) (NEGATIVE) /HPF Urine RBC (0-5) Cuate/ul Urine Mucus (Auto) (NEGATIVE) /HPF Ur Culture Indicated? Urine Glucose (NEGATIVE) mg/dL Slides for Path Review YES - Progress Progress: unchanged Air Movement: fair Blood Culture(s) Obtained: No Antibiotics given: Yes Discussed with Dr.: Bautista - Departure Departure Disposition: Observation Clinical Impression: Pleural effusion, left, UTI (urinary tract infection) Condition: Fair Critical Care Time: No Referrals: SIDDHARTHA PERALES [Primary Care Provider] - Follow up/PCP as directed
--- NOTE | 2022-09-13 16:11 | XRAY ---
Exam: AP upright portable chest film from 09/13/2022. Comparison: Two-view chest series from 08/16/2022. Indication: 82-year-old female with cough; shortness of air. Findings: Prior left sided pleural effusion has significantly increased in size and now occupies the lower 50-60% of the left side of the chest representing an unfavorable change. Underlying infiltrate and/or atelectasis cannot be excluded. In addition, there is minimal haziness at the right lung base with partial obscuration of the right hemidiaphragm which is probably due to a small posterior right basilar pleural effusion. This was present on the prior study as well. Right-sided portacatheter is seen in unchanged position. The remainder of the right lung field and left upper lobe appear clear. The left cardiac border is obscured, although I doubt there is any cardiomegaly. Surgical clips again overlie the left axilla. Correlate with surgical history. No acute osseous process is seen. Impression: 1. Worsening large left pleural effusion, as described above. No mediastinal shift is seen. Underlying infiltrate/atelectasis at the left lung base cannot be excluded. 2. I believe there is also a mild posterior right basilar pleural effusion, but this is probably unchanged. 3. The remainder the right lung and left upper lobe are clear. 4. Right-sided portacatheter remains in unchanged position.
[2022-09-13 16:22] LABS: Slide Review 1 YES
[2022-09-13 16:27] LABS: Appearance CLOUDY (CLEAR); Bilirubin MODERATE (NEGATIVE); Dipstick done @ ? MAIN LAB; Glucose NEGATIVE (NEGATIVE); Ketones MODERATE-40 (NEGATIVE); Nitrite NEGATIVE (NEGATIVE); Ph 5.5 (5-6); Protein,Urine Dip TRACE (Negative); RBC TRACE-LYSED Ery/ul (0-5); Specific Gravity >=1.030 (1.005-1.025); Urine Cultured Indicated? ORDERED SEPARATELY; Urobilinogen 0.2 mg/dL (0-1)
[2022-09-13 16:30] LABS: Bacteria MODERATE /HPF (NEGATIVE); Mucus MANY /HPF (NEGATIVE); WBC >100 /HPF (0-5)
[2022-09-13 18:36] LABS: INFLUENZA A NEGATIVE (NEGATIVE); INFLUENZA B NEGATIVE (NEGATIVE); RESPIRATORY SYNCTIAL VIRUS NEGATIVE (Negative); SARS-CoV-2 Xpert Express NEGATIVE (NEGATIVE)
[2022-09-13] MEDS ORDERED: BENADRYL 25 MG CAPSULE PO PRN (21:45)
[2022-09-13] MEDS ORDERED: ELIQUIS 2.5 MG TABLET ONE (21:55)
[2022-09-13] MEDS ORDERED: MELATONIN PO ONE (22:00)
[2022-09-13] MEDS: xanAX 0.5 MG PO PRN (22:09)
[2022-09-13] MEDS: NORCO 5/325 MG PO PRN (22:10)
[2022-09-14] MEDS: Sodium Chloride 0.9% 1000 ML 1,000 ML IV SCH ×3 (02:36→22:08)
[2022-09-14 05:14] LABS: Absolute Neutrophil Ct (ANC) 4.51 x10^3/uL (1.4-6.9); Basophil (Absolute #) 0.04 x10^3/uL (0-0.4); Eosinophil % 1.4 % (0.00-5.0); Eosinophil (Absolute #) 0.09 x10^3/uL (0-0.5); Hematocrit 32.8 % (35-47); Hemoglobin 10.8 g/dL (12.0-16.0); Lymphocyte (Absolute #) 0.68 x10^3/uL (1.0-4.6); Lymphocytes % 10.7 % (24.0-44.0); Mean Cell Volume 102.2 fL (78-100); Mean Corpuscular Hemoglobin 33.6 pg (26-32); Mean Corpuscular Hgb Concent. 32.9 g/dL (32-36); Mean Platelet Volume 8.5 fL (7.5-11.0); Monocyte (Absolute #) 1.02 x10^3/uL (0.0-1.3); Monocytes % 16.1 % (0.0-12.0); Platelet Count 312 x10^3/uL (150-450); Red Blood Count 3.21 x10^6/uL (4.1-5.4); Red Cell Distribution Width 15.9 % (11.5-14.0); White Blood Count 6.4 x10^3/uL (4.0-10.5)
[2022-09-14 05:32] LABS: ALBUMIN 2.2 g/dL (3.5-5.0); ALKALINE PHOSPHATASE 99 U/L (38-126); ANION GAP 7.7 MEQ/L (5-15); BLOOD UREA NITROGEN 15 mg/dL (7-17); CHLORIDE 102 mmol/L (98-107); Calcium 7.8 mg/dL (8.4-10.2); Carbon Dioxide 28 mmol/L (22-30); EST GLOMERULAR FILTRATION RATE > 60.0 ML/MIN; Glucose 87 mg/dL (74-106); Potassium 3.6 mmol/L (3.5-5.1); SGOT/AST 29 U/L (14-36); SGPT/ALT 18 U/L (0-35); SODIUM 134 mmol/L (137-145); Total Protein 4.5 g/dL (6.3-8.2)
[2022-09-14] MEDS ORDERED: Zithromax 500 MG/ 250 ML NaCl Premix 500 MG/250 ML IVPB IV SCH (10:00)
[2022-09-14] MEDS ORDERED: FLUZONE HIGH-DOSE QUAD 2022-23 IM ONE (10:00)
[2022-09-14] MEDS ORDERED: ROCEPHIN 1 Gm-D5w 50 ml Bag** 1 G/50 ML IVPB IV SCH (10:00)
[2022-09-14] MEDS: Zofran 4 MG/2 ML VIAL IV PRN (12:15)
[2022-09-14] MEDS: NORCO 5/325 MG PO PRN ×2 (12:19→16:48)
--- NOTE | 2022-09-14 13:48 | PCM.HP ---
History of Present Illness - Chief Complaint Chief Complaint: LEFT PLEURAL EFFUSION History of Present Illness: is an 82 year old female patient of Dr Quinonez with metastatic breast cancer/Left mastectomy who presented to ER with shortness of breath,cough and weakness. Chest CT shows a large left pleural effusion and is admitted for thoracentesis. Patient lives at home with her daughter and they are not ready for Hospice care..She has had recent admit with UTI and CHF. - Review of Systems Constitutional: Weakness Eyes: No Symptoms Ears, Nose, & Throat: No Symptoms Respiratory: Cough, Short Of Breath Cardiac: Palpitations Abdominal/Gastrointestinal: Constipation, No Abdominal Pain, No Vomiting Genitourinary Symptoms: Dysuria, Frequency, Other (recurrent UTI) Musculoskeletal: No Symptoms (no new joint painhas chronic back pain) Skin: No Symptoms Neurological: No Symptoms Psychological: No Symptoms Medications & Allergies Home Medications: Home Medication List Alprazolam [Xanax] 0.5 mg PO BID PRN PRN 11/21/21 [History Confirmed 09/13/22] Multivit with Iron,Minerals [Multivitamins with Iron] 1 tab PO DAILY 11/21/21 [History Confirmed 09/13/22] Vit B12/Intrinsic Fact/Folate [Intrinsi [id number] Tablet] 1 tab PO DAILY 11/21/21 [History Confirmed 09/13/22] Diphenhydramine HCl 25 mg [Benadryl 25 mg Capsule] 25 mg PO TID PRN 05/02/22 [History Confirmed 09/13/22] Famotidine 20 mg PO DAILY 05/02/22 [History Confirmed 09/13/22] Melatonin 10 mg PO HS 05/02/22 [History Confirmed 09/13/22] Ondansetron ODT 4 MG [Zofran Odt 4 mg] 4 mg PO Q4H PRN PRN 05/02/22 [History Confirmed 09/13/22] Letrozole 2.5 mg PO HS 05/03/22 [History Confirmed 09/13/22] Sulfamethoxazole/Trimethoprim [Bactrim Ds Tablet] 1 each PO BID 05/14/22 [History Confirmed 09/13/22] Hydrocodone/Acetaminophen [Hydrocodone-Acetamin 5-325 mg] 1 tab PO Q4HPRN PRN 08/20/22 [History Confirmed 09/13/22] Apixaban [Eliquis] 2.5 mg PO DAILY 08/21/22 [History Confirmed 09/13/22] Diltiazem HCl Cd [Cardizem CD ] 180 mg PO DAILY 09/13/22 [History Confirmed 09/13/22] Omeprazole 20 mg PO DAILY 09/13/22 [History Confirmed 09/13/22] Allergies/Adverse Reactions: Allergies Allergy/AdvReac Type Severity Reaction Status Date / Time lorazepam [From Ativan] AdvReac Intermediate Verified 09/13/22 19:59 ibuprofen AdvReac Verified 09/13/22 19:59 morphine AdvReac Verified 09/13/22 19:59 - Past Medical History Past Medical History: No Neurological History: Migraines ENT History: Cataracts Cardiac History: Arrhythmia, High Cholesterol, Hypertension, Myocardial Infarction ([place]) Respiratory History: Bronchitis Endocrine Medical History: No Pertinent History Musculoskelatal History: Osteoarthritis, Osteoporosis, Other GI Medical History: Diverticulitis, Diverticulosis History: No Pertinent History Pyscho-Social History: Anxiety Reproductive Disorders: Breast Cancer, Endometriosis Comment: metastatic breast cancer (LEFT) 2020 - Female History Are you now?: No - Past Surgical History Past Surgical History: Yes Neuro Surgical History: No Pertinent History Cardiac History: Cardiac Catheterization Respiratory Surgery: No Pertinent History GI Surgical History: Cholecystectomy Genitourinary Surgical Hx: No Pertinent History Musculskeletal Surgical Hx: Orthopedic Surgery Female Surgical History: Hysterectomy Other Surgical History: tot lt knee approx 05/12/19 Dr Lantigua at [facility] left masectomy with lymph nodes. right shoulder. 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) - Social History Smoking Status: Never smoker Exposure to second hand smoke: No Alcohol: None Drug Use: none Significant Family History: no pertinent family hx - Physical Exam Vital Signs: Vital Signs - 24 hr Temp Pulse Resp BP Pulse Ox 09/14/22 12:00 97.7 F 94 H 20 122/59 95 09/14/22 07:45 97.8 F 98 H 19 125/61 92 L 09/14/22 07:12 96 09/14/22 03:53 97.9 F 101 H 19 153/69 94 L 09/14/22 03:15 94 L 09/14/22 00:00 97.8 F 99 H 16 102/58 94 L 09/13/22 19:59 97.5 F 109 H 20 134/74 94 L 09/13/22 17:00 112 H 121/70 94 L 09/13/22 16:57 95 09/13/22 16:00 105 H 20 127/69 95 09/13/22 15:07 104 H 24 120/81 95 09/13/22 14:34 98.2 F 109 H 20 127/66 96 General Appearance: no apparent distress (sitting up at bedside) Neurologic Exam: alert, oriented x 3, cooperative, normal mood/affect Eye Exam: eyes nml inspection Ears, Nose, Throat Exam: normal ENT inspection Neck Exam: normal inspection Respiratory Exam: diminished breath sounds (no aeration left base and mid lung field) Cardiovascular Exam: tachycardia (regular) Gastrointestinal/Abdomen Exam: soft (nontender) Skin Exam: normal color, warm, dry Results - Labs Lab/Micro Results: Lab Results-Last 24 Hours 09/13/22 09/13/22 09/13/22 Range/Units 14:45 14:45 14:45 WBC 8.0 (4.0-10.5) x10^3/uL RBC 3.90 L (4.1-5.4) x10^6/uL Hgb 13.0 (12.0-16.0) g/dL Hct 39.4 (35-47) % MCV 101.0 H (78-100) fL MCH 33.3 H (26-32) pg MCHC 33.0 (32-36) g/dL RDW 16.0 H (11.5-14.0) % Plt Count 402 (150-450) x10^3/uL MPV 8.7 (7.5-11.0) fL Gran % 80.1 H (36.0-66.0) % Immature Gran % (Auto) 0.3 (0.00-0.4) % Nucleat RBC Rel Count 0.0 (0.00-0.1) % Eos # (Auto) 0.04 (0-0.5) x10^3/uL Immature Gran # (Auto) 0.02 (0.00-0.03) x10^3u/L Absolute Lymphs (auto) 0.53 L (1.0-4.6) x10^3/uL Absolute Monos (auto) 0.96 (0.0-1.3) x10^3/uL Absolute Nucleated RBC 0.00 (0.00-0.01) x10^3u/L Lymphocytes % 6.6 L (24.0-44.0) % Monocytes % 12.0 (0.0-12.0) % Eosinophils % 0.5 (0.00-5.0) % Basophils % 0.5 (0.0-0.4) % Absolute Granulocytes 6.41 (1.4-6.9) x10^3/uL Basophils # 0.04 (0-0.4) x10^3/uL ESR 55 H (0-20) mm/hr D-Dimer (0.0-0.50) mg/L Sodium 134 L (137-145) mmol/L Potassium 3.7 (3.5-5.1) mmol/L Chloride 98 (98-107) mmol/L Carbon Dioxide 29 (22-30) mmol/L Anion Gap 10.5 (5-15) MEQ/L BUN 18 H (7-17) mg/dL Creatinine 0.56 (0.52-1.04) mg/dL Estimated GFR > 60.0 ML/MIN Glucose 98 (74-106) mg/dL Hemoglobin A1c (4.5-6.0) % Lactic Acid (0.4-2.0) Calcium 8.5 (8.4-10.2) mg/dL Total Bilirubin 0.60 (0.2-1.3) mg/dL AST 31 (14-36) U/L ALT 20 (0-35) U/L Alkaline Phosphatase 130 H (38-126) U/L Troponin I (0.000-0.034) ng/mL NT-Pro-B Natriuret Pep 318 (0-1800) pg/mL Serum Total Protein 5.6 L (6.3-8.2) g/dL Albumin 2.9 L (3.5-5.0) g/dL Amylase < 30 L (30-110) U/L Lipase 33 (23-300) U/L Procalcitonin 1.070 H (0.030-0.080) ng/mL Urinalys Dipstick Clnc Urine Color (YELLOW) Urine Appearance (CLEAR) Urine pH (5-6) Ur Specific [place] (1.005-1.025) POC Urine Protein Conf (Negative) Urine Ketones (NEGATIVE) Urine Nitrite (NEGATIVE) Urine Bilirubin (NEGATIVE) Urine Urobilinogen (0-1) mg/dL Urine Leukocytes (NEGATIVE) Urine WBC (Auto) (0-5) /HPF Urine RBC (Auto) (0-2) /HPF U Hyaline Cast (Auto) (0-2) /LPF U Epithel Cells (Auto) (FEW) /HPF Urine Bacteria (Auto) (NEGATIVE) /HPF Urine RBC (0-5) Cuate/ul Urine Mucus (Auto) (NEGATIVE) /HPF Ur Culture Indicated? Urine Glucose (NEGATIVE) mg/dL Influenza Type A Ag (NEGATIVE) Influenza Type B Ag (NEGATIVE) RSV (PCR) (Negative) SARS-CoV-2 (PCR) (NEGATIVE) Slides for Path Review YES 09/13/22 09/13/22 09/13/22 Range/Units 14:45 14:54 17:09 WBC (4.0-10.5) x10^3/uL RBC (4.1-5.4) x10^6/uL Hgb (12.0-16.0) g/dL Hct (35-47) % MCV (78-100) fL MCH (26-32) pg MCHC (32-36) g/dL RDW (11.5-14.0) % Plt Count (150-450) x10^3/uL MPV (7.5-11.0) fL Gran % (36.0-66.0) % Immature Gran % (Auto) (0.00-0.4) % Nucleat RBC Rel Count (0.00-0.1) % Eos # (Auto) (0-0.5) x10^3/uL Immature Gran # (Auto) (0.00-0.03) x10^3u/L Absolute Lymphs (auto) (1.0-4.6) x10^3/uL Absolute Monos (auto) (0.0-1.3) x10^3/uL Absolute Nucleated RBC (0.00-0.01) x10^3u/L Lymphocytes % (24.0-44.0) % Monocytes % (0.0-12.0) % Eosinophils % (0.00-5.0) % Basophils % (0.0-0.4) % Absolute Granulocytes (1.4-6.9) x10^3/uL Basophils # (0-0.4) x10^3/uL ESR (0-20) mm/hr D-Dimer 0.81 H* (0.0-0.50) mg/L Sodium (137-145) mmol/L Potassium (3.5-5.1) mmol/L Chloride (98-107) mmol/L Carbon Dioxide (22-30) mmol/L Anion Gap (5-15) MEQ/L BUN (7-17) mg/dL Creatinine (0.52-1.04) mg/dL Estimated GFR ML/MIN Glucose (74-106) mg/dL Hemoglobin A1c (4.5-6.0) % Lactic Acid 1.1 (0.4-2.0) Calcium (8.4-10.2) mg/dL Total Bilirubin (0.2-1.3) mg/dL AST (14-36) U/L ALT (0-35) U/L Alkaline Phosphatase (38-126) U/L Troponin I 0.014 (0.000-0.034) ng/mL NT-Pro-B Natriuret Pep (0-1800) pg/mL Serum Total Protein (6.3-8.2) g/dL Albumin (3.5-5.0) g/dL Amylase (30-110) U/L Lipase (23-300) U/L Procalcitonin (0.030-0.080) ng/mL Urinalys Dipstick Clnc Urine Color (YELLOW) Urine Appearance (CLEAR) Urine pH (5-6) Ur Specific [place] (1.005-1.025) POC Urine Protein Conf (Negative) Urine Ketones (NEGATIVE) Urine Nitrite (NEGATIVE) Urine Bilirubin (NEGATIVE) Urine Urobilinogen (0-1) mg/dL Urine Leukocytes (NEGATIVE) Urine WBC (Auto) (0-5) /HPF Urine RBC (Auto) (0-2) /HPF U Hyaline Cast (Auto) (0-2) /LPF U Epithel Cells (Auto) (FEW) /HPF Urine Bacteria (Auto) (NEGATIVE) /HPF Urine RBC (0-5) Cuate/ul Urine Mucus (Auto) (NEGATIVE) /HPF Ur Culture Indicated? Urine Glucose (NEGATIVE) mg/dL Influenza Type A Ag (NEGATIVE) Influenza Type B Ag (NEGATIVE) RSV (PCR) (Negative) SARS-CoV-2 (PCR) (NEGATIVE) Slides for Path Review 09/13/22 09/13/22 09/13/22 Range/Units 17:50 21:15 Unknown WBC (4.0-10.5) x10^3/uL RBC (4.1-5.4) x10^6/uL Hgb (12.0-16.0) g/dL Hct (35-47) % MCV (78-100) fL MCH (26-32) pg MCHC (32-36) g/dL RDW (11.5-14.0) % Plt Count (150-450) x10^3/uL MPV (7.5-11.0) fL Gran % (36.0-66.0) % Immature Gran % (Auto) (0.00-0.4) % Nucleat RBC Rel Count (0.00-0.1) % Eos # (Auto) (0-0.5) x10^3/uL Immature Gran # (Auto) (0.00-0.03) x10^3u/L Absolute Lymphs (auto) (1.0-4.6) x10^3/uL Absolute Monos (auto) (0.0-1.3) x10^3/uL Absolute Nucleated RBC (0.00-0.01) x10^3u/L Lymphocytes % (24.0-44.0) % Monocytes % (0.0-12.0) % Eosinophils % (0.00-5.0) % Basophils % (0.0-0.4) % Absolute Granulocytes (1.4-6.9) x10^3/uL Basophils # (0-0.4) x10^3/uL ESR (0-20) mm/hr D-Dimer (0.0-0.50) mg/L Sodium (137-145) mmol/L Potassium (3.5-5.1) mmol/L Chloride (98-107) mmol/L Carbon Dioxide (22-30) mmol/L Anion Gap (5-15) MEQ/L BUN (7-17) mg/dL Creatinine (0.52-1.04) mg/dL Estimated GFR ML/MIN Glucose (74-106) mg/dL Hemoglobin A1c (4.5-6.0) % Lactic Acid (0.4-2.0) Calcium (8.4-10.2) mg/dL Total Bilirubin (0.2-1.3) mg/dL AST (14-36) U/L ALT (0-35) U/L Alkaline Phosphatase (38-126) U/L Troponin I 0.020 (0.000-0.034) ng/mL NT-Pro-B Natriuret Pep (0-1800) pg/mL Serum Total Protein (6.3-8.2) g/dL Albumin (3.5-5.0) g/dL Amylase (30-110) U/L Lipase (23-300) U/L Procalcitonin (0.030-0.080) ng/mL Urinalys Dipstick Clnc MAIN LAB Urine Color YELLOW (YELLOW) Urine Appearance CLOUDY A (CLEAR) Urine pH 5.5 (5-6) Ur Specific [place] >=1.030 A (1.005-1.025) POC Urine Protein Conf TRACE A (Negative) Urine Ketones MODERATE-40 A (NEGATIVE) Urine Nitrite NEGATIVE (NEGATIVE) Urine Bilirubin MODERATE A (NEGATIVE) Urine Urobilinogen 0.2 (0-1) mg/dL Urine Leukocytes MODERATE A (NEGATIVE) Urine WBC (Auto) >100 A (0-5) /HPF Urine RBC (Auto) 16-25 A (0-2) /HPF U Hyaline Cast (Auto) 6-10 A (0-2) /LPF U Epithel Cells (Auto) NONE (FEW) /HPF Urine Bacteria (Auto) MODERATE A (NEGATIVE) /HPF Urine RBC TRACE-LYSED A (0-5) Cuate/ul Urine Mucus (Auto) MANY A (NEGATIVE) /HPF Ur Culture Indicated? ORDERED SEPARATELY Urine Glucose NEGATIVE (NEGATIVE) mg/dL Influenza Type A Ag NEGATIVE (NEGATIVE) Influenza Type B Ag NEGATIVE (NEGATIVE) RSV (PCR) NEGATIVE (Negative) SARS-CoV-2 (PCR) NEGATIVE (NEGATIVE) Slides for Path Review 09/14/22 09/14/22 09/14/22 Range/Units 01:18 05:14 05:14 WBC 6.4 (4.0-10.5) x10^3/uL RBC 3.21 L (4.1-5.4) x10^6/uL Hgb 10.8 L (12.0-16.0) g/dL Hct 32.8 L (35-47) % MCV 102.2 H (78-100) fL MCH 33.6 H (26-32) pg MCHC 32.9 (32-36) g/dL RDW 15.9 H (11.5-14.0) % Plt Count 312 (150-450) x10^3/uL MPV 8.5 (7.5-11.0) fL Gran % 71.0 H (36.0-66.0) % Immature Gran % (Auto) 0.2 (0.00-0.4) % Nucleat RBC Rel Count 0.0 (0.00-0.1) % Eos # (Auto) 0.09 (0-0.5) x10^3/uL Immature Gran # (Auto) 0.01 (0.00-0.03) x10^3u/L Absolute Lymphs (auto) 0.68 L (1.0-4.6) x10^3/uL Absolute Monos (auto) 1.02 (0.0-1.3) x10^3/uL Absolute Nucleated RBC 0.00 (0.00-0.01) x10^3u/L Lymphocytes % 10.7 L (24.0-44.0) % Monocytes % 16.1 H (0.0-12.0) % Eosinophils % 1.4 (0.00-5.0) % Basophils % 0.6 (0.0-0.4) % Absolute Granulocytes 4.51 (1.4-6.9) x10^3/uL Basophils # 0.04 (0-0.4) x10^3/uL ESR (0-20) mm/hr D-Dimer (0.0-0.50) mg/L Sodium 134 L (137-145) mmol/L Potassium 3.6 (3.5-5.1) mmol/L Chloride 102 (98-107) mmol/L Carbon Dioxide 28 (22-30) mmol/L Anion Gap 7.7 (5-15) MEQ/L BUN 15 (7-17) mg/dL Creatinine 0.40 L (0.52-1.04) mg/dL Estimated GFR > 60.0 ML/MIN Glucose 87 (74-106) mg/dL Hemoglobin A1c (4.5-6.0) % Lactic Acid (0.4-2.0) Calcium 7.8 L (8.4-10.2) mg/dL Total Bilirubin 0.40 (0.2-1.3) mg/dL AST 29 (14-36) U/L ALT 18 (0-35) U/L Alkaline Phosphatase 99 (38-126) U/L Troponin I 0.016 (0.000-0.034) ng/mL NT-Pro-B Natriuret Pep (0-1800) pg/mL Serum Total Protein 4.5 L (6.3-8.2) g/dL Albumin 2.2 L (3.5-5.0) g/dL Amylase (30-110) U/L Lipase (23-300) U/L Procalcitonin (0.030-0.080) ng/mL Urinalys Dipstick Clnc Urine Color (YELLOW) Urine Appearance (CLEAR) Urine pH (5-6) Ur Specific [place] (1.005-1.025) POC Urine Protein Conf (Negative) Urine Ketones (NEGATIVE) Urine Nitrite (NEGATIVE) Urine Bilirubin (NEGATIVE) Urine Urobilinogen (0-1) mg/dL Urine Leukocytes (NEGATIVE) Urine WBC (Auto) (0-5) /HPF Urine RBC (Auto) (0-2) /HPF U Hyaline Cast (Auto) (0-2) /LPF U Epithel Cells (Auto) (FEW) /HPF Urine Bacteria (Auto) (NEGATIVE) /HPF Urine RBC (0-5) Cuate/ul Urine Mucus (Auto) (NEGATIVE) /HPF Ur Culture Indicated? Urine Glucose (NEGATIVE) mg/dL Influenza Type A Ag (NEGATIVE) Influenza Type B Ag (NEGATIVE) RSV (PCR) (Negative) SARS-CoV-2 (PCR) (NEGATIVE) Slides for Path Review 09/14/22 09/14/22 Range/Units 05:15 09:06 WBC (4.0-10.5) x10^3/uL RBC (4.1-5.4) x10^6/uL Hgb (12.0-16.0) g/dL Hct (35-47) % MCV (78-100) fL MCH (26-32) pg MCHC (32-36) g/dL RDW (11.5-14.0) % Plt Count (150-450) x10^3/uL MPV (7.5-11.0) fL Gran % (36.0-66.0) % Immature Gran % (Auto) (0.00-0.4) % Nucleat RBC Rel Count (0.00-0.1) % Eos # (Auto) (0-0.5) x10^3/uL Immature Gran # (Auto) (0.00-0.03) x10^3u/L Absolute Lymphs (auto) (1.0-4.6) x10^3/uL Absolute Monos (auto) (0.0-1.3) x10^3/uL Absolute Nucleated RBC (0.00-0.01) x10^3u/L Lymphocytes % (24.0-44.0) % Monocytes % (0.0-12.0) % Eosinophils % (0.00-5.0) % Basophils % (0.0-0.4) % Absolute Granulocytes (1.4-6.9) x10^3/uL Basophils # (0-0.4) x10^3/uL ESR (0-20) mm/hr D-Dimer (0.0-0.50) mg/L Sodium (137-145) mmol/L Potassium (3.5-5.1) mmol/L Chloride (98-107) mmol/L Carbon Dioxide (22-30) mmol/L Anion Gap (5-15) MEQ/L BUN (7-17) mg/dL Creatinine (0.52-1.04) mg/dL Estimated GFR ML/MIN Glucose (74-106) mg/dL Hemoglobin A1c 4.75 (4.5-6.0) % Lactic Acid 0.5 (0.4-2.0) Calcium (8.4-10.2) mg/dL Total Bilirubin (0.2-1.3) mg/dL AST (14-36) U/L ALT (0-35) U/L Alkaline Phosphatase (38-126) U/L Troponin I (0.000-0.034) ng/mL NT-Pro-B Natriuret Pep (0-1800) pg/mL Serum Total Protein (6.3-8.2) g/dL Albumin (3.5-5.0) g/dL Amylase (30-110) U/L Lipase (23-300) U/L Procalcitonin (0.030-0.080) ng/mL Urinalys Dipstick Clnc Urine Color (YELLOW) Urine Appearance (CLEAR) Urine pH (5-6) Ur Specific [place] (1.005-1.025) POC Urine Protein Conf (Negative) Urine Ketones (NEGATIVE) Urine Nitrite (NEGATIVE) Urine Bilirubin (NEGATIVE) Urine Urobilinogen (0-1) mg/dL Urine Leukocytes (NEGATIVE) Urine WBC (Auto) (0-5) /HPF Urine RBC (Auto) (0-2) /HPF U Hyaline Cast (Auto) (0-2) /LPF U Epithel Cells (Auto) (FEW) /HPF Urine Bacteria (Auto) (NEGATIVE) /HPF Urine RBC (0-5) Cuate/ul Urine Mucus (Auto) (NEGATIVE) /HPF Ur Culture Indicated? Urine Glucose (NEGATIVE) mg/dL Influenza Type A Ag (NEGATIVE) Influenza Type B Ag (NEGATIVE) RSV (PCR) (Negative) SARS-CoV-2 (PCR) (NEGATIVE) Slides for Path Review Microbiology 09/13/22 16:24 Urine Culture - Preliminary Clean Catch Midstream NO GROWTH TO DATE - Radiology Impressions Radiology Exams & Impressions: Radiology Procedures Category Date Time Status CHEST 1 VIEW (PORTABLE) Stat Exams 09/13/22 14:32 Completed CHEST WITH CONTRAST [CT] Urgent Exams 09/14/22 12:29 Taken - Other Procedures and Tests Respiratory Therapy 09/14/22 03:14 Oxygen Nasal Cannula 3 lpm Assessment/Plan (1) Pleural effusion, left Current Visit: Yes Status: Acute Assessment & Plan: Dr Howard Perez will evaluate patient for thoracentesis Code(s): J90 - PLEURAL EFFUSION, NOT ELSEWHERE CLASSIFIED (2) Bronchitis Current Visit: No Status: Acute Code(s): J40 - BRONCHITIS, NOT SPECIFIED ACUTE OR CHRONIC (3) UTI (urinary tract infection) Current Visit: Yes Status: Acute Qualifiers: Urinary tract infection type: acute pyelonephritis Qualified Code(s): N10 - Acute pyelonephritis Code(s): N39.0 - URINARY TRACT INFECTION, SITE NOT SPECIFIED (4) Volume depletion Current Visit: Yes Status: Acute Code(s): E86.9 - VOLUME DEPLETION, UNSPECIFIED (5) Metastatic breast cancer Current Visit: No Status: Chronic Code(s): C50.919 - MALIGNANT NEOPLASM OF UNSP SITE OF UNSPECIFIED FEMALE BREAST
--- NOTE | 2022-09-14 14:11 | XRAY ---
Exam: CT of the chest with IV contrast from 09/14/2022. CTDI: 15.09 mGy Comparison: AP upright portable chest film from 09/13/2022. Indication: 82-year-old female with increasing shortness of breath; history of breast cancer and left mastectomy. Technique: Post-IV contrast axial images were obtained through the chest during automated injection of 80 cc of Isovue-370 contrast material. Reconstructed coronal and sagittal images were created and reviewed. Findings: A right-sided portacatheter is seen on the AP CT surgery technician image with the tip projected within the right atrium pointing inferiorly. There is a very large left-sided pleural effusion with only mild aeration remaining within the anterior and anteromedial aspect of the left upper lung field. There are couple separate areas of significant left lung atelectasis seen. For example, see axial image #33. Within the aerated portion of the left upper lung field, there appears to be some vascular congestion and edema, particularly anteromedially. The patient is status post left mastectomy. In addition, there is at least a moderate sized right pleural effusion layering posteriorly with some adjacent compression atelectasis noted. No other significant abnormality is seen within the aerated portion of the right lung. I see no definite discrete soft tissue mass within either lung field. There is a small calcified granuloma at the anterior right lung base. This test was not performed using the pulmonary emboli protocol. However, there is no evidence of pulmonary embolus within the main pulmonary artery, right or left main pulmonary arteries, or the proximal branching pulmonary arteries on the right. The transverse heart size is normal. There is some mild pericardial thickening. A small pericardial effusion cannot be excluded on axial images #48 in #49 at the inferior aspect of the heart. There is no significant mediastinal shift. Right-sided portacatheter tip is again seen extending into the right atrium pointing inferiorly. I see no abnormal mediastinal lymphadenopathy. The thyroid gland appears grossly unremarkable. Surgical clips are seen within the left axilla. No abnormal axillary lymphadenopathy is seen. There is diffuse fatty infiltration within the liver. I again note some scattered hyper-attenuated liver lesions consistent with metastatic liver disease. The adrenal glands appear unremarkable. Mild generalized atrophy of the pancreas is seen. No other gross upper abdominal abnormality is seen. The skeleton reveals multifocal small sclerotic and lytic lesions within the visualized spine believed to be due to metastatic bone disease. However, I see no evidence of pathological spine fracture. There is a mild to moderate mid dorsal kyphosis. There is moderate degenerative disc disease at C5-C6. I also note mild scattered anterior lateral vertebral endplate spurring throughout the thoracic spine. Impression: 1. Very large left pleural effusion and a moderate to large right pleural effusion are seen. I note a couple focal areas of compression left lung atelectasis within the pleural fluid on the left and some compression atelectasis at the anterior margin of the posterior layering right pleural effusion. 2. In addition, there appears to be some vascular congestion and perhaps focal edema within a portion of the small aerated portion of the left upper lung field. 3. No soft tissue lung nodules are seen. 4. I cannot exclude a small pericardial effusion at the inferior aspect of the heart. No abnormal mediastinal or axillary lymphadenopathy is seen. No midline shift is seen. 5. Right-sided portacatheter with the catheter tip pointing inferiorly within the right atrium. 6. I again see evidence of metastatic disease within the liver and visualized spine. A pathological fracture is not seen. 7. The patient is status post left mastectomy.
[2022-09-14] MEDS ORDERED: ZOFRAN ODT 4 MG PO PRN (15:06)
[2022-09-14] MEDS ORDERED: MEDICATION INTERVENTION MC SCH ×2 (15:30)
[2022-09-14] MEDS: Cardizem CD PO SCH (16:41)
[2022-09-14] MEDS: Pepcid 20 MG PO SCH (16:41)
[2022-09-14] MEDS: ELIQUIS 2.5 MG TABLET PO SCH (16:41)
[2022-09-14] MEDS: THERAGRAN MULTIVITAMIN PO SCH (16:42)
[2022-09-14] MEDS: ROCEPHIN 1 Gm-D5w 50 ml Bag** 1 G/50 ML IVPB IV SCH (21:17)
[2022-09-14] MEDS ORDERED: ELIQUIS 2.5 MG TABLET PO ONE (22:00)
[2022-09-14] MEDS ORDERED: LETROZOLE 2.5 MG PO SCH (22:00)
[2022-09-14] MEDS ORDERED: NON-FORMULARY ITEM (Melatonin [Melatonin] 10 MG Tablet) PO SCH (22:00)
[2022-09-14] MEDS: MELATONIN PO SCH (22:07)
[2022-09-14] MEDS: Zithromax 500 MG/ 250 ML NaCl Premix 500 MG/250 ML IVPB IV SCH (22:08)
[2022-09-15 06:27] LABS: Absolute Neutrophil Ct (ANC) 5.07 x10^3/uL (1.4-6.9); Basophil (Absolute #) 0.06 x10^3/uL (0-0.4); Eosinophil % 3.2 % (0.00-5.0); Eosinophil (Absolute #) 0.22 x10^3/uL (0-0.5); Hematocrit 33.2 % (35-47); Hemoglobin 10.8 g/dL (12.0-16.0); Lymphocyte (Absolute #) 0.73 x10^3/uL (1.0-4.6); Lymphocytes % 10.5 % (24.0-44.0); Mean Cell Volume 102.8 fL (78-100); Mean Corpuscular Hemoglobin 33.4 pg (26-32); Mean Corpuscular Hgb Concent. 32.5 g/dL (32-36); Mean Platelet Volume 8.7 fL (7.5-11.0); Monocyte (Absolute #) 0.86 x10^3/uL (0.0-1.3); Monocytes % 12.3 % (0.0-12.0); Neutrophil % 72.7 % (36.0-66.0); Platelet Count 358 x10^3/uL (150-450); Red Blood Count 3.23 x10^6/uL (4.1-5.4)
[2022-09-15 06:38] LABS: ALBUMIN 2.3 g/dL (3.5-5.0); ALKALINE PHOSPHATASE 99 U/L (38-126); ANION GAP 9.8 MEQ/L (5-15); BLOOD UREA NITROGEN 11 mg/dL (7-17); CHLORIDE 105 mmol/L (98-107); Calcium 7.9 mg/dL (8.4-10.2); Carbon Dioxide 24 mmol/L (22-30); Creatinine 1 0.37 mg/dL (0.52-1.04); EST GLOMERULAR FILTRATION RATE > 60.0 ML/MIN; Glucose 79 mg/dL (74-106); Potassium 3.3 mmol/L (3.5-5.1); SGOT/AST 29 U/L (14-36); SGPT/ALT 19 U/L (0-35); SODIUM 135 mmol/L (137-145)
[2022-09-15] MEDS: xanAX 0.5 MG PO PRN (08:31)
[2022-09-15] MEDS: Cardizem CD PO SCH (08:31)
[2022-09-15] MEDS: Pepcid 20 MG PO SCH (08:31)
--- NOTE | 2022-09-15 08:33 | PCM.NOTE ---
Date and Time: 09/15/22828 Subjective Assessment: very short of breath, - Review of Systems Constitutional: Lethargy, Weakness, No Fever, No Chills Eyes: No Symptoms Ears, Nose, & Throat: No Symptoms Respiratory: Orthopnea, Short Of Breath, No Cough Cardiac: No Chest Pain, No Edema, No Syncope Abdominal/Gastrointestinal: No Abdominal Pain, No Nausea, No Vomiting, No Diarrhea Genitourinary Symptoms: No Dysuria Musculoskeletal: No Back Pain, No Neck Pain Skin: No Rash Neurological: No Dizziness, No Focal Weakness, No Sensory Changes Psychological: No Symptoms Endocrine: No Symptoms Hematologic/Lymphatic: No Symptoms Immunological/Allergic: No Symptoms Objective Exam General Appearance: no apparent distress, alert Neurologic Exam: alert, oriented x 3, cooperative, sensation nml, No motor deficits Skin Exam: normal color, warm, dry Eye Exam: PERRL, EOMI, eyes nml inspection Ears, Nose, Throat Exam: normal ENT inspection, pharynx normal, moist mucous membranes Neck Exam: normal inspection, non-tender, supple, full range of motion Respiratory Exam: respiratory distress, diminished breath sounds, accessory muscle use, crackles/rales, rhonchi, wheezing Cardiovascular Exam: regular rate/rhythm, normal heart sounds Gastrointestinal/Abdomen Exam: soft, No tenderness, No mass Extremity Exam: normal inspection, normal range of motion Back Exam: normal inspection, normal range of motion, No CVA tenderness, No vertebral tenderness Pelvic Exam: deferred Rectal Exam: deferred OBJECTIVE DATA Vital Signs: Vital Signs - 24 hr Temp Pulse Resp BP Pulse Ox 09/15/22 07:22 95 09/15/22 04:00 97.4 F 105 H 18 119/61 95 09/14/22 23:30 97.6 F 93 H 20 96/55 95 09/14/22 19:24 97.5 F 90 18 99/56 94 L 09/14/22 19:08 91 L 09/14/22 16:00 97.7 F 106 H 20 128/65 96 09/14/22 12:00 97.7 F 94 H 20 122/59 95 Pain Assessment - Last Documented Pain Intensity 0 Pain Scale Used FLACC Intake and Output: Intake & Output 09/12/22 09/13/22 09/14/22 09/15/22 11:59 11:59 11:59 11:59 Intake Total 1191 3243 Output Total 100 425 Balance 3170 4273 Weight 102.7 kg 78.8 kg Lab Results: Lab Results-Last 24 Hours 09/14/22 09/14/22 09/15/22 Range/Units 09:06 14:28 06:00 WBC 7.0 (4.0-10.5) x10^3/uL RBC 3.23 L (4.1-5.4) x10^6/uL Hgb 10.8 L (12.0-16.0) g/dL Hct 33.2 L (35-47) % MCV 102.8 H (78-100) fL MCH 33.4 H (26-32) pg MCHC 32.5 (32-36) g/dL RDW 16.0 H (11.5-14.0) % Plt Count 358 (150-450) x10^3/uL MPV 8.7 (7.5-11.0) fL Gran % 72.7 H (36.0-66.0) % Immature Gran % (Auto) 0.4 (0.00-0.4) % Nucleat RBC Rel Count 0.0 (0.00-0.1) % Eos # (Auto) 0.22 (0-0.5) x10^3/uL Immature Gran # (Auto) 0.03 (0.00-0.03) x10^3u/L Absolute Lymphs (auto) 0.73 L (1.0-4.6) x10^3/uL Absolute Monos (auto) 0.86 (0.0-1.3) x10^3/uL Absolute Nucleated RBC 0.00 (0.00-0.01) x10^3u/L Lymphocytes % 10.5 L (24.0-44.0) % Monocytes % 12.3 H (0.0-12.0) % Eosinophils % 3.2 (0.00-5.0) % Basophils % 0.9 (0.0-0.4) % Absolute Granulocytes 5.07 (1.4-6.9) x10^3/uL Basophils # 0.06 (0-0.4) x10^3/uL Sodium (137-145) mmol/L Potassium (3.5-5.1) mmol/L Chloride (98-107) mmol/L Carbon Dioxide (22-30) mmol/L Anion Gap (5-15) MEQ/L BUN (7-17) mg/dL Creatinine (0.52-1.04) mg/dL Estimated GFR ML/MIN Glucose (74-106) mg/dL Hemoglobin A1c 4.75 (4.5-6.0) % Calcium (8.4-10.2) mg/dL Total Bilirubin (0.2-1.3) mg/dL AST (14-36) U/L ALT (0-35) U/L Alkaline Phosphatase (38-126) U/L NT-Pro-B Natriuret Pep 473 (0-1800) pg/mL Serum Total Protein (6.3-8.2) g/dL Albumin (3.5-5.0) g/dL 09/15/22 Range/Units 06:00 WBC (4.0-10.5) x10^3/uL RBC (4.1-5.4) x10^6/uL Hgb (12.0-16.0) g/dL Hct (35-47) % MCV (78-100) fL MCH (26-32) pg MCHC (32-36) g/dL RDW (11.5-14.0) % Plt Count (150-450) x10^3/uL MPV (7.5-11.0) fL Gran % (36.0-66.0) % Immature Gran % (Auto) (0.00-0.4) % Nucleat RBC Rel Count (0.00-0.1) % Eos # (Auto) (0-0.5) x10^3/uL Immature Gran # (Auto) (0.00-0.03) x10^3u/L Absolute Lymphs (auto) (1.0-4.6) x10^3/uL Absolute Monos (auto) (0.0-1.3) x10^3/uL Absolute Nucleated RBC (0.00-0.01) x10^3u/L Lymphocytes % (24.0-44.0) % Monocytes % (0.0-12.0) % Eosinophils % (0.00-5.0) % Basophils % (0.0-0.4) % Absolute Granulocytes (1.4-6.9) x10^3/uL Basophils # (0-0.4) x10^3/uL Sodium 135 L (137-145) mmol/L Potassium 3.3 L (3.5-5.1) mmol/L Chloride 105 (98-107) mmol/L Carbon Dioxide 24 (22-30) mmol/L Anion Gap 9.8 (5-15) MEQ/L BUN 11 (7-17) mg/dL Creatinine 0.37 L (0.52-1.04) mg/dL Estimated GFR > 60.0 ML/MIN Glucose 79 (74-106) mg/dL Hemoglobin A1c (4.5-6.0) % Calcium 7.9 L (8.4-10.2) mg/dL Total Bilirubin 0.50 (0.2-1.3) mg/dL AST 29 (14-36) U/L ALT 19 (0-35) U/L Alkaline Phosphatase 99 (38-126) U/L NT-Pro-B Natriuret Pep (0-1800) pg/mL Serum Total Protein 5.0 L (6.3-8.2) g/dL Albumin 2.3 L (3.5-5.0) g/dL Radiology Exams: Radiology Procedures Category Date Time Status CHEST 1 VIEW (PORTABLE) Stat Exams 09/13/22 14:32 Completed CHEST WITH CONTRAST [CT] Urgent Exams 09/14/22 12:[address]/CHEST WITH CONTRAST Exam: CT of the chest with IV contrast from 09/14/2022. CTDI: 15.09 mGy Comparison: AP upright portable chest film from 09/13/2022. Indication: 82-year-old female with increasing shortness of breath; history of breast cancer and left mastectomy. Technique: Post-IV contrast axial images were obtained through the chest during automated injection of 80 cc of Isovue-370 contrast material. Reconstructed coronal and sagittal images were created and reviewed. 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 There is a very large left-sided pleural effusion with only mild aeration remaining within the anterior and anteromedial aspect of the left upper lung field. There are couple separate areas of significant left lung atelectasis seen. For example, see axial image #33. Within the aerated portion of the left upper lung field, there appears to be some vascular congestion and edema, particularly anteromedially. The patient is status post left mastectomy. In addition, there is at least a moderate sized right pleural effusion layering posteriorly with some adjacent compression atelectasis noted. No other significant abnormality is seen within the aerated portion of the right lung. I see no definite discrete soft tissue mass within either lung field. There is a small calcified granuloma at the anterior right lung base. This test was not performed using the pulmonary emboli protocol. However, there is no evidence of pulmonary embolus within the main pulmonary artery, right or left main pulmonary arteries, or the proximal branching pulmonary arteries on the right. The transverse heart size is normal. There is some mild pericardial thickening. A small pericardial effusion cannot be excluded on axial images #48 in #49 at the inferior aspect of the heart. There is no significant mediastinal shift. Right-sided portacatheter tip is again seen extending into the right atrium pointing inferiorly. I see no abnormal mediastinal lymphadenopathy. The thyroid gland appears grossly unremarkable. Surgical clips are seen within the left axilla. No abnormal axillary lymphadenopathy is seen. There is diffuse fatty infiltration within the liver. I again note some scattered hyper-attenuated liver lesions consistent with metastatic liver disease. The adrenal glands appear unremarkable. Mild generalized atrophy of the pancreas is seen. No other gross upper abdominal abnormality is seen. The skeleton reveals multifocal small sclerotic and lytic lesions within the visualized spine believed to be due to metastatic bone disease. However, I see no evidence of pathological spine fracture. There is a mild to moderate mid dorsal kyphosis. There is moderate degenerative disc disease at C5-C6. I also note mild scattered anterior lateral vertebral endplate spurring throughout the thoracic spine. Impression: 1. Very large left pleural effusion and a moderate to large right pleural effusion are seen. I note a couple focal areas of compression left lung atelectasis within the pleural fluid on the left and some compression atelectasis at the anterior margin of the posterior layering right pleural effusion. Multi-Disciplinary Progress Notes: Multi-Disciplinary Progress Notes 09/14/22 11:12 Case Management Note by Sis Parsons HAS ACCEPTED Initialized on 09/14/22 11:12 - END OF NOTE 09/14/22 10:37 Case Management Note by Sis Parsons [facility] HAS BEEN SET UP FOR PATIENT. THEY WILL NEED NOTIFIED AT TIME OF DC AT [phone]. THEY WILL NEED FAXED THE DC INSTRUCTIONS, DC MED LIST, KARUNA ROLAND ( IF AVAILABLE ) TO [phone]. PATIENT CURRENTLY ON 2L/NC. SHE DOES NOT WEARS OXYGEN AT HOME. OXYGEN ORDER FORM PLACED ON CHART IF NEEDED FOR DC OVER THE WEEKEND Initialized on 09/14/22 10:37 - END OF NOTE Assessment/Plan (1) Pleural effusion, left Current Visit: Yes Status: Acute Assessment & Plan: Chief Complaint Diagnosis LEFT PLEURAL EFFUSION Allergies Allergy/AdvReac Type Severity Reaction Status Date / Time lorazepam [From Ativan] AdvReac Intermediate Verified 09/13/22 19:59 ibuprofen AdvReac Verified 09/13/22 19:59 morphine AdvReac Verified 09/13/22 19:59 Vital Signs (Last 24 hours) Temp Pulse Resp BP Pulse Ox 09/15/22 07:22 95 09/15/22 04:00 97.4 F 105 H 18 119/61 95 09/14/22 23:30 97.6 F 93 H 20 96/55 95 09/14/22 19:24 97.5 F 90 18 99/56 94 L 09/14/22 19:08 91 L 09/14/22 16:00 97.7 F 106 H 20 128/65 96 09/14/22 12:00 97.7 F 94 H 20 122/59 95 Home Medications Medication Instructions Recorded Confirmed Last Taken Type Diltiazem HCl Cd [Cardizem CD 180 mg PO DAILY 09/13/22 09/13/22 Unknown History ] Omeprazole 20 mg PO DAILY 09/13/22 09/13/22 Unknown History Current Medications Generic Name Dose Route Start Last Admin Trade Name Freq PRN Reason Stop Dose Admin Hydrocodone Bitart/Acetaminophen 1 tab 09/13/22 21:45 09/14/22 16:48 Hydrocodone/Apap 5/325 1 Tab Tablet PO 09/18/22 21:44 1 tab Q4H PRN PRN Administration PAIN Alprazolam 0.5 mg 09/13/22 21:43 09/13/22 22:09 Alprazolam 0.5 Mg Tablet PO 10/13/22 21:42 0.5 mg BID PRN PRN Administration ANXIETY Apixaban 2.5 mg 09/14/22 16:00 09/14/22 16:41 Apixaban 2.5 Mg Tablet PO 10/14/22 15:59 2.5 mg DAILY LISA Administration Diltiazem HCl 180 mg 09/14/22 16:00 09/14/22 16:41 Diltiazem Hcl Cd 180 Mg Cap.Sr.24h PO 10/14/22 15:59 180 mg DAILY LISA Administration Diphenhydramine HCl 25 mg 09/13/22 21:45 Diphenhydramine Hcl 25 Mg Capsule PO 10/13/22 21:44 TIDPRN PRN ITCHING Famotidine 20 mg 09/14/22 16:00 09/14/22 16:41 Famotidine 20 Mg Tablet PO 10/14/22 15:59 20 mg DAILY LISA Administration Sodium Chloride 1,000 mls @ 100 mls/hr 09/13/22 14:45 09/14/22 22:08 Sodium Chloride 0.9% 1000 Ml IV 10/13/22 14:44 100 mls/hr .Q10H LISA Administration Ceftriaxone Sodium/Dextrose 1 g in 50 mls @ 100 mls/hr 09/14/22 22:00 09/14/22 21:17 Rocephin 1 Gm-D5w 50 Ml Bag IV 09/17/22 09:59 100 mls/hr QPM LISA Administration Azithromycin 500 mg in 250 mls @ 250 mls/hr 09/14/22 22:00 09/14/22 22:08 Zithromax 500 Mg/ 250 Ml Nacl Premix IV 10/14/22 09:59 250 mls/hr QPM LISA Administration Melatonin 9 mg 09/14/22 22:00 09/14/22 22:07 Melatonin 3 Mg Tablet PO 10/14/22 21:59 9 mg HS LISA Administration Miscellaneous Information 1 each 09/14/22 15:30 Medication Intervention 1 Each Each 10/14/22 15:29 .RN TO CHECK LISA Miscellaneous Information 1 each 09/14/22 15:30 Medication Intervention 1 Each Each 10/14/22 15:29 .RN TO CHECK LISA Multivitamins Therapeutic 1 tab 09/14/22 16:00 09/14/22 16:42 Multivitamins,Therapeutic 1 Tab Tab PO 10/14/22 15:59 1 tab DAILY LISA Administration Ondansetron HCl 4 mg 09/13/22 16:58 09/14/22 12:15 Ondansetron Hcl 4 Mg/2 Ml Vial IV 10/13/22 16:57 4 mg Q6H PRN PRN Administration NAUSEA/VOMITING Ondansetron HCl 4 mg 09/14/22 15:06 09/14/22 16:13 Zofran 4 Mg/Udtablet Orally Disintegrating PO 10/14/22 15:05 4 mg Q4H PRN PRN Administration NAUSEA Discontinued Medications Generic Name Dose Route Start Last Admin Trade Name Freq PRN Reason Stop Dose Admin Apixaban 2.5 mg 09/14/22 22:00 Apixaban 2.5 Mg Tablet PO 09/14/22 22:01 STAT ONE Apixaban Confirm 09/13/22 21:55 Apixaban 2.5 Mg Tablet Administered 09/13/22 21:56 Dose 2.5 mg .ROUTE .STK-MED ONE Azithromycin 500 mg in 250 mls @ 250 mls/hr 09/14/22 10:00 09/13/22 23:39 Zithromax 500 Mg/ 250 Ml Nacl Premix IV 10/14/22 09:59 250 mls/hr Q24H10 LISA Administration Ceftriaxone Sodium/Dextrose 1 g in 50 mls @ 100 mls/hr 09/14/22 10:00 09/13/22 22:09 Rocephin 1 Gm-D5w 50 Ml Bag IV 09/17/22 09:59 100 mls/hr Q24H10 LISA Administration Melatonin 9 mg 09/13/22 22:00 09/13/22 22:11 Melatonin 3 Mg Tablet PO 09/13/22 22:01 Not Given STAT ONE Intake & Output (Last 24 hours) 09/12/22 09/13/22 09/14/22 09/15/22 11:59 11:59 11:59 11:59 Intake Total 1191 3243 Output Total 100 425 Balance 1091 2818 Weight 102.7 kg 78.8 kg Microbiology Results (Last 24 hours) 09/13/22 16:24 Clean Catch Midstream Urine Culture - Final <10K NORMAL SKIN DL PROBABLE SKIN CONTAMINANT 09/13/22 14:57 Blood Blood Culture Gram Stain - Pending 09/13/22 14:57 Blood Blood Culture - Preliminary NO GROWTH TO DATE 09/13/22 14:45 Blood Blood Culture Gram Stain - Pending 09/13/22 14:45 Blood Blood Culture - Preliminary NO GROWTH TO DATE Laboratory Results (Last 24 hours) 09/15/22 09/15/22 09/14/22 06:00 06:00 14:28 WBC 7.0 RBC 3.23 L Hgb 10.8 L Hct 33.2 L MCV 102.8 H MCH 33.4 H MCHC 32.5 RDW 16.0 H Plt Count 358 MPV 8.7 Gran % 72.7 H Immature Gran % (Auto) 0.4 Nucleat RBC Rel Count 0.0 Eos # (Auto) 0.22 Immature Gran # (Auto) 0.03 Absolute Lymphs (auto) 0.73 L Absolute Monos (auto) 0.86 Absolute Nucleated RBC 0.00 Lymphocytes % 10.5 L Monocytes % 12.3 H Eosinophils % 3.2 Basophils % 0.9 Absolute Granulocytes 5.07 Basophils # 0.06 Sodium 135 L Potassium 3.3 L Chloride 105 Carbon Dioxide 24 Anion Gap 9.8 BUN 11 Creatinine 0.37 L Estimated GFR > 60.0 Glucose 79 Hemoglobin A1c Calcium 7.9 L Total Bilirubin 0.50 AST 29 ALT 19 Alkaline Phosphatase 99 NT-Pro-B Natriuret Pep 473 Serum Total Protein 5.0 L Albumin 2.3 L 09/14/22 09:06 WBC RBC Hgb Hct MCV MCH MCHC RDW Plt Count MPV Gran % Immature Gran % (Auto) Nucleat RBC Rel Count Eos # (Auto) Immature Gran # (Auto) Absolute Lymphs (auto) Absolute Monos (auto) Absolute Nucleated RBC Lymphocytes % Monocytes % Eosinophils % Basophils % Absolute Granulocytes Basophils # Sodium Potassium Chloride Carbon Dioxide Anion Gap BUN Creatinine Estimated GFR Glucose Hemoglobin A1c 4.75 Calcium Total Bilirubin AST ALT Alkaline Phosphatase NT-Pro-B Natriuret Pep Serum Total Protein Albumin Orders (Last 24 hours) Category Date Time Status Admission Status Change [Change to Full Admit] ROUTINE Care 09/14/22 14:00 Active House Regular Diet Diet 09/14/22 Lunch Completed NPO Diet 09/15/22 00:01 Active CHEST WITH CONTRAST [CT] Urgent Exams 09/14/22 12:29 Completed BNP [NT PRO BNP] Routine Lab 09/14/22 14:28 Completed CBC W DIFF AM.LAB Lab 09/15/22 06:00 Completed CBC W DIFF AM.LAB Lab 09/16/22 04:00 Ordered CBC W DIFF AM.LAB Lab 09/17/22 04:00 Ordered CMP AM.LAB Lab 09/15/22 06:00 Completed CMP AM.LAB Lab 09/16/22 04:00 Ordered CMP AM.LAB Lab 09/17/22 04:00 Ordered HEMOGLOBIN A1C Urgent Lab 09/14/22 09:06 Completed Apixaban [Eliquis 2.5 mg Tablet] Med 09/14/22 16:00 Active 2.5 mg PO DAILY Apixaban [Eliquis 2.5 mg Tablet] Med 09/14/22 22:00 Discontinued 2.5 mg PO STAT ONE Azithromycin 500 mg/250 ml [Zithromax 500 MG/ 250 ML Med 09/14/22 10:00 Discontinued NaCl Premix] 500 mg in 250 ml IV Q24H10 Azithromycin 500 mg/250 ml [Zithromax 500 MG/ 250 ML Med 09/14/22 22:00 Active NaCl Premix] 500 mg in 250 ml IV QPM Ceftriaxone 1 GM/50 ML PREMIX* [ROCEPHIN 1 Gm-D5w 50 ml Med 09/14/22 10:00 Discontinued Bag] 1 g in 50 ml IV Q24H10 Ceftriaxone 1 GM/50 ML PREMIX* [ROCEPHIN 1 Gm-D5w 50 ml Med 09/14/22 22:00 Active Bag] 1 g in 50 ml IV QPM Diltiazem HCl Cd [Cardizem CD ] Med 09/14/22 16:00 Active 180 mg PO DAILY Famotidine 20 mg [Pepcid 20 MG] Med 09/14/22 16:00 Active 20 mg PO DAILY Flu Vacc [id number](65Yr Up)/Pf [Fluzone High-Dose Quad Med 09/14/22 10:00 Discontinued ] 240 mcg IM .ONCE ONE Medication Intervention Med 09/14/22 15:30 Active 1 each MC .RN TO CHECK Medication Intervention Med 09/14/22 15:30 Active 1 each MC .RN TO CHECK Melatonin Med 09/14/22 22:00 Active 9 mg PO HS Multivitamins,Therapeutic Tab* [Theragran Multivitamin* Med 09/14/22 16:00 Active ] 1 tab PO DAILY Ondansetron ODT 4 MG [Zofran Odt 4 mg] Med 09/14/22 15:06 Active 4 mg PO Q4H PRN PRN Patient Care Notes (Last 24 hours) 09/14/22 15:27 Nursing Note by Kelsie Brian Dr called and has spoken with Dr Lucrecia Perez. He will plan to do procedure tomorrow. Patient is to be NPO at midnight and can be on previous diet until then Initialized on 09/14/22 15:27 - END OF NOTE 09/14/22 11:12 Case Management Note by Sis Parsons HAS ACCEPTED Initialized on 09/14/22 11:12 - END OF NOTE 09/14/22 10:45 (created 09/14/22 10:57) Nursing Note by Brenda Williamson I called surgery consult to office and spoke with Alexis. 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 Initialized on 09/14/22 10:57 - END OF NOTE 09/14/22 10:37 Case Management Note by Sis Parsons [facility] HAS BEEN SET UP FOR PATIENT. THEY WILL NEED NOTIFIED AT TIME OF DC AT [phone]. THEY WILL NEED FAXED THE DC INSTRUCTIONS, DC MED LIST, DC SUMMARY ( IF AVAILABLE ) TO [phone]. PATIENT CURRENTLY ON 2L/NC. SHE DOES NOT WEARS OXYGEN AT HOME. OXYGEN ORDER FORM PLACED ON CHART IF NEEDED FOR DC OVER THE WEEKEND Initialized on 09/14/22 10:37 - END OF NOTE Code(s): J90 - PLEURAL EFFUSION, NOT ELSEWHERE CLASSIFIED (2) UTI (urinary tract infection) Current Visit: Yes Status: Acute Qualifiers: Urinary tract infection type: acute pyelonephritis Qualified Code(s): N10 - Acute pyelonephritis Code(s): N39.0 - URINARY TRACT INFECTION, SITE NOT SPECIFIED (3) Bone pain Current Visit: No Status: Acute Code(s): M89.8X9 - OTHER SPECIFIED DISORDERS OF BONE, UNSPECIFIED SITE (4) Metastatic breast cancer Current Visit: No Status: Chronic Code(s): C50.919 - MALIGNANT NEOPLASM OF UNSP SITE OF UNSPECIFIED FEMALE BREAST
[2022-09-15] MEDS: ELIQUIS 2.5 MG TABLET PO SCH (09:27)
[2022-09-15] MEDS: THERAGRAN MULTIVITAMIN PO SCH (09:28)
[2022-09-15] MEDS: Sodium Chloride 0.9% 1000 ML 1,000 ML IV SCH ×3 (09:34→21:10)
[2022-09-15] MEDS ORDERED: INTRINSIC FACTOR PO SCH (10:00)
[2022-09-15] MEDS ORDERED: [UNRECOGNIZED DRUG - OTHER] PO SCH (10:00)
[2022-09-15] MEDS ORDERED: CYANOCOBALAMIN PO SCH (10:00)
[2022-09-15] MEDS ORDERED: [UNRECOGNIZED DRUG - OTHER] PO SCH (10:00)
[2022-09-15] MEDS ORDERED: MULTIVIT WITH IRON MINERALS PO SCH (10:00)
[2022-09-15] MEDS ORDERED: Versed 2 MG/2 ML Injection ONE (19:08)
[2022-09-15] MEDS ORDERED: Sodium Chloride 0.9% 1000 ML 1,000 ML ONE (19:14)
[2022-09-15] MEDS: ROCEPHIN 1 Gm-D5w 50 ml Bag** 1 G/50 ML IVPB IV SCH (21:10)
[2022-09-15] MEDS: MELATONIN PO SCH (21:11)
--- NOTE | 2022-09-15 21:38 | XRAY ---
Indication: Status post left thoracentesis. Comparison: September 13, 2022 Portable chest again demonstrates large left effusion/atelectasis, mildly improved without pneumothorax. Worsening moderate right effusion/atelectasis. Cardiac silhouette now obscured with stable right Port-A-Cath. Comment: Preliminary interpretation made by [facility]. No critical discrepancy.
[2022-09-15] MEDS: Zithromax 500 MG/ 250 ML NaCl Premix 500 MG/250 ML IVPB IV SCH (22:03)
[2022-09-16 04:52] LABS: Absolute Neutrophil Ct (ANC) 4.57 x10^3/uL (1.4-6.9); Basophil (Absolute #) 0.05 x10^3/uL (0-0.4); Eosinophil % 2.2 % (0.00-5.0); Eosinophil (Absolute #) 0.13 x10^3/uL (0-0.5); Hematocrit 32.7 % (35-47); Hemoglobin 10.5 g/dL (12.0-16.0); Lymphocyte (Absolute #) 0.47 x10^3/uL (1.0-4.6); Lymphocytes % 7.8 % (24.0-44.0); Mean Cell Volume 103.8 fL (78-100); Mean Corpuscular Hemoglobin 33.3 pg (26-32); Mean Corpuscular Hgb Concent. 32.1 g/dL (32-36); Mean Platelet Volume 8.6 fL (7.5-11.0); Monocyte (Absolute #) 0.79 x10^3/uL (0.0-1.3); Monocytes % 13.1 % (0.0-12.0); Neutrophil % 75.8 % (36.0-66.0); Platelet Count 330 x10^3/uL (150-450); Red Blood Count 3.15 x10^6/uL (4.1-5.4)
[2022-09-16 05:10] LABS: ALBUMIN 2.3 g/dL (3.5-5.0); ALKALINE PHOSPHATASE 91 U/L (38-126); ANION GAP 9.5 MEQ/L (5-15); BLOOD UREA NITROGEN 9 mg/dL (7-17); CHLORIDE 106 mmol/L (98-107); Carbon Dioxide 23 mmol/L (22-30); Creatinine 1 0.35 mg/dL (0.52-1.04); EST GLOMERULAR FILTRATION RATE > 60.0 ML/MIN; Glucose 80 mg/dL (74-106); Potassium 3.2 mmol/L (3.5-5.1); SGOT/AST 27 U/L (14-36); SGPT/ALT 19 U/L (0-35); SODIUM 136 mmol/L (137-145); Total Protein 4.8 g/dL (6.3-8.2)
--- NOTE | 2022-09-16 08:36 | PCM.NOTE ---
Date and Time: 09/16/22832 Subjective Assessment: doing ok - Review of Systems Constitutional: No Fever, No Chills Eyes: No Symptoms Ears, Nose, & Throat: No Symptoms Respiratory: Short Of Breath, No Cough Cardiac: No Chest Pain, No Edema, No Syncope Abdominal/Gastrointestinal: No Abdominal Pain, No Nausea, No Vomiting, No Diarrhea Genitourinary Symptoms: No Dysuria Musculoskeletal: No Back Pain, No Neck Pain Skin: No Rash Neurological: No Dizziness, No Focal Weakness, No Sensory Changes Psychological: No Symptoms Endocrine: No Symptoms Hematologic/Lymphatic: No Symptoms Immunological/Allergic: No Symptoms Objective Exam General Appearance: no apparent distress, alert Neurologic Exam: alert, oriented x 3, cooperative, normal mood/affect, nml cerebellar function, sensation nml, No motor deficits Skin Exam: normal color, warm, dry Eye Exam: PERRL, EOMI, eyes nml inspection Ears, Nose, Throat Exam: normal ENT inspection, pharynx normal, moist mucous membranes Neck Exam: normal inspection, non-tender, supple, full range of motion Respiratory Exam: diminished breath sounds, crackles/rales, rhonchi, wheezing, No respiratory distress Cardiovascular Exam: regular rate/rhythm, normal heart sounds Gastrointestinal/Abdomen Exam: soft, No tenderness, No mass Extremity Exam: normal inspection, normal range of motion Back Exam: normal inspection, normal range of motion, No CVA tenderness, No vertebral tenderness Pelvic Exam: deferred Rectal Exam: deferred OBJECTIVE DATA Vital Signs: Vital Signs - 24 hr Temp Pulse Resp BP Pulse Ox 09/16/22 08:00 97.7 F 91 H 18 108/57 96 09/16/22 07:34 93 L 09/16/22 04:00 98.0 F 98 H 18 115/66 93 L 09/15/22 23:42 97.8 F 89 20 106/54 94 L 09/15/22 20:00 98.9 F 96 H 32 H 117/67 97 09/15/22 18:47 97.5 F 92 H 16 111/59 90 L 09/15/22 16:52 97.5 F 92 H 16 111/59 90 L 09/15/22 16:00 98.0 F 96 H 18 132/71 98 09/15/22 12:00 97.5 F 92 H 16 111/59 90 L Pain Assessment - Last Documented Pain Intensity 0 Pain Scale Used FLACC Intake and Output: Intake & Output 09/13/22 09/14/22 09/15/22 09/16/22 11:59 11:59 11:59 11:59 Intake Total 1191 3243 773 Output Total 100 725 300 Balance 1096 2653 473 Weight 102.7 kg 78.8 kg 78.8 kg Lab Results: Lab Results-Last 24 Hours 09/16/22 09/16/22 Range/Units 04:35 04:35 WBC 6.0 (4.0-10.5) x10^3/uL RBC 3.15 L (4.1-5.4) x10^6/uL Hgb 10.5 L (12.0-16.0) g/dL Hct 32.7 L (35-47) % MCV 103.8 H (78-100) fL MCH 33.3 H (26-32) pg MCHC 32.1 (32-36) g/dL RDW 16.0 H (11.5-14.0) % Plt Count 330 (150-450) x10^3/uL MPV 8.6 (7.5-11.0) fL Gran % 75.8 H (36.0-66.0) % Immature Gran % (Auto) 0.3 (0.00-0.4) % Nucleat RBC Rel Count 0.0 (0.00-0.1) % Eos # (Auto) 0.13 (0-0.5) x10^3/uL Immature Gran # (Auto) 0.02 (0.00-0.03) x10^3u/L Absolute Lymphs (auto) 0.47 L (1.0-4.6) x10^3/uL Absolute Monos (auto) 0.79 (0.0-1.3) x10^3/uL Absolute Nucleated RBC 0.00 (0.00-0.01) x10^3u/L Lymphocytes % 7.8 L (24.0-44.0) % Monocytes % 13.1 H (0.0-12.0) % Eosinophils % 2.2 (0.00-5.0) % Basophils % 0.8 (0.0-0.4) % Absolute Granulocytes 4.57 (1.4-6.9) x10^3/uL Basophils # 0.05 (0-0.4) x10^3/uL Sodium 136 L (137-145) mmol/L Potassium 3.2 L (3.5-5.1) mmol/L Chloride 106 (98-107) mmol/L Carbon Dioxide 23 (22-30) mmol/L Anion Gap 9.5 (5-15) MEQ/L BUN 9 (7-17) mg/dL Creatinine 0.35 L (0.52-1.04) mg/dL Estimated GFR > 60.0 ML/MIN Glucose 80 (74-106) mg/dL Calcium 8.0 L (8.4-10.2) mg/dL Total Bilirubin 0.40 (0.2-1.3) mg/dL AST 27 (14-36) U/L ALT 19 (0-35) U/L Alkaline Phosphatase 91 (38-126) U/L Serum Total Protein 4.8 L (6.3-8.2) g/dL Albumin 2.3 L (3.5-5.0) g/dL Radiology Exams: Radiology Procedures Category Date Time Status CHEST 1 VIEW (PORTABLE) Stat Exams 09/15/22 19:45 Completed CHEST WITH CONTRAST [CT] Urgent Exams 09/14/22 12:29 Completed 0011 RAD/CHEST 1 VIEW (PORTABLE) Indication: Status post left thoracentesis. Comparison: September 13, 2022 Portable chest again demonstrates large left effusion/atelectasis, mildly improved without pneumothorax. Worsening moderate right effusion/atelectasis. Cardiac silhouette now obscured with stable right Port-A-Cath. Assessment/Plan (1) Pleural effusion, left Current Visit: Yes Status: Acute Assessment & Plan: s/p thoracentasis Code(s): J90 - PLEURAL EFFUSION, NOT ELSEWHERE CLASSIFIED (2) UTI (urinary tract infection) Current Visit: Yes Status: Acute Qualifiers: Urinary tract infection type: acute pyelonephritis Qualified Code(s): N10 - Acute pyelonephritis Assessment & Plan: Chief Complaint Diagnosis LEFT PLEURAL EFFUSION Allergies Allergy/AdvReac Type Severity Reaction Status Date / Time lorazepam [From Ativan] AdvReac Intermediate Verified 09/13/22 19:59 ibuprofen AdvReac Verified 09/13/22 19:59 morphine AdvReac Verified 09/13/22 19:59 Vital Signs (Last 24 hours) Temp Pulse Resp BP Pulse Ox 09/16/22 08:00 97.7 F 91 H 18 108/57 96 09/16/22 07:34 93 L 09/16/22 04:00 98.0 F 98 H 18 115/66 93 L 09/15/22 23:42 97.8 F 89 20 106/54 94 L 09/15/22 20:00 98.9 F 96 H 32 H 117/67 97 09/15/22 18:47 97.5 F 92 H 16 111/59 90 L 09/15/22 16:52 97.5 F 92 H 16 111/59 90 L 09/15/22 16:00 98.0 F 96 H 18 132/71 98 09/15/22 12:00 97.5 F 92 H 16 111/59 90 L Home Medications Medication Instructions Recorded Confirmed Last Taken Type Diltiazem HCl Cd [Cardizem CD 180 mg PO DAILY 09/13/22 09/13/22 Unknown History ] Omeprazole 20 mg PO DAILY 09/13/22 09/13/22 Unknown History Current Medications Generic Name Dose Route Start Last Admin Trade Name Freq PRN Reason Stop Dose Admin Hydrocodone Bitart/Acetaminophen 1 tab 09/13/22 21:45 09/14/22 16:48 Hydrocodone/Apap 5/325 1 Tab Tablet PO 09/21/22 12:00 1 tab Q4H PRN PRN Administration PAIN Alprazolam 0.5 mg 09/13/22 21:43 09/15/22 08:31 Alprazolam 0.5 Mg Tablet PO 10/13/22 21:42 0.5 mg BID PRN PRN Administration ANXIETY Apixaban 2.5 mg 09/14/22 16:00 09/15/22 09:27 Apixaban 2.5 Mg Tablet PO 10/14/22 15:59 Not Given DAILY LISA Diltiazem HCl 180 mg 09/14/22 16:00 09/15/22 08:31 Diltiazem Hcl Cd 180 Mg Cap.Sr.24h PO 10/14/22 15:59 180 mg DAILY LISA Administration Diphenhydramine HCl 25 mg 09/13/22 21:45 Diphenhydramine Hcl 25 Mg Capsule PO 10/13/22 21:44 TIDPRN PRN ITCHING Famotidine 20 mg 09/14/22 16:00 09/15/22 08:31 Famotidine 20 Mg Tablet PO 10/14/22 15:59 20 mg DAILY LISA Administration Sodium Chloride 1,000 mls @ 30 mls/hr 09/13/22 14:45 09/15/22 21:10 Sodium Chloride 0.9% 1000 Ml IV 10/13/22 14:44 30 mls/hr .Q24H LISA Administration Ceftriaxone Sodium/Dextrose 1 g in 50 mls @ 100 mls/hr 09/14/22 22:00 09/15/22 21:10 Rocephin 1 Gm-D5w 50 Ml Bag IV 09/17/22 09:59 100 mls/hr QPM LISA Administration Azithromycin 500 mg in 250 mls @ 250 mls/hr 09/14/22 22:00 09/15/22 22:03 Zithromax 500 Mg/ 250 Ml Nacl Premix IV 10/14/22 09:59 250 mls/hr QPM LISA Administration Melatonin 9 mg 09/14/22 22:00 09/15/22 21:11 Melatonin 3 Mg Tablet PO 10/14/22 21:59 9 mg HS LISA Administration Miscellaneous Information 1 each 09/14/22 15:30 Medication Intervention 1 Each Each 10/14/22 15:29 .RN TO CHECK LISA Miscellaneous Information 1 each 09/14/22 15:30 Medication Intervention 1 Each Each 10/14/22 15:29 .RN TO CHECK LISA Multivitamins Therapeutic 1 tab 09/14/22 16:00 09/15/22 09:28 Multivitamins,Therapeutic 1 Tab Tab PO 10/14/22 15:59 Not Given DAILY LISA Ondansetron HCl 4 mg 09/13/22 16:58 09/14/22 12:15 Ondansetron Hcl 4 Mg/2 Ml Vial IV 10/13/22 16:57 4 mg Q6H PRN PRN Administration NAUSEA/VOMITING Ondansetron HCl 4 mg 09/14/22 15:06 09/14/22 16:13 Zofran 4 Mg/Udtablet Orally Disintegrating PO 10/14/22 15:05 4 mg Q4H PRN PRN Administration NAUSEA Discontinued Medications Generic Name Dose Route Start Last Admin Trade Name Freq PRN Reason Stop Dose Admin Apixaban 2.5 mg 09/14/22 22:00 Apixaban 2.5 Mg Tablet PO 09/14/22 22:01 STAT ONE Apixaban Confirm 09/13/22 21:55 Apixaban 2.5 Mg Tablet Administered 09/13/22 21:56 Dose 2.5 mg .ROUTE .STK-MED ONE Azithromycin 500 mg in 250 mls @ 250 mls/hr 09/14/22 10:00 09/13/22 23:39 Zithromax 500 Mg/ 250 Ml Nacl Premix IV 10/14/22 09:59 250 mls/hr Q24H10 LISA Administration Ceftriaxone Sodium/Dextrose 1 g in 50 mls @ 100 mls/hr 09/14/22 10:00 09/13/22 22:09 Rocephin 1 Gm-D5w 50 Ml Bag IV 09/17/22 09:59 100 mls/hr Q24H10 LISA Administration Sodium Chloride Confirm 09/15/22 19:14 Sodium Chloride 0.9% 1000 Ml Administered 09/15/22 19:15 Dose 1,000 mls @ ud .ROUTE .STK-MED ONE Melatonin 9 mg 09/13/22 22:00 09/13/22 22:11 Melatonin 3 Mg Tablet PO 09/13/22 22:01 Not Given STAT ONE Midazolam HCl Confirm 09/15/22 19:08 Midazolam Hcl 2 Mg/2 Ml Vial Administered 09/15/22 19:09 Dose 2 mg .ROUTE .STK-MED ONE Intake & Output (Last 24 hours) 09/13/22 09/14/22 09/15/22 09/16/22 11:59 11:59 11:59 11:59 Intake Total 1191 3243 773 Output Total 100 725 300 Balance 1091 1955 473 Weight 102.7 kg 78.8 kg 78.8 kg Microbiology Results (Last 24 hours) 09/13/22 16:24 Clean Catch Midstream Urine Culture - Final <10K NORMAL SKIN DL PROBABLE SKIN CONTAMINANT 09/13/22 14:57 Blood Blood Culture Gram Stain - Pending 09/13/22 14:57 Blood Blood Culture - Preliminary NO GROWTH TO DATE 09/13/22 14:45 Blood Blood Culture Gram Stain - Pending 09/13/22 14:45 Blood Blood Culture - Preliminary NO GROWTH TO DATE Laboratory Results (Last 24 hours) 09/16/22 09/16/22 04:35 04:35 WBC 6.0 RBC 3.15 L Hgb 10.5 L Hct 32.7 L MCV 103.8 H MCH 33.3 H MCHC 32.1 RDW 16.0 H Plt Count 330 MPV 8.6 Gran % 75.8 H Immature Gran % (Auto) 0.3 Nucleat RBC Rel Count 0.0 Eos # (Auto) 0.13 Immature Gran # (Auto) 0.02 Absolute Lymphs (auto) 0.47 L Absolute Monos (auto) 0.79 Absolute Nucleated RBC 0.00 Lymphocytes % 7.8 L Monocytes % 13.1 H Eosinophils % 2.2 Basophils % 0.8 Absolute Granulocytes 4.57 Basophils # 0.05 Sodium 136 L Potassium 3.2 L Chloride 106 Carbon Dioxide 23 Anion Gap 9.5 BUN 9 Creatinine 0.35 L Estimated GFR > 60.0 Glucose 80 Calcium 8.0 L Total Bilirubin 0.40 AST 27 ALT 19 Alkaline Phosphatase 91 Serum Total Protein 4.8 L Albumin 2.3 L Orders (Last 24 hours) Category Date Time Status CHEST 1 VIEW (PORTABLE) Stat Exams 09/15/22 19:45 Completed CBC W DIFF AM.LAB Lab 09/16/22 04:35 Completed CBC W DIFF AM.LAB Lab 09/17/22 04:00 Ordered CMP AM.LAB Lab 09/16/22 04:35 Completed CMP AM.LAB Lab 09/17/22 04:00 Ordered Glucose, Body Fluid Routine Lab 09/15/22 19:29 Received LD, Body Fluid Routine Lab 09/15/22 19:29 Received MISC REF LAB TEST Routine Lab 09/15/22 19:29 Received NON-CLIENT SUCCESS DIRECTOR CYTOLOGY Routine Lab 09/15/22 19:29 Received Protein, Body Fluid Routine Lab 09/15/22 19:29 Received Midazolam HCl 2 mg/2 ml [Versed 2 MG/2 ML Injection* Med 09/15/22 19:08 Discontinued ] 2 mg .ROUTE .STK-MED ONE NaCl 0.9% 1000 ml [Sodium Chloride 0.9% 1000 ML] 1,000 Med 09/15/22 19:14 Discontinued ml .ROUTE UD Patient Care Notes (Last 24 hours) 09/15/22 21:00 Nursing Note by Ginger Tavarez This nurse contacted Dr. Paredes and notified him of patient's dx of pleural effusions and UTI as well as thoracentesis this evening with 500mL removed from left pleural space. Order received to decrease NS to 30mL/hr. Initialized on 09/15/22 21:00 - END OF NOTE 09/15/22 20:24 Nursing Note by Destiny Santamaria Pt back from OR Initialized on 09/15/22 20:24 - END OF NOTE 09/15/22 18:56 Nursing Note by Mi Azul PATIENT TO OR FROM [facility] Initialized on 09/15/22 18:56 - END OF NOTE Code(s): N39.0 - URINARY TRACT INFECTION, SITE NOT SPECIFIED (3) Bone pain Current Visit: No Status: Acute Code(s): M89.8X9 - OTHER SPECIFIED DISORDERS OF BONE, UNSPECIFIED SITE (4) Metastatic breast cancer Current Visit: No Status: Chronic Code(s): C50.919 - MALIGNANT NEOPLASM OF UNSP SITE OF UNSPECIFIED FEMALE BREAST
[2022-09-16] MEDS: Cardizem CD PO SCH (09:23)
[2022-09-16] MEDS: Pepcid 20 MG PO SCH (09:23)
[2022-09-16] MEDS: ELIQUIS 2.5 MG TABLET PO SCH (09:23)
[2022-09-16] MEDS: THERAGRAN MULTIVITAMIN PO SCH (09:23)
[2022-09-16 11:01] LABS: Slide Review 1 YES
[2022-09-16] MEDS: NORCO 5/325 MG PO PRN (12:32)
[2022-09-16] MEDS: Zofran 4 MG/2 ML VIAL IV PRN (12:38)
[2022-09-16] MEDS: xanAX 0.5 MG PO PRN (15:46)
[2022-09-16] MEDS: Zithromax 500 MG/ 250 ML NaCl Premix 500 MG/250 ML IVPB IV SCH (22:24)
[2022-09-16] MEDS: ROCEPHIN 1 Gm-D5w 50 ml Bag** 1 G/50 ML IVPB IV SCH (22:24)
[2022-09-16] MEDS: MELATONIN PO SCH (22:24)
[2022-09-16] MEDS: PATIENT OWN MEDICATION PO SCH (22:25)
[2022-09-17 04:55] LABS: Absolute Neutrophil Ct (ANC) 4.48 x10^3/uL (1.4-6.9); Basophil (Absolute #) 0.03 x10^3/uL (0-0.4); Eosinophil % 3.8 % (0.00-5.0); Eosinophil (Absolute #) 0.23 x10^3/uL (0-0.5); Hematocrit 32.2 % (35-47); Hemoglobin 10.2 g/dL (12.0-16.0); Lymphocyte (Absolute #) 0.56 x10^3/uL (1.0-4.6); Lymphocytes % 9.3 % (24.0-44.0); Mean Cell Volume 103.5 fL (78-100); Mean Corpuscular Hemoglobin 32.8 pg (26-32); Mean Corpuscular Hgb Concent. 31.7 g/dL (32-36); Mean Platelet Volume 8.4 fL (7.5-11.0); Monocyte (Absolute #) 0.73 x10^3/uL (0.0-1.3); Monocytes % 12.1 % (0.0-12.0); Neutrophil % 74.1 % (36.0-66.0); Platelet Count 322 x10^3/uL (150-450); Red Blood Count 3.11 x10^6/uL (4.1-5.4); Red Cell Distribution Width 15.9 % (11.5-14.0)
[2022-09-17 06:06] LABS: Slide Review 1 YES
[2022-09-17 06:09] LABS: ALBUMIN 2.2 g/dL (3.5-5.0); ALKALINE PHOSPHATASE 88 U/L (38-126); ANION GAP 8.9 MEQ/L (5-15); BLOOD UREA NITROGEN 8 mg/dL (7-17); CHLORIDE 108 mmol/L (98-107); Calcium 8.2 mg/dL (8.4-10.2); Carbon Dioxide 23 mmol/L (22-30); Creatinine 1 0.37 mg/dL (0.52-1.04); EST GLOMERULAR FILTRATION RATE > 60.0 ML/MIN; Glucose 84 mg/dL (74-106); Potassium 3.2 mmol/L (3.5-5.1); SGOT/AST 26 U/L (14-36); SGPT/ALT 18 U/L (0-35); SODIUM 137 mmol/L (137-145); Total Protein 4.8 g/dL (6.3-8.2)
[2022-09-17] MEDS: Cardizem CD PO SCH (09:50)
[2022-09-17] MEDS: THERAGRAN MULTIVITAMIN PO SCH (09:50)
[2022-09-17] MEDS: NORCO 5/325 MG PO PRN ×3 (09:50→23:27)
[2022-09-17] MEDS: Pepcid 20 MG PO SCH (09:50)
[2022-09-17] MEDS: ELIQUIS 2.5 MG TABLET PO SCH (09:51)
--- NOTE | 2022-09-17 10:57 | OP ---
SURGERY DATE/TIME: 09/15/20221911 PREOPERATIVE DIAGNOSIS: Symptomatic left pleural effusion. POSTOPERATIVE DIAGNOSIS: Symptomatic left pleural effusion. PROCEDURE: Left thoracentesis 500 cc of fluid being sent for cytology and multiple labs. SURGEON: Howard Perez M.D. ANESTHESIA: MAC by Ever Lowe CRNA. COMPLICATIONS: None. CONDITION: Stable. INDICATION: The patient has symptomatic left pleural effusion. She also has right pleural effusion. It is unclear of the etiology. She has had a history of breast cancer also. DESCRIPTION OF PROCEDURE: She was taken to surgery. Right down, left side up. The scapula was marked. The spine was marked. The thoracic aorta was marked. Just below the scapula 2 to 3 cm anterior to the aorta it was aestheticized with 1% lidocaine. She was also given a light MAC. It could not be hit with the 25 needle and it certainly would not aspirate and a size 18 needle was placed and it did aspirate readily. This same path was taken in with the pigtail catheter which was popped into the pleural space. It aspirated nicely. It was advanced off the wire/needle which was pulled back. 50 cc was placed in test tubes for studies including cytology and then a bag of 500 cc was sent specifically for cytology. Slight repositioning at this time. No additional fluid could be obtained. This pocket had been totally drained. Chest x-ray showed about the same, fairly clear lung markings now about two-thirds of the way down on the left side and also the right side with no pneumothorax.
--- NOTE | 2022-09-17 16:51 | PCM.NOTE ---
Date and Time: 09/17/221648 Subjective Assessment: Patient tolerated Left thoracentesis and is on O2. No appetite. Metastatic breast cancer. Daughter not in today. Objective Exam General Appearance: no apparent distress Neurologic Exam: alert, oriented x 3 Skin Exam: warm, dry, pale Respiratory Exam: diminished breath sounds (mid low lung quijano bilat) Cardiovascular Exam: tachycardia (90) Gastrointestinal/Abdomen Exam: soft, No tenderness OBJECTIVE DATA Vital Signs: Vital Signs - 24 hr Temp Pulse Resp BP Pulse Ox 09/17/22 16:00 97.3 F 89 18 121/58 94 L 09/17/22 12:46 88 L 09/17/22 11:43 97.5 F 94 H 20 116/57 94 L 09/17/22 08:00 97.9 F 94 H 16 118/58 94 L 09/17/22 07:30 93 L 09/17/22 03:54 97.1 F 89 14 131/67 95 09/16/22 23:58 97.1 F 93 H 14 113/59 95 09/16/22 20:00 96.9 F 92 H 120/65 90 L 09/16/22 18:52 96 Pain Assessment - Last Documented Pain Intensity 8 [facility] Intake and Output: Intake & Output 09/15/22 09/16/22 09/17/22 09/18/22 11:59 11:59 11:59 11:59 Intake Total 3243 773 1855 200 Output Total 725 300 125 Balance 3678 473 1730 200 Weight 78.8 kg 80.3 kg 81.4 kg Lab Results: Lab Results-Last 24 Hours 09/17/22 09/17/22 Range/Units 04:20 04:20 WBC 6.0 (4.0-10.5) x10^3/uL RBC 3.11 L (4.1-5.4) x10^6/uL Hgb 10.2 L (12.0-16.0) g/dL Hct 32.2 L (35-47) % MCV 103.5 H (78-100) fL MCH 32.8 H (26-32) pg MCHC 31.7 L (32-36) g/dL RDW 15.9 H (11.5-14.0) % Plt Count 322 (150-450) x10^3/uL MPV 8.4 (7.5-11.0) fL Gran % 74.1 H (36.0-66.0) % Immature Gran % (Auto) 0.2 (0.00-0.4) % Nucleat RBC Rel Count 0.0 (0.00-0.1) % Eos # (Auto) 0.23 (0-0.5) x10^3/uL Immature Gran # (Auto) 0.01 (0.00-0.03) x10^3u/L Absolute Lymphs (auto) 0.56 L (1.0-4.6) x10^3/uL Absolute Monos (auto) 0.73 (0.0-1.3) x10^3/uL Absolute Nucleated RBC 0.00 (0.00-0.01) x10^3u/L Lymphocytes % 9.3 L (24.0-44.0) % Monocytes % 12.1 H (0.0-12.0) % Eosinophils % 3.8 (0.00-5.0) % Basophils % 0.5 (0.0-0.4) % Absolute Granulocytes 4.48 (1.4-6.9) x10^3/uL Basophils # 0.03 (0-0.4) x10^3/uL Sodium 137 (137-145) mmol/L Potassium 3.2 L (3.5-5.1) mmol/L Chloride 108 H (98-107) mmol/L Carbon Dioxide 23 (22-30) mmol/L Anion Gap 8.9 (5-15) MEQ/L BUN 8 (7-17) mg/dL Creatinine 0.37 L (0.52-1.04) mg/dL Estimated GFR > 60.0 ML/MIN Glucose 84 (74-106) mg/dL Calcium 8.2 L (8.4-10.2) mg/dL Total Bilirubin 0.30 (0.2-1.3) mg/dL AST 26 (14-36) U/L ALT 18 (0-35) U/L Alkaline Phosphatase 88 (38-126) U/L Serum Total Protein 4.8 L (6.3-8.2) g/dL Albumin 2.2 L (3.5-5.0) g/dL Slides for Path Review YES Radiology Exams: Radiology Procedures Category Date Time Status CHEST 1 VIEW (PORTABLE) Stat Exams 09/15/22 19:45 Completed Multi-Disciplinary Progress Notes: Multi-Disciplinary Progress Notes 09/17/22 13:04 Case Management Note by JackieSarah S/W DAUGHTER- SHE CONTINUES TO DENY ANY NEW NEEDS FOR PATIENT. SHE REPORTS SHE IS SICK CURENTLY BUT HAS OTHER FAMILY MEMBERS THAT SHE CAN CALL TO HELP WITH PATIENT IF NEEDED. SHE CONTINUES TO REFUSE REHAB STAY FOR PATIENT. PATIENT CURRENTLY NEEDING HOME O2. THIS WILL NEED SET UP WITH [facility] AT TIME OF DC THIS IS NEW FOR PATIENT Initialized on 09/17/22 13:04 - END OF NOTE 09/17/22 12:46 Respiratory Note by Lourdes Schultz Patient's O2 sat is 88% on room air at rest. Placed patient on O2 at 2lpm per NC and O2 sat 93% on O2 at 2lpm per NC at rest. Initialized on 09/17/22 12:46 - END OF NOTE Assessment/Plan (1) Pleural effusion, left Current Visit: Yes Status: Resolved Assessment & Plan: improved after thoracentesis left 500ml Code(s): J90 - PLEURAL EFFUSION, NOT ELSEWHERE CLASSIFIED (2) Bronchitis Current Visit: No Status: Resolved Code(s): J40 - BRONCHITIS, NOT SPECIFIED ACUTE OR CHRONIC (3) UTI (urinary tract infection) Current Visit: Yes Status: Resolved Qualifiers: Urinary tract infection type: acute pyelonephritis Qualified Code(s): N10 - Acute pyelonephritis Assessment & Plan: retest UA Code(s): N39.0 - URINARY TRACT INFECTION, SITE NOT SPECIFIED (4) Metastatic breast cancer Current Visit: No Status: Chronic Code(s): C50.919 - MALIGNANT NEOPLASM OF UNSP SITE OF UNSPECIFIED FEMALE BREAST
[2022-09-17] MEDS ORDERED: K-LYTE PO ONE (18:03)
[2022-09-17] MEDS: PATIENT OWN MEDICATION PO SCH (23:19)
[2022-09-17] MEDS: MELATONIN PO SCH (23:19)
[2022-09-17] MEDS: Zithromax 500 MG/ 250 ML NaCl Premix 500 MG/250 ML IVPB IV SCH (23:20)
[2022-09-17] MEDS: ROCEPHIN 1 Gm-D5w 50 ml Bag** 1 G/50 ML IVPB IV SCH (23:21)
[2022-09-17] MEDS: Monistat 7 VG SCH (23:46)
[2022-09-18] MEDS: Cardizem CD PO SCH (08:42)
[2022-09-18] MEDS: Pepcid 20 MG PO SCH (08:42)
[2022-09-18] MEDS: THERAGRAN MULTIVITAMIN PO SCH (08:42)
[2022-09-18] MEDS: ELIQUIS 2.5 MG TABLET PO SCH (08:43)
[2022-09-18 13:39] LABS: Protein, Body Fluid 2.3 g/dL (.)
--- NOTE | 2022-09-18 13:48 | XRAY ---
Indication: Left pleural effusion. Comparison: September 15, 2022 Portable chest demonstrates mild worsening large left effusion/atelectasis and grossly stable moderate right effusion/atelectasis. Cardiac silhouette remains obscured with stable right Port-A-Cath. No pneumothorax.
[2022-09-18 14:13] LABS: Hematocrit 34.4 % (35-47); Hemoglobin 11.2 g/dL (12.0-16.0); Mean Cell Volume 101.8 fL (78-100); Mean Corpuscular Hemoglobin 33.1 pg (26-32); Mean Corpuscular Hgb Concent. 32.6 g/dL (32-36); Mean Platelet Volume 8.7 fL (7.5-11.0); Platelet Count 382 x10^3/uL (150-450); Red Blood Count 3.38 x10^6/uL (4.1-5.4); Red Cell Distribution Width 15.9 % (11.5-14.0); White Blood Count 6.7 x10^3/uL (4.0-10.5)
[2022-09-18 14:31] LABS: ALBUMIN 2.5 g/dL (3.5-5.0); ALKALINE PHOSPHATASE 107 U/L (38-126); ANION GAP 7.9 MEQ/L (5-15); BLOOD UREA NITROGEN 7 mg/dL (7-17); CHLORIDE 105 mmol/L (98-107); Calcium 8.4 mg/dL (8.4-10.2); Carbon Dioxide 29 mmol/L (22-30); EST GLOMERULAR FILTRATION RATE > 60.0 ML/MIN; Glucose 150 mg/dL (74-106); Potassium 3.2 mmol/L (3.5-5.1); SGOT/AST 28 U/L (14-36); SGPT/ALT 20 U/L (0-35); SODIUM 139 mmol/L (137-145); Total Protein 5.2 g/dL (6.3-8.2)
[2022-09-18] MEDS: Sodium Chloride 0.9% 1000 ML 1,000 ML IV SCH (20:27)
[2022-09-18] MEDS: PATIENT OWN MEDICATION PO SCH (20:37)
[2022-09-18] MEDS: xanAX 0.5 MG PO PRN (20:38)
[2022-09-18] MEDS: NORCO 5/325 MG PO PRN (20:38)
[2022-09-18] MEDS: MELATONIN PO SCH (20:39)
[2022-09-18] MEDS: Monistat 7 VG SCH (20:40)
[2022-09-18] MEDS: ROCEPHIN 1 Gm-D5w 50 ml Bag** 1 G/50 ML IVPB IV SCH (21:26)
[2022-09-18] MEDS: Zithromax 500 MG/ 250 ML NaCl Premix 500 MG/250 ML IVPB IV SCH (21:26)
[2022-09-19 05:38] LABS: Hematocrit 31.8 % (35-47); Hemoglobin 10.4 g/dL (12.0-16.0); Mean Cell Volume 102.3 fL (78-100); Mean Corpuscular Hemoglobin 33.4 pg (26-32); Mean Corpuscular Hgb Concent. 32.7 g/dL (32-36); Mean Platelet Volume 8.9 fL (7.5-11.0); Platelet Count 356 x10^3/uL (150-450); Red Blood Count 3.11 x10^6/uL (4.1-5.4); Red Cell Distribution Width 15.9 % (11.5-14.0)
[2022-09-19 06:05] LABS: ALBUMIN 2.3 g/dL (3.5-5.0); ALKALINE PHOSPHATASE 90 U/L (38-126); ANION GAP 6.6 MEQ/L (5-15); BLOOD UREA NITROGEN 6 mg/dL (7-17); CHLORIDE 106 mmol/L (98-107); Calcium 8.4 mg/dL (8.4-10.2); Carbon Dioxide 29 mmol/L (22-30); Creatinine 1 0.29 mg/dL (0.52-1.04); EST GLOMERULAR FILTRATION RATE > 60.0 ML/MIN; Glucose 105 mg/dL (74-106); SGOT/AST 22 U/L (14-36); SGPT/ALT 19 U/L (0-35); SODIUM 138 mmol/L (137-145); Total Protein 4.9 g/dL (6.3-8.2)
[2022-09-19] MEDS ORDERED: MAGNESIUM SULF 2 G/50 ML BAG 2 GM/50 ML PIGGYBACK IV ONE (06:39)
[2022-09-19] MEDS: Cardizem CD PO SCH (09:38)
[2022-09-19] MEDS: K-LYTE PO SCH ×3 (09:38→13:43)
[2022-09-19] MEDS: ELIQUIS 2.5 MG TABLET PO SCH (09:38)
[2022-09-19] MEDS: THERAGRAN MULTIVITAMIN PO SCH (09:38)
[2022-09-19] MEDS: Pepcid 20 MG PO SCH (09:39)
[2022-09-19] MEDS: xanAX 0.5 MG PO PRN (12:05)
[2022-09-19 12:06] VITALS: BP 128/79; PULSE 111; O2SAT 93
--- NOTE | 2022-10-01 18:39 | PCM.DS ---
Discharge Summary Date of Admission: 09/14/22 14:00 Date of Discharge: 09/19/2022 Admitting Physician: URSZULA CHEN Consults: Consults on Case 09/13/22 21:27 Consult Surgery ROUTINE Primary Care Provider: SIDDHARTHA PERALES Allergies Allergies lorazepam [From Ativan] Adverse Reaction (Intermediate, Verified 09/13/22 19:59) "It made me go crazy" ibuprofen Adverse Reaction (Verified 09/13/22 19:59) causes fast HR morphine Adverse Reaction (Verified 09/13/22 19:59) Hospital Summary - Hospital Course Hospital Course: Pt. with metastatic breast cancer and a large pleural effusion presented to er and admitted, the effusion was drained and quickly returned, the patient remained stable throughout the stay and with nothing further to offer at this [facility] it was felt the patient was stable to discharge with appropriate follow-up and further treatment, pleural fluid results still pending at time of discharge. - Vitals & Intake/Output Vital Signs: Vital Signs Temperature 97.5 F 09/19/22 12:00 Pulse Rate 111 H 09/19/22 12:00 Respiratory Rate 17 09/19/22 12:00 Blood Pressure 128/79 09/19/22 12:00 O2 Sat by Pulse Oximetry 93 L 09/19/22 12:00 - Lab Result Diagrams: 09/19/22 04:35 09/19/22 11:05 Micro Results-Entire Visit: Microbiology 09/13/22 14:57 Blood Culture Gram Stain - Final Blood Not Reportable Blood Culture - Final NO GROWTH 09/13/22 14:45 Blood Culture Gram Stain - Final Blood Not Reportable Blood Culture - Final NO GROWTH 09/13/22 16:24 Urine Culture - Final Clean Catch Midstream <10K NORMAL SKIN DL PROBABLE SKIN CONTAMINANT - Procedures and Test Procedures and Tests throughout Hospitalization: Therapy Orders & Screens 09/14/22 03:14 Oxygen Nasal Cannula 3 lpm Comment: Diagnosis: LEFT PLEURAL EFFUSION 09/16/22 10:26 EKG STAT Comment: Diagnosis: LEFT PLEURAL EFFUSION 09/17/22 08:09 RT Miscellaneous Order ROUTINE Comment: Physician Instructions: wean O2 as tolerated Reason For Exam: Diagnosis: LEFT PLEURAL EFFUSION Discharge Exam General Appearance: no apparent distress, alert Neurologic Exam: alert, oriented x 3, cooperative, normal mood/affect, nml cerebellar function, sensation nml, No motor deficits Eye Exam: PERRL, EOMI, eyes nml inspection Ears, Nose, Throat Exam: normal ENT inspection, pharynx normal, moist mucous membranes Neck Exam: normal inspection, non-tender, supple, full range of motion Respiratory Exam: normal breath sounds, lungs clear, No respiratory distress Cardiovascular Exam: regular rate/rhythm, normal heart sounds Gastrointestinal/Abdomen Exam: soft, No tenderness, No mass Pelvic Exam: deferred Rectal Exam: deferred Back Exam: normal inspection, normal range of motion, No CVA tenderness, No vertebral tenderness Extremity Exam: normal inspection, normal range of motion Skin Exam: normal color, warm, dry Final Diagnosis/Problem List - Final Discharge Diagnosis/Problem (1) Metastatic breast cancer Status: Chronic Code(s): C50.919 - MALIGNANT NEOPLASM OF UNSP SITE OF UNSPECIFIED FEMALE BREAST (2) Pleural effusion, left Status: Resolved Code(s): J90 - PLEURAL EFFUSION, NOT ELSEWHERE CLASSIFIED - Discharge Discharge Date: 09/19/22 Disposition: HOME HEALTH SERVICE Condition: Fair Prescriptions: New Miconazole Nitrate [Monistat 7] 6.5 gm VG HS Amox Tr/Potass Clav. 875 mg [Augmentin 875-125 Tablet] 1 each PO BID 10 Days #20 tablet clindamycin HCL [Cleocin HCl] 300 mg PO TID 10 Days #30 cap Potassium Chloride 20 meq PO BID 30 Days #60 tablet Continue Vit B12/Intrinsic Fact/Folate [Intrinsi [id number]-[id number] Tablet] 1 tab PO DAILY Multivit with Iron,Minerals [Multivitamins with Iron] 1 tab PO DAILY Alprazolam [Xanax] 0.5 mg PO BID PRN PRN PRN Reason: Anxiety Famotidine 20 mg PO DAILY Ondansetron ODT 4 MG [Zofran Odt 4 mg] 4 mg PO Q4H PRN PRN PRN Reason: Nausea Diphenhydramine HCl 25 mg [Benadryl 25 mg Capsule] 25 mg PO TID PRN PRN Reason: Itching Melatonin 10 mg PO HS Letrozole 2.5 mg PO HS Sulfamethoxazole/Trimethoprim [Bactrim Ds Tablet] 1 each PO BID Hydrocodone/Acetaminophen [Hydrocodone-Acetamin 5-325 mg] 1 tab PO Q4HPRN PRN PRN Reason: Pain Apixaban [Eliquis] 2.5 mg PO DAILY Omeprazole 20 mg PO DAILY Diltiazem HCl Cd [Cardizem CD ] 180 mg PO DAILY Instructions: Pleural Effusion (DC) Additional Instructions: WEAR 3L/NC AT ALL TIMES AT HOME, CALL [facility] AT [phone] WHEN YOU GET HOME SO THEY CAN DELIVER YOUR HOME CONCENTRATOR REFERRAL WAS SENT TO [facility]- THEY WILL CONTACT YOU FOR A VISIT. THEIR PHONE NUMBER IS [phone]. Follow up with: SIDDHARTHA PERALES [Primary Care Provider] - 09/23/22 9:45 am Forms: Discharge Instructions
== END 2022-09-19 15:49 | disposition home health service (06) | DRG 598 ==
LOC: ED 13:45 → MED SURG 19:30 → OBSVTOIN 09-14 14:00
PROVIDERS: ADMIT Family Medicine; ATTEND Family Medicine
DX: C50.912 Malignant neoplasm of unspecified site of left female breast (principal); J90 Pleural effusion, not elsewhere classified; N39.0 Urinary tract infection, site not specified; N10 Acute pyelonephritis; M89.8X9 Other specified disorders of bone, unspecified site; I11.0 Hypertensive heart disease with heart failure; I50.9 Heart failure, unspecified; J40 Bronchitis, not specified as acute or chronic; I25.2 Old myocardial infarction; E86.9 Volume depletion, unspecified; Z79.01 Long term (current) use of anticoagulants; Z79.899 Other long term (current) drug therapy; Z20.828 Contact with and (suspected) exposure to other viral communicable diseases
CPT/HCPCS: 00524; 0241U; 32554; 36000; 36415; 71045; 71260; 80053; 81015; 82150; 82945; 83036; 83605; 83615; 83690; 83735; 83880; 84132; 84145; 84157; 84315; 84484; 85025; 85027; 85379; 85652; 87040; 87086; 93005; 93041; 94760; 99100; 99140; 99285; G0378; J0456; J0696; J2250; J2405; Q0162; A9270-GY; J3475